=== PATIENT | female | born 1985 | race Two or more races ===

== ENCOUNTER 2019-10-07 11:30 | Observation (INO) | payer OTHER ==
--- OUTSIDE RECORDS SUMMARY | ~2019-10-07 | XMS | Encounter Summary ---
Demographics + + + | Address | [address] | | | [place] [address] | + + + | Home Phone | | + + + | Preferred Language | Unknown | + + + | Marital Status | | + + + | Oriental Orthodox Affiliation | NON | + + + | Race | White | + + + | Ethnic Group | or | + + + Author + + + | Author | [facility] | + + + | Organization | [facility] | + + + | Address | Unknown | + + + | Phone | Unavailable | + + + Support + + + + + | Name | Relationship | Address | Phone | + + + + + | Alexsander Schmidt | ECON | Unknown | | + + + + + | Sinan Winston | ECON | [address] | | | | | [place], [place] | | | | | [address] | | + + + + + | Polly Winston | ECON | [place], | | + + + + + Care Team Providers + +------+ + | Care Wild Oyster Harvester Name | Role | Phone | + +------+ + | Yuli Franklin | PCP | | + +------+ + Reason for Visit + + + | Reason | Comments | + + + | Follow-up visit | | + + + Office Visit - E/M Services (Routine) +--------+--------+ + + + + | Status | Reason | Specialty | Diagnoses / | Referred By | Referred To | | | | | Procedures | Contact | Contact | +--------+--------+ + + + + | Closed | | Cardiology | Diagnoses | No | Johny, | | | | | Sick sinus | Referring | Grayson Myrick MD | | | | | syndrome | Provider Per | [address] | | | | | ([facility]) Total | Patient NO | Ave | | | | | congenital | REFERRING | [place], [place] | | | | | anomalous | PROVIDER PER | [address] | | | | | pulmonary | PT | Phone: | | | | | venous | | [phone] | | | | | connection | | Fax: | | | | | Procedures | | [phone] | | | | | ND EST | | | | | | | PATIENT | | | | | | | LEVEL V | | | +--------+--------+ + + + + Encounter Details +--------+---------+ + + + | Date | Type | Department | Care Team | Description | +--------+---------+ + + + | 01/27/ | Office | Cardiology General | Louisa Reed | Congenital heart | | 2018 | Visit | at [facility] [address] | LEONARD Raphael [address] | disease (Primary Dx) | | | | [facility] | [facility]eban [facility] | | | | | Health and Healing, | [place] [address] | | | | | [address] | [phone] | | | | | [place], [place] | | | | | | [address] | | | | | | [phone] | | | +--------+---------+ + + + Social History + +-------+ +--------+------+ | Tobacco Use | Types | Packs/Day | Years | Date | | | | | Used | | + +-------+ +--------+------+ | Never Smoker | | | | | + +-------+ +--------+------+ + +---+---+---+ | Smokeless Tobacco: | | | | | Never Used | | | | + +---+---+---+ + + +---------+ + | Alcohol Use | Drinks/Week | oz/Week | Comments | + + +---------+ + | Not Asked | | | | + + +---------+ + + + + | Sex Assigned at | Date Recorded | | | | + + + | Not on file | | + + + + + + + | Job Start Date | Occupation | Industry | + + + + | Not on file | Not on file | Not on file | + + + + + + + + | Travel History | Travel Start | Travel End | + + + + + + | No recent travel history available. | + + documented as of this encounter Last Filed Vital Signs + + + + + | Vital Sign | Reading | Time Taken | Comments | + + + + + | Blood Pressure | 113/60 | 01/27/2018 1:15 PM | | | | | PST | | + + + + + | Pulse | 80 | 01/27/2018 1:15 PM | | | | | PST | | + + + + + | Temperature | 36.4 C (97.6 F) | 01/27/2018 1:15 PM | | | | | PST | | + + + + + | Respiratory Rate | - | - | | + + + + + | Oxygen Saturation | 100% | 01/27/2018 1:15 PM | | | | | PST | | + + + + + | Inhaled Oxygen | - | - | | | Concentration | | | | + + + + + | Weight | 77.6 kg (171 lb) | 01/27/2018 1:15 PM | | | | | PST | | + + + + + | Height | - | - | | + + + + + | Body Mass Index | 31.28 | 08/16/2017 2:04 PM | | | | | PDT | | + + + + + documented in this encounter Patient Instructions Patient Instructions Louisa Reed NP - 01/27/2018 1:20 PM PST Thank you for your visit today. We will see you in your first trimester, with our combined Maternal Medicine Clinic. Let us know if you have questions There is no contraindication of the BARBRA bracelet Adult Congenital Heart Disease Clinic MD Halyie Nolen MD Adrienne Kovacs, Psychologist PhD LEONARD Mondragon, [facility]y Overton, RN Important Phone Numbers Adult Congenital Cardiology Office: [phone] (ask for Mavis) Clinic Nurse, Genny Overton: [phone] Clinic [phone] Echo lab [phone] Radiology Scheduling (including MRI, ask essie Zelaya): [phone] Pulmonary function [phone] medical lab scientist [phone] After hours emergency: [phone] Long distance: Financial Assistance: [phone] Website: [email or web address] Satellite Clinics: Karolina Traylor [phone] Gunner [phone] Yearly flu vaccine is the first and most important step in protecting against flu viruses. While there are many different flu viruses, a flu vaccine protects against the viruses that research suggests will be most common. Upcoming Events Help Support the Cyrus Villanueva In recognition of Dr. Cyrus Hobbs's role, over 55 years providing life-long care for anna lee with congenital heart disease at [facility], we, as well as family, friends, colleagues, and p [facility] have contributed to a growing fund to establish and endowed professorship in Cyrus ge, and invite you to join us. You can donate by going to the [facility] [employer] e: [email or web address] [employer] Tour, benefiting the Aiden Villanueva and [facility] . Pleasant walk around the [place], then take one home for mom. July 09 at 11:00am . Contact Paul Crowe ([email or web address]) [facility] Heart Children's Camp October 16-2018 Summer week long camp geared towards children with congenital heart disease ADULT VOLUNTEERS NEEDED for next summer. Come mentor the next generation of ACHD patients. If your interested, please visit website: [email or web address] Email director Thirsting for a Cure 2018, a building dismantler for pulmonary arterial hypertension. Oct 5:30ish to 9:30ish at the [employer]. [facility] Heart and Stroke Walk July 30, 2018 Torres Jacobs [address] [address] We support the Adult Congenital Heart Association and invite you to be a member, to promote patient peer support, education, community events, patient advocacy, and research in congen ital heart disease. Details at [email or web address] Web based, fun interactive learning: [email or web address] documented in this encounter Progress Notes Louias Reed NP - 01/27/2018 1:20 PM PSTFormatting of this note might be differen t from the original. ADULT CONGENITAL HEART CLINIC PROGRESS NOTE Joie Villarreal is a 31 y.o. female here for Follow-up visit PCP: No Pcp Past Medical History: 1. 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 Pacemaker implanted (age 13) 1999 for sick sinus syndrome with AV node dysfunction (Dr Jeremi vasquez) 2.29 November 1998 episodic lightheadedness. Holter monitor demonstrated sinus bradycardia w ith low heart rates in the 30s. Although it was not established that sinus node dysfunction was the cause of her lighthead edness, in view of the significant sinus bradycardia, was decided to perform a pacemaker imp lantation. 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 She and her are desiring a . Has a BARBRA watch which is a biochemistry sensor to track ovulation Exercising Device checks follows by [facility] and is updated SHe lives in [facility]. Accompanied by her mom today. ROS: As above, all other reviewed systems were negative, specifically, no headaches, swall owing problems, cough or hemoptysis, heat or cold intolerance, nausea, vomiting, diarrhea, h ematuria, melena, fever, chills, shakes, rash or bruise, numbness or tingling. FHx: Unchanged from last visit No past encounter found in . SHx: Nonsmoker; Lives in [place]; Works for [employer]. Marri ed. ETOH: glass of wine with dinner 2-3 times per week. Current Outpatient Prescriptions Medication Sig buPROPion XL 150 mg oral tablet extended release 24 hr Take 150 mg by mouth once daily in the morning. cetirizine 10 mg oral tablet Take 10 mg by mouth once daily. levonorgestrel (MIRENA) 20 mcg/24 hour (5 years) intrauterine intrauterine device 1 eac h by intrauterine route once. May be removed and replaced with a new unit at anytime during menstrual cycle; do not leave any one system in place for > 5 years. No current facility-administered medications for this visit. Physical Exam: BP 113/60 | Pulse 80 | Temp (Src) 36.4 C (97.6 F) (Forehead) | Wt 77.6 kg (171 lb) | Sp O2 100% | BMI 31.28 kg/(m^2) GEN: Well appearing JVP: Not elevated. Normal waveform CAROTID: Normal upstroke. CHEST: Normal respiratory effort. Clear to auscultation throughout. HEART: Regular rate and rhythm.+systolic murmur. No diastolic murmur. Second heart dillon nd normal. ABDOM: Soft, non tender, no organomegaly EXTREM: No edema, no clubbing SKIN: Warm and dry NEURO: Awake and oriented DATA: Lab Results Component Value Date RATE 60 07/06/2017 ATRIALRATE 60 07/06/2017 ND 177 07/06/2017 QRS 152 07/06/2017 QT 453 07/06/2017 PAXIS -36 07/06/2017 RAXIS -86 07/06/2017 Echo 01/28/2017 Final Impressions: 1. The left ventricular cavity size is normal. 2. The LV ejection fraction is normal. 3. Right ventricular size, thickness and function are normal. 4. No significant valvular abnormalities seen. 5. There is a posterior common baffle of the pulmonary veins without evidence of baffle obstruction. 6. Compared to the most recent exam dated, 12/25/2014, there are no significant changes. Impression: Joie is a 32 y.o NYHA class I. Repair of TAPV return, SSS with pacemaker. Well compensat ed on exam, no concerns or issues reported. Normal LV function, no residual shunts. She shou ld tolerate well. She understands her risk of congenital heart disease to her off spring is slightly higher than the general public at about 7-10%. A echo is recommende d at 20-24 weeks. She desires to establish with our Combined Cardiac Maternal Medicine Program at [facility] which we plan this visit in her first trimester as well as echo. I reviewed the BARBRA bracelets literature on line, this is simply a monitoring device and no triggers or stimulus to hemodynamics, including her PM. This sensor is no different than any other bioc hemistry bracelets. I also reviewed the literature with LUIS MIGUEL Mccall in EP who also agreed there is no contraindication to patient wearing this bracelet. Recommendations/Plan: Echo at next visit Return for follow-up visit first trimester. We had a discussion about the risks of endocarditis related to oral yaquelin, emphasising the need for routine oral hygiene and indications for antibiotic prophylaxis in patients with re sidual shunts around a patch, prosthetic valves including homografts, cyanosis, or prior hea rt transplant. Regular brushing/flossing and dental visits were emphasized. Based on this our recommendations are that prophylactic antibiotics are not indicated. Medication change? N Referral? (Interventional cardiology/EP/surgical)? Y------> [facility], message to Vickie. Plan to call patient? N Who will call patient and when? documented in th is encounter Plan of Treatment +--------+ + + + + | Date | Type | Specialty | Care Team | Description | +--------+ + + + + | 10/18/ | Appointment | Radiology | | | | 2019 | | | | | +--------+ + + + + | 10/18/ | | | Nellie Munson, | | | 2019 | | | [address] [facility] | | | | | | [address] | | | | | | [place], [place] | | | | | | [address] | | | | | | [phone] | | | | | | | | +--------+ + + + + documented as of this encounter Visit Diagnoses + + | Diagnosis | + + | Congenital heart disease - Primary Unspecified congenital anomaly of heart | + + documented in this encounter"
--- OUTSIDE RECORDS SUMMARY | ~2019-10-07 | XMS | Encounter Summary ---
Demographics + + + | Address | [address] | | | [place] [address] | + + + | Home Phone | | + + + | Preferred Language | Unknown | + + + | Marital Status | | + + + | Sabianist Affiliation | NON | + + + | Race | White | + + + | Ethnic Group | or | + + + Author + + + | Author | [facility] | + + + | Organization | [facility] | + + + | Address | [...] [address] | | | | | [place], [place] | | | | | [address] | | + + + + + | Polly Winston | ECON | [place], | | + + + + + Care Team Providers + +------+ + | Care Demand Inspector Name | Role | Phone | + +------+ + | Gabrielle Mott MD | PCP | | + +------+ + Encounter Details +--------+ + + + + | Date | Type | Department | Care Team | Description | +--------+ + + + + | 12/06/ | Office | [facility] | Note, Outpatient | Progress Note | | 1998 | Visit-Trans | MEDICINE | Clinic | | | | cribed | | | | +--------+ + + + + Social History + +-------+ +--------+------+ | Tobacco Use | Types | Packs/Day | Years | Date | | | | | Used | | + +-------+ +--------+------+ | Never Assessed | | | | | + +-------+ +--------+------+ + + + | Sex Assigned at [...] + + documented as of this encounter Progress Notes Interface, Marketing And Development Coordinator In - 02/05/2006 3:10 AM PSTCLINIC DATE: 12/06/1998 [facility] SUBJECTIVE: Joie is now almost 13 years of age. She is a girl who is postoperative repair of total anomalous pulmonary veins, when she was [age] days of age, in [place]. She had been doing well until a few days ago when she felt lightheaded and was consequently hospitalized with a Holter because of her bradycardia. In retrospect, I note that she had had some episodes of lightheadedness in the past, but at no time had she passed out and this is true at this time. There was no true syncope. The Holter monitoring done when she was in the hospital revealed no symptoms and during that time, she had a heart rate that ranged between low 40s to 94. It was of note that when she has bradycardia, she has episodes of inter beats with ventricular escape and occasional premature atrial contraction noted. When she is at a more rapid rate, she is in a sinus rhythm. OBJECTIVE: Her physical examination today is unchanged, other than her height and weight. She weighs 109 and 3/4rds pounds. She is 61 inches tall. The blood pressure is 102/38, heart rate is 59/min and her arterial saturation by pulse oximeter at room air is 100%. Palpation of the precordium reveals no overactivity nor thrill. Abdominal examination was negative without hepatosplenomegaly, masses or tenderness. She has good pulses in both the upper and lower extremities. No edema is noted and no neck vein distention is noted. Lungs are clear. She continues to have a grade II systolic murmur along the left sternal border. No abnormality of the second heart sound is noted. It splits normally and there is no accentuation of the pulmonary component. I heard no diastolic murmur today and there was no S3 or S4 heard. ASSESSMENT: At this time, I feel that continued observation is appropriate. I did exercise Sarah very briefly, and she got her heart rate up to 100, and it was quite regular at 100. I am sure that if she did more exercise, she could get her heart rate up to a much higher level. Because of this, I feel that there is no reason to limit her activity at this time. Certainly, if there are further episodes of presyncope or if she ever does have true syncope, consideration for pacing should be given more serious thought. However, at this time, I feel that this is not necessary. I will be discussing this with our crop and soil technician to see how they would proceed. However, judging from my discussions with Dr. Mullen in the past, I would anticipate that he would be conservative in this situation. Cyrus Hobbs M.D. Professor, Pediatric Cardiology TRACY/derrell Cc: JEAN MARIE MOTT MD [address] [place] [id number] signed by Interface, Marketing And Development Coordinator In at 02/05/2006 3:10 AM PSTdocumented in this encounter Plan of Treatment +--------+ + + + + | Date | Type | Specialty | Care Team | Description | +--------+ + + + + | 10/18/ | Appointment | Radiology | | | | 2019 | | | | | +--------+ + + + + | 10/18/ | | | Nellie Munson, | | | 2019 | | | [address] [facility] | | | | | | [address] | | | | | | [place], [place] | | | | | | [address] | | | | | | [phone] | | | | | | | | +--------+ + + + + documented as of this encounter Visit Diagnoses Not on filedocumented in this encounter"
--- OUTSIDE RECORDS SUMMARY | ~2019-10-07 | XMS | Encounter Summary ---
Demographics + + + | Address | [address] | | | [place] [address] | + + + | Home Phone | | + + + | Preferred Language | Unknown | + + + | Marital Status | | + + + | Jehovah'S Witness Affiliation | NON | + + + | Race | White | + + + | Ethnic Group | or | + + + Author + + + | Author | [facility] | + + + | Organization | [facility] | + + + | Address | [...] [place], [place] | | | | | [address] | | + + + + + | Polly Winston | ECON | [place], | | + + + + + Care Team Providers + +------+ + | Care Apron Cleaner Name | Role | Phone | + +------+ + | Gabrielle Fernández MD | PCP | | + +------+ + Encounter Details +--------+---------+ + + + | Date | Type | Department | Care Team | Description | +--------+---------+ + + + | 09/25/ | Office | Pediatric | Antonio Hines, | 427.81 SICK SINUS | | 2009 | Visit | Cardiology at | [address] [facility] | SYNDROME (Primary | | | | [place] | [facility] [address] [address] | Dx) | | | | [facility] | [place], [place] | | | | | [address] | [address] | | | | | Emeli | [phone] | | | | | [facility] | | | | | | [address] [facility], | | | | | | [place] [address] | | | | | | [phone] | | | +--------+---------+ + + + [...] documented as of this encounter Progress Notes Antonio Hines MD - 09/25/2009 4:06 PM PDTThis is a Carelink check of the ventricular p acemaker done on 09/22/09 in Joie Villarreal who is a 23 y.o. 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 Device: Medtronic Sensia Implanted: 08/13/08 RULA: no ADVISORY: NO Mode: VVIR Lower Rate: 60 Upper Rate: 170 Battery Voltage: 2.79 volts Cell Impedance: 187 ohms Estimated battery longevity: 7.5 years (range 6-8.5) Patient is not pacer dependent. Telephone monitoring is: on Output (v) Pulse Width (ms) Sensitivity (mv) Right Ventricle 2.5 0.45 2.8 TESTING: Threshold testing was performed. RT VENTRICLE RV threshold volts: 0.875 v RV threshold PW: 0.4 ms RV lead impedance: 680 ohms R Wave Amplitude: unable to check She is paced 82% of the time. Ventricular capture looks good. Programming Changes: None. I am pleased with this check. The next check will be in 3 months. documented in this e ncounter Plan of Treatment +--------+ + + + + | Date | Type | Specialty | Care Team | Description | +--------+ + + + + | 10/18/ | Appointment | Radiology | | | | 2019 | | | | | +--------+ + + + + | 10/18/ | | | Nellie Munson, | | | 2019 | | | [address] [facility] | | | | | | [address] | | | | | | [place], [place] | | | | | | [address] | | | | | | [phone] | | | | | | | | +--------+ + + + + documented as of this encounter Visit Diagnoses + + | Diagnosis | + + | 427.81 SICK SINUS SYNDROME - Primary Sinoatrial node dysfunction | + + documented in this encounter"
--- OUTSIDE RECORDS SUMMARY | ~2019-10-07 | XMS | Encounter Summary ---
Demographics + + + | Address | [address] | | | [place] [address] | + + + | Home Phone | | + + + | Preferred Language | Unknown | + + + | Marital Status | | + + + | Jehovah'S Witness Affiliation | NON | + + + | Race | White | + + + | Ethnic Group | or | + + + Author + + + | Organization | Unknown | + + + | Address | [...] [address] | | | | | [place] | | | | | [address] | | + + + + + | Polly Winston | ECON | ANAYA, | | + + + + + Care Team Providers + +------+ + | Care Medium Cycle Salesperson Name | Role | Phone | + +------+ + | Gabrielle Fernández MD | PCP | | + +------+ + Encounter Details +--------+ + + + + | Date | Type | Department | Care Team | Description | +--------+ + + + + | 10/12/ | Transcribed | | Dictation, Other | Transcribed | | 2000 | | | | | +--------+ + [...] as of this encounter Progress Notes Interface, Social Sciences Department Chair In - 12/11/2005 1:05 AM [facility] [place] [address] [address] or October 12, 2000 Gabrielle Fernández M.D. [address] [facility] [place] [address] RE: JOIE MANCIA MR #: [id number] Dear Dr. Fernández: I saw Joie for followup today. 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 Last year, she was diagnosed with significant sick sinus syndrome and underwent pacemaker placement. Please refer to my letter dated June 03, 1999, and also the most recent check which was September 21, 2000, of her pacemaker. Apart from some occasional joint pains, Joie has no complaints. She also says she occasionally feels pain/itching in her pacemaker area, but this is extremely rare. She is a very active young girl who dances and has been tolerating this well. She has no complaints such as lightheadedness or syncope. All other aspects of the history including review of systems, family history, past history, and social history are all unchanged and similar to that dated June 03, 1999. ALLERGIES: SHE IS ALLERGIC TO CODEINE. CURRENT MEDICATIONS: Desogen once a day. Physical examination shows a well-appearing 14-year-old girl with a weight of 54.4 kg, height 158 cm, blood pressure 120/58, heart rate 64, and saturations 100%. She was comfortable at rest with no evidence of anemia, jaundice, clubbing, cyanosis, or peripheral edema. Peripheral pulses are normally palpable. Abdomen was soft with no hepatosplenomegaly. Pacemaker was felt in the left pectoral region, and the wound is well healed. Chest appeared normal with no deformities, and auscultation revealed normal breath sounds with no crepitations. Cardiovascular, auscultation revealed normal first and second heart sounds and a grade 2 to 3 over 6 ejection systolic murmurs similar to the one heard before. Chest x-ray taken today shows mild cardiomegaly with a lead in the right ventricle which is attached to the left pectoral pacemaker in the infraclavicular region. Pacemaker check today shows a Medtronic [place] pacemaker set at a rate of 60 beats per minute pacing the ventricle. Ventricular sensing threshold was greater than 11.2 and pacing threshold was 0.5V at 1 ms and 0.12 ms at 2V. Underlying rhythm was sinus bradycardia with first-degree heart block at 50 beats per minute. She was 55% paced. Battery voltage was 2.79, cell impedence 110 ohms, and lead impedence was 840 ohms. Estimated time to replacement was 102 months. Since she had a very flat rate cystogram, we felt that increasing her heart rate during exercise would be beneficial to her. Therefore, the pacemaker mode was changed to VVIR which is a rate response mode and the rates were now set at between 60 to 150 beats per minute. No other changes were made, and in particular, no changes were made to the current outputs. Joie seems to be doing very well and so is her pacemaker. She will be seeing Dr. Hobbs in the winter and will come back here for pacemaker followup in 1 year. At that time, I would like to get an echocardiogram and a chest x-ray. I thank you for letting me continue to follow this francisco young lady. If you have any questions, do let me know. Yours sincerely, Antonio Hines M.D. KATYA / ELADIO [id number] / [id number] / [id number] / cc: Cyrus Hobbs M.D. [facility] Department of Pediatric Cardiology [facility] [id number] signed by Interface, Social Sciences Department Chair In at 12/11/2005 1:05 AM PDTInterf eyad, Social Sciences Department Chair In - 12/11/2005 1:05 AM PDT [address] [address] or October 12, 2000 Gabrielle Fernández M.D. [address] [place] [address] RE: JOIE MANCIA MR #: [id number] Dear Dr. Fernández: I saw Joie for followup today. 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 Last year, she was diagnosed with significant sick sinus syndrome and underwent pacemaker placement. Please refer to my letter dated June 03, 1999, and also the most recent check which was September 21, 2000, of her pacemaker. Apart from some occasional joint pains, Joie has no complaints. She also says she occasionally feels pain/itching in her pacemaker area, but this is extremely rare. She is a very active young girl who dances and has been tolerating this well. She has no complaints such as lightheadedness or syncope. All other aspects of the history including review of systems, family history, past history, and social history are all unchanged and similar to that dated June 03, 1999. ALLERGIES: SHE IS ALLERGIC TO CODEINE. CURRENT MEDICATIONS: Desogen once a day. Physical examination shows a well-appearing 14-year-old girl with a weight of 54.4 kg, height 158 cm, blood pressure 120/58, heart rate 64, and saturations 100%. She was comfortable at rest with no evidence of anemia, jaundice, clubbing, cyanosis, or peripheral edema. Peripheral pulses are normally palpable. Abdomen was soft with no hepatosplenomegaly. Pacemaker was felt in the left pectoral region, and the wound is well healed. Chest appeared normal with no deformities, and auscultation revealed normal breath sounds with no crepitations. Cardiovascular, auscultation revealed normal first and second heart sounds and a grade 2 to 3 over 6 ejection systolic murmurs similar to the one heard before. Chest x-ray taken today shows mild cardiomegaly with a lead in the right ventricle which is attached to the left pectoral pacemaker in the infraclavicular region. Pacemaker check today shows a Medtronic [place] pacemaker set at a rate of 60 beats per minute pacing the ventricle. Ventricular sensing threshold was greater than 11.2 and pacing threshold was 0.5V at 1 ms and 0.12 ms at 2V. Underlying rhythm was sinus bradycardia with first-degree heart block at 50 beats per minute. She was 55% paced. Battery voltage was 2.79, cell impedence 110 ohms, and lead impedence was 840 ohms. Estimated time to replacement was 102 months. Since she had a very flat rate cystogram, we felt that increasing her heart rate during exercise would be beneficial to her. Therefore, the pacemaker mode was changed to VVIR which is a rate response mode and the rates were now set at between 60 to 150 beats per minute. No other changes were made, and in particular, no changes were made to the current outputs. Joie seems to be doing very well and so is her pacemaker. She will be seeing Dr. Hobbs in the winter and will come back here for pacemaker followup in 1 year. At that time, I would like to get an echocardiogram and a chest x-ray. I thank you for letting me continue to follow this francisco young lady. If you have any questions, do let me know. Yours sincerely, Antonio Hines M.D. Department of Pediatrics, Division of Cardiology KATYA / ELADIO [id number] / [id number] / [id number] / cc: Cyrus Hobbs M.D. [facility] Department of Pediatric Cardiology [facility] [id number] signed by Cesilia Baltazar In at 12/11/2005 1:05 AM PDTdocume nted in this encounter Plan of Treatment +--------+ + + + + | Date | Type | Specialty | Care Team | Description | +--------+ + + + + | 10/18/ | Appointment | Radiology | | | | 2020 | | | | | +--------+ + + + + | 10/18/ | | | Nellie Munson, | | | 2019 | | | [address] | | | | | | [address] | | | | | | [place], [place] | | | | | | [address] | | | | | | [phone] | | | | | | | | +--------+ + + + + documented as of this encounter Visit Diagnoses Not on filedocumented in this encounter"
--- OUTSIDE RECORDS SUMMARY | ~2019-10-07 | XMS | Encounter Summary ---
Demographics + + + | Address | [address] | | | [place] [address] | + + + | Home Phone | | + + + | Preferred Language | Unknown | + + + | Marital Status | | + + + | Tenriism Affiliation | NON | + + + | Race | White | + + + | Ethnic Group | or | + + + Author + + + | Author | [facility] | + + + | Organization | [facility] | + + + | Address [...] [address] | | | | | [facility] [place] | | | | | [address] | | + + + + + | Polly Winston | ECON | ANAYA, | | + + + + + Care Team Providers + +------+ + | Care Irrigation Service Technician Name | Role | Phone | + +------+ + | No Pcp Per Patient | PCP | Unavailable | + +------+ + Reason for Referral Diagnostic Testing (Routine) +--------+--------+ + + + + | Status | Reason | Specialty | Diagnoses / | Referred By | Referred To | | | | | Procedures | Contact | Contact | +--------+--------+ + + + + | Closed | | Cardiology | Diagnoses | Reed, | Car Echo | | | | | Total | Louisa | [facility] [address] | | | | | congenital | [place], [employer]SEK[employer]PER | [address] | | | | | anomalous | [address] | [facility] pulmonary | Ave | Health and | | | | | venous | [place], [place] | Healing, | | | | | connection | [address] | [address] | | | | | Pacemaker | Phone: | [place], [place] | | | | | Procedures | [phone] | [address] | | | | | TRANSTHORACI | Fax: | Phone: | | | | | C | [phone] | [phone] | | | | | ECHOCARDIOGR | | | | | | | AM, ADULT | | | +--------+--------+ + + + + Encounter Details +--------+ + + + + | Date | Type | Department | Care Team | Description | +--------+ + + + + | 12/20/ | Insurance Examining Clerk | Cardiology [facility] at | Louisa Reed | Total congenital | | 2014 | | [facility] [address] | [place], [employer]AGE [employer]SEK[employer]PER [address] | anomalous pulmonary | | | | [address] [facility] | [address] [place], | venous connection | | | | Health and Healing, | [place] [address] | (Primary Dx); | | | | | [phone] | Medtronic single | | | | Floor [place], [place] | | chamber pacemaker | | | | [address] | | | | | | [phone] | | | +--------+ + + + [...] + + documented as of this encounter Plan of Treatment +--------+ + + + + | Date | Type | Specialty | Care Team | Description | +--------+ + + + + | 10/18/ | Appointment | Radiology | | | | 2020 | | | | | +--------+ + + + + | 10/18/ | | | Nellie Munson, | | | 2020 | | | [address] [facility] | | | | | | [address] | | | | | | [place], [place] | | | | | | [address] | | | | | | [phone] | | | | | | | | +--------+ + + + + documented as of this encounter Procedures + +--------+ + + + | Procedure Name | Priori | Date/Time | Associated Diagnosis | Comments | | | ty | | | | + +--------+ + + + | 12 LEAD ECG | Routin | 12/25/2014 | Total congenital | Results for this | | | e | 2:39 PM | anomalous pulmonary | procedure are in the | | | | PDT | venous connection | results section. | | | | | Medtronic single | | | | | | chamber pacemaker | | + +--------+ + + + | TRANSTHORACIC | Routin | 12/25/2014 | Total congenital | Results for this | | ECHOCARDIOGRAM, | e | 1:06 PM | anomalous pulmonary | procedure are in the | | ADULT | | PDT | venous connection | results section. | | | | | Medtronic single | | | | | | chamber pacemaker | | + +--------+ + + + documented in this encounter Results 12 LEAD ECG (12/25/2014 2:39 PM PDT) + + + + + + | Component | Value | Ref Range | Performed | Pathologist | | | | | At | Signature | + + + + + + | VENTRICULAR | 74 | bpm | [facility] | | | RATE | | | OF | | | | | | CARDIOLOGY | | + + + + + + | ATRIAL RATE | 74 | bpm | [facility] | | | | | | OF | | | | | | CARDIOLOGY | | + + + + + + | P-R | 316 | ms | [facility] | | | INTERVAL | | | OF | | | | | | CARDIOLOGY | | + + + + + + | P AXIS | 0 | deg | [facility] | | | | | | OF | | | | | | CARDIOLOGY | | + + + + + + | QRS | 130 | ms | [facility] | | | DURATION | | | OF | | | | | | CARDIOLOGY | | + + + + + + | QT | 412 | ms | [facility] | | | | | | OF | | | | | | CARDIOLOGY | | + + + + + + | DEISY | 457 | ms | [facility] | | | | | | OF | | | | | | CARDIOLOGY | | + + + + + + | R AXIS | -69 | deg | [facility] | | | | | | OF | | | | | | CARDIOLOGY | | + + + + + + | T AXIS | 133 | deg | [facility] | | | | | | OF | | | | | | CARDIOLOGY | | + + + + + + | ECG | VENTRICULAR-PACED | | [facility] | | | IMPRESSION | RHYTHM- ABNORMAL ECG | | OF | | | | -Electronically signed | | CARDIOLOGY | | | | by: RANJAN RÍOS 12-25-2014 | | | | | | 15:57:46 | | | | + + + + + + + + | Specimen | + + | | + + + + + | Narrative | Performed At | + + + | | | + + + + + + + + | Performing | Address | City/State/Zipcode | Phone Number | | Organization | | | | + + + + + | [facility] | [address] | [place], [place] | | | CARDIOLOGY | [address] | [address] | | + + + + + TRANSTHORACIC ECHOCARDIOGRAM, ADULT (12/25/2014 1:06 PM PDT) + + + + + + | Component | Value | Ref Range | Performed | Pathologist | | | | | At | Signature | + + + + + + | EJECTION | 60 to 65 | | [facility] | | | FRACTION | | | OF | | | | | | CARDIOLOGY | | + + + + + + | LA | 2.9 | | [facility] | | | DIMENSION | | | OF | | | | | | CARDIOLOGY | | + + + + + + | LVIDD | 4.2 | | [facility] | | | | | | OF | | | | | | CARDIOLOGY | | + + + + + + | MV A VMAX | 0.4 | | [facility] | | | | | | OF | | | | | | CARDIOLOGY | | + + + + + + | MV E? | 0.1 | | [facility] | | | | | | OF | | | | | | CARDIOLOGY | | + + + + + + | MV E VMAX | 1.1 | | [facility] | | | | | | OF | | | | | | CARDIOLOGY | | + + + + + + | RVSP | 26 | | [facility] | | | | | | OF | | | | | | CARDIOLOGY | | + + + + + + | RV TAPSE | 1.3 | | [facility] | | | | | | OF | | | | | | CARDIOLOGY | | + + + + + + | RV TDI S? 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
--- OUTSIDE RECORDS SUMMARY | ~2019-10-07 | XMS | Encounter Summary ---
Demographics + + + | Address | [address] | | | [place] [address] | + + + | Home Phone | | + + + | Preferred Language | Unknown | + + + | Marital Status | | + + + | Protestant Affiliation | NON | + + + | Race | White | + + + | Ethnic Group | or | + + + Author + + + | Author | [facility] | + + + | Organization | [facility] | + + + | Address | [...] [place], [place] | | | | | [address] | | + + + + + | Polly Winston | ECON | ANAYA, | | + + + + + Care Team Providers + +------+ + | Care As400 Operator Name | Role | Phone | + +------+ + | Yuli Franklin | PCP | | + +------+ + Encounter Details +--------+ + + + + | Date | Type | Department | Care Team | Description | +--------+ + + + + | 09/08/ | Ancillary | Registration [id number] | Carlos Hinesdri, | | | 2005 | Registratio | [facility] [address] | [address] [facility] | | | | [address] | [address] Mailcode: [id number] | [facility] | | | | | [place], [place] | [place] | | | | | [address] | [address] | | | | | [phone] | [phone] | | | | | | | [...] [address] | | | | | | [place], [place] | | | | | | [address] | | | | | | [phone] | | | | | | | | +--------+ + + + + documented as of this encounter Visit Diagnoses Not on filedocumented in this encounter"
--- OUTSIDE RECORDS SUMMARY | ~2019-10-07 | XMS | Encounter Summary ---
Demographics + + + | Address | [address] | | | [place] [address] | + + + | Home Phone | | + + + | Preferred Language | Unknown | + + + | Marital Status | | + + + | Anabaptism Affiliation | NON | + + + [...] [place], [place] | | | | | [address] | | + + + + + | Polly Winston | ECON | ANAYA, | | + + + + + Care Team Providers + +------+ + | Care Classroom Coordinator Name | Role | Phone | + +------+ + | Yuli Franklin | PCP | | + +------+ + Reason for Referral Diagnostic Testing (Routine) +--------+--------+ + + + + | Status | Reason | Specialty | Diagnoses / | Referred By | Referred To | | | | | Procedures | Contact | Contact | +--------+--------+ + + + + | Closed | | Cardiac | Diagnoses | Henrikson, | Car Cardiac | | | | Catheterizati | Heart block | Bethel Lizarraga, | Twisthand | | | | on | Procedures | MD [address] | [address] | | | | | CONTROL CLERK SUBASSEMBLY | [address] Hernandez | David Lopez | | | | | EP PACEMAKER | Jessica Alfredo | Juni FU | | | | | [place] UPGRADE | [place], [place] | [facility] | | | | | OF | [address] | Floor | | | | | PACEMAKER | Phone: | [place], [place] | | | | | SYSTEM [place] | [phone] | [address] | | | | | INSERT | Fax: | Phone: | | | | | PACING | [phone] | [phone] | | | | | ELECT, AT | | Fax: | | | | | INSERT NEW | | [phone] | | | | | DEVICE | | | +--------+--------+ + + + + Reason for Visit AUTH/CERT +--------+--------+ + + + + | Status | Reason | Specialty | Diagnoses / | Referred By | Referred To | | | | | Procedures | Contact | Contact | +--------+--------+ + + + + | | | | | | | +--------+--------+ + + + + Encounter Details +--------+ + + + + | Date | Type | Department | Care Team | Description | +--------+ + + + + | 07/05/ | Hospital | [address] | Bethel Salvador | | | 2018 - | Encounter | Jean Claude Lizarraga MD [address] | | | | | [address] [place] [address] | [address] | | | 07/06/ | | [place], [place] | [place] | | | 2018 | | [address] | [address] | | | | | [phone] | [phone] | | | | | | | [...] + + + | Blood Pressure | 112/70 | 07/06/2017 7:14 AM | | | | | PDT | | + + + + + | Pulse | 60 | 07/06/2017 7:15 AM | | | | | PDT | | + + + + + | Temperature | 37 C (98.6 F) | 07/06/2017 7:15 AM | | | | | PDT | | + + + + + | Respiratory Rate | 16 | 07/06/2017 7:15 AM | | | | | PDT | | + + + + + | Oxygen Saturation | 100% | 07/06/2017 7:15 AM | | | | | PDT | | + + + + + | Inhaled Oxygen | - | - | | | Concentration | | | | + + + + + | Weight | 73 kg (160 lb 15 oz) | 07/05/2017 1:21 PM | | | | | PDT | | + + + + + | Height | 157.5 cm (5' 2") | 07/05/2017 1:21 PM | | | | | PDT | | + + + + + | Body Mass Index | 29.44 | 07/05/2017 1:21 PM | | | | | PDT | | + + + + + documented in this encounter Discharge Summaries Анна Ahumada PA-C - 07/06/2017 7:28 AM PDT ELECTROPHYSIOLOGY DISCHARGE SUMMARY Hospital Day: 1 Admit Date: 07/05/2017 Discharge Date: 07/06/17 PCP: LUIS MIGUEL Hoff Referring Physician & Institution: No Referring Provider Per Patient Primary/Outpatient Tape Editor: Louisa Reed NP EP Physician: Bethel Salvador MD Inpatient Attending Physician: Bethel Salvador MD Reason For Admission: Upgrade to TAR CHASER-P Hx: Joie Villarreal is a 31 yo F with a past medical history of 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 There have been prior failed attempts at placing an atrial lead presumably due to scarring in the atrium af ter her surgery. She presents for device upgrade to BIV PPM due to her high V pacing burden. Hospital Course: - 07/05/2017 -- Upgrade of single chamber (VVI) PPM to TAR CHASER-P. Of note, after atrial lead was implanted, pt was noted to have intact AV conduction however, would wenckebach at at rate of 90bpm. A His Bundle lead was attempted, however, ultimately unable to be placed. - 07/06/2017 -- Pt seen and examined this morning. She reports feeling well at this time. She does have mild discomfort at the device site which is relieved with oral pain medication. S he otherwise denies chest pain, shortness of breath, palpitations, nausea or lightheaded/diz ziness. She has been ambulating well and is looking forward to going home. Discharge Medications: Medication List START taking these medications HYDROcodone-acetaminophen 5-325 mg Tab Commonly known as: NORCO Take 1-2 tablets by mouth every six hours as needed for severe pain. CONTINUE taking these medications buPROPion XL 150 mg Tb24 Commonly known as: WELLBUTRIN-XL Take 150 mg by mouth once daily in the morning. cetirizine 10 mg Tab Commonly known as: ZYRTEC Take 10 mg by mouth once daily. MIRENA 20 mcg/24 hr (5 years) Iud Generic drug: levonorgestrel 1 each by intrauterine route once. May be removed and replaced with a new unit at anytime d uring menstrual cycle; do not leave any one system in place for > 5 years. Physical Exam: Last Vitals: BP 112/70 | Pulse 60 | Temp 37 C (98.6 F) | RR 16 | Ht 1.575 m (5' 2") | W t 73 kg (160 lb 15 oz) | SpO2 100% | BMI 29.44 kg/(m^2) O2 Delivery Device: None (room air) (07/06/17714) 24 Hour Vital Min/Max: No data recorded. No data recorded. Pulse Av.9 Min: 60 Max: 80 Temp Av.9 C (98.4 F) Min: 36.8 C (98.2 F) Max: 37 C (98.6 F) Resp Av.1 Min: 12 Max: 24 SpO2 Av.1 % Min: 90 % Max: 100 % Intake/Output Summary (Last 24 hours) at 07/06/17727 Last data filed at 07/05/17 1945 Gross per 24 hour Intake 1215 ml Output 0 ml Net 1215 ml Gen'l: Pt A&O, NAD HEENT: Normocephalic, atraumatic, mucosa moist, neck supple without evidence of JVD Chest/Lungs: Lungs: CTAB without wheezes, rhonchi or rales. Left infraclavicular site c/d/i without evidence of hematoma or active oozing. The pressure dressing was removed and a new 4x4 dry dressing was placed. Steri-strips remain intact Cardiac: RRR without murmurs, rubs or gallops. Abdomen: Soft, non-tender with NABS Extremities: No clubbing cyanosis or edema noted. LABS: Complete Blood Count Lab Results Component Value Date WBC See [facility] 08/13/[address] [facility] 08/13/[address] [facility] 08/13/[address] [facility] 08/13/[address] [facility] 08/13/[address] [facility] 08/13/2008 EKG: AV pacing 60bpm TELE: AV pacing 60's - 80's CXR: EXAM: CHEST 2 VIEWS HISTORY: Confirm lead placement COMPARISON: 07/05/17 FINDINGS: Left subclavian 3-lead pacer is intact and has leads terminating in the coronary sinus, rig ht ventricular apex, right atrial appendage. The mediastinum is unremarkable. There is mild bibasilar atelectasis, the lungs are otherwi se clear. There is no pleural effusion or pneumothorax. There is no apparent fracture. IMPRESSION: Left subclavian approach pacer with intact right atrial appendage, right ventricular and co ronary sinus leads. No pneumothorax. Minimal bibasilar atelectasis, otherwise clear lungs. DEVICE INTERROGATION: Device Information: BiV-pacemaker pulse generator: Blender Laborer: StepOne Model number: [id number] Serial number: [id number] Implant date: 07/05/2017 RA lead: Blender Laborer: Medtronic Model number: 5076-45 Serial number: [id number] Implant date: 07/05/2017 RV lead: Blender Laborer: Pacesetter Model number: [id number] Serial number: [id number] Implant date: 08/11/1999 CS lead: Blender Laborer: Medtronic Model number: [id number] Serial number: [id number] Implant date: 07/05/2017 PACEMAKER PROGRAMMING: Ramesh Mode: DDDR Lower Rate: 60 bpm Upper Tracking Rate: 170 bpm Upper Sensor Rate: 170 bpm PAV/SHIKHA: 150/110ms Mode Switch: on Mode Switch Trigger Rate: 200 bpm Mode Switch to DDIR RA Output: 3.5 V @ 0.4 ms RA Sensitivity: 0.3 mV RV Output: 3.0 V @ 0.4 ms RV Sensitivity: 0.9 mV LV Output: 3.5 V @ 0.4 ms EPISODES SINCE IMPLANT: none. PACING PERCENTAGE: AP: 100% BiVP: 100% TODAY'S TESTING RESULTS: Battery status: Battery Voltage/Current:3.16 V RULA: 2.60V. Estimate Longevity: Initializing RA lead: Impede: 380 ohms P. Wave Amplitude: None @ DDD 30bpm Threshold: 0.5 V @ 0.4 ms RV lead: Impede: 513 ohms R. Wave Amplitude: 2.0-6.0 mV Threshold: 1.5 V @ 0.4 ms LV lead: Impede: 1045 ohms Threshold: 2.0 V @ 0.4 ms Patient IS pacer dependent. There is no underlying atrial activity at DDD 30bpm. However, w hen pacing the atrium, there is intact AV conduction Underline rhythm today is no underlying atrial activity at DDD 30bpm. However, when pacing the atrium, there is intact AV conduction Programming Changes: None. Returned to initial pre-interrogation settings after threshold t esting completed. 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 There hav e been prior failed attempts at placing an atrial lead presumably due to scarring in the atr ium after her surgery. She presents for device upgrade to BIV PPM due to her high V pacing b josise. # SSS - S/P single chamber PPM at RULA - S/P Upgrade to Medtronic TAR CHASER-P 07/05/2017 - Of note, after atrial lead was implanted, pt was noted to have intact AV conduction h owever, would wenckebach at at rate of 90bpm. A His Bundle lead was attempted, however, kyle mately unable to be placed. 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 Why: @1:30 For Follow Up, For a device check Contact information [address] [place] [address] LUIS MIGUEL HOFF In 1 week. Specialty: Physician Oil Field Rig Builder Why: For a wound check Contact information [facility] [address] [place] [address] documented in thi s encounter Progress Notes Andrew Quintero MD - 07/05/2017 6:11 PM PDTPRELIMINARY PROCEDURE NOTE Date and Time: 07/05/2017 6 pm Name(s) of Primary Surgeon/Physician and Assistants: Ingrid Salvador Pre-Operative Diagnosis:SSS, High RV pacing burden Post-Operative Diagnosis:Same Name of Procedure Performed:Biventricular pacemaker upgrade Indication for the procedure:As above Findings of the Procedure:successful biventricular upgrade Intra-operative complications:None noted Estimated Blood Loss:10 mL Plan: - portable CXR now - 2 view CXR tomorrow - 2 more doses of Ancef - Interrogate tomorrow Andrew Alcala Mai, MD Electrophysiology Fellow Division of Cardiovascular Medicine [facility] Pager [phone] Анна Ahumada PA-C - 07/05/2017 3:41 PM PDTPacemaker Implant Patient Instructions These instructions are pertinent to pacemaker new implant, pacemaker upgrade or revision wi th new lead(s). Driving: ? No driving for the first 24 hours after your procedure as you may be under the influence of sedative medications. ? You should not drive if you are taking pain medications or sedative medications around th e clock. ? For the first week, you should also avoid driving too much as over aggressive arm motion may cause dislodgement of the newly implanted pacemaker leads. ? You should not drive any time if you feel weak, dizzy, lightheaded, drowsy, or unsteady f rom any causes. ? If you have had syncopal events (fainting or loss of consciousness) before your pacemaker implant, please check with your attendance officer as to whether or not you can drive. You should not drive until you are cleared by your attendance officer. ? If you have driving restrictions from any other medical conditions or reasons, please fol low those restrictions. Wound Care: ? Watch your pacemaker procedure site for signs of infection or bleeding. Report any rednes s, swelling, bleeding, hematoma (bleeding inside the pocket), or drainage from the site. Rep ort any unexplained fever with temperatures over 100.5 degrees in the first two weeks follow ing the procedure. ? The incision will be closed with absorbable stitches under the skin and covered with ster i-strips. Do not pull these steri-strips off. Usually, they will fall off gradually after a few weeks. If they do not, you may remove them after 3 weeks. ? A pressure-dressing (thick layered dressing with all-around tape) will be placed above th e steri-strips over the incision at the end of procedure. This will be removed the next morn ing and replaced with regular gauze by our staff. You may take this dressing off the day aft er you get home. ? No direct water on the incision site for at least 5 days that means no shower, tub ba th, or swimming. You can take a sponge bath but keep the procedure site completely dry. ? Do not immerse the wound in a bath tub, pool or hot tub for one month, to reduce the risk of infection. Follow-ups after the procedure: ? You will need a wound check appointment in about one week and pacemaker check in 4-6 week s following the implant procedure. ? If you prefer to have your primary care doctor check the wound for you, please call his/h er office to make an appointment. If you choose to be followed with us, our office will cont act you to schedule an appointment. ? The pacemaker needs to be checked at a cardiology office or device clinic. If you choose to be followed with us, our office will contact you to schedule an appointment. If you prefe r to be followed locally, please ask your doctor to refer you to a local cardiology/device c linic before discharge. ? After the first pacemaker check appointment, you will need to have your pacemaker checked regularly at the device clinic every 6 months or as directed by the device clinic. ? In some situations, the device company will send you a remote monitor. Please read the in structions regarding how to set this up, and discuss with the device clinic staff at your wo und check appointment or 4-6 week pacemaker check appointment. Arm Activities and Restrictions: ? For the first 6 weeks, restrict the procedure side arm activity to gentle arm motion only as the new pacemaker leads will take about 4-6 weeks to mature at the implant site in your heart. Do not lift anything heavier than 10 pounds, push or pull heavy objects, reach for s omething higher than your shoulder or reach behind your back, and avoid over-aggressive arm motions (i.e. tennis, painting, lawn mowing) with your procedure side arm. ? You may use your non-procedure side arm regularly without restrictions. ? We recommend regular exercise as you are able to, such as walking, or stationary biking. If you do not know how to begin a regular activity program, please ask your doctor for moi dawkins. Arm Sling: ? If you are given an arm sling at the hospital after your procedure, only use it for the f irst couple of days following the procedure for your comfort. ? You should take your arm out every couple of hours and move your hand/elbow to allow good circulation while you are using the arm sling. ? You should not hold your arm still in the sling for a prolonged period of time, as it may cause swelling, soreness, or stiffness in your arm and joints. Diet: ? Your diet should not have to be changed as a result of your pacemaker implant procedure. ? You may be given diet recommendations based on your other health conditions. Electrical interference: Pacemakers are protected from electrical interference from regular house electronic binh paul or appliances. It is safe to use and to be around a microwave oven, computer, TV or oth er regular house electronic devices or appliances. ? You should avoid using any power tools especially with your procedure side hand. If you h ave questions about specific electrical devices or power tools you may be around, please santosh l the company's patient line using the phone # on your card or handbook. ? Your pacemaker function may be affected by strong magnets so you should avoid being aroun d strong magnetic patrick for prolonged periods of time. The pacemaker will return to normal function as soon as you leave the magnetic field. Cell Phone Use: ? It is OK to use a cell phone on the opposite side of your pacemaker (use non-procedure si de hand to hold the cell phone to non-procedure side ear). ? Do not carry a cell phone in the pocket that is over your pacemaker or near your pacemake r. Travel and Shopping: Your device may trigger airport security detection devices. Please carry your pacemaker card with you and show the attendant your card. Ask for a hand search and do not use hand-he ld wand search over the device. It is safe to go through the full body scanner at the [facility], but only after 6 weeks post pacemaker implant as this requires you to put your hands abov e your head Some department stores and grocery stores have anti-theft doors. Please do not lean agai nst these anti-theft doors. Walk through them at a normal pace. Pacemaker Wallet Card: You will be given a handbook in the hospital after the implant procedure, which contains important information about your device and has answers to most common questions. Please re ad it thoroughly and be sure to have your questions answered before leaving the hospital. You will receive a wallet size ID card in the mail from the device company in about 2-3 weeks. Please always carry the card with you when you go to doctor s appointments, the [facility] room, or hospital so other health care providers will know what type of pacemaker you have. You can find the company s patient line phone number in the handbook as well as on you r card. You can contact the company if you have any technical questions regarding your devic e. How to Contact us: Cardiology Division Office [phone] Cardiology Patient Phone Line BELLE Marie Dr[address] Dr., Dr., PA-C Karen Paladino, RN Evenings or weekends: Ask for on-call attendance officer documented in thi s encounter Plan of Treatment +--------+ + + [...] [address] | | | | | | [place], [place] | | | | | | [address] | | | | | | [phone] | | | | | | | | +--------+ + + + + documented as of this encounter Procedures + +--------+ + + + | Procedure Name | Priori | Date/Time | Associated Diagnosis | Comments | | | ty | | | | + +--------+ + + + | 12 LEAD ECG | Routin | 07/06/2017 | | Results for this | | | e | 8:12 AM | | procedure are in the | | | | PDT | | results section. | + +--------+ + + + | X-RAY CHEST 2 VIEW | Routin | 07/06/2017 | | Results for this | | | e | 5:52 AM | | procedure are in the | | | | PDT | | results section. | + +--------+ + + + | PROCEDURE NOTE | Routin | 07/05/2017 | | Results for this | | | e | 6:40 PM | | procedure are in the | | | | PDT | | results section. | + +--------+ + + + | X-RAY PORTABLE CHEST | Routin | 07/05/2017 | | Results for this | | 1 VIEW | e | 6:33 PM | | procedure are in the | | | | PDT | | results section. | + +--------+ + + + | CONTROL CLERK SUBASSEMBLY EP | Routin | 07/05/2017 | Heart block | Results for this | | PACEMAKER | e | 1:55 PM | | procedure are in the | | | | PDT | | results section. | + +--------+ + + + | HCG URINE, POC | Routin | 07/05/2017 | Heart block | Results for this | | | e | 1:53 PM | | procedure are in the | | | | PDT | | results section. | + +--------+ + + + | INTRAPROCEDURE | Routin | 07/05/2017 | | Results for this | | IMAGING | e | 1:08 PM | | procedure are in the | | | | PDT | | results section. | + +--------+ + + + | CARDIOLOGY | | 07/05/2017 | | Results for this | | | | 12:00 AM | | procedure are in the | | | | PDT | | results section. | + +--------+ + + + documented in this encounter Results 12 LEAD ECG (07/06/2017 8:12 AM PDT) + + + + + + | Component | Value | Ref Range | Performed | Pathologist | | | | | At | Signature | + + + + + + | VENTRICULAR | 60 | bpm | [facility] | | | RATE | | | OF | | | | | | CARDIOLOGY | | + + + + + + | ATRIAL RATE | 60 | ms | [facility] | | | | | | OF | | | | | | CARDIOLOGY | | + + + + + + | P-R | 177 | ms | [facility] | | | INTERVAL | | | OF | | | | | | CARDIOLOGY | | + + + + + + | P AXIS | -36 | deg | [facility] | | | | | | OF | | | | | | CARDIOLOGY | | + + + + + + | QRS | 152 | ms | [facility] | | | DURATION | | | OF | | | | | | CARDIOLOGY | | + + + + + + | QT | 453 | ms | [facility] | | | | | | OF | | | | | | CARDIOLOGY | | + + + + + + | QTC-GRABIEL | 453 | ms | [facility] | | | | | | OF | | | | | | CARDIOLOGY | | + + + + + + | R AXIS | -86 | deg | [facility] | | | | | | OF | | | | | | CARDIOLOGY | | + + + + + + | T AXIS | 107 | deg | [facility] | | | | | | OF | | | | | | CARDIOLOGY | | + + + + + + | ECG | Atrial-ventricular | | [facility] | | | IMPRESSION | dual-paced rhythm- | | OF | | | | ABNORMAL ECG - | | CARDIOLOGY | | + + + + + + | ECG | Electronically signed | | [facility] | | | IMPRESSION | by: SHAY VILLANUEVA | | OF | | | | 07-07-2017 20:33:10 | | CARDIOLOGY | | + + [...] | + + + + + | [facility] OF | [address] | [place], [place] | | | CARDIOLOGY | [address] | [address] | | + + + + + X-RAY CHEST 2 VIEW (07/06/2017 5:52 AM PDT) + + | Specimen | + + | | + + + + + | Narrative | Performed At | + + + | EXAM: CHEST 2 VIEWS HISTORY: Confirm lead placement | [facility] | | COMPARISON: 07/05/17 FINDINGS: Left subclavian 3-lead pacer is | RADIOLOGY VOICE | | intact and has leads terminating in the coronary sinus, right | RECOGNITION | | ventricular apex, right atrial appendage. The mediastinum is | | | unremarkable. There is mild bibasilar atelectasis, the lungs are | | | otherwise clear. There is no pleural effusion or pneumothorax. There | | | is no apparent fracture. IMPRESSION: Left subclavian approach | | | pacer with intact right atrial appendage, right ventricular and | | | coronary sinus leads. No pneumothorax. Minimal bibasilar | | | atelectasis, otherwise clear lungs. I have personally reviewed | | | the images and, if necessary, edited the report. I agree with the | | | report as now presented. | | + + + + + | Procedure Note | + + | Service Account, Lorie Res In Interface - 07/06/2017 8:12 AM PDT EXAM: CHEST 2 | | VIEWS HISTORY: Confirm lead placementCOMPARISON: 07/05/17INDINGS: Left subclavian 3-lead | | pacer is intact and has leads terminating in the coronary sinus, right ventricular apex, | | right atrial appendage.The mediastinum is unremarkable. There is mild bibasilar | | atelectasis, the lungs are otherwise clear. There is no pleural effusion or | | pneumothorax. There is no apparent fracture.IMPRESSION:Left subclavian approach pacer | | with intact right atrial appendage, right ventricular and coronary sinus leads. No | | pneumothorax.Minimal bibasilar atelectasis, otherwise clear lungs.I have personally | | reviewed the images and, if necessary, edited the report. I agree with the report as | | now presented. | |The mediastinum is unremarkable. There is mild bibasilar atelectasis, the lungs are otherwi se clear. There is no pleural effusion or pneumothorax. There is no apparent fracture. | | | |IMPRESSION: | | | |Left subclavian approach pacer with intact right atrial appendage, right ventricular and co ronary sinus leads. No pneumothorax. | | | |Minimal bibasilar atelectasis, otherwise clear lungs. | | | | | |I have personally reviewed the images and, if necessary, edited the report. I agree with t he report as now presented. | + + + +---------+ + + | Performing | Address | City/State/Zipcode | Phone Number | | Organization | | | | + +---------+ + + | [facility] | | | | | VOICE RECOGNITION | | | | + +---------+ + + PROCEDURE NOTE (07/05/2017 6:40 PM PDT) + + + | Narrative | Performed At | + + + | Bethel Salvador MD 07/06/2017 8:43 PM PATIENT NAME: | | | Joie Villarreal DATE OF PROCEDURE: 07/05/2017 MRN: | | | [id number] DATE OF : 1985 REFERRING PHYSICIAN: | | | LUIS MIGUEL Hoff PRIMARY CARE PHYSICIAN: LUIS MIGUEL Hoff | | | PROCEDURES PERFORMED: 1. Successful biventricular pacemaker | | | upgrade 2. 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 | | | Her device is approaching RULA, and she would benefit from an | | | upgrade to a BiV PPM for AV and ventricular synchrony PROCEDURE | | | ATTENDING: Bethel Salvador MD FELLOW: Andrew Quintero MD | | | PROCEDURAL DATA: Procedure: Biventricular pacemaker upgrade | | | Implanted generator assembly repairer: Medtronic Implanted leads | | | assembly repairer: Medtronic, Pacesetter Jany-procedure Anticoag: None | | | Presenting rhythm: Sinus rhythm with 1:1 conduction, but | | | Wenckebach at > 80 bpm Existing device under advisory? Not | | | applicable Pacemaker dependent: No Method of sedation: Moderate | | | sedation via anesthesia Response to sedation: Normal Fluoroscopy | | | time (see log): 46-48 minutes MEDICATIONS: See | | | anesthesia log and rags laborer log INTAKE AND OUTPUT: 500/0 mL | | | Fluoroscopy Time: 47.3 minutes Fluoroscopy DAP: 850.0 cGy cm2 | | | PROCEDURE NARRATIVE: Following oral and written informed consent, | | | the patient was brought to the Electrophysiology Laboratory in the | | | postabsorptive, nonsedated state. Cefazolin 2gm IV was administered | | | preoperatively. The patient was prepped and draped in the usual | | | sterile fashion. A finger oximeter and automatic blood pressure cuff | | | were placed for continuous monitoring. Sedation was achieved by the | | | anesthesiology service. Lidocaine 1% was used for local | | | anesthesia. To determine the adequacy of a channel in the | | | subclavian / axillary venous system, a subclavian / axillary | | | venogram was performed using an injection of dilute contrast via the | | | left brachiocephalic vein. This demonstrated a patent left | | | subclavian vein. A 5 cm incision was made medial and | | | perpendicular to the deltopectoral groove. This was dissected down | | | to the prepectoral fascia at the level of the generator using | | | electrocautery. Using the modified Seldinger technique and | | | fluoroscopy, a micropuncture needle was used to cannulate the | | | extrathoracic axillary vein. A guidewire was inserted to the level | | | of the inferior vena cava. In a similar fashion, the vein was | | | cannulated one additional times using the micropuncture needle and a | | | total of two guidewires were positioned in the inferior vena cava. | | | A 7 Fr Safe sheath was inserted over the remaining guidewire | | | and the wire and dilator were removed. An atrial pacing lead was | | | then introduced into the 7-Fr sheath and using a J-tip stylet, its | | | tip was positioned in the right atrial appendage. The lead was | | | actively fixated in this position. Lead testing showed suitable | | | parameters, with no right hemidiaphragmatic stimulation occurring at | | | an output of 10 V. The 7 Fr sheath was pulled out and peeled | | | away. The lead was anchored to the prepectoral fascia using | | | interrupted silk-0 sutures. Because atrial pacing showed 1:1 AV | | | cheli conduction with a narrow QRS up to 80 bpm (above which there | | | is Wenckebach), we decided to attempt His bundle pacing, and only if | | | this is unsuccessful, then we will perform an LV lead placement. | | | A 10 Fr sheath was inserted over the second wire. A deflectable | | | quadripolar catheter was inserted into this 10 Fr sheath and used to | | | map for the His signal and the coronary sinus, then it was removed. | | | A 7.0 Fr C315 His guide catheter was inserted into this 10 Fr | | | sheath. The NavX electroanatomic mapping system was used to edwige | | | the his bundle and the coronary sinus. Using fluoroscopy, a pacing | | | lead was then introduced into the guide catheter and advanced into | | | the RA septum. The pacing lead was used to map for a His potential, | | | but this could not be seen since the His guide catheter kept | | | pointing the lead tip posterior to the His location. We attempted | | | active fixation of the lead into a potential His site, but there was | | | intermittent capture at 10V at 1.0 msec. After multiple | | | unsuccessful attempts, we abandoned His bundle pacing and proceeded | | | with LV lead placement. The His guide catheter and pacing lead were | | | removed. A 6-Fr deflectable EP mapping catheter was inserted into | | | a cut-away, extended-hook coronary sinus sheath and this system was | | | inserted into the 10-Fr sheath. The EP mapping catheter was used | | | to guide the CS sheath into the CS and was then removed. CS | | | venography using a balloon occluder and Visipaque contrast revealed | | | lateral branch. Multiple unsuccessful attempts were made to place a | | | Whisper wire into this lateral branch of the CS even with the use of | | | a inner CS sheath. There was no lateral branch of the AIV. | | | Fortunately, the middle cardiac vein (MCV) has a posterolateral | | | branch; therefore, we placed the guidewire into the MCV, and a | | | quadripolar CS lead was advanced over this guidewire until its tip | | | was in the lateral branch of the MCV. After testing several | | | pacing configurations for left ventricular capture, the LV1-2 | | | bipolar configuration was selected. Using this configuration, pacing | | | threshold was 2.25 V at 0.5 ms and no diaphragmatic stimulation was | | | observed at an output of 10 V. Other lead parameters were within | | | acceptable limits The inner and outer CS sheath were pulled out of | | | the CS and cut away using a slitter while making sure the CS lead | | | remained in the lateral branch. The 10 Fr sheath was pulled out and | | | peeled away. An anchoring sleeve was advanced over the CS lead and | | | positioned just at the level of the prepectoral fascia, and the lead | | | was anchored to the prepectoral fascia using interrupted silk-0 | | | sutures. A subcutaneous pocket was created using blunt | | | dissection, and hemostasis was achieved with electrocautery. The | | | pocket was irrigated with copious amounts of Bacitracin solution. | | | The leads were then connected to the header of a biventricular | | | pacemaker generator and the leads and pulse generator were | | | positioned inside the pocket. An antibiotic pouch was used to cover | | | the generator. After accounting for all sharps and sponges, the | | | incision was closed in three layers, using Vicryl 2-0 for the deep | | | and superficial layers and Vicryl 4-0 for the subcuticular layer. | | | Bacitracin ointment, Steri-Strips, and a dressing were placed over | | | the incision site. The patient tolerated the entire procedure | | | well. REMOVED DEVICE INFORMATION: Single chamber pacemaker pulse | | | generator: Blender Laborer: Medtronic Model number: [id number] | | | Serial number: [id number] Implant date: 08/13/2008 Explant | | | date: 07/05/2017 DEVICE INFORMATION: BiV-pacemaker pulse | | | generator: Blender Laborer: Medtronic Model number: [id number] Serial | | | number: [id number] Implant date: 07/05/2017 RA lead: | | | Blender Laborer: Medtronic Model number: 5076-45 Serial number: | | | [id number] Implant date: 07/05/2017 RV lead: Blender Laborer: | | | Pacesetter Model number: [id number] Serial number: [id number] | | | Implant date: 08/11/1999 CS lead: Blender Laborer: Medtronic | | | Model number: [id number] Serial number: [id number] Implant date: | | | 07/05/2017 MEASURED PARAMETERS: RA lead: P wave: 2 mV | | | Threshold: 1.0 V at 0.4 ms Impedance: 399 ohms RV lead: | | | R wave: 9 mV Threshold: 1.5 V at 0.4 ms Pacing Impedance: | | | 1083 ohms CS lead: Pacing configuration: LV1-LV2 R wave: | | | NA Threshold: 2.25 V at 0.4 ms Impedance: 1083 ohms | | | Bradycardia Parameters: Mode: DDDR Lower rate limit: 60 | | | Upper rate limit: 170 Output (A): 3.5 V at 0.4 ms Sensitivity | | | (A): 0.3 mV Output (RV): 3.5 V at 0.4 ms Sensitivity (RV): | | | 0.9 mV Output (CS): 3.5 V at 0.4ms ESTIMATED BLOOD LOSS: 15 | | | mL COMPLICATIONS: None DISPOSITION: The patient was | | | transferred to the Procedural Care Unit in good condition. | | | IMPRESSION: Successful upgrade to a biventricular implantable | | | pacemaker via a left axillary approach. RECOMMENDATIONS: | | | Portable CXR to evaluate for lead positions. Continue prophylactic | | | IV antibiotics for 24 hours. PA and lateral CXR in AM to confirm lead | | | position. Device interrogation in AM. Outpatient wound check in one | | | week, device check in one month. Andrew Alcala Mai, MD | | | Electrophysiology Fellow Division of Cardiovascular Medicine | | | [facility] Pager [phone] I was present | | | for and personally performed all critical portions of the | | | procedure. Bethel Salvador M.D. Director, | | | Electrophysiology Carpenter Helperother spatial scientist [place] | | | Cardiovascular Widen [facility] | | | [place] [address] | | + + + X-RAY PORTABLE CHEST 1 VIEW (07/05/2017 6:33 PM PDT) + + | Specimen | + + | | + + + + + | Narrative | Performed At | + + + | EXAM: MO CHEST 1 VIEW HISTORY: Pacer placement COMPARISON: | [facility] | | 10/05/06 FINDINGS: The left subclavian pacer has been replaced. | RADIOLOGY VOICE | | The right ventricular lead is unchanged. New leads have been placed, | RECOGNITION | | which terminate overlying the right atrial appendage and coronary | | | sinus on this single view. Mediastinum is unremarkable. There is | | | mild bibasilar atelectasis. There is no definite effusion. There is no | | | pneumothorax. IMPRESSION: Left subclavian approach pacer with | | | leads in expected location. Mild bibasilar atelectasis. No | | | pneumothorax. I have personally reviewed the images and, if | | | necessary, edited the report. I agree with the report as now | | | presented. | | + + + + + | Procedure Note | + + | Service Account, [email or web address] In Interface - 07/06/2017 8:12 AM PDT EXAM: MO CHEST 1 | | VIEW HISTORY: Pacer placementCOMPARISON: 10/05/06FINDINGS: The left subclavian pacer has | | been replaced. The right ventricular lead is unchanged. New leads have been placed, | | which terminate overlying the right atrial appendage and coronary sinus on this single | | view.Mediastinum is unremarkable. There is mild bibasilar atelectasis. There is no | | definite effusion. There is no pneumothorax.IMPRESSION:Left subclavian approach pacer | | with leads in expected location. Mild bibasilar atelectasis. No pneumothorax.I have | | personally reviewed the images and, if necessary, edited the report. I agree with the | | report as now presented. | | | |Mediastinum is unremarkable. There is mild bibasilar atelectasis. There is no definite effu jennifer. There is no pneumothorax. | | | |IMPRESSION: | | | |Left subclavian approach pacer with leads in expected location. | | | |Mild bibasilar atelectasis. No pneumothorax. | | | | | |I have personally reviewed the images and, if necessary, edited the report. I agree with t he report as now presented. | + + + +---------+ + + | Performing | Address | City/State/Zipcode | Phone Number | | Organization | | | | + +---------+ + + | [facility] | | | | | VOICE RECOGNITION | | | | + +---------+ + + CONTROL CLERK SUBASSEMBLY EP PACEMAKER (07/05/2017 1:55 PM PDT) + + | Specimen | + + | | + + + + + | Narrative | Performed At | + + + | Procedure performed in the Cardiac Twisthand. See procedure notes | | | for details. | | + + + HCG URINE, POC (07/05/2017 1:53 PM PDT) + + + + + + | Component | Value | Ref Range | Performed | Pathologist | | | | | At | Signature | + + + + + + | HCG URINE, | Negative | Negative | [facility] - | | | POC | | | [facility] | | | | | | [facility] | | | | | | OF CARE | | | | | | TESTS | | + + + + + + + + | Specimen | + + | Urine - Urine | | (substance) | + + + + + + + | Performing | Address | City/State/Zipcode | Phone Number | | Organization | | | | + + + + + | [facility] | [address] | [place], [place] | | | [facility] | [address] | [address] | | | TESTS | | | | + + + + + INTRAPROCEDURE IMAGING (07/05/2017 1:08 PM PDT) + + | Specimen | + + | | + + + + + | Narrative | Performed At | + + + | See admission or procedure notes for details of any intraprocedure | | | images obtained. | | + + + CARDIOLOGY (07/05/2017 12:00 AM PDT) + + + | Narrative | Performed At | + + + | | | + + + documented in this encounter Visit Diagnoses + + | Diagnosis | + + | Heart block Conduction disorder, unspecified | + + documented in this encounter Administered Medications + +--------+ +------+------+-------+ | Medication Order | MAR | Action | Dose | Rate | Site | | | Action | Date | | | | + +--------+ +------+------+-------+ | bacitracin-NS IRRIGATION | Given | 07/06/19 | | | Chest | | INTRAPROCEDURE PRN, Starting Mon | | 18 5:42 | | | | | 07/05/17 at 1742, Until Wed07/05/17 | | PM PDT | | | | | at 1742 | | | | | | + +--------+ +------+------+-------+ +---+---+ | | | +---+---+ + +---------+ +-----+---+---+ | ceFAZolin IV 2 gram in dextrose | New Bag | 07/07/19 | 2 g | | | | (RTU) 2 g, intravenous, EVERY 8 | | 18 5:25 | | | | | HOURS, 2 doses, First dose on | | AM PDT | | | | | 07/05/17 at 2200, Last dose on | | | | | | | Wed07/06/17 at 0600 | | | | | | + +---------+ +-----+---+---+ +---------+ +-----+---+---+ | New Bag | 07/06/19 | 2 g | | | | | 18 10:04 | | | | | | PM PDT | | | | +---------+ +-----+---+---+ +---+---+ | | | +---+---+ + +-------+ +-------+---+---+ | cetirizine (ZYRTEC) tablet 10 | Given | 07/07/19 | 10 mg | | | | mg 10 mg, oral, DAILY, First | | 18 7:26 | | | | | dose on Wed07/06/17 at 0900, Until | | AM PDT | | | | | Discontinued | | | | | | + +-------+ +-------+---+---+ + +---+ | | | + +---+ | fentaNYL (SUBLIMAZE) injection | | | 50 mcg 50 mcg, intravenous, | | | POSTPROCEDURE PRN, 4 doses, | | | Starting 07/05/17 at 1813, | | | Until Wed07/06/17 at 1435, severe | | | pain while in Phase I Recovery | | + +---+ | | | + +---+ + +-------+ +---------+---+---+ | HYDROcodone-acetaminophen | Given | 07/07/19 | 2 | | | | (NORCO) 5-325 mg tablet 1-2 | | 18 5:25 | tablets | | | | tablet 1-2 tablet, oral, EVERY 4 | | AM PDT | | | | | HOURS NEEDED, Starting Mon | | | | | | | 07/05/17 at 1856, Until Wed07/06/17 | | | | | | | at 1435, pain | | | | | | + +-------+ +---------+---+---+ +-------+ + +---+---+ | Given | 07/06/19 | 2 | | | | | 18 11:35 | tablets | | | | | PM PDT | | | | +-------+ + +---+---+ | Given | 07/06/19 | 1 tablet | | | | | 18 7:41 | | | | | | PM PDT | | | | +-------+ + +---+---+ + +---+ | | | + +---+ | HYDROcodone-acetaminophen | | | (NORCO) 5-325 mg tablet 1 dose, | | | Starting Wed07/05/17 at 1857, | | | Until Wed07/05/17 at 1858 | | + +---+ | | | + +---+ + +-------+ +-------+---+---+ | iohexol (OMNIPAQUE) 350 mg | Given | 07/06/19 | 15 mL | | | | iodine/mL injection | | 18 2:30 | | | | | INTRAPROCEDURE PRN, Starting Mon | | PM PDT | | | | | 07/05/17 at 1430, Until 07/05/17 | | | | | | | at 1430 | | | | | | + +-------+ +-------+---+---+ + +---+ | | | + +---+ | naloxone (NARCAN) injection | | | intravenous, POSTPROCEDURE PRN, | | | Starting 07/05/17 at 1813, | | | Until 07/06/17 at 1435, | | | hypopnea | | + +---+ | | | + +---+ | ondansetron (ZOFRAN) injection | | | 4 mg 4 mg, intravenous, | | | POSTPROCEDURE PRN, 1 dose, | | | Starting 07/05/17 at 1814, | | | Until 07/06/17 at 1435, | | | nausea/vomiting, 1st line | | + +---+ | | | + +---+ | sodium chloride 0.9% IV | | | infusion 10 mL/hr, intravenous, | | | CONTINUOUS, Starting 07/05/17 | | | at 1315, Until Tu07/06/17 at 1435 | | + +---+ | | | + +---+ documented in this encounter
--- OUTSIDE RECORDS SUMMARY | ~2019-10-07 | XMS | Encounter Summary ---
Demographics + + + | Address | [address] | | | [place] [address] | + + + | Home Phone | | + + + | Preferred Language | Unknown | + + + | Marital Status | | + + + | Worship Affiliation | NON | + + + | Race | White | + + + | Ethnic Group | or | + + + Author + + + | Author | [facility] | + + + | Organization | [facility] | + + + | Address [...] [place], [place] | | | | | [address] | | + + + + + | Polly Winston | ECON | [place], | | + + + + + Care Team Providers + +------+ + | Care Snow Remover Name | Role | Phone | + +------+ + | Gabrielle Mott MD | PCP | | + +------+ + Encounter Details +--------+ + + + + | Date | Type | Department | Care Team | Description | +--------+ + + + + | 03/28/ | Office | [facility] | Note, Outpatient | Progress Note | | 2001 | Visit-Trans | MEDICINE | Clinic | [...] as of this encounter Progress Notes Interface, Registered Health Nurse In - 11/12/2005 6:07 AM PDTCLINIC DATE: 03/28/2001 [facility] SUBJECTIVE: Joie is now 15. She is a young girl who is postoperative repair of total anomalous pulmonary venous drainage done at 1-week of age. Subsequently when she was 13, she was diagnosed with sick sinus syndrome and had a pacemaker put in. Since she had her pacemaker, she has had none of the signs of presyncope that previously were noted. However recently, she has had some symptoms when she was doing some of her swim exercises that she relates as a pounding in the back of her head which, when she stops, her exercises go away slowly. She does not relate to any kind of rhythm disturbance. Her heart is not beating either fast or slow. She otherwise has been well and quite active, continuing with her dance, and it is of note that she does not these symptoms when she is dancing rather vigorously. The mother does relate that she has a new bathing cap which fits rather snugly and it has only been since she has been wearing this that she has been having these symptoms. OBJECTIVE: On examination, she is no distress. She is alert and without cyanosis. She weighs 117-1/2 lb; she is 62 inches tall. Blood pressure is 109/65; heart rate is 75 per minute and regular; her arterial saturation is 99% by pulse oximeter at room air. Palpation of the precordium reveals no overactivity nor thrill. Abdomen examination was negative, without hepatosplenomegaly, masses, or tenderness. The lungs are clear to auscultation. Cardiac auscultation reveals a grade 2 systolic murmur in the pulmonic area. No diastolic murmur is heard. Heart sounds are normal; the second heart sound is normally split. IMPRESSION: I believe that the symptom that Joie relates is most probably due to her swim cap and I advised her to try swimming without it or to put it on when she is not swimming to see what happens when she exercises with it on. Certainly if she does not have the headache when she does not have the swim cap on and then has it when she is doing some other activity and not swimming, it would seem that is the cause for her current symptoms. Otherwise, her pacemaker is functioning well. She has it monitored by telephone every other month and will be seeing Dr. Hines again for followup in August. Cyrus Hobbs M.D. Professor, Pediatric Cardiology EMMANUEL/patsy cc: JEAN MARIE MOTT MD [address] [place] [id number] signed by Interface, Registered Health Nurse In at 11/12/2005 6:07 AM PDTdocumented in this encounter Plan of Treatment +--------+ [...] [address] | | | | | | [place], [place] | | | | | | [address] | | | | | | [phone] | | | | | | | | +--------+ + + + + documented as of this encounter Visit Diagnoses Not on filedocumented in this encounter"
--- OUTSIDE RECORDS SUMMARY | ~2019-10-07 | XMS | Encounter Summary ---
Demographics + + + | Address | [address] | | | [place] [address] | + + + | Home Phone | | + + + | Preferred Language | Unknown | + + + | Marital Status | | + + + | Rastafari Affiliation | NON | + + + | Race | White | + + + | Ethnic Group | or | + + + Author + + + | Author | [facility] | + + + | Organization | [facility] | + + + | Address [...] [address], [place] | | | | | [address] | | + + + + + | Polly Winston | ECON | [place], | | + + + + + Care Team Providers + +------+ + | Care Rehab Nurse Name | Role | Phone | + +------+ + | Gabrielle Fernández MD | PCP | | + +------+ + Encounter Details +--------+ + + + + | Date | Type | Department | Care Team | Description | +--------+ + + + + | 07/30/ | Service Center Supervisor | Pediatric | Antonio Hines, | [phone] SICK SINUS | | 2006 | | Cardiology at | MD [address] | SYNDROME; TAPVR | | | | [place] | [address] | (Total Anomalous | | | | [facility] | [facility] [place] | Pulmonary Venous | | | | [address] | [address] | Return) | | | | Emeli | [phone] | | | | | [facility] | | | | | | [address] [facility], | | | | | | [place] [address] | | | | | | [phone] | | | +--------+ + + + [...] [address] | | | | | | [place], [place] | | | | | | [address] | | | | | | [phone] | | | | | | | | +--------+ + + + + documented as of this encounter Procedures + +--------+ + + + | Procedure Name | Priori | Date/Time | Associated Diagnosis | Comments | | | ty | | | | + +--------+ + + + | X-RAY CHEST 1 VIEW | Routin | 10/05/2006 | 427.81 SICK SINUS | Results for this | | | e | 9:58 AM | SYNDROME TAPVR | procedure are in the | | | | PDT | (Total Anomalous | results section. | | | | | Pulmonary Venous | | | | | | Return) | | + +--------+ + + + documented in this encounter Results CHEST 1 VIEW (10/05/2006 9:58 AM PDT) + + + + + + | Component | Value | Ref Range | Performed | Pathologist | | | | | At | Signature | + + + + + + | CHEST, 1 | Radiologist 1: ZEKE, | | | | | VIEW | Gianni PÉREZEXAM:PA | | | | | | chest COMPARISON:09/16/04 | | | | | | FINDINGS:Pacemaker | | | | | | remains in place with | | | | | | single lead projecting | | | | | | inthe right ventricle. | | | | | | Heart size is | | | | | | unchanged. The lungs | | | | | | areclear. Costophrenic | | | | | | angles are sharp. | | | | | | There is no | | | | | | pulmonaryedema.IMPRESSIO | | | | | | N: 1. 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
--- OUTSIDE RECORDS SUMMARY | ~2019-10-07 | XMS | Encounter Summary ---
Demographics + + + | Address | [address] | | | [place] [address] | + + + | Home Phone | | + + + | Preferred Language | Unknown | + + + | Marital Status | | + + + | Mandaeism Affiliation | NON | + + + | Race | White | + + + | Ethnic Group | or | + + + Author + + + | Author | [facility] | + + + | Organization | [facility] | + + + | Address [...] [place], [place] | | | | | [address] | | + + + + + | Polly Winston | ECON | ANAYA, | | + + + + + Care Team Providers + +------+ + | Care Sleep Technologist Name | Role | Phone | + +------+ + | Yuli Franklin | PCP | | + +------+ + Reason for Visit + + + | Reason | Comments | + + + | Device Check | | + + + | Device Check | | + + + Office Visit - E/M Services (Routine) +--------+--------+ + + + + | Status | Reason | Specialty | Diagnoses / | Referred By | Referred To | | | | | Procedures | Contact | Contact | +--------+--------+ + + + + | Closed | | Cardiology | Diagnoses | Brian, | David, | | | | | Sick sinus | MD Valdez | LEONARD aSlvador | | | | | syndrome | [address] | [address] | | | | | Presence of | [address] | [address] | | | | | cardiac | [place], | [place], [place] | | | | | pacemaker | [place] [address] | [address] | | | | | Primary | Phone: | Phone: | | | | | Diagnosis:42 | [phone] | [phone] | | | | | 7.81 | Fax: | Fax: | | | | | 427.81 SICK | [phone] | [phone] | | | | | SINUS | | | | | | | SYNDROME | | | | | | | Other | | | | | | | Diagnoses:74 | | | | | | | 7.41 | | | | | | | Total | | | | | | | 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 | | | | | | | pulmonary | | | | | | | venous | | | | | | | | | | | | | | | | | | | | | connection | | | | | | | | | | | | | | V45.01 | | | | | | | | | | | | | | Medtronic | | | | | | | single | | | | | | | chamber | | | | | | | pacem | | | | | | | Procedures | | | | | | | DC ICD DVC | | | | | | | PRG EVL,1 | | | | | | | SNGL DC ICD | | | | | | | DVC PRGR | | | | | | | EVL,ASSEMBLY LINE UPHOLSTERER | | | +--------+--------+ + + + + Encounter Details +--------+---------+ + + + | Date | Type | Department | Care Team | Description | +--------+---------+ + + + | 06/07/ | Office | Cardiology | Yanet Smith | 427.81 SICK SINUS | | 2018 | Visit | Arrhythmia at [facility] | [address] | SYNDROME (Primary | | | | [address] | Jessica Alfredo [place], | Dx); Sinoatrial node | | | | [facility] | [place] [address] | dysfunction (HCC) | | | | and Healing, | | | | | | Building | | | | | | Floor [place], [place] | | | | | | [address] | | | | | | [phone] | | | +--------+---------+ + + + [...] documented as of this encounter Progress Notes Yanet Smith - 06/07/2017 11:30 AM JIM REMOTE INTERROGATION REPORT Primary Care Provider: LUIS MIGUEL Hoff Machine Ii Coremaker: GARY team Husker Operator: HARI HISTORY: Joie Villarreal is a 31 y.o. female who has a Medtronic single chamber pacemaker implanted for SSS. ADVISORY and WEAPONS ENGINEER RECOMMENDATIONS: No (confirmed 06/07/17) Presenting Rhythm: V pacing, HR: 80s Underlying Rhythm: Not assessed, this is a remote visit Patient is intermittently dependent (per last office check.) Interrogation Details: SEE MEDIA TAB or HYPERLINKS AT BOTTOM OF DEVICE CHECK ENCOUNTER FOR FULL DEVICE INTERROGATION DATA EVENTS: Since device was last cleared on 01/28/17, there has been 1 ventricular high rate e pisode recorded. EGM shows 7-beat run @ ~200 bpm. PACING PERCENTAGES: WATER CONTROL STATION ENGINEER: 93.1% (last EF 67.5% on 01/28/17) Programming Details: VVIR 60 Remote monitoring: ON and transmitting Device Site: Not assessed, this is a remote visit Conclusion: - Normal device function - Battery is nearing RULA with an range of <1 month to 17 months remaining longevity. Estima bindu 7 months remaining (50% probability) - Lead impedance and pacing thresholds obtained via auto testing are stable. - Programming Changes: N/A - 1 ventricular high rate episode recorded. - Follow-up: q1 month remote checks until RULA is met Associated attestation - Garfield Ryder MD - 06/07/2017 5:59 PM PDTCardiac Electrophysio logy I have reviewed the above device interrogation note and agree with the documented findings. High Tar Worker percentage. Recent EF WNL. Device is nearing RULA. Garfield Ryder MD Cardiac Electrophysiology documented in this encounter Plan of Treatment +--------+ [...] Rd | | | | | | [place], [place] | | | | | | [address] | | | | | | [phone] | | | | | | | | +--------+ + + + + documented as of this encounter Procedures + +--------+ + + + | Procedure Name | Priori | Date/Time | Associated Diagnosis | Comments | | | ty | | | | + +--------+ + + + | CARDIAC DEVICE | Routin | 06/07/2017 | 427.81 SICK SINUS | Results for this | | (PACEMAKER/ICD) | e | 12:00 AM | SYNDROME | procedure are in the | | CHECK - REMOTE | | PDT | | results section. | + +--------+ + + + documented in this encounter Results CARDIAC DEVICE (PACEMAKER/ICD) CHECK - REMOTE (06/07/2017 12:00 AM PDT) + + + | Narrative | Performed At | + + + | | | + + + documented in this encounter Visit Diagnoses + + | Diagnosis | + + | 427.81 SICK SINUS SYNDROME - Primary Sinoatrial node dysfunction | + + documented in this encounter"
--- OUTSIDE RECORDS SUMMARY | ~2019-10-07 | XMS | Encounter Summary ---
Demographics + + + | Address | [address] | | | [place] [address] | + + + | Home Phone | | + + + | Preferred Language | Unknown | + + + | Marital Status | | + + + | Yarsani Affiliation | NON | + + + | Race | White | + + + | Ethnic Group | or | + + + Author + + + | Author | [facility] | + + + | Organization | [facility] | + + + | [...] [address], [place] | | | | | [address] | | + + + + + | Polly Winston | ECON | ANAYA, | | + + + + + Care Team Providers + +------+ + | Care Publication Specialist Name | Role | Phone | + +------+ + | Gabrielle Fernández MD | PCP | | + +------+ + Encounter Details +--------+ + + + + | Date | Type | Department | Care Team | Description | +--------+ + + + + | 09/03/ | Procedure - | UNKNOWN DEPARTMENT | Other, Faculty | ECHO (BEN or TTE) | | 2003 | | [address] [facility] | [phone] | | | | Transcribed | [address] | | | | | | [place], [place] | | | | | | [address] | | | +--------+ + + + [...] documented as of this encounter Progress Notes Other, Faculty - 09/04/2003 12:00 AM PDTAssociated Order(s): TRANSTHORACIC ECHOCARDIOGRAM, ADULT [facility] DATE: 09/04/03 [place], [place] MED REC NO: [id number] NAME: JOIE MANCIA ECHOCARDIOGRAPHY REPORT BIRTHDATE: [birth year] INDICATION FOR STUDY: STATUS POST TOTAL ANOMALOUS PULMONARY VENOUS RETURN. UNIT: STUDY NO: TAPE NO. DIG REQUEST BY: CORNELIO CARDONA MD BP: 108/62 TECH: RI HT: 157.50 CM WT: 56.80 M-MODE:MM 2-D MEASUREMENT LVID (D)43.0 (S)31.0 %FS 28 LA 24.0 IVS (D) 7.0 AO 24.0 LVPW (D) 7.0 DOPPLER:M/S PW CW MMHG PW CW MMHG PULMVEINS 1.35 RVIT 0.65 LVIT 1.60 RVOT 0.80 LVOT 1.15 MPA 1.00 ASAO AP 1.45 TR 2.15 ASAO SSN 1.30 DSAO 1.25 COLOR FLOW 2D & DOPPLER INTERPRETATION 1. 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 PULMONARY VENOUS RETURN IS UNOBSTRUCTED. 2. TRACE MITRAL REGURGITATION. 3. 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 ESTIMATED RIGHT VENTRICULAR PRESSURE IS NORMAL. 4. NORMAL LEFT VENTRICULAR SIZE AND SYSTOLIC FUNCTION. 5. PACER WIRE SEEN IN RIGHT ATRIUM AND RIGHT VENTRICLE. DELMIS ADRIAN M.D. FINAL REPORT documented in this encou nter Plan of Treatment +--------+ + + + [...] Rd | | | | | | [place], [place] | | | | | | [address] | | | | | | [phone] | | | | | | | | +--------+ + + + + documented as of this encounter Procedures + +--------+ + + + | Procedure Name | Priori | Date/Time | Associated Diagnosis | Comments | | | ty | | | | + +--------+ + + + | TRANSTHORACIC | | 09/04/2003 | | Results for this | | ECHOCARDIOGRAM, | | 12:00 AM | | procedure are in the | | ADULT | | PDT | | results section. | + +--------+ + + + documented in this encounter Results TRANSTHORACIC ECHOCARDIOGRAM, ADULT (09/04/2003 12:00 AM PDT) + + | Procedure Note | + + | Other, Faculty - 09/04/2003 12:00 AM PDT [facility] DATE: | | 09/04/03 [place], [place] MED REC NO: [id number] NAME: JOIE MANCIA | | ECHOCARDIOGRAPHY REPORT BIRTHDATE: [birth year] INDICATION FOR STUDY: STATUS POST TOTAL | | ANOMALOUS PULMONARY VENOUS RETURN. UNIT: PC STUDY NO: TAPE NO. DIG REQUEST BY: | | CORNELIO CARDONA MD BP: 108/62 TECH: RI HT: 157.50 CM WT: 56.80 | | M-MODE:MM | | 2-D MEASUREMENT | | LVID (D)43.0 | | (S)31.0 %FS 28 LA 24.0 IVS (D) 7.0 AO 24.0 LVPW (D) 7.0 | | DOPPLER:M/S | | PW CW MMHG PW CW MMHG | | PULMVEINS | | 1.35 RVIT 0.65 LVIT 1.60 RVOT 0.80 LVOT 1.15 MPA 1.00 ASAO AP 1.45 TR 2.15 ASAO SSN | | 1.30 DSAO 1.25 | | COLOR FLOW | | 2D & DOPPLER INTERPRETATION | | 1. TOTAL | | ANOMALOUS PULMONARY VENOUS RETURN (? TYPE) STATUS POST REPAIR. PULMONARY VENOUS RETURN | | IS UNOBSTRUCTED. 2. TRACE MITRAL REGURGITATION. 3. PHYSIOLOGIC TRICUSPID REGURGITATION | | AND PULMONARY INSUFFICIENCY. ESTIMATED RIGHT VENTRICULAR PRESSURE IS NORMAL. 4. NORMAL | | LEFT VENTRICULAR SIZE AND SYSTOLIC FUNCTION. 5. PACER WIRE SEEN IN RIGHT ATRIUM AND | | RIGHT VENTRICLE. DELMIS ADRIAN M.D. FINAL | | REPORT | | PULMVEINS 1.35 | | RVIT 0.65 LVIT 1.60 | | RVOT 0.80 | | LVOT 1.15 | | MPA 1.00 ASAO AP 1.45 | | TR 2.15 ASAO SSN 1.30 | | DSAO 1.25 | | | | COLOR FLOW 2D & DOPPLER INTERPRETATION | | | | 1. TOTAL ANOMALOUS PULMONARY VENOUS RETURN (? TYPE) STATUS POST | | REPAIR. PULMONARY VENOUS RETURN IS UNOBSTRUCTED. | | | | 2. TRACE MITRAL REGURGITATION. | | | | 3. PHYSIOLOGIC TRICUSPID REGURGITATION AND PULMONARY | | INSUFFICIENCY. ESTIMATED RIGHT VENTRICULAR PRESSURE IS NORMAL. | | | | 4. NORMAL LEFT VENTRICULAR SIZE AND SYSTOLIC FUNCTION. | | | | 5. PACER WIRE SEEN IN RIGHT ATRIUM AND RIGHT VENTRICLE. | | | | | | | | DELMIS ADRIAN M.D. | | | | FINAL REPORT | | | | | + + documented in this encounter Visit Diagnoses Not on filedocumented in this encounter"
--- OUTSIDE RECORDS SUMMARY | ~2019-10-07 | XMS | Encounter Summary ---
Demographics + + + | Address | [address] | | | [place] [address] | + + + | Home Phone | | + + + | Preferred Language | Unknown | + + + | Marital Status | | + + + | Islam Affiliation | NON | + + + [...] [place], [place] | | | | | [address] | | + + + + + | Polly Winston | ECON | ANAYA, | | + + + + + Care Team Providers + +------+ + | Care Speech Language Pathologist Prn Name | Role | Phone | + +------+ + | No Pcp Per Patient | PCP | Unavailable | + +------+ + Encounter Details +--------+ + + + + | Date | Type | Department | Care Team | Description | +--------+ + + + + | 12/19/ | Baking Assistant | Cardiology [facility] at | Grayson Mcclain S, | 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 | | [facility] [address] | MD [address] | anomalous pulmonary | | | | [facility] | [facility] [place] | venous connection | | | | Health and Healing, | [address] | (Primary Dx); | | | | | [phone] | Medtronic single | | | | Floor [place], [place] | | chamber pacemaker | | | | [address] | | | | | | [phone] | | | +--------+ + + + [...] | | 2020 | | | [address] [facility] | | | | | | [address] | | | | | | [place], [place] | | | | | | [address] | | | | | | [phone] | | | | | | | | +--------+ + + + + documented as of this encounter Procedures + +--------+ + + + | Procedure Name | Priori | Date/Time | Associated Diagnosis | Comments | | | ty | | | | + +--------+ + + + | 12 LEAD ECG | Routin | 12/26/2013 | Total congenital | Results for this | | | e | 9:38 AM | anomalous pulmonary | procedure are in the | | | | PDT | venous connection | results section. | | | | | Medtronic single | | | | | | chamber pacemaker | | + +--------+ + + + documented in this encounter Results 12 LEAD ECG (12/26/2013 9:38 AM PDT) + + + + + + | Component | Value | Ref Range | Performed | Pathologist | | | | | At | Signature | + + + + + + | VENTRICULAR | 67 | bpm | [facility] | | | RATE | | | OF | | | | | | CARDIOLOGY | | + + + + + + | ATRIAL RATE | 0 | bpm | [facility] | | | | | | OF | | | | | | CARDIOLOGY | | + + + + + + | P-R | 140 | ms | [facility] | | | INTERVAL | | | OF | | | | | | CARDIOLOGY | | + + + + + + | P AXIS | 0 | deg | [facility] | | | | | | OF | | | | | | CARDIOLOGY | | + + + + + + | QRS | 132 | ms | [facility] | | | DURATION | | | OF | | | | | | CARDIOLOGY | | + + + + + + | QT | 432 | ms | [facility] | | | | | | OF | | | | | | CARDIOLOGY | | + + + + + + | QTC-BAZETT | 456 | ms | [facility] | | | | | | OF | | | | | | CARDIOLOGY | | + + + + + + | R AXIS | -65 | deg | [facility] | | | | | | OF | | | | | | CARDIOLOGY | | + + + + + + | T AXIS | 116 | deg | [facility] | | | | | | OF | | | | | | CARDIOLOGY | | + + + + + + | ECG | VENTRICULAR-PACED | | [facility] | | | IMPRESSION | RHYTHM- ABNORMAL ECG | | OF | | | | -Electronically signed | | CARDIOLOGY | | | | by: LIBAN MILTON | | | | | | 12-26-2013 18:18:50 | | | | + + + + + + + + | Specimen | + + | | + + + + + | Narrative | Performed At | + + + | | [facility] | | | CARDIOLOGY | + + + + + | Procedure Note | + + | Kalyani Beverly - 12/26/2013 10:24 AM PDT | + + + + + + + | Performing | Address | City/State/Zipcode | Phone Number | | Organization | | | | + + + + + | [facility] | [address] | [place], [place] | | | CARDIOLOGY | [address] | [address] | | + + + + + documented in this encounter Visit Diagnoses + + | Diagnosis | + + | 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
--- OUTSIDE RECORDS SUMMARY | ~2019-10-07 | XMS | Encounter Summary ---
Demographics + + + | Address | [address] | | | [place] [address] | + + + | Home Phone | | + + + | Preferred Language | Unknown | + + + | Marital Status | | + + + | Episcopalian Affiliation | NON | + + + | Race | White | + + + | Ethnic Group | or | + + + Author + + + | Author | [facility] | + + + | Organization | [facility] | + + + | Address [...] [address], [place] | | | | | [address] | | + + + + + | Polly Winston | ECON | ANAYA, | | + + + + + Care Team Providers + +------+ + | Care Clinical Audiologist Name | Role | Phone | + +------+ + | Gabrielle Fernández MD | PCP | | + +------+ + Encounter Details +--------+ + + + + | Date | Type | Department | Care Team | Description | +--------+ + + + + | 09/26/ | Telephone | Pediatric | Carlos Hinesdri, | | | 2009 | | Cardiology at | MD [address] [facility] | | | | | [place] | [facility] | | | | | [facility] | [place], [place] | | | | | [address] | [address] | | | | | [place] | [phone] | | | | | [facility] | | | | | | [address]th [facility], | | | | | | [place] [address] | | | | | | [phone] | | | +--------+ + + + [...] | | 2019 | | | [address] | | | | | | [address] | | | | | | [place], [place] | | | | | | [address] | | | | | | [phone] | | | | | | | | +--------+ + + + + documented as of this encounter Visit Diagnoses Not on filedocumented in this encounter"
--- OUTSIDE RECORDS SUMMARY | ~2019-10-07 | XMS | Encounter Summary ---
Demographics + + + | Address | [address] | | | [place] [address] | + + + | Home Phone | | + + + | Preferred Language | Unknown | + + + | Marital Status | | + + + | Catholic Affiliation | NON | + + + | Race | White | + + + | Ethnic Group | or | + + + Author + + + | Author | [facility] | + + + | Organization | [facility] | + + + | Address | [...] [address], [place] | | | | | [address] | | + + + + + | Polly Winston | ECON | ANAYA, | | + + + + + Care Team Providers + +------+ + | Care Sweater Operator Name | Role | Phone | + +------+ + | Yuli Franklin | PCP | | + +------+ + Reason for Visit + + + | Reason | Comments | + + + | Patient referral | [facility] | + + + Encounter Details +--------+ + + + + | Date | Type | Department | Care Team | Description | +--------+ + + + + | 01/27/ | Telephone | [facility] Nellie Munson, | Patient referral | | 2018 | | Health [address] | [address] | (Maternal cardiac | | | | [address] | [facility] | [facility]) | | | | [place], 7th floor | [place], [place] | | | | | [place], [place] | [address] | | | | | [address] | [phone] | | | | | [phone] | | | +--------+ + + + [...] [address] | | | | | | [place] | | | | | | [address] | | | | | | [phone] | | | | | | | | +--------+ + + + + documented as of this encounter Visit Diagnoses Not on filedocumented in this encounter"
--- OUTSIDE RECORDS SUMMARY | ~2019-10-07 | XMS | Encounter Summary ---
Demographics + + + | Address | [address] | | | [place] [address] | + + + | Home Phone | | + + + | Preferred Language | Unknown | + + + | Marital Status | | + + + | Mandaeism Affiliation | NON | + + + | Race | White | + + + | Ethnic Group | or | + + + Author + + + | Author | [facility] | + + + | Organization | [facility] | + + + | [...] [place], [place] | | | | | [address] | | + + + + + | Polly Winston | ECON | ANAYA, | | + + + + + Care Team Providers + +------+ + | Care Veterinary Practitioner Name | Role | Phone | + +------+ + | Gabrielle Fernández MD | PCP | | + +------+ + Encounter Details +--------+ + + + + | Date | Type | Department | Care Team | Description | +--------+ + + + + | 02/11/ | Telephone | Pediatric | Carlos Hinesdri, | | | 2008 | | Cardiology at | MD [address] [facility] | | | | | [place] | [facility] | | | | | [facility] | [place], [place] | | | | | [address] | [address] | | | | | [place] | [phone] | | | | | [facility] | | | | | | [address]th [facility], | | | | | | [place] [address] | | | | | | [phone] | | | +--------+ + + + [...] [address] | | | | | | [place], [place] | | | | | | [address] | | | | | | [phone] | | | | | | | | +--------+ + + + + documented as of this encounter Visit Diagnoses Not on filedocumented in this encounter"
--- OUTSIDE RECORDS SUMMARY | ~2019-10-07 | XMS | Encounter Summary ---
Demographics + + + | Address | [address] | | | [place] [address] | + + + | Home Phone | | + + + | Preferred Language | Unknown | + + + | Marital Status | | + + + | Synagogue Affiliation | NON | + + + | Race | White | + + + | Ethnic Group | or | + + + Author + + + | Author | [facility] | + + + | Organization | [facility] | + + + | Address [...] [place], [place] | | | | | [address] | | + + + + + | Polly Winston | ECON | ANAYA, | | + + + + + Care Team Providers + +------+ + | Care Clinical Trial Head Name | Role | Phone | + +------+ + | Yuli Franklin | PCP | | + +------+ + Encounter Details +--------+ + + + + | Date | Type | Department | Care Team | Description | +--------+ + + + + | 05/24/ | MyChart | Cardiology | | Device Check | | 2020 | Encounter | Arrhythmia at [facility] | | | | | | [address] | | | | | | [facility] | | | | | | and Healing, | | | | | | Building | | | | | | Floor [place], [place] | | | | | | [address] | | | | | | [phone] | | | +--------+ + + + [...] | + + +---------+ + | Not Currently | | | | + + +---------+ + + + + + | Alcohol Habits | Answer | Date Recorded | + + + + | How often do you have a drink containing | 2-3 times a week | 04/21/2019 | | alcohol? | | | + + + + | How many drinks containing alcohol do you | Not asked | | | have on a typical day when you are | | | | drinking? | | | + + + + | How often do you have six or more drinks on | Not asked | | | one occasion? | | | + + + + + + + + | Education | Answer | Date Recorded | + + + + | What is the highest level of school you | Bachelor's degree (e.g., | 04/21/2019 | | have completed or the highest degree you | BA, AB, BS) | | | have received? | | | + + + + + + + | Sex Assigned [...] [address] | | | | | | [place], [place] | | | | | | [address] | | | | | | [phone] | | | | | | | | +--------+ + + + + documented as of this encounter Visit Diagnoses Not on filedocumented in this encounter"
--- OUTSIDE RECORDS SUMMARY | ~2019-10-07 | XMS | Encounter Summary ---
Demographics + + + | Address | [address] | | | [place] [address] | + + + | Home Phone | | + + + | Preferred Language | Unknown | + + + | Marital Status | | + + + | Protestant Affiliation | NON | + + + | Race | White | + + + | Ethnic Group | or | + + + Author + + + | Author | [facility] | + + + | Organization | [facility] | + + + [...] [address], [place] | | | | | [address] | | + + + + + | Polly Winston | ECON | ANAYA, | | + + + + + Care Team Providers + +------+ + | Care Sap Technical Developer Name | Role | Phone | + +------+ + | Yuli Franklin | PCP | | + +------+ + Reason for Visit Consultation (Routine) + +--------+ + + + + | Status | Reason | Specialty | Diagnoses / | Referred By | Referred To | | | | | Procedures | Contact | Contact | + +--------+ + + + + | Authorized | | | Diagnoses | Reed, | 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, CONVEYOR BELT REPAIRER | [address] | | | | | anomalous | [address] | [place] | | | | | pulmonary | [address] | [address], [address] | | | | | venous | [place], [place] | floor | | | | | connection | [address] | [place], [place] | | | | | Procedures | Phone: | [phone] | | | | | CONSULT TO | [phone] | Phone: | | | | | PERINATOLOGY | Fax: | [phone] | | | | | GA NEW | [phone] | Fax: | | | | | PATIENT | | [phone] | | | | | LEVEL V GA | | | | | | | EST PATIENT | | | | | | | LEVEL V | | | + +--------+ + + + + Encounter Details +--------+ + + + + | Date | Type | Department | Care Team | Description | +--------+ + + + + | 09/20/ | | [facility] | Nellie Munson, | | | 2019 | | [facility] [address] | MD [address] [facility] | | | | | [address] | [facility] | | | | | [place], [facility] floor | [place], [place] | | | | | [place], [place] | [address] | | | | | [address] | [phone] | | | | | [phone] | | | +--------+ + + + [...] recent travel history available. | + + + + + + | COVID-19 Exposure | Response | Date Recorded | + + + + | In the last month, have you been in contact | No / Unsure | 09/21/2019 12:46 PM | | with someone who was confirmed or | | PDT | | suspected to have Coronavirus / COVID-19? | | | + + + + documented as of this encounter Last Filed Vital Signs + + + + + | Vital Sign | Reading | Time Taken | Comments | + + + + + | Blood Pressure | 123/66 | 09/21/2019 2:30 PM | | | | | PDT | | + + + + + | Pulse | 84 | 09/21/2019 2:30 PM | | | | | PDT | | + + + + + | Temperature | - | - | | + + + + + | Respiratory Rate | - | - | | + + + + + | Oxygen Saturation | 99% | 09/21/2019 2:30 PM | | | | | PDT | | + + + + + | Inhaled Oxygen | - | - | | | Concentration | | | | + + + + + | Weight | 76.1 kg (167 lb 12.8 | 09/21/2019 2:30 PM | | | | oz) | PDT | | + + + + + | Height | 157.5 cm (5' 2.01") | 09/21/2019 2:30 PM | | | | | PDT | | + + + + + | Body Mass Index | 30.68 | 09/21/2019 2:30 PM | | | | | PDT | | + + + + + documented in this encounter Patient Instructions Patient Instructions Nellie Munson MD - 09/21/2019 2:00 PM Wendy Salter It was nice to see you today! Here is today's ultrasound report with regards to the placenta vs vasa previa question: 2. Posterior placenta with placenta previa; the edge of the placenta reaches the internal os. Using color Doppler ultrasound, a vessel was observed close to the internal os, with arterial pulsation being confirmed, finding that corresponds to vasa previa. The pulsations in the vessel observed were not at the closest point to the cervix from were a vessel is observed. The distance from the internal os to where pulsations were observed is 3.4 cm. 3. Growth is appropriate, consistent with 26 3/7 weeks gestation. I'm giving you the [facility] Patient Handout about vasa previa. I hope you will find it helpful. I recommend repeat ultrasound and visit at [facility] in 4 weeks. If we are still concerned about a possible vasa previa, we'll make more definitive plan about delivery ( section) a nd its timing (34-37 wks) and admission prior to delivery. We also talked about giving you steroids (betamethasone) to optimize your baby's outcomes i f we are planning your delivery prior to 37 wks. Please call us if you have any questions or if you decide you would like to be seen sooner than 4 weeks or decide you would like to be admitted to [facility] before your next visit.Electron ically signed by Nellie Munson MD at 09/21/2019 3:14 PM PDT documented in this encounter Progress Notes Nellie Munson MD - 09/21/2019 2:00 PM PDTFormatting of this note might be different fr om the original. MATERNAL CARDIAC PROGRAM - [facility] VISIT DATE: 09/21/2019 REFERRING PROVIDER: Brynn Reed NP PCP: LUIS MIGUEL Hoff PRIMARY OB PROVIDER: SHIRA Cantu, DO in [place]/[facility] MANAGEMENT SME: [facility] Planned location of delivery: [facility]. She lives in [place]. ID/CC: Joie Villarreal is a 33 y.o. G1 at 26w3d (MARINA of 12/25/19 by LMP consistent with sandra ier ultrasounds) who presents for visit for her complicated by TAPVR s/p correction with sick sinus syndrome and pacemaker in place and placenta previa with potentia l for development of vasa previa. She had an ultrasound prior to her visit: placenta previa with vessel close to the in ternal os. She is seeing Cards next. She is here today with her partner. CARDIAC HISTORY: 1. 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 Details unknown. Surgery was done in [place]. 2. Sick sinus syndrome, AV node dysfunction - EP: Pacemaker paced in 1999 (age 13). She had a syncopal event during class. - EP: Biventricular pacemaker upgrade. Unsuccessful placement of His bundle pacemaker (07/18 18, Madeleine). Device is Medtronic. Patient is intermittently pacemaker dependent. Last PPM check 06/07/2009: Normal device function. 6.5 years until RULA. Interval History Joie has been doing well overall. We have been doing shared care with Dr. Canut in [place] with whom she's getting great care. She reports doing her GDM screening recently and she does not have GDM. The potential for development of vasa previa has been stressful. She feels good mvts every day, with some days more active than others. No contractions, cramping or pain. No vaginal bleeding. No LOF. No urinary Sx. No preeclampsia Sx other than sinus headache which she attributes to her allergies as it is harvesting season currently. She usually takes Zyrtec for her allergies, but has been holdi ng off so far this year due to her . From cardiac perspective: She is seeing Cardiology next. She reports chest pain last night which she thinks was due to anxiety about today's ultraso und. It lasted less than 10 secs and came back once. She does not think it was GERD. She juan l discuss w Cards. Otherwise no dyspnea, palpitations or dizziness. She has a lot of questions about today's ultrasound and the plan going forward, including r elocation, inpatient management and timing of delivery. Also mentions that she has a LEEP in the past in case this would influence the plan. No other questions or concerns. MEDICATIONS: Current Outpatient Medications on File Prior to Visit Medication Sig Dispense Refill BABY ASPIRIN ORAL Take by mouth. vit 91/iron/folic/dha ( + DHA ORAL) Take by mouth. No current facility-administered medications on file prior to visit. ALLERGIES: Allergies Allergen Reactions Ciprofloxacin Hives Codeine Becomes Angry and Rude Venom-Honey Bee Edema PHYSICAL EXAM: Vitals: BP 123/66 | Pulse 84 | Ht 1.575 m (5' 2.01") | Wt 76.1 kg (167 lb 12.8 oz) | Sp O2 99% | BMI 30.68 kg/m | BSA 1.82 m Gen: comfortable Psych: alert and oriented x 3; mood/affect appear appropriate Neuro: grossly normal Ext: no edema OB IMAGING: Ultrasound today September 21, 2019 (finalized after visit) Impression: 33 year old at 26 3/7 weeks gestation with a history of ultrasound showing placenta previa and vasa previa who presents for growth and placental evaluation. Ms Post is seen in the Maternal Cardiac Program in [facility] due to TAPVR s/p correction with sick sinus syndrome and pacemaker in place. 1. Single living intrauterine in cephalic presentation. 2. Posterior placenta with placenta previa; the edge of the placenta reaches the internal o s. Using color Doppler ultrasound, a vessel was observed close to the internal os, with sena rial pulsation being confirmed, finding that corresponds to vasa previa. The pulsations in the vessel observed were not at the closest point to the cervix from were a vessel is observ ed. The distance from the internal os to where pulsations were observed is 3.4 cm. 3. Growth is appropriate, consistent with 26 3/7 weeks gestation. 4. Normal anatomic survey with no abnormalities identified. Ultrasound 08/21/19: Posterior placenta previa: there is also a small area of placenta seen anterior to the cerv ix, which may be contiguous with the posterior placenta, or may be a succenturiate lobe. Th ere is a vessel with arterial flow seen traversing from the posterior to the anterior portion of the placenta, across the internal os of the cervix. The distance from the os in the transverse dimension appears to be 1.8cm. Findings are consistent with a placenta previ a and vasa previa. Average biometry = 22 5/7 wks FAS WNL completed AF volume normal echo August 21, 2019: 1. Normal cardiac anatomy. 2. Normal right ventricular size and qualitatively normal systolic function. 3. Normal left ventricular size and qualitatively normal LV systolic function. Ultrasound 06/12/19 CRL = 6.5 cm = 12w6d, NT 1.7 mm CARDIAC STUDIES: Echo on 06/12/19 1. The left ventricular size is normal. 2. The LV function is normal. 3. Right ventricular size, thickness and function are normal. 4. Normal atrial size. 5. Pulmonary venous redirection baffle (image [id number]) without suggestion of obstruction. 6. Compared to the most recent exam dated 01/28/2017, there are no significant changes. Device Check 06/08/19 Medtronic [id number] Leads: LV Medtronic [id number] Attain Performa S Serial [id number], implant date 07/05/17; RA Medtr onic 5076 CapSureFix Novus Serial [id number], implant date 07/05/17 Remaining battery 6yr, 6mo -normal device function -lead impedances, RA sensing, and pacing thresholds are stable per auto testing. LV thresho ld 1.375V @ 1.0ms per AutoCap. Low sensed R waves today at 1.8mV, she has been noted to have intermittent complete heart block on previous device checks. -Programming changes: n/a - consider reprogrammed LV output with +1V safety margin at next office visit; also decreasing A sensitivity - <0.1% AT/AF burden recorded. No ventricular arrhythmias. -Follow-up: 6 month in-office device check. Last note from Cardiology (Dr. Paez) on June 22, 2019 reviewed: Current History: Last seen by Brynn Reed NP in 12/2017. She was doing well at that time. She is 13 weeks now. She has mild nausea but otherwise feels pretty well. Prior to , she worked out about 5 days a week for at least 30 minutes on many week s. She didn't have MCCANN, chest pain. No syncope. No palpitations or edema. She is still exerc ising while and hasn't noticed any cardiac symptoms except a sensation that her hea rt rate increases more rapidly when she exerts herself. No resting palpitations. She is going to start taking baby aspirin at Dr. Garcia' recommendation. Impression: 33 year old female with a history of total anomalous pulmonary venous return st atus post repair, and a pacemaker placement at age 13 for sick sinus syndrome. She had max l cardiac function without evidence of baffle obstruction (although note that visualization is limited on echo, and she has not had cross-sectional imaging). Her functional status is g ood and her pacemaker is also functioning well. I don't have any concerns about her current cardiac status. We discussed the physiology of and how it relates to her repaired CHD as well as her pacemaker. I think her risk of cardiac events in is mildly increased compared to the general population, mainly related to an increased risk of atrial arrhythmia. Her ris k of heart failure is low, and would mainly be related to occult baffle obstruction (relativ trinity unlikely in her case, I think). We reviewed the symptoms to watch out for. I encouraged her to continue to participate in light or moderate exercise as tolerated. I don't think she needs a follow-up echo in unless she has symptoms. She will con tinue her pacemaker follow-up through our EP clinic. Recommendations/Plan: 1. Further cardiac testing required: No 2. Planned location of delivery: [facility] 3. Delivery plan: No cardiac restrictions on mode of delivery. 4. Telemetry monitoring is required during labor and for 24 hours thereafter 5. IV filter is not required. 6. Next cardiac follow-up is between 32-36 weeks. OK to do VV. Review of records under Media labs results extracted from OB Flowsheet: HIV neg; GC/CT/trich neg/neg/neg; O Rh p ositive; Ab screen neg; Rub Immune; TP screening neg; HbSAg neg; Hb/Ht/plats 12.7/36.4/225 o n May 14 Urine cult contam on May 08 US done in [place] showed placenta previa. ASSESSMENT AND PLAN: 33 y.o. G1 at 26w3d Maternal CHD: TAPVR s/p correction with sick sinus syndrome and pacemaker in place Placenta previa with vasa previa Routine care labs reviewed previously and WNL. Will need T&S at [facility]. GC/CT neg/neg. GDM screen ing done in [place] and reportedly normal. Urine cult contam Pap 10/2018 wnl Aneuploidy screening: s/p Genetics; cfDNA low risk Carrier screening: s/p Genetics and declined FAS WNL completed today Immunizations: flu vaccine when available; TDap in third-trimester Previously oriented to [facility] practice, specifically to Maternal Cardiac Program Contraception to discuss later Maternal CHD: TAPVR s/p correction with sick sinus syndrome and pacemaker in place NYHA class 1 mWHO 2 See counseling done at New OB visit. Main maternal risks are arrhythmias (atrial) and heart failure (low risk overall) and main risk is CHD. echo WNL 08/20 Today: doing well without concerning Sx. She will discuss her chest pain with Cards, but I agree with her that if does not sound concerning. Plan: - [facility] and [facility] in the [facility] Cardiac Program, with Cardiology guiding cardiac imaging/testin-36 wks, can be VV - shared care with Dr. Cantu in [place] - device check for Medtronic biventricular pacemaker due in November 2019 - ultrasounds for growth assessment: currently getting frequent ultrasounds due to pl acenta previa/vasa previa - testing at 32 weeks (can rediscuss if placenta previa/vasa previa resolves) - OB Anesthesia consult in third trimester: can be chart review or virtual - telemetry intrapartum and 24 hours - multidisciplinary delivery planning Placenta previa with vasa previa Counseling done on August 20: Joie had a recent ultrasound in [place] where placenta previa was seen. She understand s the risks of placenta previa and recommended management. The finding of possible vasa previa was new finding on today's ultrasound and we spent most of her visit discussing it and its implications. I reviewed the ultrasound images with Dr. Weems and we reviewed them with a third colleague as well. Currently, there is a thin lay er of placenta between the vessel and the internal os, so while it's not technically a vasa previa, she is at risk of developing a vasa previa if the placental layer completely t hins out. We reviewed what vasa previa is. Approximately 03/2499 deliveries are complicated by vasa pr evia. I reviewed that the main risk associated with vasa previa is rapid exsanguinatio n if that vessel is torn, which usually leads to / or severe disability. "Tearing" of the vasa previa usually happens in the context of labor or during SROM. Recomme nded management of persistent vasa previa includes delivery by section, ideally paresh or to the onset of labor and we usually schedule these at 34-37 weeks to avoid labor. Since we cannot predict with accuracy the onset of labor, admission to the antepartum service is o ffered for closer proximity to the OR, with the goal/hope to reduce the time before delivery should Joie suddenly develop vaginal bleeding from the vasa previa. However since exsanguination can occur rapidly, even inpatient management cannot guarantee intact survival in the event of bleeding from the vasa previa. Admission is possible and offered as early a s viability (23 wks) after periviability counseling which includes NICU consultation. Fish r, women who opt for inpatient management are usually admitted between 28-32 weeks. Inpatien t management is not without risks which includes infection (especially during COVID), VTE an d effects on mental health. Since vasa previa is rare, we have limited data on which to base management recommendations when it comes to inpatient versus outpatient management and thus this aspect of management is individualized using a shared-decision making model after coun seling. Importantly the prognosis for vasa previa diagnosed antenatally is excellent with survival > 95%. I answered Joie and her partner's questions. Joie does not think she wants very early admission. I recommended a repeat ultrasound to reassess the placenta and vessel in ~ 4-5 weeks. She is well aware that if she develops any vaginal bleeding, she should go to the nearest h ospital. We discussed avoidance of intercourse, but otherwise I think it is reasonable for h er to continue exercising with moderation as long as she does not develop significant contra ctions when exercising. Ultrasound today shows persistence of placenta previa and vasa previa. She hasn't had any b leeding or contractions. TVUS cervical length measures 3.2 cm today. Discussion: delivery is scheduled around 37 wks for placenta previa without bleeding episodes and earlier with bleeding episodes, usually between 34-37 wks with exact timing depending on several factors including number, severity and timing of bleeding episodes. C/S for vasa pr evia is scheduled between 34-37 wks. In terms of the management of vasa previa, especially inpatient management, I reviewed the counseling above. Given that she has been completely asymptomatic from both a bleeding and c ontractions perspective and that there is still a "cushion" of placenta between the vasa pre via and the cervix which should bleed before the vasa previa would rupture, I think it is re asonable to stay in [place] for now and reassess the plan with her next ultrasound. She is well aware of bleeding precautions. They had questions about inpatient management with regards to COVID - whether she would nee d to be tested, and whether her partner could be present in the hospital - which I answered according to our current policies, understanding that these may change. We discussed relocation to [place] (they have friends/family) at 30-[address] Cantu, which I think is reasonable. I also briefly reviewed outcomes at 34-37 weeks, specifically NICU admission (almo st universal at 34 wks as this GA is a criteria for NICU admission and lower as GA increases ), respiratory issues, feeding/ difficulties and delays and hospital stay exten ding beyond maternal discharge. When delivery is scheduled , we recommend s teroids and coordinate in the week prior scheduled delivery. I'm not concerned about her prior LEEP, especially since her TVUS cervical length is 3.2 cm today. I gave them the [facility] Patient Handout on vasa previa. Plan: repeat ultrasound with M follow-up in 4 wks. Joie will call with any questions. Preeclampsia precs reviewed Reassurance provided that she can take [facility] General questions answered and anticipatory guidance provided Follow-up Next visit(s): continue care with Dr. Cantu in [place]; follow-up at [facility] in 4 wks Next ultrasound: 4 wks for follow-up placental location, vasa previa and growth testin weeks for mat CHD + placenta/vasa previa Next Cardiology visit: 11/09/19 Next visit: ultrasound; review Cards note; cardiac Sx?; contraception; continue management discussion if persistent vasa previa; TDap if she needs it Future Appointments Provider Department Dept Phone Center 10/19/2019 2:30 PM RAD OP [id number] [phone] RADIOLOGY 10/19/2019 3:30 PM Nellie Munson [facility] [phone] CE 11/09/2019 10:00 AM Marlen Rousseau Cardiology in [facility] at [facility] [phone] Cardiology Orders Placed This Encounter TYPE AND SCREEN UA 4 DIP, POC I am Denise Lott functioning as a scribe for Nellie Munson MD I have reviewed, verified and edited the above scribed note of my visit with Joie Roxana a s recorded by Denise Lott. The majority of time for this visit, greater than 50%, was spent in counseling regarding ma ternal cardiac disease, placenta previa and vasa previa complicating . The total ph ysician time I spent in face to face discussion with Joie Villarreal was 33 minutes. Nellie Lang MD, [facility] [place] Department of Obstetrics and Gynecology Division of Maternal Medicine [facility] Center[facility]ronically signed by Nellie Munson MD at 0 10:15 PM PDTdocumented in this encounter Plan of Treatment +--------+ + + + + | Date | Type | Specialty | Care Team | Description | +--------+ + + + + | 10/18/ | Appointment | Radiology | | | | 2019 | | | | | +--------+ + + + + | 10/18/ | | | Nellie Munson, | | 2019 | | | [address] [facility] | | | | | | [facility] | | | | | | [place], [place] | | | | | | [address] | | | | | | [phone] | | | | | | | | +--------+ + + + + + +------+--------+ + + | Name | Type | Priori | Associated Diagnoses | Order Schedule | | | | ty | | | + +------+--------+ + + | TYPE AND | Lab | Routin | Heart disease in | Expected: 09/21/2019 | | SCREEN | | e | mother affecting | (Approximate), | | | | | in third | Expires: 10/20/2020 | | | | | trimester | | + +------+--------+ + + documented as of this encounter Procedures + +--------+ + + + | Procedure Name | Priori | Date/Time | Associated Diagnosis | Comments | | | ty | | | | + +--------+ + + + | UA DIPSTICK 4 DIP | Routin | 09/21/2019 | Total congenital | Results for this | | (AUTOMATED), POC | e | 2:27 PM | anomalous pulmonary | procedure are in the | | | | PDT | venous connection | results section. | + +--------+ + + + documented in this encounter Results UA 4 DIP, POC (09/21/2019 2:27 PM PDT) + + + + + + | Component | Value | Ref Range | Performed | Pathologist | | | | | At | Signature | + + + + + + | LEUKOCYTES | Negative | Negative | [facility] - | | | (UA DIP), | | | [facility] | | | POC | | | [facility] | | | | | | OF CARE | | | | | | TESTS | | + + + + + + | NITRITES | Negative | Negative | [facility] - | | | (UA DIP), | | | [facility] | | | POC | | | [facility] | | | | | | OF CARE | | | | | | TESTS | | + + + + + + | PROTEIN (UA | Negative | Neg - Trace | [facility] - | | | DIP), POC | | mg/dL | [facility] | | | | | | [facility] | | | | | | OF CARE | | | | | | TESTS | | + + + + + + | GLUCOSE (UA | Negative | Negative - | [facility] - | | | DIP), POC | | Trace mg/dL | [facility] | | | | | | [facility] | | | | | | OF CARE | | | | | | TESTS | | + + + + + + | APPEARANCE | Clear | | [facility] - | | | (UA DIP), | | | [facility] | | | POC | | | [facility] | | | | | | OF CARE | | | | | | TESTS | | + + + + + + | COLOR (UA | Yellow | | [facility] - | | | DIP), POC | | | [facility] | | | | | | [facility]UD[facility] [...] + + + + + | [facility] | [address] | [place], [place] | | | [facility] | [address] | [address] | | | TESTS | | | | + + + + + documented in this encounter Visit Diagnoses + + | Diagnosis | + + | Heart disease in mother affecting in third trimester - Primary | + + | Cardiac disease in in first trimester | + + | Total congenital anomalous pulmonary venous connection | + + | Heart disease in mother affecting in second trimester | + + | Placenta previa without hemorrhage, antepartum | + + | Vasa previa, single or unspecified fetus | + + documented in this encounter
--- OUTSIDE RECORDS SUMMARY | ~2019-10-07 | XMS | Encounter Summary ---
Demographics + + + | Address | [address] | | | [place] [address] | + + + | Home Phone | | + + + | Preferred Language | Unknown | + + + | Marital Status | | + + + | Mormon Affiliation | NON | + + + [...] [place], [place] | | | | | [address] | | + + + + + | Polly Winston | ECON | [place], | | + + + + + Care Team Providers + +------+ + | Care Tail Ripper Name | Role | Phone | + +------+ + | No Pcp Per Patient | PCP | Unavailable | + +------+ + Encounter Details +--------+ + + + + | Date | Type | Department | Care Team | Description | +--------+ + + + + | 05/09/ | Abstract | Cardiology | Madeleine Hernandez NP | | | 2016 | | Arrhythmia at [facility] | [address] | | | | | [address] | [place], [place] | | | | | [facility] | [address] | | | | | and [place], | [phone] | | | | | [facility] | | | | | | Floor [facility] [place] | | | | | | [address] | | | | | | [phone] | | | +--------+ + + + [...] | | 2020 | | | [address] [facility] | | | | | | [address] | | | | | | [place], [place] | | | | | | [address] | | | | | | [phone] | | | | | | | | +--------+ + + + + documented as of this encounter Visit Diagnoses Not on filedocumented in this encounter"
--- OUTSIDE RECORDS SUMMARY | ~2019-10-07 | XMS | Encounter Summary ---
Demographics + + + | Address | [address] | | | [place] [address] | + + + | Home Phone | | + + + | Preferred Language | Unknown | + + + | Marital Status | | + + + | Restoration Affiliation | NON | + + + | Race | White | + + + | Ethnic Group | or | + + + Author + + + | Author | [facility] | + + + | Organization | [facility] | + + + | [...] [place], [place] | | | | | [address] | | + + + + + | Polly Winston | ECON | [place], | | + + + + + Care Team Providers + +------+ + | Care Pharmaceutical Sales Name | Role | Phone | + +------+ + | Gabrielle Fernández MD | PCP | | + +------+ + Encounter Details +--------+ + + + + | Date | Type | Department | Care Team | Description | +--------+ + + + + | 03/29/ | Telephone | Pediatric | Carlos Hinesdri, | | | 2008 | | Cardiology at | MD [address] [facility] | | | | | Emeli | [facility] | | | | | [facility] | [place], [place] | | | | | [address] | [address] | | | | | Emeli | [phone] | | | | | [facility] | | | | | | [address] [facility], | | | | | | [place] [address] | | | | | | [phone] | | | +--------+ + + + [...] [address] | | | | | | [place], [place] | | | | | | [address] | | | | | | [phone] | | | | | | | | +--------+ + + + + documented as of this encounter Visit Diagnoses Not on filedocumented in this encounter"
--- OUTSIDE RECORDS SUMMARY | ~2019-10-07 | XMS | Encounter Summary ---
Demographics + + + | Address | [address] | | | [place] [address] | + + + | Home Phone | | + + + | Preferred Language | Unknown | + + + | Marital Status | | + + + | Sabianism Affiliation | NON | + + + | Race | White | + + + | Ethnic Group | or | + + + Author + + + | Author | [facility] | + + + | Organization | [facility] | + + + | Address [...] [address], [place] | | | | | [address] | | + + + + + | Polly Winston | ECON | [place], | | + + + + + Care Team Providers + +------+ + | Care Tin Pot Operator Name | Role | Phone | + +------+ + | Gabrielle Mott MD | PCP | | + +------+ + Encounter Details +--------+ + + + + | Date | Type | Department | Care Team | Description | +--------+ + + + + | 03/26/ | Office | [facility] | Note, Outpatient | Progress Note | | 2000 | Visit-Trans | MEDICINE | Clinic | [...] as of this encounter Progress Notes Interface, Cardiology Tech In - 01/01/2006 5:17 AM PSTCLINIC DATE: 03/26/2000 [facility] SUBJECTIVE: Joie is 14. She is postoperative total anomalous pulmonary venous drainage, repaired at 1-week. This past year, she has been diagnosed with sick sinus syndrome and in August had a permanent pacemaker put in place, set at a baseline rate of 60 per minute to avoid any symptoms or syncope when she had episodes of transient sinus arrest. Currently, she is quite active, dances quite a bit in various dance groups, and tolerates this well. She has not had symptoms of lightheadedness as she had in the past since the pacemaker has been put in place. OBJECTIVE: On examination, she is alert and in no distress. She weighs 117-1/4 lb; she is 61-3/4 inches tall. Blood pressure is 123/64; heart rate is 64 per minute with occasional premature beats. She has an oxygen saturation of 100% by pulse oximeter at room air. Her cardiac examination is normal. She has a quiet precordium. Abdominal examination is negative, without hepatosplenomegaly, masses, or tenderness. She has good pulses. No edema is noted. No neck vein distention. She continues to have a systolic murmur of grade 2 intensity along the left sternal border into the pulmonic area. The heart sounds are otherwise normal. IMPRESSION: Joie is doing very well. She has had a good response to the use of her pacemaker. We will plan to see her here in [place] in one year, and she will be seen by Dr. Hines next summer. Cyrus Hobbs M.D. Professor, Pediatric Cardiology EMMANUEL/patsy cc: JEAN MARIE MOTT MD [address] [place] [id number] signed by Interface, Cardiology Tech In at 01/01/2006 5:17 AM PSTdocumented in this encounter Plan of [...] Rd | | | | | | [place] | | | | | | [address] | | | | | | [phone] | | | | | | | | +--------+ + + + + documented as of this encounter Visit Diagnoses Not on filedocumented in this encounter"
--- OUTSIDE RECORDS SUMMARY | ~2019-10-07 | XMS | Encounter Summary ---
Demographics + + + | Address | [address] | | | [place] [address] | + + + | Home Phone | | + + + | Preferred Language | Unknown | + + + | Marital Status | | + + + | Pentecostal Affiliation | NON | + + + | Race | White | + + + | Ethnic Group | or | + + + Author + + + | Author | [facility] | + + + | Organization | [facility] | + + + | [...] [place], [place] | | | | | [address] | | + + + + + | Polly Winston | ECON | [place], | | + + + + + Care Team Providers + +------+ + | Care Teacher Industrial Arts Name | Role | Phone | + +------+ + PCP | Unavailable | + +------+ + Encounter Details +--------+ + + + + | Date | Type | Department | Care Team | Description | +--------+ + + + + | 09/12/ | Results | Pediatric | Antonio Hines, | | | 2002 | Only | Cardiology at | MD [address] [facility] | | | | | [place] | [facility] | | | | | [facility] | [place], [place] | | | | | [address] | [address] | | | | | Emeli | [phone] | | | | | [facility] | | | | | | 7th Floor [place], | | | | | | [place] [address] | | | | | | [phone] | | | +--------+ + + + [...] Rd | | | | | | [place], [place] | | | | | | [address] | | | | | | [phone] | | | | | | | | +--------+ + + + + documented as of this encounter Procedures + +--------+ + + + | Procedure Name | Priori | Date/Time | Associated Diagnosis | Comments | | | ty | | | | + +--------+ + + + | X-RAY CHEST 1 VIEW | Routin | 09/12/2002 | | Results for this | | | e | 10:00 AM | | procedure are in the | | | | PDT | | results section. | + +--------+ + + + documented in this encounter Results CHEST 1 VIEW (09/12/2002 10:00 AM PDT) + + + + + + | Component | Value | Ref Range | Performed | Pathologist | | | | | At | Signature | + + + + + + | CHEST, 1 | Radiologist 1: IM, | | | | | VIEW | MADELINE HEWITT CHEST | | | | | | RADIOGRAPH: 09/12/2002 | | | | | | Dictated 09/12/2002 | | | | | | COMPARISON: | | | | | | 10/12/2000. 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 | | | | | | Pacemaker. FINDINGS: | | | | | | The pacemaker is | | | | | | unchanged with lead | | | | | | projecting over theright | | | | | | ventricle and pulse | | | | | | generator projecting | | | | | | over the left | | | | | | chest.Heart size is | | | | | | normal. The pulmonary | | | | | | perfusion pattern is | | | | | | normal.The lungs are | | | | | | clear. No pleural | | | | | | effusions or | | | | | | pneumothoraces are seen. | | | | | | IMPRESSION: No acute | | | | | | abnormality. Pacemaker | | | | | | unchanged. END OF | | | | | | IMPRESSION: | | | | + + + + + + + + | Specimen | + + | | + + + +---------+ + + | Performing | Address | City/State/Zipcode | Phone Number | | Organization | | | | + +---------+ + + | [facility] DEPARTMENT OF | | | | | RADIOLOGY | | | | + +---------+ + + documented in this encounter Visit Diagnoses Not on filedocumented in this encounter"
--- OUTSIDE RECORDS SUMMARY | ~2019-10-07 | XMS | Encounter Summary ---
Demographics + + + | Address | [address] | | | [place] [address] | + + + | Home Phone | | + + + | Preferred Language | Unknown | + + + | Marital Status | | + + + | Congregation Affiliation | NON | + + + | Race | White | + + + | Ethnic Group | or | + + + Author + + + | Author | [facility] | + + + | Organization | [facility] | + + + | [...] [place], [place] | | | | | [address] | | + + + + + | Polly Winston | ECON | [place], | | + + + + + Care Team Providers + +------+ + | Care Commercial Loan Underwriter Name | Role | Phone | + +------+ + | Gabrielle Fernández MD | PCP | | + +------+ + Encounter Details +--------+ + + + + | Date | Type | Department | Care Team | Description | +--------+ + + + + | 09/06/ | Procedure - | UNKNOWN DEPARTMENT | Other, Faculty | ECHO (BEN or TTE) | | 2001 | | [address] [facility] | [phone] | | | | Transcribed | [address] | | | | | | [place], [place] | | | | | | [address] | | | +--------+ + + + [...] this encounter Progress Notes Other, Faculty - 09/06/2001 12:00 AM PDTAssociated Order(s): TRANSTHORACIC ECHOCARDIOGRAM, ADULT [facility] DATE: 09/06/01 [place], [place] MED REC NO: [id number] NAME: JOIE MANCIA ECHOCARDIOGRAPHY REPORT BIRTHDATE: [birth year] INDICATION FOR STUDY: ASSESS 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 UNIT: STUDY NO: TAPE NO. [id number] REQUEST BY: ANG WOLFE AND KAYLA CARDONA MD BP: 114/67 FRAME NO. 18:00-30:34 TECH: CM HT: 157.50 CM WT: 55.50 M-MODE:MM 2-D MEASUREMENT LVID (D)40.5 (S)24.0 %FS 41 LA 25.5 IVS (D) 7.0 (S)10.0 AO 22.5 LVPW (D) 7.5 (S)14.0 DOPPLER:M/S PW CW MMHG PW CW MMHG PULM VEIN 1.05 RVIT 0.60 LVIT 1.30 1.60 RVOT 0.75 LVOT 1.20 MPA 1.00 ASAO AP 1.30 TR 2.10 ASAO SSN 1.50 DSAO 1.25 COLOR FLOW 2D & DOPPLER INTERPRETATION 1. POST OPERATIVE TOTAL ANOMALOUS PULMONARY VENOUS RETURN, NO PULMONARY VENOUS OBSTRUCTION. 2. MILD TRICUSPID REGURGITATION, ESTIMATED RIGHT VENTRICULAR PRESSURE NORMAL. 3. TRACE MITRAL REGURGITATION. 4. NORMAL LEFT VENTRICULAR SIZE AND FUNCTION. 5. PACER WIRE ACROSS TRICUSPID VALVE INTO RIGHT VENTRICLE. BALA CLAY M.D. MB documented in this encou nter Plan of Treatment +--------+ + + + + | Date | Type | Specialty | Care Team | Description | +--------+ + + + + | 10/18/ | Appointment | Radiology | | | | 2020 | | | | | +--------+ + + + + | 10/18/ | | | Nelile Munson, | | | 2019 | | | [address] | | | | | | [address] | | | | | | [place], [place] | | | | | | [address] | | | | | | [phone] | | | | | | | | +--------+ + + + + documented as of this encounter Procedures + +--------+ + + + | Procedure Name | Priori | Date/Time | Associated Diagnosis | Comments | | | ty | | | | + +--------+ + + + | TRANSTHORACIC | | 09/06/2001 | | Results for this | | ECHOCARDIOGRAM, | | 12:00 AM | | procedure are in the | | ADULT | | PDT | | results section. | + +--------+ + + + documented in this encounter Results TRANSTHORACIC ECHOCARDIOGRAM, ADULT (09/06/2001 12:00 AM PDT) + + | Procedure Note | + + | Other, Faculty - 09/06/2001 12:00 AM PDT [facility] DATE: | | 09/06/01 [place], [place] MED REC NO: [id number] NAME: JOIE MANCIA | | ECHOCARDIOGRAPHY REPORT BIRTHDATE: [birth year] INDICATION FOR STUDY: ASSESS REPAIR OF | | TOTAL ANOMALOUS PULMONARY VENOUS CONNECTION AND PACEMAKER. UNIT: STUDY NO: [id number] | | TAPE [place]. [id number] REQUEST BY: ANG WOLFE AND KAYLA CARDONA MD BP: 114/67 | | FRAME NO. 18:00-30:34 TECH: CM HT: 157.50 CM WT: 55.50 | | M-MODE:MM | | 2-D MEASUREMENT | | LVID (D)40.5 | | (S)24.0 %FS 41 LA 25.5 IVS (D) 7.0 (S)10.0 AO 22.5 LVPW (D) 7.5 (S)14.0 | | DOPPLER:M/S | | PW CW MMHG PW CW MMHG | | PULM VEIN | | 1.05 RVIT 0.60 LVIT 1.30 1.60 RVOT 0.75 LVOT 1.20 MPA 1.00 ASAO AP 1.30 TR 2.10 | | ASAO SSN 1.50 DSAO 1.25 | | COLOR FLOW | | 2D & DOPPLER INTERPRETATION | | 1. POST | | OPERATIVE TOTAL ANOMALOUS PULMONARY VENOUS RETURN, NO PULMONARY VENOUS OBSTRUCTION. 2. | | MILD TRICUSPID REGURGITATION, ESTIMATED RIGHT VENTRICULAR PRESSURE NORMAL. 3. TRACE | | MITRAL REGURGITATION. 4. NORMAL LEFT VENTRICULAR SIZE AND FUNCTION. 5. PACER WIRE | | ACROSS TRICUSPID VALVE INTO RIGHT VENTRICLE. Leticia CLAY M.D. | | MB | | DOPPLER:M/S PW CW MMHG PW CW MMHG | | | | PULM VEIN 1.05 | | RVIT 0.60 LVIT 1.30 1.60 | | RVOT 0.75 | | LVOT 1.20 | | MPA 1.00 ASAO AP 1.30 | | TR 2.10 ASAO SSN 1.50 | | DSAO 1.25 | | | | COLOR FLOW 2D & DOPPLER INTERPRETATION | | | | 1. POST OPERATIVE TOTAL ANOMALOUS PULMONARY VENOUS RETURN, NO | | PULMONARY VENOUS OBSTRUCTION. | | | | 2. MILD TRICUSPID REGURGITATION, ESTIMATED RIGHT VENTRICULAR | | PRESSURE NORMAL. | | | | 3. TRACE MITRAL REGURGITATION. | | | | 4. NORMAL LEFT VENTRICULAR SIZE AND FUNCTION. | | | | 5. PACER WIRE ACROSS TRICUSPID VALVE INTO RIGHT VENTRICLE. | | | | | | | | | | | | BALA CLAY M.D. | | MB | | | | | + + documented in this encounter Visit Diagnoses Not on filedocumented in this encounter"
--- OUTSIDE RECORDS SUMMARY | ~2019-10-07 | XMS | Encounter Summary ---
Demographics + + + | Address | [address] | | | [place] [address] | + + + | Home Phone | | + + + | Preferred Language | Unknown | + + + | Marital Status | | + + + | Congregational Affiliation | NON | + + + | Race | White | + + + | Ethnic Group | or | + + + Author + + + | Author | [facility] | + + + | Organization | [facility] | + + + | Address [...] [place], [place] | | | | | [address] | | + + + + + | Polly Winston | ECON | [place], | | + + + + + Care Team Providers + +------+ + | Care Flexo Operator Name | Role | Phone | + +------+ + PCP | Unavailable | + +------+ + Encounter Details +--------+ + + + + | Date | Type | Department | Care Team | Description | +--------+ + + + + | 08/11/ | Results | Pediatric | Antonio Hines, | | | 1999 | Only | Cardiology at | MD [address] [facility] | | | | | Emeli | [facility] | | | | | [facility] | [place], [place] | | | | | [address] | [address] | | | | | Emeli | [phone] | | | | | [place] | | | | | | 7th Floor [place], | | | | | | [place] [address] | | | | | | [phone] | | | +--------+ + + + [...] [address] | | | | | | [place], [place] | | | | | | [address] | | | | | | [phone] | | | | | | | | +--------+ + + + + documented as of this encounter Procedures + +--------+ + + + | Procedure Name | Priori | Date/Time | Associated Diagnosis | Comments | | | ty | | | | + +--------+ + + + | X-RAY CHEST 1 VIEW | Routin | 08/18/1999 | | Results for this | | | e | 12:42 PM | | procedure are in the | | | | PDT | | results section. | + +--------+ + + + | X-RAY CHEST 2 VIEW | Priori | 08/12/1999 | | Results for this | | | ty | 8:57 AM | | procedure are in the | | | | PDT | | results section. | + +--------+ + + + | BLOOD BANK PRODUCT | Routin | 08/11/1999 | | Results for this | | | e | 11:07 AM | | procedure are in the | | | | PDT | | results section. | + +--------+ + + + | TYPE AND SCREEN | Routin | 08/11/1999 | | Results for this | | | e | 11:07 AM | | procedure are in the | | | | PDT | | results section. | + +--------+ + + + documented in this encounter Results CHEST 1 VIEW (08/18/1999 12:42 PM PDT) + + + + + + | Component | Value | Ref Range | Performed | Pathologist | | | | | At | Signature | + + + + + + | CHEST, 1 | Radiologist 1: ZEKE, | | | | | VIEW | Gianni PÉREZ-Radiologist | | | | | | 2: HOLLY PHOENIX, | | | | | | MRyanCHEST RADIOGRAPH | | | | | | SINGLE VIEW: 08/18/99 | | | | | | Dictated: 08/18/99 | | | | | | COMPARISON: Comparison | | | | | | is made with prior study | | | | | | of chest | | | | | | [id number]. | | | | | | FINDINGS: The lungs are | | | | | | clear. The | | | | | | cardio-mediastinal | | | | | | silhouette,pulmonary | | | | | | vasculature, jack, and | | | | | | pleura are normal. The | | | | | | dual leadpacemaker has | | | | | | been replaced with a | | | | | | single lead pacemaker | | | | | | with tipsuperimposed | | | | | | over the right | | | | | | ventricle. IMPRESSION: | | | | | | 1. Clear lungs. 2. | | | | | | Placement of a single | | | | | | lead pacemaker with tip | | | | | | superimposed overthe | | | | | | right ventricle. END | | | | | | OF IMPRESSION: | | | | + + + + + + + + | Specimen | + + | | + + + +---------+ + + | Performing | Address | City/State/Zipcode | Phone Number | | Organization | | | | + +---------+ + + | [place] [facility] OF | | | | | RADIOLOGY | | | | + +---------+ + + CHEST 2 VIEW (08/12/1999 8:57 AM PDT) + + + + + + | Component | Value | Ref Range | Performed | Pathologist | | | | | At | Signature | + + + + + + | CHEST, 2 | Radiologist 1: ONUR, | | | | | VIEWS [place] | HILDA FARAH M.D.TWO | | | | | STEREO | VIEWS OF THE CHEST: | | | | | | 08/12/1999 Dictated | | | | | | 08/12/1999 COMPARISON: | | | | | | No films are available | | | | | | for comparison. | | | | | | FINDINGS: A dual-lead | | | | | | pacer is in place | | | | | | entering via the | | | | | | leftsubclavian vein with | | | | | | two leads; one appears | | | | | | to terminate in the | | | | | | rightatrium, and the | | | | | | second is in the right | | | | | | ventricle. The heart | | | | | | appearsgrossly normal in | | | | | | size and configuration. | | | | | | There is no | | | | | | obviouspulmonary | | | | | | vascular congestion. | | | | | | The visualized osseous | | | | | | structures areintact. | | | | | | There is no pneumothorax | | | | | | evident. IMPRESSION: 1. | | | | | | Dual-lead pacer in | | | | | | place entering via the | | | | | | left subclavian vein. 2. | | | | | | Normal cardiac | | | | | | silhouette and pulmonary | | | | | | vasculature. END OF | | | | | | IMPRESSION: | | | | + + + + + + + + | Specimen | + + | | + + + +---------+ + + | Performing | Address | City/State/Zipcode | Phone Number | | Organization | | | | + +---------+ + + | [facility] DEPARTMENT OF | | | | | RADIOLOGY | | | | + +---------+ + + TYPE AND SCREEN (08/11/1999 11:07 AM PDT) + +-------+ + + + | Component | Value | Ref Range | Performed | Pathologist | | | | | At | Signature | + +-------+ + + + | ABO GROUP | O | | [facility] | | | | | | DEPARTMENT | | | | | | OF | | | | | | PATHOLOGY | | + +-------+ + + + | RH TYPE | POS | | [facility] | | | | | | DEPARTMENT | | | | | | OF | | | | | | PATHOLOGY | | + +-------+ + + + | ANTIBODY | NEG | | [facility] | | | SCREEN | | | DEPARTMENT | | | | | | OF | | | | | | PATHOLOGY | | + +-------+ + + + + + | Specimen | + + | | + + + + + | Narrative | Performed At | + + + | SPEC. OUTDATES 08/15/99 0700 | [facility] | | | DEPARTMENT OF | | | PATHOLOGY | + + + + + + + + | Performing | Address | City/State/Zipcode | Phone Number | | Organization | | | | + + + + + | [facility] DEPARTMENT OF | [facility] | [place] [address] | | | PATHOLOGY | [address] | | | + + + + + | [facility] DEPARTMENT OF | [address] | [place] [address] | | | PATHOLOGY | [address] | | | + + + + + BLOOD BANK PRODUCT (08/11/1999 11:07 AM PDT) + + + + + + | Component | Value | Ref Range | Performed | Pathologist | | | | | At | Signature | + + + + + + | PRODUCT | PACKED CELLS | | [facility] | | | DESCRIPTION | | | DEPARTMENT | | | | | | OF | | | | | | PATHOLOGY | | + + + + + + | PRODUCT | [id number] | | [facility] | | | UNIT # | | | DEPARTMENT | | | | | | OF | | | | | | PATHOLOGY | | + + + + + + | UNIT ABO | O | | [facility] | | | | | | DEPARTMENT | | | | | | OF | | | | | | PATHOLOGY | | + + + + + + | UNIT RH | POS | | [facility] | | | | | | DEPARTMENT | | | | | | OF | | | | | | PATHOLOGY | | + + + + + + | STATUS OF | Available for Issue | | [facility] | | | UNIT | | | DEPARTMENT | | | | | | OF | | | | | | PATHOLOGY | | + + + + + + + + | Specimen | + + | | + + + + + + + | Performing | Address | City/State/Zipcode | Phone Number | | Organization | | | | + + + + + | [facility] DEPARTMENT OF | [address] [facility] | [place] [address] | | | PATHOLOGY | [address] | | | + + + + + | [facility] | [address] [facility] | [place] [address] | | | PATHOLOGY | [address] | | | + + + + + documented in this encounter Visit Diagnoses Not on filedocumented in this encounter"
--- OUTSIDE RECORDS SUMMARY | ~2019-10-07 | XMS | Encounter Summary ---
Demographics + + + | Address | [address] | | | [place] [address] | + + + | Home Phone | | + + + | Preferred Language | Unknown | + + + | Marital Status | | + + + | Restorationist Affiliation | NON | + + + | Race | White | + + + | Ethnic Group | or | + + + Author + + + | Author | [facility] | + + + | Organization | [facility] | + + + | Address [...] [address], [place] | | | | | [address] | | + + + + + | Polly Winston | ECON | [place], | | + + + + + Care Team Providers + +------+ + | Care Room Service Waiter Name | Role | Phone | + +------+ + PCP | Unavailable | + +------+ + Encounter Details +--------+ + + + + | Date | Type | Department | Care Team | Description | +--------+ + + + + | 03/31/ | MyChart | Cardiology | Mellissa Zhou, | RE: Flu Shot | | 2013 | Encounter | Arrhythmia at [facility] | DIRECTOR OF RETAIL MARKETING | | | | | [address] | | | | | | [facility] | | | | | | and Healing, | | | | | | Building | | | | | | [place], [place] | | | | | | [address] | | | | | | [phone] | | | +--------+ + + + [...] [address] | | | | | | [place], [place] | | | | | | [address] | | | | | | [phone] | | | | | | | | +--------+ + + + + documented as of this encounter Visit Diagnoses Not on filedocumented in this encounter"
--- OUTSIDE RECORDS SUMMARY | ~2019-10-07 | XMS | Encounter Summary ---
Demographics + + + | Address | [address] | | | [place] [address] | + + + | Home Phone | | + + + | Preferred Language | Unknown | + + + | Marital Status | | + + + | Roman Catholic Affiliation | NON | + + [...] [address] | | | | | [facility] [place] | | | | | [address] | | + + + + + | Polly Winston | ECON | ANAYA, | | + + + + + Care Team Providers + +------+ + | Care Train Driver Name | Role | Phone | + [...] | | | Total | Louisa | [address] | | | | | congenital | Ijeoma, NUTRITIONAL YEAST SUPERVISOR | [address] | | | | | anomalous | [address] | Shay Hernandez | | | | | pulmonary | Ave | [place] | | | | | venous | [place], [place] | Building, 2nd | | | | | connection | [address] | floor | | | | | Procedures | Phone: | [place], [place] | | | | | TRANSTHORACI | [phone] | [address] | | | | | C | Fax: | Phone: | | | | | ECHOCARDIOGR | [phone] | [phone] | | | | | AM, ADULT | | | +--------+--------+ + + + + Encounter Details +--------+ + + + + | Date | Type | Department | Care Team | Description | +--------+ + + + + | 06/19/ | Pen Maker | Cardiology | Louisa Reed | 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 | | Arrhythmia at [facility] | Ijeoma, NUTRITIONAL YEAST SUPERVISOR [address] | anomalous pulmonary | | | | [address] | [address] [facility], | venous connection | | | | [facility] | [place] [address] | (Primary Dx) | | | | and Healing, | [phone] | | | | | Building [facility] | | | | | | Floor [place], [place] | | | | | | [address] | | | | | | [phone] | | | +--------+ + + + [...] | | 2020 | | | [address] [facility] | | | | | | [address] | | | | | | [place], [place] | | | | | | [address] | | | | | | [phone] | | | | | | | | +--------+ + + + + documented as of this encounter Procedures + +--------+ + + + | Procedure Name | Priori | Date/Time | Associated Diagnosis | Comments | | | ty | | | | + +--------+ + + + | TRANSTHORACIC | Routin | 12/26/2013 | Total congenital | Results for this | | ECHOCARDIOGRAM, | e | 12:00 AM | anomalous pulmonary | procedure are in the | | ADULT | | PDT | venous connection | results section. 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
--- OUTSIDE RECORDS SUMMARY | ~2019-10-07 | XMS | Encounter Summary ---
Demographics + + + | Address | [address] | | | [place] [address] | + + + | Home Phone | | + + + | Preferred Language | Unknown | + + + | Marital Status | | + + + | Protestant Affiliation | NON | + + + | Race | White | + + + | Ethnic Group | or | + + + Author + + + | Author | [facility] | + + + | Organization | [facility] | + + + | Address [...] [place], [place] | | | | | [address] | | + + + + + | Polly Winston | ECON | ANAYA, | | + + + + + Care Team Providers + +------+ + | Care Ice Cream Freezer Assistant Name | Role | Phone | + +------+ + | Yuli Franklin | PCP | | + +------+ + Encounter Details +--------+ + + + + | Date | Type | Department | Care Team | Description | +--------+ + + + + | 01/27/ | Scientific Informatics Analyst | Cardiology General | Louisa Reed | Total congenital | | 2017 | | at [facility] [address] | Ijeoma EARLY BREASTFEEDING CARE SPECIALIST [address] | anomalous pulmonary | | | | [address] [place] for | [address] [place], | venous connection | | | | Health and Healing, | [place] [address] | (Primary Dx); 427.81 | | | | [facility] | [phone] | SICK SINUS | | | | Floor [facility] [place] | | SYNDROME; Medtronic | | | | [address] | | single chamber | | | | [phone] | | pacemaker | +--------+ + + + + Social [...] Rd | | | | | | [place], [place] | | | | | | [address] | | | | | | [phone] | | | | | | | | +--------+ + + + + documented as of this encounter Procedures + +--------+ + + + | Procedure Name | Priori | Date/Time | Associated Diagnosis | Comments | | | ty | | | | + +--------+ + + + | 12 LEAD ECG | Routin | 01/28/2017 | Total congenital | Results for this | | | e | 2:00 PM | anomalous pulmonary | procedure are in the | | | | PST | venous connection | results section. | | | | | 427.81 SICK SINUS | | | | | | SYNDROME Medtronic | | | | | | single chamber | | | | | | pacemaker | | + +--------+ + + + documented in this encounter Results 12 LEAD ECG (01/28/2017 2:00 PM PST) + + + + + + | Component | Value | Ref Range | Performed | Pathologist | | | | | At | Signature | + + + + + + | VENTRICULAR | 63 | bpm | [facility] | | | RATE | | | OF | | | | | | CARDIOLOGY | | + + + + + + | ATRIAL RATE | 0 | ms | [facility] | | | | | | OF | | | | | | CARDIOLOGY | | + + + + + + | P-R | 90 | ms | [facility] | | | INTERVAL | | | OF | | | | | | CARDIOLOGY | | + + + + + + | P AXIS | 0 | deg | [facility] | | | | | | OF | | | | | | CARDIOLOGY | | + + + + + + | QRS | 143 | ms | [facility] | | | DURATION | | | OF | | | | | | CARDIOLOGY | | + + + + + + | QT | 464 | ms | [facility] | | | | | | OF | | | | | | CARDIOLOGY | | + + + + + + | QTC-GRABIEL | 476 | ms | [facility] | | | | | | OF | | | | | | CARDIOLOGY | | + + + + + + | R AXIS | -78 | deg | [facility] | | | | | | OF | | | | | | CARDIOLOGY | | + + + + + + | T AXIS | 120 | deg | [facility] | | | | | | OF | | | | | | CARDIOLOGY | | + + + + + + | ECG | Ventricular-paced | | [facility] | | | IMPRESSION | rhythm- ABNORMAL ECG - | | OF | | | | | | CARDIOLOGY | | + + + + + + | ECG | Electronically signed | | [facility] | | | IMPRESSION | by: FRANCIA WASHBURN | | OF | | | | 01-28-2017 14:50:56 | | CARDIOLOGY | | + + [...] DEPT OF | [address] | [place], [place] | | | CARDIOLOGY | [address] | [address] | | + + + + + documented in this encounter Visit Diagnoses + + | Diagnosis | + + | 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
--- OUTSIDE RECORDS SUMMARY | ~2019-10-07 | XMS | Encounter Summary ---
Demographics + + + | Address | [address] | | | [place] [address] | + + + | Home Phone | | + + + | Preferred Language | Unknown | + + + | Marital Status | | + + + | Hoahaoism Affiliation | NON | + + + | Race | White | + + + | Ethnic Group | or | + + + Author + + + | Author | [facility] | + + + | Organization | [facility] | + + + | Address | [...] [address] | | | | | [place] | | | | | [address] | | + + + + + | Polly Winston | NATHALY | ANAYA, | | + + + + + Care Team Providers + +------+ + | Care Shorer Name | Role | Phone | + +------+ + | Yuli Franklin | PCP | | + +------+ + Encounter Details +--------+ + + + + | Date | Type | Department | Care Team | Description | +--------+ + + + + | 07/15/ | MyChart | [facility] | Mellissa Zhou, | RE: Medical release | | 2018 | Encounter | Medical Clinic | LICENSING MANAGER | | | | | Cardiology [address] | | | | | | [address] | | | | | | [place], [place] | | | | | | [address] | | | | | | [phone] | | | +--------+ + + + [...] Rd | | | | | | [place], [place] | | | | | | [address] | | | | | | [phone] | | | | | | | | +--------+ + + + + documented as of this encounter Visit Diagnoses Not on filedocumented in this encounter"
--- OUTSIDE RECORDS SUMMARY | ~2019-10-07 | XMS | Encounter Summary ---
Demographics + + + | Address | [address] | | | [place] [address] | + + + | Home Phone [...] [place] | | | | | [address] | | + + + + + | Polly Winston | ECON | ANAYA, | | + + + + + Care Team Providers + +------+ + | Care Dough Maker Name | Role | Phone | + +------+ + | Gabrielle Fernández MD | PCP | | + +------+ + Encounter Details +--------+ + + + + | Date | Type | Department | Care Team | Description | +--------+ + + + + | 09/06/ | Transcribed | | Dictation, Other | Transcribed | | 2001 | | | | | +--------+ + [...] as of this encounter Progress Notes Interface, Chef Kitchen Manager In - 10/23/2005 1:07 AM [facility] [place] [address] [address] or September 06, 2001 Gabrielle Fernández M.D. [address] [facility]. [address] [place] [address] RE: JOIE MANCIA MR #: [id number] Dear Dr. Fernández: I saw Joie for review. 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 At the age 13, she was diagnosed with sick sinus syndrome and had a ventricular pacemaker put in. She has been doing well since her last visit with me which was approximately 1 year ago. She reports no problems and is quite physically active. However, she is sleeping more than normal, but she is very much more active particularly with swim factors. She also says that she gets short of breath after about 50 meters of swimming. Please refer to my letter dated October 12, 2000, for other aspects of the history, such as, past, family, and social history which are all unchanged. Review of systems is otherwise negative. SHE IS ALLERGIC TO CODEINE. Current medications are none. On physical exam, Joie is now 55.2 kg in weight, and 158 cm in height. Her blood pressure is 118/62, heart rate 70, and saturation is 100%. She is comfortable at rest with no signs of anemia, jaundice, clubbing, cyanosis, or peripheral edema. Her midline sternal scar and left infraclavicular scar are once again noted. Peripheral pulses including femoral pulses are well felt. Abdomen is soft. No hepatosplenomegaly. Chest is clear to auscultation. Cardiac examination reveals a soft systolic murmur best heard in the pulmonic area. Central nervous system is grossly normal with normal gait, normal speech, and normal facial movements. X-ray taken today shows a cardiothoracic ratio of 45%, and the lead is seen in the right ventricle. Echocardiogram shows normal pulmonary venous return with no obstruction and mild tricuspid regurgitation indicating a normal right ventricular pressure. There is a trace of mitral regurgitation with normal left ventricular size and function at a shortening fraction of 41%. Pacemaker checked today shows that her pacemaker is working well with rates between 60 to 150 beats per minute. The thresholds were perhaps slightly changed from previous, and therefore, we increased the ventricular lead output to 2.5 volts and decreased the pulse up to 0.3 ms. She is 91% ventricular based. Because of the tiredness with peak exercise out of 50 meters of swimming, I had increased the upper rate limits to 170 beats per minute. If she does not like this change, I have suggested that she could have it changed back to the previous. I have suggested that Joie come back in 1 year's time and get a repeat chest x-ray and see me. I do not think she needs to be seen in this winter as well as and we can plan and coordinate her visit here with myself and Dr. Hobbs. If there are any other questions or concerns, please do let me know. Thank you. Sincerely, Antonio Hines M.D. Department of Pediatrics, [facility] SB / ELADIO [id number] / [id number] / [id number] / cc: Cyrus Hobbs M.D. [facility] Cardiologist 1 :07 AM PDTdocumented in this encounter Plan of [...] | | 2019 | | | [address] [facility] | | | | | | [address] | | | | | | [facility] [place] | | | | | | [address] | | | | | | [phone] | | | | | | | | +--------+ + + + + documented as of this encounter Visit Diagnoses Not on filedocumented in this encounter"
--- OUTSIDE RECORDS SUMMARY | ~2019-10-07 | XMS | Encounter Summary ---
Demographics + + + | Address | [address] | | | [place] [address] | + + + | Home Phone | | + + + | Preferred Language | Unknown | + + + | Marital Status | | + + + | Sikh Affiliation | NON | + + + | Race | White | + + + | Ethnic Group | or | + + + Author + + + | Author | [facility] | + + + | Organization | [facility] | + + + | Address | [...] [place], [place] | | | | | [address] | | + + + + + | Polly Winston | ECON | ANAYA, | | + + + + + Care Team Providers + +------+ + | Care Emr Trainer Name | Role | Phone | + [...] | Heart block | Bethel Lizarraga, | Recreational Assistant | | | | on | Procedures | MD [address] | [address] | | | | | NEWSPAPER CLIPPER | [address] | [address] | | | | | EP PACEMAKER | Jessica Alfredo | Juni FU | | | | | MT UPGRADE | [place], [place] | [facility] | | | | | [place] | [address] | Floor | | | | | PACEMAKER | Phone: | [place], [place] | | | | | SYSTEM MT | [phone] | [address] | | | | | INSERT | Fax: | Phone: | | | | | PACING | [phone] | [phone] | | | | | ELECT, AT | | Fax: | | | | | INSERT NEW | | [phone] | | | | | DEVICE | | | +--------+--------+ + + + + Reason for Visit + + + | Reason | Comments | + + + | Follow-up encounter | | + + + Encounter Details +--------+ + + + + | Date | Type | Department | Care Team | Description | +--------+ + + + + | 06/08/ | Telephone | Cardiology | Bethel Salvador | Follow-up encounter | | 2018 | | Arrhythmia at [facility] | MD [place] [address] | | | | | [address] | [facility] | | | | | [facility] | [place], [place] | | | | | and [facility], | [address] | | | | | [place] [address] [facility] | [phone] | | | | | [place], [place] | | | | | | [address] | | | | | | [phone] | | | +--------+ + + + [...] | | 2019 | | | [address] [facility] | | | | | | [facility] | | | | | | [place], [place] | | | | | | [address] | | | | | | [phone] | | | | | | | | +--------+ + + + + documented as of this encounter Results NEWSPAPER CLIPPER EP PACEMAKER (07/05/2017 1:55 PM PDT) + + | Specimen | + + | | + + + + + | Narrative | Performed At | + + + | Procedure performed in the Cardiac Recreational Assistant. See procedure notes | | | for details. | | + + + documented in this encounter Visit Diagnoses + + | Diagnosis | + + | Heart block - Primary Conduction disorder, unspecified | + + documented in this encounter"
--- OUTSIDE RECORDS SUMMARY | ~2019-10-07 | XMS | Encounter Summary ---
Demographics + + + | Address | [address] | | | [place] [address] | + + + | Home Phone | | + + + | Preferred Language | Unknown | + + + | Marital Status | | + + + | Faith Affiliation | NON | + + + [...] [place], [place] | | | | | [address] | | + + + + + | Polly Winston | ECON | ANAYA, | | + + + + + Care Team Providers + +------+ + | Care Folder Machine Operator Name | Role | Phone | + +------+ + | Gabrielle Fernández MD | PCP | | + +------+ + Encounter Details +--------+---------+ + + + | Date | Type | Department | Care Team | Description | +--------+---------+ + + + | 08/13/ | Office | Pediatric | Antonio Hines, | 427.81 SICK SINUS | | 2010 | Visit | Cardiology at | MD [address] [facility] | SYNDROME; Total | | | | [place] | [facility] | congenital anomalous | | | | [facility] | [place], [place] | pulmonary venous | | | | [address] | [address] | connection | | | | Em[place] | [phone] | | | | | [facility] | | | | | | [address] [facility], | | | | | | [place] [address] | | | | | | [phone] | | | +--------+---------+ + + + [...] + + documented as of this encounter Patient Instructions Patient Instructions Antonio Hines MD - 08/13/2010 6:03 PM PDTPacemaker Carelink check looks good. Please repeat in 3 months. Antonio Hines MD Director, Pediatric Electrophysiology Professor of Pediatrics [phone] documented in this encounter Progress Notes Antonio Hines MD - 08/13/2010 6:01 PM PDTThis is a Carelink check of the ventricular p acemaker done on 08/05/10 on Joie Villarreal who is a 24 y.o. young lady with sick sinus syndro me s/p total anomalous pulmonary venous return. Device: Medtronic Sensia Implanted: 08/13/08 RULA: no ADVISORY: NO Mode: VVIR Lower Rate: 60 Upper Rate: 170 Battery Voltage: 2.79 volts Cell Impedance: 262 ohms Estimated battery longevity: 8.5 years (range 7-9.5) Patient is not pacer dependent. Telephone monitoring is: on Output (v) Pulse Width (ms) Sensitivity (mv) Right Ventricle 2.5 0.45 2.8 TESTING: Threshold testing was performed. RT VENTRICLE RV threshold volts: 0.875 v RV threshold PW: 0.4 ms RV lead impedance: 644 ohms R Wave Amplitude: unable to check She is paced 84% of the time. Ventricular capture looks good. I am pleased with this check. The next check will be in 3 months. documented in this encounter Plan of Treatment [...] [address] | | | | | | [place], [place] | | | | | | [address] | | | | | | [phone] | | | | | | | | +--------+ + + + + documented as of this encounter Visit Diagnoses + + | Diagnosis | + + | 427.81 SICK SINUS SYNDROME Sinoatrial node dysfunction | + + | Total congenital anomalous pulmonary venous connection | + + documented in this encounter"
--- OUTSIDE RECORDS SUMMARY | ~2019-10-07 | XMS | Encounter Summary ---
Demographics + + + | Address | [address] | | | [place] [address] | + + + | Home Phone | | + + + | Preferred Language | Unknown | + + + | Marital Status | | + + + | Alevism Affiliation | NON | + + + [...] [place] | | | | | [address] | | + + + + + | Polly Winston | ECON | ANAYA, | | + + + + + Care Team Providers + +------+ + | Care Instructional Consultant Name | Role | Phone | + +------+ + | Yuli Franklin | PCP | | + +------+ + Encounter Details +--------+--------+ + + + | Date | Type | Department | Care Team | Description | +--------+--------+ + + + | 08/20/ | Travel | | | | | 2020 | | | | | +--------+--------+ + + + Social History + +-------+ [...] in contact | No / Unsure | 08/21/2019 12:45 PM | | with someone who was [...] | | 2019 | | | [address] [facility] | | | | | | [address] | | | | | | [place], [place] | | | | | | [address] | | | | | | [phone] | | | | | | | | +--------+ + + + + documented as of this encounter Visit Diagnoses Not on filedocumented in this encounter"
--- OUTSIDE RECORDS SUMMARY | ~2019-10-07 | XMS | Encounter Summary ---
Demographics + + + | Address | [address] | | | [place] [address] | + + + | Home Phone | | + + + | Preferred Language | Unknown | + + + | Marital Status | | + + + | Jewish Affiliation | NON | + + + [...] [place], [place] | | | | | [address] | | + + + + + | Polly Winston | ECON | ANAYA, | | + + + + + Care Team Providers + +------+ + | Care Labeling Strategist Name | Role | Phone | + +------+ + | Yuli Franklin | PCP | | + +------+ + Encounter Details +--------+ + + + + | Date | Type | Department | Care Team | Description | +--------+ + + + + | 10/19/ | MyChart | Cardiology General | | Referral for | | 2017 | Encounter | at [facility] [address] | | Cardiology | | | | e [place] for | | | | | | Health and Healing, | | | | | | [facility] | | | | | | Floor [place], [place] | | | | | | [address] | | | | | | [phone] | | | +--------+ + + + [...] Rd | | | | | | [place], [place] | | | | | | [address] | | | | | | [phone] | | | | | | | | +--------+ + + + + documented as of this encounter Visit Diagnoses Not on filedocumented in this encounter"
--- OUTSIDE RECORDS SUMMARY | ~2019-10-07 | XMS | Encounter Summary ---
Demographics + + + | Address | [address] | | | [place] [address] | + + + | Home Phone | | + + + | Preferred Language | Unknown | + + + | Marital Status | | + + + | Jain Affiliation | NON | + + + | Race | White | + + + | Ethnic Group | or | + + + Author + + + | Author | [facility] | + + + | Organization | [facility] | + + + | Address [...] [place], [place] | | | | | [address] | | + + + + + | Polly Winston | ECON | ANAYA, | | + + + + + Care Team Providers + +------+ + | Care Health Club Manager Name | Role | Phone | + +------+ + | Gabrielle Fernández MD | PCP | | + +------+ + Encounter Details +--------+ + + + + | Date | Type | Department | Care Team | Description | +--------+ + + + + | 09/30/ | Telephone | Pediatric | Antonio Hines, | | | 2011 | | Cardiology at | MD [address] [facility] | | | | | [place] | [facility] | | | | | [facility] | [place], [place] | | | | | [address] | [address] | | | | | [place] | [phone] | | | | | [facility] | | | | | | [address] [facility], | | | | | | [place] [address] | | | | | | [phone] | | | +--------+ + + + + Social History + +-------+ +--------+------+ | Tobacco Use | Types | Packs/Day | Years | Date | | | | | Used | | + +-------+ +--------+------+ | Never Smoker | | | | | + +-------+ +--------+------+ + + +---------+ + | Alcohol Use [...] Rd | | | | | | [place], [place] | | | | | | [address] | | | | | | [phone] | | | | | | | | +--------+ + + + + documented as of this encounter Visit Diagnoses Not on filedocumented in this encounter"
--- OUTSIDE RECORDS SUMMARY | ~2019-10-07 | XMS | Encounter Summary ---
Demographics + + + | Address | [address] | | | [place] [address] | + + + | Home Phone | | + + + | Preferred Language | Unknown | + + + | Marital Status | | + + + | Buddhism Affiliation | NON | + + + | Race | White | + + + | Ethnic Group | or | + + + Author + + + | Author | [facility] | + + + | Organization | [facility] | + + + | Address | [...] [place], [place] | | | | | [address] | | + + + + + | Polly Winston | ECON | ANAYA, | | + + + + + Care Team Providers + +------+ + | Care Electrician Supervisor Substation Name | Role | Phone | + [...] Sick sinus | MD Valdez | LEONARD Salvador | | | | | syndrome | [address] | [address] | | | | | Presence of | [address] | Ave | | | | | cardiac | [place], | [place], [place] | | | | | pacemaker | [place] [id number] | [address] | | | | | Primary | Phone: | Phone: | | | | | Diagnosis:42 | [phone] | [phone] | | | | | 7.81 | Fax: | Fax: | | | | | 427.81 SICK | [phone] | [phone] | | | | | SINUS | [...] | | | | | | | [place] ICD DVC | | | | | | | PRG EVL,1 | | | | | | | SNGL [place] ICD | | | | | | | DVC PRGR | | | | | | | EVL,HAZARDOUS 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 My interpretation is that the device is working well and the patient will continue regular foll ow up in device clinic. Bethel Salvador M.D. Director, Electrophysiology Engraver Apprentice Decorativebakery chef [facility] Cardiovascular [facility] [place] [phone] Mellissa Lanza NP - 04/08/2017 11:10 AM PSTREMOTE DEVICE INTERROGATION REPORT Primary Care Provider: LUIS MIGUEL Hoff Elastic Yarn Twister Helper: GARY team Chief Security Officer: none INDICATION Joie Villarreal is a 31 y.o. female who has a medtronic single chamber pacemaker implanted f or SSS Presenting Rhythm V pacing Underlying Rhythm Unable to assess today due to remote visit Patient is intermittently pacer dependent in past--unable to assess today due to remote vis it. Advisory: NO Interrogation Details: SEE MEDIA TAB or HYPERLINKS AT BOTTOM OF DEVICE CHECK ENCOUNTER FOR FULL DEVICE INTERROGATION DATA EVENTS: 1 HVR evetns Rate 213 bpm on 03/13/2017 PACING PERCENTAGE: VS: 7.5% CANVAS GOODS MAKER: 92.5% Heart Rate Histogram - heart rate range 60-80, with blunted range Programming Changes: None today as remote visit Programming Details: none Pacemaker Site: Not assessed today as remote visit Conclusion: - Device function normal. - Battery status good, estimated longevity 9 months - Lead impedance, sensing, and pacing thresholds are normal/stable. - 1 VHR arrhythmia noted by pacemaker data. - No programming changes indicated -Summary- routine remote visit. Will send letter to patient. Follow up - Remote until battery reaches RULA Remote monitoring is: on and transmitting documented in this encounter Plan of Treatment [...] [address] | | | | | | [place], [place] | | | | | | [address] | | | | | | [phone] | | | | | | | | +--------+ + + + + documented as of this encounter Procedures + +--------+ + + + | Procedure Name | Priori | Date/Time | Associated Diagnosis | Comments | | | ty | | | | + +--------+ + + + | CARDIAC DEVICE | Routin | 04/08/2017 | 427.81 SICK SINUS | Results for this | | (PACEMAKER/ICD) | e | 12:00 AM | SYNDROME | procedure are in the | | CHECK - REMOTE | | PST | | results section. | + +--------+ + + + documented in this encounter Results CARDIAC DEVICE (PACEMAKER/ICD) CHECK - REMOTE (04/08/2017 12:00 AM PST) + + + | Narrative | Performed At | + + + | | | + + + documented in this encounter Visit Diagnoses + + | Diagnosis | + + | 427.81 SICK SINUS SYNDROME - Primary Sinoatrial node dysfunction | + + | Medtronic single chamber pacemaker Cardiac pacemaker in situ | + + documented in this encounter"
--- OUTSIDE RECORDS SUMMARY | ~2019-10-07 | XMS | Encounter Summary ---
Demographics + + + | Address | [address] | | | [place] [address] | + + + | Home Phone | | + + + | Preferred Language | Unknown | + + + | Marital Status | | + + + | Faith Affiliation | NON | + + + | Race | White | + + + | Ethnic Group | or | + + + Author + + + | Author | [facility] | + + + | Organization | [facility] | + + + | [...] [place], [place] | | | | | [address] | | + + + + + | Polly Winston | ECON | ANAYA, | | + + + + + Care Team Providers + +------+ + | Care Transportation Equipment Painter Name | Role | Phone | + +------+ + | Gabrielle Fernández MD | PCP | | + +------+ + Encounter Details +--------+ + + + + | Date | Type | Department | Care Team | Description | +--------+ + + + + | 03/13/ | Office | Pediatric | Antonio Hines, | Progress Note | | 2008 | Visit-Trans | Cardiology at | [address] [facility] | | | | kerrie | Emeli | [facility] | | | | | [facility] | [place], [place] | | | | | [address] | [address] | | | | | [place] | [phone] | | | | | [facility] | | | | | | [address] [place] [address], | | | | | | [place] [address] | | | | | | [phone] | | | +--------+ + + + [...] encounter Progress Notes Antonio Hines MD - 03/16/2008 1:09 PM PST [id number] [place] [id number] Clinic Date: 03/13/2008 Clinic: [facility] Pediatric Cardiology Clinic History: Joie comes for a routine followup check for her pacemaker because she is nearing end of battery life. I saw her last on 09/20/07. Please refer to that note. She continues to do well with no problems. Her past, family, and social history are unchanged, and review of systems is otherwise negative. Allergies: SHE IS ALLERGIC TO CODEINE. Medications: She is on control pills. Physical Examination: Her current weight is 59.8 kg, height 159.5 cm, blood pressure 121/71, heart rate 74, and saturations 99%. She was not examined further at this visit. Pacemaker check shows that her pacemaker battery voltage is now 2.71 with battery impedance of 2907 ohms. Remaining longevity is 12 months with a range of 1 to 20 months. Lead impedance in the ventricle is 738 ohms. She is 91% paced. Her R-wave amplitude is between 2.8 and 4 mV, and the pacing threshold is 1 V at 1 msec which is unchanged. Because of her school schedule, Joie would like to have her pacemaker change done during the summer if that is at all possible. We will continue to do monthly phone checks by telephone, and if there is an elective replacement indicated that comes up, we may have to change it sooner, and she is aware of that. Otherwise, her school will let out on August 12, 2008, and we are planning a pacemaker change procedure on August 13, 2008, for her. Further report will follow that procedure. It was a pleasure to see Joie and her mom today. Antonio Hines M.D. Director, Pediatric Electrophysiology [employer] Vice President of Pediatrics Division of Pediatric Card SB / HS [id number] / [id number] / [id number] / cc: Gabrielle Fernández M.D. [facility] [place] [address] [place] [address] documented in this encounter Plan of Treatment [...] | | 2019 | | | [address] [facility] | | | | | | [address] | | | | | | [place], [place] | | | | | | [address] | | | | | | [phone] | | | | | | | | +--------+ + + + + documented as of this encounter Visit Diagnoses Not on filedocumented in this encounter"
--- OUTSIDE RECORDS SUMMARY | ~2019-10-07 | XMS | Encounter Summary ---
Demographics + + + | Address | [address] | | | [place] [address] | + + + | Home Phone | | + + + | Preferred Language | Unknown | + + + | Marital Status | | + + + | Cheondoism Affiliation | NON | + + + [...] [place], [place] | | | | | [address] | | + + + + + | Polly Winston | ECON | ANAYA, | | + + + + + Care Team Providers + +------+ + | Care Gasoline Tester Name | Role | Phone | + +------+ + | Yuli Franklin | PCP | | + +------+ + Reason for Visit AUTH/CERT +--------+--------+ + [...] + + + + | 07/05/ | Anesthesia | Cardiac Coremaking Machine Operator | Isabella Novak | | | 2018 | Event | at [facility] [address] | | | | | [address] | [address] | | | | | [facility], | [place], [place] | | | | | Floor [facility] [place] | [address] | | | | | [address] | [phone] | | | | | [phone] | | | | | | | [place] CRNA | | | | | | [address] | | | | | | [place], | | | | | | [place] [address] | | | | | | [phone] | | | | | | | | +--------+ + + + + Anesthesia Record + + + + + | Procedure Name | Responsible | Anesthesia Start | Anesthesia Stop Time | | | Anesthesiologist | Time | | + + + + + | AIR CONDITIONING ENGINEER EP | Isabella Novak, | 07/05/17 1411 | 07/05/17 1813 | | PACEMAKER | MD | | | + + + + + +----+---+ + + | Da | T | Event | Comment | | te | i | | | | | m | | | | | e | | | +----+---+ + + | 05 | 1 | Eq Check | Anesthesia machine checked Equipment verified | | /0 | 3 | | | | 7/ | 4 | | | | 20 | 1 | | | | 18 | | | | +----+---+ + + | | 1 | Pt. Check | Prior to anesthesia start, pt. Identified, examined, chart | | | 4 | | reviewed, PARQ held, anesthetic plan made or approved by | | | 0 | | attending anesthesiologist. NPO status confirmed as appropriate | | | 1 | | for procedure Preoperative evaluation: unchanged | +----+---+ + + | | 1 | An Start | | | | 4 | | | | | 1 | | | | | 1 | | | +----+---+ + + | | 1 | O2 by FM | | | | 4 | | | | | 1 | | | | | 9 | | | +----+---+ + + | | 1 | Vitals | Monitors applied Vital signs checked Patient ready for anesthesia | | | 4 | Checked | | | | 2 | | | | | 1 | | | +----+---+ + + | | 1 | Ready | | | | 4 | | | | | 2 | | | | | 3 | | | +----+---+ + + | | 1 | Abx | | | | 4 | Administere | | | | 5 | d | | | | 0 | | | +----+---+ + + | | 1 | Timeout | | | | 4 | | | | | 5 | | | | | 2 | | | +----+---+ + + | | 1 | Local | | | | 4 | Anesthetic | | | | 5 | by Surgeon | | | | 3 | | | +----+---+ + + | | 1 | Incision | | | | 4 | | | | | 5 | | | | | 5 | | | +----+---+ + + | | 1 | Intraop and | Identification: Patient/Procedure Type of Anesthetic Past | | | 6 | Med | History: PMH Relevant Meds/Labs/Echo/Imaging Allergies | | | 4 | Handoff | Intraoperative Course: Airway Lines/Drains/Monitors I/O | | | 2 | | Significant Events Current Phase/Duration of Procedure Meds: | | | | | Infusions, Antibiotics/Redosing, Paralytics, Analgesic Plan, | | | | | Glycemic Control Plan: Tasks to complete/Post-op Orders Emergence | | | | | Plan/Dispo Postoperative Concerns Surgeons Informed of Handoff | +----+---+ + + | | 1 | Medication | Alfentanil 250mcg | | | 6 | Handoff | | | | 4 | | | | | 2 | | | +----+---+ + + | | 1 | Surgery end | | | | 8 | | | | | 0 | | | | | 1 | | | +----+---+ + + | | 1 | an stop | | | | 8 | data | | | | 0 | | | | | 3 | | | +----+---+ + + | | 1 | PACU Rpt | | | | 8 | Given | | | | 1 | | | | | 3 | | | +----+---+ + + | | 1 | Anesthesia | | | | 8 | End | | | | 1 | | | | | 3 | | | +----+---+ + + +------+ | Meds | +------+ + + + | Name | Total | + + + | midazolam | 2 mg | + + + | alfentanil | 1,000 mcg | + + + | propofol | 60 mg | + + + | propofol INF | 1,751,635 mcg | + + + | ceFAZolin | 2,000 mg | + + + | NS | 450 mL | + + + + + | Name | + + | O2 Flow Rate (Total Liters) | + + + + | No blood administrations on file. | + + +--------+ + + + | Type | Details | Placement | Removal | +--------+ + + + | Incisi | 07/05/17; 1455; BELLO JAIME; Juni; | 07/05/17 1455 by | | | on | Upper, Anterior; chest | Malik De La Cruz RN | | +--------+ + + + | Periph | 07/05/17; 1338; Left; Forearm; 20 | 07/05/17 1338 by | 07/06/17 0821 by | | eral | g; None; No; Positive; 07/06/17; | Dixon Dunn RN | Dieter Fang RN | | IV | 0821 | | | +--------+ + + + documented in this encounter Social History + +-------+ +--------+------+ | Tobacco [...] [address] | | | | | | [place], [place] | | | | | | [address] | | | | | | [phone] | | | | | | | | +--------+ + + + + documented as of this encounter Visit Diagnoses Not on filedocumented in this encounter Administered Medications + +--------+ +---------+------+------+ | Medication Order | MAR | Action | Dose | Rate | Site | | | Action | Date | | | | + +--------+ +---------+------+------+ | alfentanil (ALFENTA) injection | Given | 07/06/19 | 250 mcg | | | | INTRAPROCEDURE PRN, Starting Wed | | 18 5:37 | | | | | 07/05/17 at 1503, Until Wed07/05/17 | | PM PDT | | | | | at 1803 | | | | | | + +--------+ +---------+------+------+ +-------+ +---------+---+---+ | Given | 07/06/19 | 125 mcg | | | | | 18 4:11 | | | | | | PM PDT | | | | +-------+ +---------+---+---+ | Given | 07/06/19 | 125 mcg | | | | | 18 3:58 | | | | | | PM PDT | | | | +-------+ +---------+---+---+ +---+---+ | | | +---+---+ + +-------+ + +---+---+ | ceFAZolin (ANCEF) injection | Given | 07/06/19 | 2,000 mg | | | | INTRAPROCEDURE PRN, Starting Wed | | 18 2:50 | | | | | 07/05/17 at 1450, Until Wed07/05/17 | | PM PDT | | | | | at 1803 | | | | | | + +-------+ + +---+---+ +---+---+ | | | +---+---+ + +-------+ +------+---+---+ | midazolam (VERSED) injection | Given | 07/06/19 | 1 mg | | | | INTRAPROCEDURE PRN, Starting Wed | | 18 2:33 | | | | | 07/05/17 at 1421, Until Wed07/05/17 | | PM PDT | | | | | at 1803 | | | | | | + +-------+ +------+---+---+ +-------+ +------+---+---+ | Given | 07/06/19 | 1 mg | | | | | 18 2:21 | | | | | | PM PDT | | | | +-------+ +------+---+---+ +---+---+ | | | +---+---+ + + + + +-------+---+ | propofol (DIPRIVAN) injection | Rate/Dos | 07/06/19 | 100 | 43.8 | | | INTRAPROCEDURE CONTINUOUS PRN, | e Change | 18 5:45 | mcg/kg/m | mL/hr | | | Starting Wed07/05/17 at 1430, | | PM PDT | in | | | | Until Wed07/05/17 at 1803 | | | | | | + + + + +-------+---+ + + + +--------+---+ | Rate/Dose Change | 07/06/19 | 115 | 50.37 | | | | 18 3:01 | mcg/kg/m | mL/hr | | | | PM PDT | in | | | + + + +--------+---+ | Rate/Dose Change | 07/06/19 | 100 | 43.8 | | | | 18 2:48 | mcg/kg/m | mL/hr | | | | PM PDT | in | | | + + + +--------+---+ +---+---+ | | | +---+---+ + +-------+ +-------+---+---+ | propofol INTRAPROCEDURE PRN, | Given | 07/06/19 | 30 mg | | | | Starting Wed07/05/17 at 1439, | | 18 2:51 | | | | | Until Wed07/05/17 at 1803 | | PM PDT | | | | + +-------+ +-------+---+---+ +-------+ +-------+---+---+ | Given | 07/06/19 | 30 mg | | | | | 18 2:39 | | | | | | PM PDT | | | | +-------+ +-------+---+---+ +---+---+ | | | +---+---+ + + + +---+---+---+ | sodium chloride 0.9% IV | given by | 07/06/19 | | | | | infusion INTRAPROCEDURE | | 18 5:40 | | | | | CONTINUOUS PRN, Starting Mon | anesthes | PM PDT | | | | | 07/05/17 at 1423, Until 07/05/17 | iology | | | | | | at 1803 | | | | | | + + + +---+---+---+ + + +---+---+---+ | given by anesthesiology | 07/06/19 | | | | | | 18 3:37 | | | | | | PM PDT | | | | + + +---+---+---+ | New Bag | 07/06/19 | | | | | | 18 2:23 | | | | | | PM PDT | | | | + + +---+---+---+ +---+---+ | | | +---+---+ documented in this encounter"
--- OUTSIDE RECORDS SUMMARY | ~2019-10-07 | XMS | Encounter Summary ---
Demographics + + + | Address | [address] | | | [place] [address] | + + + | Home Phone | | + + + | Preferred Language | Unknown | + + + | Marital Status | | + + + | Denominational Affiliation | NON | + + + | Race | White | + + + | Ethnic Group | or | + + + Author + + + | Author | [facility] | + + + | Organization | [facility] | + + + | [...] [address], [place] | | | | | [address] | | + + + + + | Polly Winston | ECON | ANAYA, | | + + + + + Care Team Providers + +------+ + | Care Denial Resolution Specialist Name | Role | Phone | + +------+ + | Yuli Franklin | PCP | | + +------+ + Encounter Details +--------+ + + + + | Date | Type | Department | Care Team | Description | +--------+ + + + + | 06/07/ | MyChart | Cardiology [facility] at | Haylie Paez, | remote pacer check | | 2020 | Encounter | [facility] [address] | MD [address] | | | | | [facility] for | [place], [place] | | | | | [facility] and [facility], | [address] | | | | | | [phone] | | | | | Floor [place], [place] | | | | | | [address] | | | | | | [phone] | | | +--------+ + + + [...] in contact | No / Unsure | 06/12/2019 9:58 AM | | with someone who was confirmed [...] [place] | | | | | | [address] | | | | | | [phone] | | | | | | | | +--------+ + + + + documented as of this encounter Visit Diagnoses Not on filedocumented in this encounter"
--- OUTSIDE RECORDS SUMMARY | ~2019-10-07 | XMS | Encounter Summary ---
Demographics + + + | Address | [address] | | | [place] [address] | + + + | Home Phone [...] [place], [place] | | | | | [address] | | + + + + + | Polly Winston | ECON | ANAYA, | | + + + + + Care Team Providers + +------+ + | Care Cath Lab Tech Name | Role | Phone | + +------+ + | Gabrielle Fernández MD | PCP | | + +------+ + Encounter Details +--------+ + + + + | Date | Type | Department | Care Team | Description | +--------+ + + + + | 09/08/ | Office | [facility] | Note, Peds Cardio | Progress Note | | 2006 | Visit-Trans | CARDIOLOGY | Clinic | | | | cribed [...] as of this encounter Progress Notes Interface, Proposal Development Manager In - 09/16/2005 2:02 AM [facility] [id number] [place] [id number] Clinic Date: 09/08/2005 Pediatric Cardiology Clinic Site: [facility] History: Joie is here for an annual followup check for her total anomalous pulmonary venous return and pacemaker for sick sinus syndrome implanted in 1999. 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 She has moved out of her grandparents' house and is now living with a friend. She is now 19 years old. She reports no problems and has no complaints. She continues to remain to be ALLERGIC TO CODEINE, WHICH MAKES HER ANGRY AND RUDE. Otherwise, review of systems is negative. Medications: None. Physical Examination: Vital Signs: Joie weighs 54.7 kg, height is 159 cm, respiratory rate 28, blood pressure 131/68, heart rate 73, and saturations 99%. She was comfortable at rest with no signs of anemia, jaundice, clubbing, cyanosis, or peripheral edema. Peripheral pulses are normally palpable including good pedal pulses. Abdomen: Soft with no hepatosplenomegaly, and she has a midline sternal scar and a pacemaker scar in the left upper pectoral region. Cardiac: Cardiac auscultation reveals normal heart sounds with no murmurs or clicks. Chest: Clear to auscultation. Central Nervous System: Grossly normal with normal gait, normal speech, and normal facial movements. Skin: Normal with no rashes. Echocardiogram performed today shows mild tricuspid regurgitation with normal estimated right ventricular pressure and normal left ventricular systolic function. No problems were noted at this echocardiogram. Pacemaker check shows that her pacemaker is doing well in the ventricular rate response mode. Her battery voltage was 2.76 and the battery impedance was 1158 ohms. The lead impedence was 815 ohms. She is 94% paced. Her rates are between 60 and 170 beats per minute. Her threshold was unchanged being 1 volt at 1 msec and 0.12 msec at 2.5 V. She has an underlying rhythm with a rate of around 40 beats per minute and measured R-wave amplitude was greater than 11.2 mV. No changes were made to the pacemaker settings. Average estimated longevity is 35 months. Assessment and Plan: Joie is doing well and I am pleased with her echo findings and her pacemaker findings. I would like to see her back in 1 year's time with a repeat pacemaker check. Antonio Hines M.D. Director, Pediatric Electrophysiology [employer] Supervisor of Pediatrics Division of Pediatric Cardiology [facility] SB / HS [id number] / [id number] / [id number] / [id number] cc: Gabrielle Fernández M.D. [address] [place] [address] Electronically signed by Antonio Hines 09-15-2005 11:35:46 AM documented i n this encounter Plan of Treatment +--------+ + + + + | Date | Type | Specialty | Care Team | Description | +--------+ + + + + | 10/18/ | Appointment | Radiology | | | | 2019 | | | | | +--------+ + + + + | 10/18/ | | | Nellie Munson, | | | 2019 | | | [address] [facility] | | | | | | [address] | | | | | | [place], [place] | | | | | | [address] | | | | | | [phone] | | | | | | | | +--------+ + + + + documented as of this encounter Visit Diagnoses Not on filedocumented in this encounter"
--- OUTSIDE RECORDS SUMMARY | ~2019-10-07 | XMS | Encounter Summary ---
Demographics + + + | Address | [address] | | | [place] [address] | + + + | Home Phone | | + + + | Preferred Language | Unknown | + + + | Marital Status | | + + + | Zoroastrian Affiliation | NON | + + + [...] [place] | | | | | [address] | | + + + + + | Polly Winston | ECON | ANAYA, | | + + + + + Care Team Providers + +------+ + | Care Boom Man Name | Role | Phone | + +------+ + | Yuli Franklin | PCP | | + +------+ + Encounter Details +--------+--------+ + + + | Date | Type | Department | Care Team | Description | +--------+--------+ + + + | 10/ | Travel | | | | | [...] month, have you been in contact | Unable to assess | 06/09/2019 11:44 AM | | with someone who was [...] | | 2019 | | | [address] [facility] | | | | | | [address] | | | | | | [place], [place] | | | | | | [address] | | | | | | [phone] | | | | | | | | +--------+ + + + + documented as of this encounter Visit Diagnoses Not on filedocumented in this encounter"
--- OUTSIDE RECORDS SUMMARY | ~2019-10-07 | XMS | Encounter Summary ---
Demographics + + + | Address | [address] | | | [place] [address] | + + + | Home Phone | | + + + | Preferred Language | Unknown | + + + | Marital Status | | + + + | Religion Affiliation | NON | + + + [...] + + + + + | Sinan Arvizu | ECON | [address] | | | | | [place] | | | | | [address] | | + + + + + | Polly Arvizu | ECON | ANAYA, | | + + + + + Care Team Providers + +------+ + | Care Forensic Pathologist Name | Role | Phone | + +------+ + | Gabrielle Fernández MD | PCP | | + +------+ + Encounter Details +--------+ + + + + | Date | Type | Department | Care Team | Description | +--------+ + + + + | 06/02/ | Transcribed | | Dictation, Other | [...] as of this encounter Progress Notes Interface, Metal Burrer In - 01/20/2006 3:[address] [address] or June 03, 1999 Gabrielle Fernández M.D. [address] [place] [address], [address] [place] [address] RE:JOIE MANCIA MR#:[id number] Fernández: Thank you for asking me to provide a cardiology pacemaker/arrhythmia consultation on this 13-year-old girl who has been having some dizziness and documented sinus bradycardia by Holter monitor. As you know, my colleague, Dr. Hobbs, has been involved in the care of this little girl. 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 She had done very well and first noticed a problem in November 1998 when she had an episode of lightheadedness requiring hospitalization, at which time significant bradycardia was noted. She has never passed out, and has no other complaints such as chest pain or palpitations. A Holter monitor done in hospital at that time showed that her heart rate ranged from the low 40s to 90s. Dr. Hobbs then saw her in the clinic on December 06, 1998, and wanted to keep her under close followup. She has since had one further episode of lightheadedness, which occurred about five weeks ago in late April when she was getting her hair cut in the standing posture. The feeling resolved when she put her head between her knees. I believe she then saw you, and was advised to increase the fluid intake. Her first episode in November, I believe, occurred while she was sitting in computer class in school. She is a very active girl from a physical point of view and does dancing. She also takes PE in school and runs in track and plays games. She comes today for this visit accompanied by her mother and grandmother, Mrs. Arvizu, who happens to be her legal guardian. Review of systems is otherwise negative. In the past, she has been well, other than her initial cardiac surgery. She also had chicken pox at the age of 6. Family History: There is no family history of fainting or heart defects, although a paternal great aunt is thought to have had a heart defect at . 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 Her current medications are Desogen q.d. Physical examination today shows a well-appearing young lady whose weight is 51.3 kg and height 156.25 cm. Blood pressure is 100/64, heart rate 57, saturation is 98%. She did not have any signs of anemia, jaundice, clubbing, cyanosis or peripheral edema. Her chest was clear, and abdomen was soft with no hepatomegaly or splenomegaly. Her peripheral pulses were all normal in the upper and lower extremities. Chest was clear to auscultation. Cardiovascular examination shows a midline sternotomy scar and no heaves or thrills. There is a soft ejection systolic murmur in the left upper sternal border and no diastolic murmurs. Recent Holter monitoring done toward the end of April shows a slow heart rate of 31 beats per minute during sleep with the longest R-R interval of close to 3 seconds. Mean heart rate was 49 beats per minutes. I had a discussion with the family and with the little girl, which lasted approximately one hour. We went over the fact that although she does have bradycardia on her Holter monitors, this may be unrelated to her symptomatology, which more fits that of vasovagal syncope. Nevertheless, because of the significant bradycardia, there is heightened concern about her and I think it is not inappropriate to consider pacing. We went over the pros and cons of pacing, and I explained the logistics, success rates, and potential complications from a pacemaker implantation procedure. We also showed the girl and her family a model of a pacemaker and freddy her some pictures to help her better understand the procedure and its' manager intermediate aspects. After due consideration, the family wishes to go forward with pacemaker implantation this summer so that it does not affect the patient's dancing schedule or her school routine. I think this is very reasonable and we will be making arrangements for the pacemaker implantation. Provisionally, we are looking at the second week of July, just after school finishes for the summer. We will be in touch with the results of that admission. If you have any other questions or comments, please do let me know. I thank you for the opportunity to take care of this nice little girl and her family. Yours Sincerely, Antonio Hines M.D. / [id number] / [id number] / [id number] / [id number] cc: Cyrus Hobbs M.D. AND MRS ARVIZU [address] [facility] [place] [id number] signed by Interface, Metal Burrer In at 01/20/2006 3:10 AM PSTdocumented in this encounter Plan [...] [address] | | | | | | [place] | | | | | | [address] | | | | | | [phone] | | | | | | | | +--------+ + + + + documented as of this encounter Visit Diagnoses Not on filedocumented in this encounter"
--- OUTSIDE RECORDS SUMMARY | ~2019-10-07 | XMS | Encounter Summary ---
Demographics + + + | Address | [address] | | | [place] [address] | + + + | Home Phone | | + + + | Preferred Language | Unknown | + + + | Marital Status | | + + + | Anabaptist Affiliation | NON | + + + [...] [place], [place] | | | | | [address] | | + + + + + | Polly Winston | ECON | ANAYA, | | + + + + + Care Team Providers + +------+ + | Care Planning Director Name | Role | Phone | + +------+ + | Gabrielle Fernández MD | PCP | | + +------+ + Encounter Details +--------+ + + + + | Date | Type | Department | Care Team | Description | +--------+ + + + + | 01/29/ | Telephone | Pediatric | Carlos Hinesdri, | | | 2008 | | Cardiology at | MD [address] [facility] | | | | | [place] | [facility] | | | | | [facility] | [place], [place] | | | | | [address] | [address] | | | | | [place] | [phone] | | | | | [facility] | | | | | | [address] [facility], | | | | | | [place] [address] | | | | | | [phone] | | | +--------+ + + + [...] Rd | | | | | | [place], [place] | | | | | | [address] | | | | | | [phone] | | | | | | | | +--------+ + + + + documented as of this encounter Visit Diagnoses Not on filedocumented in this encounter"
--- OUTSIDE RECORDS SUMMARY | ~2019-10-07 | XMS | Encounter Summary ---
Demographics + + + | Address | [address] | | | [place] [address] | + + + | Home Phone | | + + + | Preferred Language | Unknown | + + + | Marital Status | | + + + | Caodaism Affiliation | NON | + + + | Race | White | + + + | Ethnic Group | or | + + + Author + + + | Author | [facility] | + + + | Organization | [facility] | + + + | [...] [place], [place] | | | | | [address] | | + + + + + | Polly Winston | ECON | ANAYA, | | + + + + + Care Team Providers + +------+ + | Care Heavy Equipment Operator/Paver Name | Role | Phone | + +------+ + | Gabrielle Fernández MD | PCP | | + +------+ + Encounter Details +--------+---------+ + + + | Date | Type | Department | Care Team | Description | +--------+---------+ + + + | 11/21/ | Office | Pediatric | Antonio Hines, | 427.81 SICK SINUS | | 2008 | Visit | Cardiology at | [address] [facility] | SYNDROME (Primary | | | | [place] | [facility] [address] | Dx) | | | | [facility] | [place], [place] | | | | | [address] | [address] | | | | | [place] | [phone] | | | | | [facility] | | | | | | [address] [facility], | | | | | | [place] [address] | | | | | | [phone] | | | +--------+---------+ + + + [...] encounter Progress Notes Antonio Hines MD - 11/21/2008 11:27 AM PDTThis is a Carelink check of the ventricular p acemaker in Joie Villarreal who is a 22 y.o. young lady with sick sinus syndrome s/p total an omalous pulmonary venous return. Device: Medtronic Sensia Implanted: 08/13/08 RULA: no ADVISORY: NO Mode: VVIR Lower Rate: 60 Upper Rate: 170 Battery Voltage: 2.75 Cell Impedance: 1675 Estimated battery longevity: 8.5 years (range 7-9.5) Patient is not pacer dependent. Telephone monitoring is: on Output (v) Pulse Width (ms) Sensitivity (mv) Right Ventricle 2.5 0.45 2.8 TESTING: Threshold testing was performed. RT VENTRICLE RV threshold volts: 0.875 v RV threshold PW: 0.4 ms RV lead impedance: 665 ohms R Wave Amplitude: 5-11.2 mv She is paced 79% of the time. Programming Changes: None. I am pleased with this check. The next check will be in 3 months. Ventricular capture looks good. documented in this encounter Plan of Treatment [...] [address] | | | | | | [place], [place] | | | | | | [address] | | | | | | [phone] | | | | | | | | +--------+ + + + + + + +--------+ + + | Name | Type | Priori | Associated Diagnoses | Order Schedule | | | | ty | | | + + +--------+ + + | ME ANALYZE PACER SYS | Procedures | Routin | 427.81 SICK SINUS | Ordered: 11/21/2008 | | SN[facility] | | e | SYNDROME | | + + +--------+ + + documented as of this encounter Visit Diagnoses + + | Diagnosis | + + | 427.81 SICK SINUS SYNDROME - Primary Sinoatrial node dysfunction | + + documented in this encounter"
--- OUTSIDE RECORDS SUMMARY | ~2019-10-07 | XMS | Encounter Summary ---
Demographics + + + | Address | [address] | | | [place] [address] | + + + | Home Phone | | + + + | Preferred Language | Unknown | + + + | Marital Status | | + + + | Sabianist Affiliation | NON | + + + | Race | White | + + + | Ethnic Group | or | + + + Author + + + | Author | [facility] | + + + | Organization | [facility] | + + + | Address | [...] [place], [place] | | | | | [address] | | + + + + + | Polly Winston | ECON | YANN, | | + + + + + Care Team Providers + +------+ + | Care Professor Of Apologetics Name | Role | Phone | + +------+ + | Gabrielle Fernández MD | PCP | | + +------+ + Encounter Details +--------+ + + + + | Date | Type | Department | Care Team | Description | +--------+ + + + + | 09/21/ | Office | [facility] | Note, Outpatient | Progress Note | | 1999 | Visit-Trans | MEDICINE | Clinic | [...] as of this encounter Progress Notes Interface, Construction Crew Member In - 01/14/2006 1:11 AM PSTCLINIC DATE: 09/22/1999 HISTORY: Joie is a 13-year-old girl who had pacemaker procedure in early July 1999. She is status post total anomalous pulmonary venous return repair at the age of 1 week and presented with sick sinus syndrome. She was last seen here for checkup on August 18, 1999. She has done well since then. She returns today for a pacemaker checkup. She reports no interim problems. PHYSICAL EXAMINATION: GENERAL: A well-appearing girl. VITAL SIGNS: Weight 52.8 kg, height 156 cm, blood pressure 110/58, and heart rate 60 beats per minute. SKIN: The wound appears well healed. There are 2 small areas of protruding absorbable sutures which are snipped today. Pacemaker check performed today shows a ventricular pacemaker working at 60 beats per minute. Ventricular sensing threshold was greater than 11.2 mV. Ventricular pacing threshold today was 0.5 V at 1 ms and 3.5 V at 0.03 ms. Underlying rhythm was sinus bradycardia with junctional escape rhythm. She was 50% ventricular paced. Based on the strength-duration curve, the ventricular output was decreased to 2 V at 0.4 ms. Based on this, the estimated battery longevity is approximately 104 months. This little girl is doing great and so is the pacemaker. I would like to recheck her pacemaker in one year's time. In the meantime, she has transtelephonic checkups already scheduled. Antonio Hines M.D. Department of Pediatrics Division of Cardiology SB / HS [id number] / [id number] / [id number] / [id number] cc: Tori Hays M.D. [address] [place] [address] Cyrus Hobbs M.D. Pediatric Cardiology [id number] signed by Interface, Construction Crew Member In at 01/14/2006 1:11 AM SAMMIdomaddie mcarthur in this encounter Plan of Treatment +--------+ [...] Rd | | | | | | [place] | | | | | | [address] | | | | | | [phone] | | | | | | | | +--------+ + + + + documented as of this encounter Visit Diagnoses Not on filedocumented in this encounter"
--- OUTSIDE RECORDS SUMMARY | ~2019-10-07 | XMS | Encounter Summary ---
Demographics + + + | Address | [address] | | | [place] [address] | + + + | Home Phone [...] + + | Author | [facility] | + + + | Organization | [facility] | + + + | Address | Unknown | + + + | Phone | Unavailable | + + + Support + + + + + | Name | Relationship | Address | Phone | + + + + + | Alexsander Schmidt | ECON | Unknown | | + + + + + | iSnan Winston | ECON | [address] | | | | | [place], [place] | | | | | [address] | | + + + + + | Polly Winston | ECON | [place], | | + + + + + Care Team Providers + +------+ + | Care Sewage Plant Attendant Name | Role | Phone | + +------+ + | Gabrielle Fernández MD | PCP | | + +------+ + Encounter Details +--------+---------+ + + + | Date | Type | Department | Care Team | Description | +--------+---------+ + + + | 03/27/ | Office | Pediatric | Antonio Hines, | 427.81 SICK SINUS | | 2011 | Visit | Cardiology at | [address] [facility] | SYNDROME (Primary | | | | [place] | [facility] [address] | Dx) | | | | [facility] | [place], [place] | | | | | [address] | [address] | | | | | [place] | [phone] | | | | | [facility] | | | | | | [address] [facility], | | | | | | [place] [address] | | | | | | [phone] | | | +--------+---------+ + + + [...] Instructions Patient Instructions Antonio Hines MD - 03/27/2011 12:51 PM PSTPacemaker Carelink check looks good. Please repeat in 3 months. Antonio Hines MD Director, Pediatric Electrophysiology Professor of Pediatrics [phone] documented in this encounter Progress Notes Antonio Hines MD - 03/27/2011 12:49 PM PSTFormatting of this note might be different fr om the original. This is a Carelink check of the ventricular pacemaker done on 02/19/11 on [facility] wh o is a 25 y.o. young lady with sick sinus syndrome s/p total anomalous pulmonary venous retu rn. Device: Medtronic Sensia Implanted: 08/13/08 RULA: no ADVISORY: NO Mode: VVIR Lower Rate: 60 Upper Rate: 170 Battery Voltage: 2.79 volts Cell Impedance: 361 ohms Estimated battery longevity: 8.0 years (range 6.57-9.0) Patient is not pacer dependent. Telephone monitoring is: on Output (v) Pulse Width (ms) Sensitivity (mv) Right Ventricle 2.5 0.45 2.8 TESTING: Threshold testing was performed. RT VENTRICLE RV threshold volts:1 v RV threshold PW: 0.4 ms RV lead impedance: 684 ohms R Wave Amplitude: unable to check She is paced 86% of the time. Ventricular capture looks good. I am pleased with this check. The next check will be in 3 months. Antonio Hines MD Director, Pediatric Electrophysiology Professor of Pediatrics [phone] documented in this e ncounter Plan of [...] | 2019 | | | [address] | | | | | | [address] | | | | | | [place], [place] | | | | | | [address] | | | | | | [phone] | | | | | | | | +--------+ + + + + documented as of this encounter Visit Diagnoses + + | Diagnosis | + + | 427.81 SICK SINUS SYNDROME - Primary Sinoatrial node dysfunction | + + documented in this encounter"
--- OUTSIDE RECORDS SUMMARY | ~2019-10-07 | XMS | Encounter Summary ---
Demographics + + + | Address | [address] | | | [place] [address] | + + + | Home Phone | | + + + | Preferred Language | Unknown | + + + | Marital Status | | + + + | Sabianism Affiliation | NON | + + + | Race | White | + + + | Ethnic Group | or | + + + Author + + + | Author | [facility] | + + + | Organization | [facility] | + + + | [...] [place], [place] | | | | | [address] | | + + + + + | Polly Winston | ECON | ANAYA, | | + + + + + Care Team Providers + +------+ + | Care Financial Secretary Name | Role | Phone | + +------+ + | Yuli Franklin | PCP | | + +------+ + Reason for Visit + + + | Reason | Comments | + + + | New Patient Visit | | + + + Encounter Details +--------+---------+ + + + | Date | Type | Department | Care Team | Description | +--------+---------+ + + + | 09/20/ | Office | Cardiology in | Haylie Paez, | Total congenital | | 2020 | Visit | [facility] | [address] | anomalous pulmonary | | | | [facility] [address] | [place], [place] | venous connection | | | | [facility] [address] | [address] | (Primary Dx); | | | | Pavilion, 7th floor | [phone] | Cardiac disease in | | | | [place], [place] | | , second | | | | [address] | | trimester | | | | [phone] | | | +--------+---------+ + + + [...] | Blood Pressure | 123/66 | 09/21/2019 3:05 PM | | | | | PDT | | + + + + + | Pulse | 84 | 09/21/2019 3:05 PM | | | | | PDT | | + + + + + | Temperature | - | - | | + + + + + | Respiratory Rate | - | - | | + + + + + | Oxygen Saturation | 99% | 09/21/2019 3:05 PM | | | | | PDT | | + + + + + | Inhaled Oxygen | - | - | | | Concentration | | | | + + + + + | Weight | 76.1 kg (167 lb 12.8 | 09/21/2019 3:05 PM | | | | oz) | PDT | | + + + + + | Height | - | - | | + + + + + | Body Mass Index | 30.68 | 09/21/2019 2:30 PM | | | | | PDT | | + + + + + documented in this encounter Progress Notes Shaan Young MD - 09/21/2019 2:30 PM PDT MATERNAL CARDIAC PROGRAM PROGRESS NOTE Joie Schmidt is a 33 y.o. female here for follow up. 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 Past Medical History: 1. 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 Details unknown. Surgery was done in [place]. 2. Sick sinus syndrome, AV node dysfunction - EP: Pacemaker paced in 1999 (age 13). She had a syncopal event during class. - EP: Biventricular pacemaker upgrade. Unsuccessful placement of His bundle pacemaker (07/18 17, Madeleine). Device is Medtronic. Patient is intermittently pacemaker dependent. Last PPM check 06/07/2009: Normal device function. 6.5 years until RULA. Current History: Patient presents today for follow-up with her . She was most recently noted to have placenta previa/vasa previa. She presents today to follow-up with her RIDING COACH provider, and hence decided to follow-up with us as well and cardiology. She reports that she is generally doing well. Reports that last night, she had several epi sodes of sudden onset chest pain. Sharp in quality, located in the substernal region, lasti ng approximately 5 seconds. Self resolves. Had several more episodes within the 15 minutes timeframe. Also had another episode this morning. Thinks she might have had similar sympt oms several months ago. Symptoms not related to eating, exertion, breathing deeply, or body movement. She is otherwise generally healthy, used to do Sushma prior to . Denies any shortness of breath, orthopnea, PND, palpitations, or lower extremity edema. Renetta dawkins had a recent echo done in May 2019 that demonstrated normal LV and RV systolic function, normal biatrial size, with visualization of pulmonary venous baffle without evidence of obs truction. ROS: As above, all other reviewed systems were negative, specifically, no headaches, swall owing problems, cough or hemoptysis, heat or cold intolerance, nausea, vomiting, diarrhea, h ematuria, melena, fever, chills, shakes, rash or bruise, numbness or tingling. Family history: Her great grandfather had a heart condition of unknown type. 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 She meets with clients through a glass cu rrently; social distancing in the office with coworkers. Non-smoker. She lives with her husb and. Allergies Allergen Reactions Ciprofloxacin Hives Codeine Becomes Angry and Rude Venom-Honey Bee Edema Current Outpatient Medications Medication Sig BABY ASPIRIN ORAL Take by mouth. vit 91/iron/folic/dha ( + DHA ORAL) Take by mouth. No current facility-administered medications for this visit. Physical Exam: Last Vitals: BP 123/66 (BP Location: Left upper arm, Patient Position: Sitting) | Pulse 84 | Wt 76.1 kg (167 lb 12.8 oz) | SpO2 99% | BMI 30.68 kg/m | BSA 1.82 m General: well appearing, pleasant, no signs of acute distress HEENT: EOMI, anicteric sclera CV: RRR, no murmurs, rubs, gallops, JVP normal LUNG: CTAB, no crackles, rales, rhonchi ABD: soft, non tender Extremities: warm, no edema DATA: EKG, 06/2017: A-V pacing. Lab Results Component Value Date RATE 60 07/06/2017 ATRIALRATE 60 07/06/2017 OK 177 07/06/2017 QRS 152 07/06/2017 QT 453 07/06/2017 PAXIS -36 07/06/2017 RAXIS -86 07/06/2017 TAXIS 107 07/06/2017 I personally reviewed the following echocardiogram dated 05/2019: 1. The left ventricular size is normal. 2. The LV function is normal. 3. Right ventricular size, thickness and function are normal. 4. Normal atrial size. 5. Pulmonary venous redirection baffle (image [id number]) without suggestion of obstruction. 6. Compared to the most recent exam dated 01/28/2017, there are no significant changes. Impression: 33 year old female with a history of total anomalous pulmonary venous return st atus post repair, and a pacemaker placement at age 13 for sick sinus syndrome. Review of ec hocardiogram from May 2019 demonstrated normal cardiac function without evidence of baffle obstruction. Clinically, she appears well. We do not have any cardiac concerns at this mo ment in time. We discussed the physiology of and how [...] baffle obstruction (relativ trinity unlikely in her case). We reviewed the symptoms to watch out for. I encouraged her to co ntinue to participate in light or moderate exercise as tolerated. Recommendations/Plan: 1. Further cardiac testing required: No 2. Planned location of delivery: [facility] 3. Delivery plan: No cardiac restrictions on mode of delivery. 4. Telemetry monitoring is required during labor and for 24 hours thereafter 5. IV filter is not required. 6. Next cardiac follow-up is between 32-36 weeks. OK to do VV. Patient seen and discussed with Dr. Paez who agrees with the plans as noted above. Shaan Young MD Cardiology Fellow Associated attestation - Haylie Paez MD - 09/25/2019 1:20 PM PDTAttending Note I have seen and examined Ms. Schmidt and discussed the patient's management with the fellow. I reviewed the fellow s note above and agree with the documented findings and plan of care . 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
--- OUTSIDE RECORDS SUMMARY | ~2019-10-07 | XMS | Encounter Summary ---
Demographics + + + | Address | [address] | | | [place] [address] | + + + | Home Phone | | + + + | Preferred Language | Unknown | + + + | Marital Status | | + + + | Restorationism Affiliation | NON | + + + [...] [place], [place] | | | | | [address] | | + + + + + | Polly Winston | ECON | ANAYA, | | + + + + + Care Team Providers + +------+ + | Care At Risk Specialist Name | Role | Phone | + +------+ + | Gabrielle Fernández MD | PCP | | + +------+ + Reason for Visit +--------+ + | Reason | Comments | +--------+ + | Other | | +--------+ + Encounter Details +--------+ + + + + | Date | Type | Department | Care Team | Description | +--------+ + + + + | 11/27/ | Telephone | Pediatric | Antonio Hines, | Other | | 2007 | | Cardiology at | [address] | | | | | [place] | [facility] | | | | | [facility] | [place], [place] | | | | | [address] | [address] | | | | | Em[place] | [phone] | | | | | [facility] | | | | | | [address] [place] [address], | | | | | | [place] [address] | | | | | | [phone] | | | +--------+ + + + [...] | | 2019 | | | [address] | | | | | | [address] | | | | | | [place], [place] | | | | | | [address] | | | | | | [phone] | | | | | | | | +--------+ + + + + documented as of this encounter Visit Diagnoses Not on filedocumented in this encounter"
--- OUTSIDE RECORDS SUMMARY | ~2019-10-07 | XMS | Encounter Summary ---
Demographics + + + | Address | [address] | | | [place] [address] | + + + | Home Phone | | + + + | Preferred Language | Unknown | + + + | Marital Status | | + + + | Hoahaoism Affiliation | NON | + + + | Race | White | + + + | Ethnic Group | or | + + + Author + + + | Author | [facility] | + + + | Organization | [facility] | + + + | Address [...] [place], [place] | | | | | [address] | | + + + + + | Polly Winston | ECON | ANAYA, | | + + + + + Care Team Providers + +------+ + | Care General Counselor Name | Role | Phone | + +------+ + | No Pcp Per Patient | PCP | Unavailable | + +------+ + Reason for Visit + + + | Reason | Comments | + + + | Device Check | remote monitoring | + + + | Transfer of Care | | + + + Encounter Details +--------+ + + + + | Date | Type | Department | Care Team | Description | +--------+ + + + + | 04/29/ | Telephone | Cardiology | Madeleine Hernandez, LOENARD | Device Check (remote | | 2016 | | Arrhythmia at [facility] | [address] | monitoring); | | | | [address] | [place], [place] | Transfer of Care | | | | [facility] | [address] | | | | | and Healing, | [phone] | | | | | [place] [address] [facility] | | | | | | Floor [place], [place] | | | | | | [address] | | | | | | [phone] | | | +--------+ + + + [...] [place] | | | | | | [address] | | | | | | [phone] | | | | | | | | +--------+ + + + + documented as of this encounter Visit Diagnoses Not on filedocumented in this encounter"
--- OUTSIDE RECORDS SUMMARY | ~2019-10-07 | XMS | Encounter Summary ---
Demographics + + + | Address | [address] | | | [place] [address] | + + + | Home Phone | | + + + | Preferred Language | Unknown | + + + | Marital Status | | + + + | Taoism Affiliation | NON | + + + [...] [place], [place] | | | | | [address] | | + + + + + | Polly Winston | ECON | ANAYA, | | + + + + + Care Team Providers + +------+ + | Care Document Management Specialist Name | Role | Phone | + +------+ + PCP | Unavailable | + +------+ + Encounter Details +--------+ + + + + | Date | Type | Department | Care Team | Description | +--------+ + + + + | 07/28/ | Results | Em[place] | Antonio Hines, | | | 2005 | Only | Cardiology [place] | [address] [facility] | | | | | [facility] [address] | [facility] | | | | | ([facility] | [place], [place] | | | | | [place] | [address] | | | | | [address] | [phone] | | | | | [phone] | | | +--------+ + + + [...] [address] | | | | | | [place], [place] | | | | | | [address] | | | | | | [phone] | | | | | | | | +--------+ + + + + + +------+--------+ + + | Name | Type | Priori | Associated Diagnoses | Date/Time | | | | ty | | | + +------+--------+ + + | TTE (TRANSTHORACIC | ECG | Routin | | 07/28/2005 10:13 AM | | ECHO)-PEDS | | e | | PDT | + +------+--------+ + + documented as of this encounter Visit Diagnoses Not on filedocumented in this encounter"
--- OUTSIDE RECORDS SUMMARY | ~2019-10-07 | XMS | Encounter Summary ---
Demographics + + + | Address | [address] | | | [place] [address] | + + + | Home Phone | | + + + | Preferred Language | Unknown | + + + | Marital Status | | + + + | Hoahaoism Affiliation | NON | + + + | Race | White | + + + | Ethnic Group | or | + + + Author + + + | Author | [facility] | + + + | Organization | [facility] | + + + | [...] [place], [place] | | | | | [address] | | + + + + + | Polly Winston | ECON | ANAYA, | | + + + + + Care Team Providers + +------+ + | Care Per Diem Interpreter Name | Role | Phone | + +------+ + | No Pcp Per Patient | PCP | Unavailable | + +------+ + Reason for Visit + + + | Reason | Comments | + + + | Device Check | | + + + Encounter Details +--------+ + + + + | Date | Type | Department | Care Team | Description | +--------+ + + + + | 05/08/ | Telephone | Cardiology | Madeleine Hernandez NP | Device Check | | 2015 | | Arrhythmia at [facility] | [address] | | | | | [address] | [place], [place] | | | | | [facility] | [address] | | | | | and [facility], | [phone] | | | | | [place] [address] [facility] | | | | | | Floor [place], [place] | | | | | | [address] | | | | | | [phone] | | | +--------+ + + + [...] [address] | | | | | | [place] | | | | | | [address] | | | | | | [phone] | | | | | | | | +--------+ + + + + documented as of this encounter Visit Diagnoses Not on filedocumented in this encounter"
--- OUTSIDE RECORDS SUMMARY | ~2019-10-07 | XMS | Encounter Summary ---
Demographics + + + | Address | [address] | | | [place] [address] | + + + | Home Phone | | + + + | Preferred Language | Unknown | + + + | Marital Status | | + + + | Jew Affiliation | NON | + + + | Race | White | + + + | Ethnic Group | or | + + + Author + + + | Author | [facility] | + + + | Organization | [facility] | + + + | [...] [place], [place] | | | | | [address] | | + + + + + | Polly Winston | ECON | ANAYA, | | + + + + + Care Team Providers + +------+ + | Care Certified Procedural Coder Name | Role | Phone | + [...] + + + | Closed | | | | | [address] | | | | | | | [facility] | | | | | | | [address] | | | | | | | [place] | | | | | | | [id number] | | | | | | | [facility] | | | | | | | [place], | | | | | | | [place] [address] | | | | | | | Phone: | | | | | | | [phone] | | | | | | | Fax: | | | | | | | [phone] | +--------+--------+ + + + + Encounter Details +--------+ + + + + | Date | Type | Department | Care Team | Description | +--------+ + + + + | 08/13/ | Hospital | [facility] [address] | Kayla Hines, | | | 2008 | Encounter | [address] | [address] | | | | | [address] [facility] | [address] | | | | | [place], [place] | [place], [place] | | | | | [address] | [address] | | | | | [phone] | [phone] | | | | | | | [...] + + + | Blood Pressure | 119/44 | 08/13/2008 8:00 PM | | | | | PDT | | + + + + + | Pulse | 62 | 08/13/2008 8:00 PM | | | | | PDT | | + + + + + | Temperature | 36.2 C (97.2 F) | 08/13/2008 2:25 PM | | | | | PDT | | + + + + + | Respiratory Rate | 18 | 08/13/2008 8:00 PM | | | | | PDT | | + + + + + | Oxygen Saturation | 99% | 08/13/2008 8:00 PM | | | | | PDT | | + + + + + | Inhaled Oxygen | - | - | | | Concentration | | | | + + + + + | Weight | 61.2 kg (135 lb) | 08/13/2008 11:16 AM | | | | | PDT | | + + + + + | Height | 157.5 cm (5' 2") | 08/13/2008 11:16 AM | | | | | PDT | | + + + + + | Body Mass Index | 24.69 | 08/13/2008 11:16 AM | | | | | PDT | | + + + + + documented in this encounter Discharge Instructions Instructions Kitty Heredia - 08/13/2008Patient given written and verbal discharge instruct ions. Questions answered and understanding verbalized. Patient will be driven home by mother . documented in this encounter Progress Notes Kayla Hines MD - 08/13/2008 2:30 PM PDTThis young lady underwent pacemaker pulse gen erator change today (08/13/08). The procedure was done under sedation and local anesthesia. T he pre-existing pacemaker lead was checked and found to be working well. A new pulse generat or (Medtronic Sensia) was attached to the lead and placed back in the pocket in the left pre -pectoral region. The procedure was well tolerated. She will be observed for 8 hours and receive some more an tibiotics prior to discharge. If all goes well, she will be discharged from hospital later today. I am extremely pleased with the success of this procedure. Trans-telephonic monitoring has been set up and she will see me for follow up in the fall at the [facility]. Kayla Hines MD Director, Pediatric Electrophysiology [employer] Crew Member of Pediatrics [phone] documented in this e ncounter Plan of [...] Rd | | | | | | [place], [place] | | | | | | [address] | | | | | | [phone] | | | | | | | | +--------+ + + + + documented as of this encounter Procedures + +--------+ + + + | Procedure Name | Priori | Date/Time | Associated Diagnosis | Comments | | | ty | | | | + +--------+ + + + | PACEMAKER PLACEMENT | Routin | 04/05/2015 | | Results for this | | | e | 1:01 PM | | procedure are in the | | | | PST | | results section. | + +--------+ + + + | CBC ONLY | Routin | 08/13/2008 | | Results for this | | | e | 10:01 PM | | procedure are in the | | | | PDT | | results section. | + +--------+ + + + | CARDIOLOGY | | 08/13/2008 | | Results for this | | | | 8:42 PM | | procedure are in the | | | | PDT | | results section. | + +--------+ + + + | SURGERY / PROCEDURE | Routin | 08/13/2008 | | Results for this | | PREP | e | 4:40 PM | | procedure are in the | | | | PDT | | results section. | + +--------+ + + + | HCG URINE, POC | Routin | 08/13/2008 | | Results for this | | RESULT | e | 11:16 AM | | procedure are in the | | | | PDT | | results section. | + +--------+ + + + | CBC ONLY | Routin | 08/13/2008 | | Results for this | | | e | 11:07 AM | | procedure are in the | | | | PDT | | results section. | + +--------+ + + + documented in this encounter Results PACEMAKER PLACEMENT (04/05/2015 1:01 PM PST)CBC ONLY (08/13/2008 10:01 PM PDT) + + + + + + | Component | Value | Ref Range | Performed | Pathologist | | | | | At | Signature | + + + + + + | WHITE CELL | See cmnt | 4.4 - 11.0 K/cu | [facility] | | | COUNT | | mm | DEPARTMENT | | | | | | OF | | | | | | PATHOLOGY | | + + + + + + | RED CELL | See cmnt | 4.00 - 5.20 | [facility] | | | COUNT | | M/cu mm | DEPARTMENT | | | | | | OF | | | | | | PATHOLOGY | | + + + + + + | HEMOGLOBIN | See cmnt | 12.0 - 16.0 | [facility] | | | | | g/dL | DEPARTMENT | | | | | | OF | | | | | | PATHOLOGY | | + + + + + + | HEMATOCRIT | See cmnt | 36.0 - 46.0 % | [facility] | | | | | | DEPARTMENT | | | | | | OF | | | | | | PATHOLOGY | | + + + + + + | MCV | See cmnt | 80.0 - 96.0 fL | [facility] | | | | | | DEPARTMENT | | | | | | OF | | | | | | PATHOLOGY | | + + + + + + | MCHC | See cmnt | 33.4 - 35.5 | [facility] | | | | | g/dL | DEPARTMENT | | | | | | OF | | | | | | PATHOLOGY | | + + + + + + | RDW | See cmnt | 11.5 - 15.0 % | [facility] | | | | | | DEPARTMENT | | | | | | OF | | | | | | PATHOLOGY | | + + + + + + | PLATELET | See cmnt | 150 - 400 K/cu | [facility] | | | COUNT | | mm | DEPARTMENT | | | | | | OF | | | | | | PATHOLOGY | | + + + + + + + + | Specimen | + + | Blood - Blood | + + + + + | Narrative | Performed At | + + + | Patient discharged. | [facility] | | | DEPARTMENT OF | | | PATHOLOGY | + + + + + + + + | Performing | Address | City/State/Zipcode | Phone Number | | Organization | | | | + + + + + | [facility] DEPARTMENT | [address] | [place] [address] | | | PATHOLOGY | [address] | | | + + + + + | [facility] OF | [address] | [place] [address] | | | PATHOLOGY | [address] | | | + + + + + CARDIOLOGY (08/13/2008 8:42 PM PDT) + + + | Narrative | Performed At | + + + | | | + + + + + | Procedure Note | + + | Kalyani Beverly - 08/13/2008 8:42 PM PDT | | | + + SURGERY / PROCEDURE PREP (08/13/2008 4:40 PM PDT) + + + | Narrative | Performed At | + + + | KAYLA HINES MD 08/13/2008 4:40:24 PM Pre-procedure | | | Diagnoses 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 Sick sinus syndrome Procedures 1. HX PACEMAKER PLACEMENT | | | ([id number]) PROCEDURE(S) PERFORMED: Implantation of | | | single-chamber permanent pacemaker generator (thread clipper | | | Medtronic). REFERRING PROVIDER: Dr Gabrielle Fernández. PRIMARY PROVIDER: | | | Dr Gabrielle Fernández. INDICATIONS: Joie hendricks is a 22 yr old young | | | lady male referred for single-chamber pacemaker placement due to | | | battery depletion of her earlier pacemaker. RESIDENTIAL TECH: | | | Kayla Hines FLUOROSCOPY TIME: 0.2 min min. FLUOROSCOPY DAP: | | | 12.7 cGycm2. MEDICATIONS: Midazolam 10 mg Pentobarbital 100 mg | | | Fentanyl 125 mg PROCEDURE NARRATIVE: Following oral and written | | | informed consent, the patient was brought to the Electrophysiology | | | Laboratory in the post-absorptive, non-sedated state. Pre-procedure | | | antibiotics, Ancef 1 gram IV, were administered. The patient was | | | prepped and draped in the usual sterile fashion. Sedation and local | | | anesthesia (lidocaine 1%) were used. A finger oximeter and automatic | | | blood pressure cuff were placed for continuous monitoring of | | | hemodynamics. The old scar at the left infraclavicular region was | | | incised. This was dissected down to the prepectoral fascia using | | | electrocautery and blunt dissection. The old pocket was opened and | | | pacemaker exteriorized. Lead testing showed suitable characteristics. | | | The lead was then attached to the new single-chamber pulse generator | | | and the set screws tightened. The pocket was irrigated with | | | copious amounts of bacitracin antibiotic solution. The pulse | | | generator and leads were then positioned within the pocket. The | | | incision was closed with two layers of 2-0 Vicryl and a single layer | | | of 4-0 Vicryl. Bacitracin antibiotic ointment, Steri-Strips, and a | | | pressure dressing were applied over the incision. The patient | | | tolerated the procedure well. DEVICE INFORMATION: Pulse | | | generator: Mfg: inthinc Model number: [id number] Serial number: | | | [id number] Right Ventricular lead: Mfg: Medtronic Model number: | | | 1488 TC Serial number: [id number] MEASURED PARAMETERS: P/R wave: 4.6 | | | mV. Threshold: 0.6 V at 0.5 msec. Impedance 574 ohms. | | | PROGRAMMED PARAMETERS: Mode: VVIR Rate: 60-170 bpm. Output: 2 V | | | at 0.4 msec. Sensitivity: 2.0 mV DISPOSITION: The patient was | | | transferred to [address] [place] [address] in good condition. COMPLICATIONS: None. | | | IMPRESSION: Successful replacement of a permanent single-chamber | | | ventricular pacemaker. Pursuant to Federal Medicare requirements, I | | | certify that I, Kayla Hines, was present for the entire procedure | | | and generated this report. Kayla Hines MD Director, | | | Pediatric Electrophysiology [employer] Crew Member of Pediatrics | | | [phone] | | + + + + + | Procedure Note | + + | Kayla Hines MD - 08/13/2008 3:25 PM PDT Formatting of this note might be | | different from the original.Pre-procedure Diagnoses 1. S/P Repair of total anomalous | | pulmonary venous drainage 2. Sick sinus syndrome Procedures 1. HX PACEMAKER PLACEMENT | | ([id number]) PROCEDURE(S) PERFORMED: Implantation of single-chamber permanent | | pacemaker generator (thread clipper Medtronic). REFERRING PROVIDER: Dr Gabrielle Fernández. | | PRIMARY PROVIDER: Dr Gabrielle Fernández. INDICATIONS: Joie hendricks is a 22 yr old young lady | | male referred for single-chamber pacemaker placement due to battery depletion of her | | earlier pacemaker. RESIDENTIAL TECH: Kayla Hines FLUOROSCOPY TIME: 0.2 min min. | | FLUOROSCOPY DAP: 12.7 cGycm2. MEDICATIONS: Midazolam 10 mgPentobarbital 100 mgFentanyl | | 125 mgPROCEDURE NARRATIVE: Following oral and written informed consent, the patient was | | brought to the Electrophysiology Laboratory in the post-absorptive, non-sedated state. | | Pre-procedure antibiotics, Ancef 1 gram IV, were administered. The patient was prepped | | and draped in the usual sterile fashion. Sedation and local anesthesia (lidocaine 1%) | | were used. A finger oximeter and automatic blood pressure cuff were placed for | | continuous monitoring of hemodynamics. The old scar at the left infraclavicular region | | was incised. This was dissected down to the prepectoral fascia using electrocautery and | | blunt dissection. The old pocket was opened and pacemaker exteriorized. Lead testing | | showed suitable characteristics. The lead was then attached to the new single-chamber | | pulse generator and the set screws tightened. The pocket was irrigated with copious | | amounts of bacitracin antibiotic solution. The pulse generator and leads were then | | positioned within the pocket. The incision was closed with two layers of 2-0 Vicryl and | | a single layer of 4-0 Vicryl. Bacitracin antibiotic ointment, Steri-Strips, and a | | pressure dressing were applied over the incision. The patient tolerated the procedure | | well. DEVICE INFORMATION: Pulse generator: Mfg: Medtronic Model number: [id number] Serial | | number: [id number] Right Ventricular lead: Mfg: Medtronic Model number: 1488 TC Serial | | number: [id number] PARAMETERS: P/R wave: 4.6 mV. Threshold: 0.6 V at 0.5 msec. | | Impedance 574 ohms. PROGRAMMED PARAMETERS: Mode: VVIR Rate: 60-170 bpm. Output: 2 V at | | 0.4 msec. Sensitivity: 2.0 mV DISPOSITION: The patient was transferred to [facility] in | | good condition. COMPLICATIONS: None. IMPRESSION: Successful replacement of a permanent | | single-chamber ventricular pacemaker.Pursuant to Federal Medicare requirements, I | | certify that I, Kayla Hines, was present for the entire procedure and generated this | | report. Kayla Hines MDDirector, Pediatric Electrophysiology Airport Operations Crew Member of | | [phone] | |Serial number: [id number] | |Right Ventricular lead: | |Mfg: Medtronic | |Model number: 1488 TC | |Serial number: [id number] | |MEASURED PARAMETERS: | |P/R wave: 4.6 mV. | |Threshold: 0.6 V at 0.5 msec. | |Impedance 574 ohms. | |PROGRAMMED PARAMETERS: | |Mode: VVIR | |Rate: 60-170 bpm. | |Output: 2 V at 0.4 msec. | |Sensitivity: 2.0 mV | |DISPOSITION: The patient was transferred to [facility]U in good condition. | |COMPLICATIONS: None. | |IMPRESSION: | |Successful replacement of a permanent single-chamber ventricular pacemaker. | |Pursuant to Federal Medicare requirements, I certify that I, Kayla Hines, was present f or the entire procedure and generated this report. | | | | | |Kayla Hines MD | |Director, Pediatric Electrophysiology | |[employer] Operations Crew Member of Pediatrics | |[phone] | | | | | | | + + HCG URINE, POC RESULT (08/13/2008 11:16 AM PDT) + +-------+ + + + | Component | Value | Ref Range | Performed | Pathologist | | | | | At | Signature | + +-------+ + + + | HCG URINE, | neg | | | | | POC | | | | | + +-------+ + + + CBC ONLY (08/13/2008 11:07 AM PDT) + + + + + + | Component | Value | Ref Range | Performed | Pathologist | | | | | At | Signature | + + + + + + | WHITE CELL | 11.4 (H) | 4.4 - 11.0 K/cu | [facility] | | | COUNT | | mm | DEPARTMENT | | | | | | OF | | | | | | PATHOLOGY | | + + + + + + | RED CELL | 4.25 | 4.00 - 5.20 | [facility] | | | COUNT | | M/cu mm | DEPARTMENT | | | | | | OF | | | | | | PATHOLOGY | | + + + + + + | HEMOGLOBIN | 12.7 | 12.0 - 16.0 | [facility] | | | | | g/dL | DEPARTMENT | | | | | | OF | | | | | | PATHOLOGY | | + + + + + + | HEMATOCRIT | 36.4 | 36.0 - 46.0 % | [facility] | | | | | | DEPARTMENT | | | | | | OF | | | | | | PATHOLOGY | | + + + + + + | MCV | 85.5 | 80.0 - 96.0 fL | [facility] | | | | | | DEPARTMENT | | | | | | OF | | | | | | PATHOLOGY | | + + + + + + | MCHC | 35.0 | 33.4 - 35.5 | [facility] | | | | | g/dL | DEPARTMENT | | | | | | OF | | | | | | PATHOLOGY | | + + + + + + | RDW | 13.2 | 11.5 - 15.0 % | [facility] | | | | | | DEPARTMENT | | | | | | OF | | | | | | PATHOLOGY | | + + + + + + | PLATELET | 290 | 150 - 400 K/cu | [facility] | | | COUNT | | mm | DEPARTMENT | | | | | | OF | | | | | | PATHOLOGY | | + + + + + + + + | Specimen | + + | Blood - Blood | + + + + + + + | Performing | Address | City/State/Zipcode | Phone Number | | Organization | | | | + + + + + | [facility] DEPARTMENT OF | [address] | [place] [address] | | | PATHOLOGY | [address] | | | + + + + + | [facility] DEPARTMENT OF | [address] | [place] [address] | | | PATHOLOGY | [address] | | | + + + + + documented in this encounter Visit Diagnoses Not on filedocumented in this encounter Administered Medications + +--------+ +------+------+------+ | Medication Order | MAR | Action | Dose | Rate | Site | | | Action | Date | | | | + +--------+ +------+------+------+ | ceFAZolin (aka ANCEF) injection | Given | 08/14/19 | 1 g | | | | 1 g 1 g, intravenous, ONCE, 1 | | 09 8:00 | | | | | dose, 08/13/08 at 2030 | | PM PDT | | | | + +--------+ +------+------+------+ +---+---+ | | | +---+---+ + +-------+ +-----+---+---+ | ceFAZolin (aka ANCEF) injection | Given | 08/14/19 | 1 g | | | | 1 dose, Starting Wed08/13/08 at | | 09 12:26 | | | | | 1047, Until Wed08/13/08 at 1226 | | PM PDT | | | | + +-------+ +-----+---+---+ +---+---+ | | | +---+---+ + +---------+ +---+-------+---+ | NaCl 0.9 % IV intravenous, | New Bag | 08/14/19 | | 100 | | | CONTINUOUS, Starting Wed08/13/08 | | 09 3:00 | | mL/hr | | | at 1445, Until Wed08/13/08 at | | PM PDT | | | | | 1944 | | | | | | + +---------+ +---+-------+---+ +---+---+ | | | +---+---+ documented in this encounter
--- OUTSIDE RECORDS SUMMARY | ~2019-10-07 | XMS | Encounter Summary ---
Demographics + + + | Address | [address] | | | [place] [address] | + + + | Home Phone | | + + + | Preferred Language | Unknown | + + + | Marital Status | | + + + | Yarsanism Affiliation | NON | + + + | Race | White | + + + | Ethnic Group | or | + + + Author + + + | Author | [facility] | + + + | Organization | [facility] | + + + | [...] [place], [place] | | | | | [address] | | + + + + + | Polly Winston | ECON | ANAYA, | | + + + + + Care Team Providers + +------+ + | Care Casing Runner Name | Role | Phone | + +------+ + | Gabrielle Fernández MD | PCP | | + +------+ + Encounter Details +--------+---------+ + + + | Date | Type | Department | Care Team | Description | +--------+---------+ + + + | 11/02/ | Office | Pediatric | Antonio Hines, | 427.81 SICK SINUS | | 2011 | Visit | Cardiology at | [address] [facility] | SYNDROME (Primary | | | | [place] | [address] | Dx) | | | | [facility] | [place], [place] | | | | | [address] | [address] | | | | | Emeli | [phone] | | | | | [facility] | | | | | | [address] [facility], | | | | | | [place] [address] | | | | | | [phone] | | | +--------+---------+ + + + [...] Instructions Patient Instructions Antonio Hines MD - 11/03/2011 3:09 PM PDTPacemaker Carelink check looks good. Please repeat in 3 months. Antonio Hines MD Director, Pediatric Electrophysiology Professor of Pediatrics [phone] documented in this encounter Progress Notes Antonio Hines MD - 11/03/2011 3:08 PM PDTThis is a Carelink check of the ventricular p acemaker done on 10/26/11 on Joie Villarreal who is a 25 y.o. 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 Device: Medtronic Sensia Implanted: 08/13/08 RULA: no ADVISORY: NO Mode: VVIR Lower Rate: 60 Upper Rate: 170 Battery Voltage: 2.78 volts Cell Impedance: 486 ohms Estimated battery longevity: 7.0 years (range 5.5-8.0) Patient is not pacer dependent. Telephone monitoring is: on Output (v) Pulse Width (ms) Sensitivity (mv) Right Ventricle 2.5 0.45 2.8 TESTING: Threshold testing was performed. RT VENTRICLE RV threshold volts:1.25 v RV threshold PW: 0.4 ms RV lead impedance: 682 ohms R Wave Amplitude: unable to check She is paced 86% of the time. Ventricular capture looks good. I am pleased with this check. The next check will be in 3 months. Antonio Hines MD Director, Pediatric Electrophysiology Professor of Pediatrics [phone] documented in this e ncounter Plan of [...] [place] | | | | | | [address] | | | | | | [phone] | | | | | | | | +--------+ + + + + documented as of this encounter Visit Diagnoses + + | Diagnosis | + + | 427.81 SICK SINUS SYNDROME - Primary Sinoatrial node dysfunction | + + documented in this encounter"
--- OUTSIDE RECORDS SUMMARY | ~2019-10-07 | XMS | Encounter Summary ---
Demographics + + + | Address | [address] | | | [place] [address] | + + + | Home Phone | | + + + | Preferred Language | Unknown | + + + | Marital Status | | + + + | Mormon Affiliation | NON | + + + | Race | White | + + + | Ethnic Group | or | + + + Author + + + | Author | [facility] | + + + | Organization | [facility] | + + + | Address [...] [address], [place] | | | | | [address] | | + + + + + | Polly Winston | ECON | ANAYA, | | + + + + + Care Team Providers + +------+ + | Care Accounting Manager Controller Name | Role | Phone | + +------+ + | Yuli Franklin | PCP | | + +------+ + Reason for Visit + + + | Reason | Comments | + + + | US - Ultrasound | Requesting Anatomy US Order for 08/20 appt. | + + + Encounter Details +--------+ + + + + | Date | Type | Department | Care Team | Description | +--------+ + + + + | 08/16/ | Telephone | Center | Nellie Munson, | US - Ultrasound | | 2020 | | at [facility] [address] | MD [address] | (Requesting Anatomy | | | | [address] | [address] | US Order for 08/20 | | | | Physician's | [place], [place] | appt.) | | | | [place], [address] Floor | [address] | | | | | [facility] [place] | [phone] | | | | | [address] | | | | | | [phone] | | | +--------+ + + + [...] | | 2019 | | | [address] [facility] | | | | | | [facility] | | | | | | [place], [place] | | | | | | [address] | | | | | | [phone] | | | | | | | | +--------+ + + + + documented as of this encounter Results US PREG UTERUS DETAIL (08/21/2019 3:54 PM PDT) + + | Specimen | + + | | + + + + + | Narrative | Performed At | + + + | [facility] | [facility] | | OBSTETRICAL ULTRASOUND REPORT | RADIOLOGY OB US | | | | | Pat. Name: RAMOS SCHMIDT Study | | | Date: 08/21/2019 2:47pm Pat. No: [id number] | | | Referring MD: KINDRA COHEN F LMP: | | | 03/20/2019 Timber Selector: ANGEL SOLITARIO, | | | BS, RDMS GA by LMP: 22w0d , | | | Age: 10 1985, 33 GA by Last:22w0d | | | Pregnancies: 1, Para 0000 GA by US: 22w5d | | | GA Selected: 22w0d (From [address] St) | | | Hist/Ind: Anatomy detail, evaluate complete previa and vasa | | | previa, Maternal congenital cardiac anomaly | | | CPT4: 95500,29238 | | | MARINA: | | | 12/25/2019 | | | | | | MEASUREMENTS & AGE | | | GROWTH EVALUATION Measurement GA Range Source % | | | 22w0d Ratios ----- ------- | | | BPD 5.4 cm 22w4d | | | (87g1d-81u9p) Hadlock BPD 65% FL/BPD 0.77 HC 20.2 cm 22w2d | | | (47d0z-02u7d) Hadlock HC 59% FL/AC 0.23 (0.20 - 0.24) AC | | | 18.6 cm 23w3d (16i0r-06n2y) Hadlock AC 80% HC/AC 1.08 | | | (1.04 - 1.23) FL 4.2 cm 23w4d (46m5k-12a5f) Hadlock FL 91% | | | CI 0.75 (0.70 - 0.86) HL 4.0 cm 24w2d (81e7r-43n1w) Zari | | | HL 88% Cere 2.3 cm Hill | | | Cere GA for sonogram 22w5d (62b1c-64f7c) Weight | | | Estimate: based on (BPD,HC,AC,FL) Hadlock Weight: 586 | | | gm (500-671gm) Hadlock | | | : 1lbs, 4oz | | | Normal: 480 gm (320-920gm) Rebeca | | | Wt% 60% | | | for 22w0d Heart Rate: 142 bpm | | | | | | EVAL, PLACENTA Presentation: Cephalic Umbilical | | | Cord: 3 Vessels Placenta: Posterior Previa: Complete previa Cord | | | Insert: Mid insertion Heart Rate: 142 bpm Amniotic Fluid | | | Volume: Subjectively normal | | | Anatomy!Normal!Abnormal!Suboptimal!Prev. Seen!Comments | | | | | | Cranium ! x ! ! ! | | | ! CSP ! x ! ! | | | ! ! Falx Cerebri ! x ! ! | | | ! ! Cerebral Vent! x ! ! | | | ! ! Choroid Plexu! x ! ! | | | ! ! Cerebellum ! x ! ! | | | ! ! Cisterna Magn! x ! ! | | | ! ! Nuchal Fold ! x ! ! | | | ! ! Neck ! x ! ! | | | ! ! Nose/Lips ! x ! ! | | | ! ! Face/Profile ! x ! ! | | | ! ! Nasal Bone ! x ! ! | | | ! ! Palate/Mandib! x ! ! | | | ! ! Orbits ! x ! ! | | | ! ! Chest/Lungs/R! x ! ! | | | ! ! Cardiac [place]/! x ! ! | | | ! ! Four Chamber ! x ! ! | | | ! ! LVOT ! x ! | | | ! ! ! RVOT ! x ! | | | ! ! ! 3 Vessel View! x ! | | | ! ! ! 3V Trachael V! x ! | | | ! ! ! IVC/SVC ! x ! | | | ! ! ! Aortic Arch ! x ! | | | ! ! ! Ductal Arch ! x | | | ! ! ! ! Diaphragm ! | | | x ! ! ! ! Stomach ! | | | x ! ! ! ! Situs | | | ! x ! ! ! ! Gallbladder | | | ! x ! ! ! ! | | | Liver/Spleen ! x ! ! ! ! | | | Bowel ! x ! ! ! | | | ! 3VC ! x ! ! ! | | | ! Abdominal Wal! x ! ! ! | | | ! Kidneys ! x ! ! ! | | | ! Bladder ! x ! ! ! | | | ! Cervical Spin! x ! ! ! | | | ! Thoracic Spin! x ! ! ! | | | ! Lumbar Spine ! x ! ! ! | | | ! Sacral Spine ! x ! ! ! | | | ! Right Humerus! x ! ! ! | | | ! Right Radius/! x ! ! ! | | | ! Right Hand ! x ! ! ! | | | ! Left Humerus ! x ! ! ! | | | ! Left Radius/U! x ! ! ! | | | ! Left Hand ! x ! ! | | | ! ! Right Femur ! x ! ! | | | ! ! Right Tibia/F! x ! ! | | | ! ! Right Foot ! x ! ! | | | ! ! Left Femur ! x ! ! | | | ! ! Left Tibia/Fi! x ! ! | | | ! ! Left Foot ! x ! ! | | | ! ! Skin ! x ! ! | | | ! ! Sex (F) ! x ! ! | | | ! ! | | | | | | CLINICAL SUMMARY Type of Gestation: Talavera Uterus and | | | adnexae: No abnormalities seen. There is heart motion and | | | gross movement. Ultrasound cannot detect all / | | | abnormalities. Transvaginal approach is used for better visualization | | | due to complete previa and possible vasa previa and limitation of | | | the transabdominal imaging, endovaginal US was utilized to evaluate | | | the . The cervical length measures 4.0cm. Impression: 33 | | | year old at 22 0/7 weeks gestation with a history of outside | | | ultrasound showing placenta previa and vasa previa who presents for | | | anatomy screening and placental evaluation. 1. Single living | | | intrauterine in cephalic presentation. 2. Posterior | | | placenta with placenta previa noted. There is also a small area of | | | placenta seen anterior to the cervix, which may be contiguous with | | | the posterior placenta, or may be a succenturiate lobe. There is a | | | vessel with arterial flow seen traversing from the posterior | | | to the anterior portion of the placenta, across the internal os of | | | the cervix. The distance from the os in the transverse dimension | | | appears to be 1.8cm. Findings are consistent with a placenta | | | previa and vasa previa. 3. Growth is appropriate, consistent with 22 | | | 0/7 weeks gestation. 4. Normal anatomic survey with no | | | abnormalities identified. Recommendations: 1. After this US the | | | patient was seen in the clinic by Dr. Munson. Follow up as | | | clinically indicated given maternal CHD and vasa previa. Thank | | | you very much for allowing us to help care for your patient. If you | | | have any questions, please feel free to call our 24 hour phone | | | consult number at any time and ask for the perinatologist business system consultant. | | | [phone] or [phone] ASHLEE HOOVER MD | | | <Electronic Signature> 08/21/2019 04:07pm | | | I have personally reviewed the images and, if necessary, edited | | | the report. I agree with the report as now presented. | | + + + + + | Procedure Note | + + | Service Account, Radiant Res In Interface - 08/21/2019 4:10 PM PDT | | [facility] OBSTETRICAL ULTRASOUND | | | | REPORT Pa | | t. Name: RAMOS SCHMIDT Study Date: 08/21/2019 2:47pmPat. No: | | [id number] Referring MD: KINDRA COHEN, AGATHA: 03/20/2019 | | Timber Selector: ANGEL SOLITARIO, JEY, RDMSGA by LMP: 22w0d | | , Age: 10 1985, 33GA by Last:22w0d | | Pregnancies: 1, Para 0000GA by US: 22w5d GA Selected: | | 22w0d (From )Hist/Ind: Anatomy detail, evaluate complete previa and vasa | | previa, Maternal congenital cardiac anomaly | | CPT4: 43294,[id number] MARINA: | | 12/25/2019 | | --MEASUREMENTS & AGE GROWTH EVALUATIONMeasurement GA | | Range Source % 22w0d Ratios ----- ------- | | BPD 5.4 cm 22w4d (19i0e-00b0y) Hadlock BPD 65% FL/BPD | | 0.77HC 20.2 cm 22w2d (46a7c-78t0y) Hadlock HC 59% FL/AC 0.23 (0.20 - 0.24)AC | | 18.6 cm 23w3d (98m2u-39l8p) Hadlock AC 80% HC/AC 1.08 (1.04 - 1.23)FL 4.2 cm | | 23w4d (90r8c-51n5z) Hadlock FL 91% CI 0.75 (0.70 - 0.86)HL 4.0 cm 24w2d | | (80n0d-96p8m) Zari HL 88%Cere 2.3 cm Hill Cere GA for | | sonogram 22w5d (91d2e-54d9y) Weight Estimate:based on (BPD,HC,AC,FL) Hadlock | | Weight: 586 gm (500-671gm) Hadlock | | : 1lbs, 4oz Normal: 480 gm (320-920gm) Rebeca | | Wt% 60% for 16w3fSvvgm Heart Rate: 142 | | bpm | | EVAL, PLACENTAPresentation: CephalicUmbilical Cord: 3 VesselsPlacenta: PosteriorPrevia: | | Complete previaCord Insert: Mid insertionFetal Heart Rate: 142 bpmAmniotic Fluid | | Volume: Subjectively normalFetal Anatomy!Normal!Abnormal!Suboptimal!Prev. | | Seen!Comments | | -----Cranium ! x ! ! ! !CSP ! x ! ! | | ! !Falx Cerebri ! x ! ! ! !Cerebral Vent! | | x ! ! ! !Choroid Plexu! x ! ! ! | | !Cerebellum ! x ! ! ! !Cisterna Magn! x ! ! | | ! !Nuchal Fold ! x ! ! ! !Neck ! x | | ! ! ! !Nose/Lips ! x ! ! ! | | !Face/Profile ! x ! ! ! !Nasal Bone ! x ! ! | | ! !Palate/Mandib! x ! ! ! !Orbits ! x | | ! ! ! !Chest/Lungs/R! x ! ! ! | | !Cardiac [place]/! x ! ! ! !Four Chamber ! x ! ! | | ! !LVOT ! x ! ! ! !RVOT ! x | | ! ! ! !3 Vessel View! x ! ! ! !3V | | Trachael V! x ! ! ! !IVC/SVC ! x ! ! | | ! !Aortic Arch ! x ! ! ! !Ductal Arch ! x ! | | ! ! !Diaphragm ! x ! ! ! !Stomach | | ! x ! ! ! !Situs ! x ! ! ! | | !Gallbladder ! x ! ! ! !Liver/Spleen ! x ! | | ! ! !Bowel ! x ! ! ! !3VC | | ! x ! ! ! !Abdominal Wal! x ! ! ! | | !Kidneys ! x ! ! ! !Bladder ! x ! ! | | ! !Cervical Spin! x ! ! ! !Thoracic Spin! | | x ! ! ! !Lumbar Spine ! x ! ! ! | | !Sacral Spine ! x ! ! ! !Right Humerus! x ! ! | | ! !Right Radius/! x ! ! ! !Right Hand ! x | | ! ! ! !Left Humerus ! x ! ! ! | | !Left Radius/U! x ! ! ! !Left Hand ! x ! ! | | ! !Right Femur ! x ! ! ! !Right Tibia/F! x | | ! ! ! !Right Foot ! x ! ! ! | | !Left Femur ! x ! ! ! !Left Tibia/Fi! x ! ! | | ! !Left Foot ! x ! ! ! !Skin ! x | | ! ! ! !Sex (F) ! x ! ! ! | | ! CLINICA | | L SUMMARYType of Gestation: SingletonUterus and adnexae: No abnormalities seen.There is | | heart motion and gross movement.Ultrasound cannot detect all / | | abnormalities.Transvaginal approach is used for better visualization due to complete | | previa and possible vasa previa and limitation of the transabdominal imaging, | | endovaginal US was utilized to evaluate the . The cervical length measures | | 4.0cm.Impression: 33 year old at 22 0/7 weeks gestation with a history of outside | | ultrasound showing placenta previa and vasa previa who presents for anatomy screening | | and placental evaluation. 1. Single living intrauterine in cephalic | | presentation.2. Posterior placenta with placenta previa noted. There is also a small | | area of placenta seen anterior to the cervix, which may be contiguous with the posterior | | placenta, or may be a succenturiate lobe. There is a vessel with arterial flow | | seen traversing from the posterior to the anterior portion of the placenta, across the | | internal os of the cervix. The distance from the os in the transverse dimension appears | | to be 1.8cm. Findings are consistent with a placenta previa and vasa previa.3. Growth | | is appropriate, consistent with 22 0/7 weeks gestation.4. Normal anatomic survey | | with no abnormalities identified.Recommendations:1. After this US the patient was seen | | in the clinic by Dr. Munson. Follow up as clinically indicated given maternal | | CHD and vasa previa. Thank you very much for allowing us to help care for your patient. | | If you have any questions, please feel free to call our 24 hour phone consult number at | | any time and ask for the perinatologist business system consultant. [phone] or [phone], | | ASHLEE JAIME <Electronic Signature> 08/21/2019 04:07pmI have | | personally reviewed the images and, if necessary, edited the report. I agree with the | | report as now presented. | |Right Tibia/F! x ! ! ! ! | |Right Foot ! x ! ! ! ! | |Left Femur ! x ! ! ! ! | |Left Tibia/Fi! x ! ! ! ! | |Left Foot ! x ! ! ! ! | |Skin ! x ! ! ! ! | |Sex (F) ! x ! ! ! ! | | | |CLINICAL SUMMARY | |Type of Gestation: Talavera | |Uterus and adnexae: No abnormalities seen. | |There is heart motion and gross movement. | |Ultrasound cannot detect all / abnormalities. | |Transvaginal approach is used for better visualization due to complete previa | |and possible vasa previa and limitation of the transabdominal imaging, | |endovaginal US was utilized to evaluate the . | |The cervical length measures 4.0cm. | |Impression: 33 year old at 22 0/7 weeks gestation with a history of | |outside ultrasound showing placenta previa and vasa previa who presents for | |anatomy screening and placental evaluation. | |1. Single living intrauterine in cephalic presentation. | |2. Posterior placenta with placenta previa noted. There is also a small area | |of placenta seen anterior to the cervix, which may be contiguous with the | |posterior placenta, or may be a succenturiate lobe. There is a vessel | |with arterial flow seen traversing from the posterior to the anterior portion of | |the placenta, across the internal os of the cervix. The distance from the os in | |the transverse dimension appears to be 1.8cm. Findings are consistent with a | |placenta previa and vasa previa. | |3. Growth is appropriate, consistent with 22 0/7 weeks gestation. | |4. Normal anatomic survey with no abnormalities identified. | |Recommendations: | |1. After this US the patient was seen in the clinic by Dr. Munson. | |Follow up as clinically indicated given maternal CHD and vasa previa. | | | |Thank you very much for allowing us to help care for your patient. If you have | |any questions, please feel free to call our 24 hour phone consult number at any | |time and ask for the perinatologist business system consultant. [phone] or [phone] | |ASHLEE HOOVER MD | | | |<Electronic Signature> 08/21/2019 04:07pm | | | | | |I have personally reviewed the images and, if necessary, edited the report. I agree with t he report as now presented. 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
--- OUTSIDE RECORDS SUMMARY | ~2019-10-07 | XMS | Encounter Summary ---
Demographics + + + | Address | [address] | | | [place] [address] | + + + | Home Phone | | + + + | Preferred Language | Unknown | + + + | Marital Status | | + + + | Samaritan Affiliation | NON | + + + | Race | White | + + + | Ethnic Group | or | + + + Author + + + | Author | [facility] | + + + | Organization | [facility] | + + + | [...] [place], [place] | | | | | [address] | | + + + + + | Polly Winston | ECON | ANAYA, | | + + + + + Care Team Providers + +------+ + | Care Sewer Maintenance Supervisor Name | Role | Phone | + +------+ + | Yuli Franklin | PCP | | + +------+ + Reason for Visit + + + | Reason | Comments | + + + | Follow-up visit | | + + + Office Visit - E/M Services (Routine) + +--------+ + + + + | Status | Reason | Specialty | Diagnoses / | Referred By | Referred To | | | | | Procedures | Contact | Contact | + +--------+ + + + + | Pending | | Cardiology | Diagnoses | No | Jeannine, | | Review | | | Sick sinus | Referring | Haylie Petty MD | | | | | syndrome | Provider Per | [address] | | | | | ([facility]) Total | Patient NO | Ave | | | | | congenital | REFERRING | [place], [place] | | | | | anomalous | PROVIDER PER | [address] | | | | | pulmonary | PT | Phone: | | | | | venous | | [phone] | | | | | connection | | Fax: | | | | | Procedures | | [phone] | | | | | ND EST | | | | | | | PATIENT | | | | | | | LEVEL V | | | + +--------+ + + + + Encounter Details +--------+ + + + + | Date | Type | Department | Care Team | Description | +--------+ + + + + | 06/21/ | Video/TeleH | Cardiology in | Haylie Paez, | Follow-up visit | | 2020 | [facility] | [facility] | MD Silvia Breen | | | | ulpaige | [facility] [address] | [place], [place] | | | | | [facility] [address] | [address] | | | | | [place], [address] [place] [address] | [phone] | | | | | [place], [place] | | | | | | [address] | | | | | | [phone] | | | +--------+ + + + [...] + documented as of this encounter Progress Haylie Read MD - 06/22/2019 10:00 AM PDTFormatting of this note might be different fro m the original. The visit took place via Telemedicine. Patient location is the home. Patient was located in the state of [place] at the time of the visit. Telepresenter (relative and/or dependency director) was not used during the visit. MATERNAL CARDIAC PROGRAM INITIAL CARDIOLOGY VISIT Joie Schmidt is a 33 y.o. female here for an initial visit. 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 Past Medical History: 1. 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 Details unknown. Surgery was done in [place]. 2. Sick sinus syndrome, AV node dysfunction - EP: Pacemaker paced in 1999 (age 13). She had a syncopal event during class. - EP: Biventricular pacemaker upgrade. Unsuccessful placement of His bundle pacemaker (07/18 17, Madeleine). Device is Medtronic. Patient is intermittently pacemaker dependent. Last PPM check 06/07/2009: Normal device function. 6.5 years until RULA. Current History: Last seen by Brynn Reed [...] taking baby aspirin at Dr. Garcia' recommendation. ROS: As above, all other reviewed systems were negative, specifically, no headaches, swall owing problems, cough or hemoptysis, heat or cold intolerance, nausea, vomiting, diarrhea, h ematuria, melena, fever, chills, shakes, rash or bruise, numbness or tingling. Family history: Her great grandfather had a heart condition of unknown type. 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 She meets with clients through a basno cu rrently; social distancing in the office with coworkers. Non-smoker. She lives with her husb and. Allergies Allergen Reactions Ciprofloxacin Hives Codeine Becomes Angry and Rude Venom-Honey Bee Edema Current Outpatient Medications Medication Sig vit 91/iron/folic/dha ( + DHA ORAL) Take by mouth. No current facility-administered medications for this visit. Physical Exam: Deferred- VV VS in OB clinic 06/11: Vitals: BP 114/58 | Pulse 78 | Ht 1.575 m (5' 2") | Wt 70.4 kg (15 5 lb 3.3 oz) | SpO2 100% | BMI 28.39 kg/m | BSA 1.75 m DATA: EKG, 06/2017: A-V pacing. Lab Results [...] her pacemaker follow-up through our EP clinic. Thank you for referring this francisco patient to our group. Please do not hesitate to call wi th any questions. Recommendations/Plan: 1. Further cardiac testing required: No 2. Planned location of delivery: [facility] 3. Delivery plan: No cardiac restrictions on mode of delivery. 4. Telemetry monitoring is required during labor and for 24 hours thereafter 5. IV filter is not required. 6. Next cardiac follow-up is between 32-36 weeks. OK to do VV. Haylie Paez MD Ash Kier Boiler, [facility] Adult Congenital Heart Disease Program documented in this en counter Plan of Treatment +--------+ + + + + | Date | Type | Specialty | Care Team | Description | +--------+ + + + + | 10/18/ | Appointment | Radiology | | | | 2019 | | | | | +--------+ + + + + | 10/18/ | | | Nellie Munson, | | | 2019 | | | [address] [facility] | | | | | | [facility] | | | | | | [place], [place] | | | | | | [address] | | | | | | [phone] | | | | | | | | +--------+ + + + + documented as of this encounter Visit Diagnoses + + | Diagnosis | + + | 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
--- OUTSIDE RECORDS SUMMARY | ~2019-10-07 | XMS | Encounter Summary ---
Demographics + + + | Address | [address] | | | [place] [address] | + + + | Home Phone | | + + + | Preferred Language | Unknown | + + + | Marital Status | | + + + | Mandaen Affiliation | NON | + + + [...] [place], [place] | | | | | [address] | | + + + + + | Polly Winston | ECON | ANAYA, | | + + + + + Care Team Providers + +------+ + | Care High Heel Builder Name | Role | Phone | + [...] + + + | Authorized | | Cardiology | Diagnoses | Brian, | Luis, | | | | | Sick sinus | MD Valdez | [address] | | | | | syndrome | [address] | [facility] | | | | | Presence of | St | [address] | | | | | cardiac | [place], | [address] [place], | | | | | pacemaker | [place] [id number] | [place] | | | | | Procedures | Phone: | [phone] | | | | | [place] ICD DVC | [phone] | | | | | | PRG EVL,1 | Fax: | | | | | | SNGL [place] ICD | [phone] | | | | | | DVC PRGR | | | | | | | EVL,INSPECTOR GLASS OR MIRROR | | | + +--------+ + + + + Encounter Details +--------+---------+ + + + | Date | Type | Department | Care Team | Description | +--------+---------+ + + + | 06/07/ | Office | Cardiology | JeffMellissa, | 427.81 SICK SINUS | | 2020 | Visit | Arrhythmia at [facility] | RN [address] | SYNDROME | | | | [address] | [address] | | | | | [facility] | [place], [place] | | | | | and [place], | [address] | | | | | [facility] | | | | | | Floor [place], [place] | | | | | | [address] | | | | | | [phone] | | | +--------+---------+ + + + [...] documented as of this encounter Progress Notes Mellissa Aguilar RN - 06/08/2019 12:15 PM SHAJIKER REMOTE INTERROGATION REPORT Primary Care Provider: LUIS MIGUEL Hoff Multimedia Production Assistant: GARY team Solar Installation Crew Supervisor: Bethel Salvador MD EP HISTORY: Joie Villarreal is a 33 y.o. 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 5/17/18 - Single-chamber pacemaker upgrade to biventricular pacemaker, unsuccessful placeme nt of His bundle pacemaker ADVISORY and FLOOR INSTALLER RECOMMENDATIONS: No (confirmed 06/07/17) Presenting Rhythm: A paced, Bi-V paced (with ventricular oversensing on the atrial channel) HR: 60s Underlying Rhythm: Not assessed, this is a remote visit Pacemaker dependency not assessed. Interrogation Details: SEE MEDIA TAB or HYPERLINKS AT BOTTOM OF DEVICE CHECK ENCOUNTER FOR FULL DEVICE INTERROGATION DATA EVENTS: Since device was last checked (remote) on 12/26/18: AT/AF: <0.1% cumulative AT/AF burden. no ventricular arrhythmias recorded. Occasional V sensing episodes noted 49 seconds/day occasional PVC's and some AP-VS PACING PERCENTAGES: AP: 97.9% Total PROOF TECHNICIAN HELPER: 98.6% Programming Details: DDDR (BiV) 60/170, AdaptivCRT sensing is ON Remote monitoring: ON and transmitting Device Site: Not assessed, remote visit Conclusion: - Normal device function - Battery with an estimated 6.5 years remaining until RULA. - Lead impedances, RA sensing, and pacing thresholds are stable per auto testing. LV thresh old 1.375V @ 1.0ms per AutoCap. Low sensed R waves today at 1.8mV, she has been noted to hav e intermittent complete heart block on previous device checks. - Programming Changes: N/A - Consider reprogrammed LV output with +1V safety margin at next office visit; also decreasing A sensitivity - <0.1% AT/AF burden recorded. No ventricular arrhythmias. - will send pt a [employer] message with above findings. Per chart review- pt is currently pr egnant. - Follow-up: 6 month in-office device check, or as requested Associated attestation - Ovidio Barbosa MD - 06/12/2019 2:57 PM PDTI reviewed the interr ogation and programming data and I agree with the RN's documentation. PLC ENGINEER pacemaker with sma ll R waves since last interrogation (currently 1.8 mV, sensitivity set to 0.9mV) as well as crosstalk on atrial channel. Continue standard follow-up with in-office evaluation of auto-t hreshold testing and reprogramming of A sensitivity or PVAB whenever safe from COVID risk pe rspective Ovidio Barbosa MD Cardiac Electrophysiology [facility] [place] [facility] documented in this encounter Plan of Treatment [...] | | 2019 | | | [address] [facility] | | | | | | [address] | | | | | | [place], [place] | | | | | | [address] | | | | | | [phone] | | | | | | | | +--------+ + + + + documented as of this encounter Procedures + +--------+ + + + | Procedure Name | Priori | Date/Time | Associated Diagnosis | Comments | | | ty | | | | + +--------+ + + + | CARDIAC DEVICE | Routin | 06/08/2019 | 427.81 SICK SINUS | Results for this | | (PACEMAKER/ICD) | e | 12:00 AM | SYNDROME | procedure are in the | | CHECK - REMOTE | | PDT | | results section. | + +--------+ + + + documented in this encounter Results CARDIAC DEVICE (PACEMAKER/ICD) CHECK - REMOTE (06/08/2019 12:00 AM PDT) + + + | Narrative | Performed At | + + + | | | + + + documented in this encounter Visit Diagnoses + + | Diagnosis | + + | 427.81 SICK SINUS SYNDROME Sinoatrial node dysfunction | + + documented in this encounter"
--- OUTSIDE RECORDS SUMMARY | ~2019-10-07 | XMS | Encounter Summary ---
Demographics + + + | Address | [address] | | | [place] [address] | + + + | Home Phone [...] [place], [place] | | | | | [address] | | + + + + + | Polly Winston | ECON | ANAYA, | | + + + + + Care Team Providers + +------+ + | Care Fitting Room Operator Name | Role | Phone | [...] | +--------+ + + + + | 01/30/ | Telephone | Cardiology | Madeleine Hernandez NP | Device Check | | 2013 | | Arrhythmia at [facility] | [address] | | | | | [address] | [place], [place] | | | | | [facility] | [address] | | | | | and [facility], | [phone] | | | | | [place] [address] [facility] | | | | | | Floor [place], [place] | | | | | | [address] | | | | | | [phone] | | | +--------+ + + + [...] Rd | | | | | | [place] | | | | | | [address] | | | | | | [phone] | | | | | | | | +--------+ + + + + documented as of this encounter Visit Diagnoses Not on filedocumented in this encounter"
--- OUTSIDE RECORDS SUMMARY | ~2019-10-07 | XMS | Encounter Summary ---
Demographics + + + | Address | [address] | | | [place] [address] | + + + | Home Phone | | + + + | Preferred Language | Unknown | + + + | Marital Status | | + + + | Sikh Affiliation | NON | + + + | Race | White | + + + | Ethnic Group | or | + + + Author + + + | Author | [facility] | + + + | Organization | [facility] | + + + | Address | [...] [place], [place] | | | | | [address] | | + + + + + | Polly Winston | ECON | ANAYA, | | + + + + + Care Team Providers + +------+ + | Care Technical Lead Name | Role | Phone | + +------+ + | Gabrielle Fernández MD | PCP | | + +------+ + Reason for Visit + + + | Reason | Comments | + + + | Follow-up visit | | + + + Encounter Details +--------+---------+ + + + | Date | Type | Department | Care Team | Description | +--------+---------+ + + + | 01/25/ | Office | Pediatric | Antonio Hines, | 427.81 SICK SINUS | | 2011 | Visit | Cardiology at | [address] [facility] | SYNDROME (Primary | | | | [place] | [facility] | Dx) | | | | [facility] | [place], [place] | | | | | [address] | [address] | | | | | Emeli | [phone] | | | | | [facility] | | | | | | [address] [place] [address] | | | | | | [place] [address] | | | | | | [phone] | | | +--------+---------+ + + + [...] + + + | Blood Pressure | 114/60 | 01/26/2012 10:29 AM | | | | | PST | | + + + + + | Pulse | 71 | 01/26/2012 10:29 AM | | | | | PST | | + + + + + | Temperature | - | - | | + + + + + | Respiratory Rate | - | - | | + + + + + | Oxygen Saturation | 100% | 01/26/2012 10:29 AM | | | | | PST | | + + + + + | Inhaled Oxygen | - | - | | | Concentration | | | | + + + + + | Weight | 67.9 kg (149 lb 11.1 | 01/26/2012 10:29 AM | | | | oz) | PST | | + + + + + | Height | 157.8 cm (5' 2.13") | 01/26/2012 10:29 AM | | | | | PST | | + + + + + | Body Mass Index | 27.27 | 01/26/2012 10:29 AM | | | | | PST | | + + + + + documented in this encounter Patient Instructions Patient Instructions Antonio Hines MD - 01/26/2012 10:32 AM PSTYour pacemaker check tod ay is fine and you have ~ 6.5 years of battery life left on your pacemaker. Echo shows great repair of your heart and your heart function is normal. We would like you to transfer your care to Mellissa Velasquez NP. Her # is [phone] or [phone]. She will be following your Carelink every 3 months and you need to come see her in ~ one ye ar's time. Antonio Hines MD Director, Pediatric Electrophysiology Professor of Pediatrics [phone] documented in this encounter Progress Notes Antonio Hines MD - 01/26/2012 10:12 AM PSTHistory: Joie comes for a routine followup check for her pacemaker. I performed a pacemaker pulse generator change on her on 08/13/08 and she has had regular Ca relink remote checks with the most recent one on 11/03/11. I last saw her on 11/25/10. Please refer to that note. She continues to do well with no problems, except occasional dizziness. Her past, family, and social history are unchanged, and review of systems is otherwise negative. 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 Allergies: SHE IS ALLERGIC TO CODEINE. Physical Examination: BP 114/60 | Pulse 71 | Ht 1.578 m (5' 2.13") | Wt 67.9 kg (149 lb 11.1 oz) | SpO2 100% | BM I 27.27 kg/(m^2) Joie looks well and comfortable with no evidence of anemia, jaundice, clubbing, cyanosis or peripheral edema. HEENT was normal. Her pulses were normal with good femoral pulses and no brachio-femoral delay. Abdomen was soft with no hepato-spleno megaly. Chest was clear to auscultation. Cardiac exam reveals a normal apical impulse and on auscultation the heart dillon nds are normal with a soft ejection murmur in the pulmonary area. Central nervous system was grossly normal with normal gait, speech and facial movements. Affect was normal and pleasan t. Extremities were warm and well perfused. Skin was normal with no rash. Pacemaker scar in left upper pectoral area and midline sternal scar noted. Both look fine. Echocardiogram shows: Good result, mild low velocity tricuspid regurgitation, lead seen in RV, normal LV function . Pacemaker check shows: Device: Medtronic Sensia Implanted: 08/13/08 RULA: no ADVISORY: NO Mode: VVIR Lower Rate: 60 Upper Rate: 170 Battery Voltage: 2.78 volts Cell Impedance: 563 ohms Estimated battery longevity: 6.5 years (range 5.5-8) Patient is not pacer dependent. Telephone monitoring is: on Output (v) Pulse Width (ms) Sensitivity (mv) Right Ventricle 2 volts 0.4 ms 2mV TESTING: Threshold testing was performed. RT VENTRICLE RV threshold volts: 1.25 v RV threshold PW: 0.4 ms RV lead impedance: 672 ohms R Wave Amplitude: 2-2.8 mV She is paced 86% of the time. Ventricular capture looks good. Programming Changes: Output increased from 2.25V to 2.5V. Impression: doing well. I am pleased with this check. Hemodynamically great results. Needs to transfer to adult cardiology (Mellissa Zhou HEALTH SERVICES INFORMATION SPECIALIST). I gave her Mellissa's numbers and a sked her to call Mellissa to set up follow up. She needs 3 monthly Carelink checks (which will also be transferred) and annual live checks . It was a pleasure to see Joie today. Antonio Hines MD Director, Pediatric Electrophysiology Professor of Pediatrics [phone] documented in this e ncounter Plan of [...] | | 2019 | | | [address] [facility] | | | | | | [address] | | | | | | [place], [place] | | | | | | [address] | | | | | | [phone] | | | | | | | | +--------+ + + + + documented as of this encounter Visit Diagnoses + + | Diagnosis | + + | 427.81 SICK SINUS SYNDROME - Primary Sinoatrial node dysfunction | + + documented in this encounter
--- OUTSIDE RECORDS SUMMARY | ~2019-10-07 | XMS | Encounter Summary ---
Demographics + + + | Address | [address] | | | [place] [address] | + + + | Home Phone | | + + + | Preferred Language | Unknown | + + + | Marital Status | | + + + | Nondenominational Affiliation | NON | + + + [...] [place], [place] | | | | | [address] | | + + + + + | Polly Winston | ECON | ANAYA, | | + + + + + Care Team Providers + +------+ + | Care Heating And Cooling Systems Engineer Name | Role | Phone | + +------+ + | Yuli Franklin | PCP | | + +------+ + Encounter Details +--------+ + + + + | Date | Type | Department | Care Team | Description | +--------+ + + + + | 06/11/ | [facility]illary [facility] [place], | | | 2020 | Orders | Health [address] | Abi Marquis MD,PhD | | | | | [address] | [address] | | | | | [place], 7th floor | [facility], | | | | | [place], [place] | [place] [address] | | | | | [address] | [phone] | | | | | [phone] | | | +--------+ + + + [...] | | 2019 | | | [address] [facility] | | | | | | [address] | | | | | | [place], [place] | | | | | | [address] | | | | | | [phone] | | | | | | | | +--------+ + + + + documented as of this encounter Results US UTERUS W/1ST TRIMESTER NUCHAL TRANSLUCENCY (06/12/2019 2:46 PM PDT) + + | Specimen | + + | | + + + + + | Narrative | Performed At | + + + | [facility] | [facility] | | OBSTETRICAL ULTRASOUND REPORT | RADIOLOGY OB US | | | | | Pat. Name: RAMOS SCHMIDT Pat. No: [id number] Study Date: | | | 06/12/2019 2:22pm , Age: 10 1985, 33 Pregnancies: | | | 1, Para 0000 LMP: 03/20/2019 GA by LMP: | | | 12w0d GA by US: 12w6d GA Selected: 12w0d (LMP) MARINA: | | | 12/25/2019 Referring MD: ABI COHEN F | | | Web Services Architect: JOSH GODINEZ, RDMS CPT4: | | | [id number] Hist/Ind: Nuchal Translucency | | | | | | MEASUREMENTS & AGE GROWTH EVALUATION | | | Measurement GA Range Srce %for GA Ratios | | | ----- ---- ------- CRL 6.5 | | | cm 12w6d ([id number]) Hadl CRL 88% GA for sonogram 12w6d | | | ([id number]) based on (CRL) Avg Markers | | | for Chromosomal Abnormality: NT 1.7 mm Heart Rate: 149 bpm | | | | | | | | | EVAL, PLACENTA Location: Intrauterine | | | Gestational Sac: Normal Embryo: Talavera Placenta: Posterior | | | Heart Rate: 149 bpm Amniotic Fluid Volume: Subjectively Normal | | | | | | | | | MATERNAL ANATOMY | | | | | | Ovaries LxHxW (cm) Right 3.5 x 1.6 x 2.7 Vol: 8.3cc Left 3.0 x | | | 1.7 x 2.2 Vol: 5.6cc | | | | | | Anatomy!Normal!Abnormal!Suboptimal!Prev. Seen!Comments | | | | | | Choroid Plexu! x ! ! ! ! | | | Nasal Bone 1s! x ! ! ! ! | | | Nuchal Transl! x ! ! ! ! | | | Abdominal Wal! x ! ! ! ! | | | Heart ! ! ! x ! | | | ! Stomach 1st ! ! ! x ! | | | ! Bladder 1st ! ! ! x ! | | | ! Upper Extremi! x ! ! ! | | | ! Lower Extremi! x ! ! ! | | | ! | | | | | | CLINICAL SUMMARY Uterus and adnexae: There is a corpus luteum | | | within the left ovary. Gestational sac shape/amniotic fluid volume | | | are normal. Ultrasound cannot detect all / | | | abnormalities. Impression: 33 y.o. at 12 0/7 weeks gestation | | | presenting for aneuploidy screening and dating. 1. Single living | | | intrauterine with a CRL of 6.5 cm consistent with 12 0/7 | | | weeks gestation. 2. Normal ductus venosus Doppler. 3. The nuchal | | | translucency measures 1.7 mm which is within normal limits for this | | | gestational age. 4. nasal bone is present. Recommendations: | | | 1. The findings of today's US were reviewed with the patient. | | | Following the study, she was sent to the lab to complete the first | | | portion of her sequential screen. 2. The second portion of the | | | sequential screen should be drawn at approximately 16 weeks | | | gestation. 3. anatomic survey at 20 weeks gestation is | | | recommended. Thank you very much for allowing us to help care for | | | your patient. If you have any questions, please feel free to call | | | our 24 hour phone consult number at any time and ask for the | | | perinatologist supervisor sample preparation. [phone] or [phone] WENDI FRANZ | | | <Electronic Signature> 06/12/2019 04:04pm | | | I have personally reviewed the images and, if necessary, edited the | | | report. I agree with the report as now presented. | | + + + + + | Procedure Note | + + | Service Account, Radiant Res In Interface - 06/12/2019 4:03 PM PDT | | [facility] OBSTETRICAL ULTRASOUND | | REPORT Pat. Name: | | POST, ROSANNAPat. No: [id number] Date: 06/12/2019 2:22pmDOB, Age: | | 1985, 33Pregnancies: 1, Para 0000LMP: 03/20/2019 GA by LMP: | | 39j6lIH by US: [id number] Selected: 12w0d (LMP)MARINA: 12/25/2019Referring MD: | | ABI COHEN, FSonographer: JOSH GODINEZ BS, RDMSCPT4: | | [id number]/Ind: Nuchal | | Translucency MEASUR | | EMENTS & AGE GROWTH EVALUATIONMeasurement GA Range | | Srce %for GA Ratios ----- ---- ------- | | CRL 6.5 cm 12w6d ([id number]) Hadl CRL 88%GA for sonogram | | 12w6d ([id number])based on (CRL) Avg Markers for Chromosomal | | Abnormality:NT 1.7 mmFetal Heart Rate: 149 | | bpm | | EVAL, PLACENTAPregnancy Location: IntrauterineGestational Sac: Normal Embryo: | | SingletonPlacenta: PosteriorFetal Heart Rate: 149 bpmAmniotic Fluid Volume: Subjectively | | Normal MATERNAL | | ANATOMY Ovaries | | LxHxW (cm)Right 3.5 x 1.6 x 2.7 Vol: 8.3cc Left 3.0 x 1.7 x 2.2 Vol: 5.6cc | | | | Anatomy!Normal!Abnormal!Suboptimal!Prev. | | Seen!Comments Choro | | id Plexu! x ! ! ! !Nasal Bone 1s! x ! ! ! | | !Nuchal Transl! x ! ! ! !Abdominal Wal! x ! | | ! ! !Heart ! ! ! x ! !Stomach | | 1st ! ! ! x ! !Bladder 1st ! ! ! x ! | | !Upper Extremi! x ! ! ! !Lower Extremi! x ! | | ! ! | | ! CLINICAL | | SUMMARYUterus and adnexae: There is a corpus luteum within the left ovary. Gestational | | sac shape/amniotic fluid volume are normal.Ultrasound cannot detect all / | | abnormalities.Impression: 33 y.o. at 12 0/7 weeks gestation presenting for | | aneuploidy screening and dating.1. Single living intrauterine with a CRL of | | 6.5 cm consistent with 12 0/7 weeks gestation.2. Normal ductus venosus Doppler.3. The | | nuchal translucency measures 1.7 mm which is within normal limits for this gestational | | age.4. nasal bone is present.Recommendations:1. The findings of today's US were | | reviewed with the patient. Following the study, she was sent to the lab to complete the | | first portion of her sequential screen.2. The second portion of the sequential screen | | should be drawn at approximately 16 weeks gestation. 3. anatomic survey at 20 | | weeks gestation is recommended.Thank you very much for allowing us to help care for your | | patient. If you have any questions, please feel free to call our 24 hour phone consult | | number at any time and ask for the perinatologist supervisor sample preparation. [phone] or | | [phone], JAMIE, MD <Electronic Signature> 06/12/2019 04:04pmI have | | personally reviewed the images and, if necessary, edited the report. I agree with the | | report as now presented. | |Nuchal Transl! x ! ! ! ! | |Abdominal Wal! x ! ! ! ! | |Heart ! ! ! x ! ! | |Stomach 1st ! ! ! x ! ! | |Bladder 1st ! ! ! x ! ! | |Upper Extremi! x ! ! ! ! | |Lower Extremi! x ! ! ! ! | | | |CLINICAL SUMMARY | |Uterus and adnexae: There is a corpus luteum within the left | |ovary. | |Gestational sac shape/amniotic fluid volume are normal. | |Ultrasound cannot detect all / abnormalities. | |Impression: 33 y.o. at 12 0/7 weeks gestation presenting | |for aneuploidy screening and dating. | |1. Single living intrauterine with a CRL of 6.5 cm | |consistent with 12 0/7 weeks gestation. | |2. Normal ductus venosus Doppler. | |3. The nuchal translucency measures 1.7 mm which is within normal | |limits for this gestational age. | |4. nasal bone is present. | |Recommendations: | |1. The findings of today's US were reviewed with the patient. | |Following the study, she was sent to the lab to complete the first | |portion of her sequential screen. | |2. The second portion of the sequential screen should be drawn at | |approximately 16 weeks gestation. | |3. anatomic survey at 20 weeks gestation is recommended. | |Thank you very much for allowing us to help care for your patient. | |If you have any questions, please feel free to call our 24 hour | |phone consult number at any time and ask for the perinatologist on | |call. [phone] or [phone] | |WENDI FRANZ MD | | | |<Electronic Signature> 06/12/2019 04:04pm | | | | | |I have [...] anomaly affecting in first trimester, antepartum | + + | Total congenital anomalous pulmonary venous connection | + + documented in this encounter"
--- OUTSIDE RECORDS SUMMARY | ~2019-10-07 | XMS | Encounter Summary ---
Demographics + + + | Address | [address] | | | [place] [address] | + + + | Home Phone | | + + + | Preferred Language | Unknown | + + + | Marital Status | | + + + | Adventist Affiliation | NON | + + + [...] [place], [place] | | | | | [address] | | + + + + + | Polly Winston | ECON | ANAYA, | | + + + + + Care Team Providers + +------+ + | Care Rug Weaver Name | Role | Phone | + +------+ + | No Pcp Per Patient | PCP | Unavailable | + +------+ + Reason for Visit + + + | Reason | Comments | + + + | Chest pain | | + + + Encounter Details +--------+ + + + + | Date | Type | Department | Care Team | Description | +--------+ + + + + | 05/01/ | MyChart | Cardiology [facility] at | Louisa Reed | RE: Chest Pains | | 2016 | Encounter | [facility] [address] | LEONARD Raphael [address] | | | | | [facility] for | [address] [place], | | | | | [facility], | [place] [address] | | | | | | [phone] | | | | | [place], [place] | | | | | | [address] | | | | | | [phone] | | | +--------+ + + + [...] | | 2020 | | | [address] | | | | | | [address] | | | | | | [place] | | | | | | [address] | | | | | | [phone] | | | | | | | | +--------+ + + + + documented as of this encounter Visit Diagnoses Not on filedocumented in this encounter"
--- OUTSIDE RECORDS SUMMARY | ~2019-10-07 | XMS | Encounter Summary ---
Demographics + + + | Address | [address] | | | [place] [address] | + + + | Home Phone | | + + + | Preferred Language | Unknown | + + + | Marital Status | | + + + | Spiritism Affiliation | NON | + + + [...] [place], [place] | | | | | [address] | | + + + + + | Polly Winston | ECON | ANAYA, | | + + + + + Care Team Providers + +------+ + | Care Receiving Checker Name | Role | Phone | + +------+ + | Yuli Franklin | PCP | | + +------+ + Reason for Visit + + + | Reason | Comments | + + + | Device Check | Remote Carelink transmission | + + + Encounter Details +--------+ + + + + | Date | Type | Department | Care Team | Description | +--------+ + + + + | 12/26/ | Clinical | Cardiology | Yanet Smith | Device Check (Remote | | 2019 | Support | Arrhythmia at [facility] | [address] | Carelink | | | Staff | [address] | Jessica [facility], | transmission) | | | | [facility] | [place] [address] | | | | | and Healing, | | | | | | [place] [address], [facility] hospital | | | | | | [place], [place] | | | | | | [address] | | | | | | [phone] | | | +--------+ + + + [...] documented as of this encounter Progress Notes Luis Josephsuzanmariza - 12/26/2018 9:30 AM [employer] REMOTE INTERROGATION REPORT Primary Care Provider: LUIS MGIUEL Hoff Commercial Instructor Supervisor: GARY team Supervisor Hanging And Trimming: Bethel Salvador MD EP HISTORY: Joie Villarreal is a 32 y.o. 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 07/15/17 - Single-chamber pacemaker upgrade to biventricular pacemaker, unsuccessful placeme nt of His bundle pacemaker ADVISORY and SAFETY DEPOSIT CLERK RECOMMENDATIONS: No (confirmed 06/07/17) Presenting Rhythm: A paced, Bi-V paced (with ventricular oversensing on the atrial channel) HR: 60s Underlying Rhythm: Not assessed, this is a remote visit Pacemaker dependency not assessed. Interrogation Details: SEE MEDIA TAB or HYPERLINKS AT BOTTOM OF DEVICE CHECK ENCOUNTER FOR FULL DEVICE INTERROGATION DATA EVENTS: Since device was last cleared on 09/23/18, there was a <0.1% cumulative AT/AF burden . There were no ventricular arrhythmias recorded. V sensing episode noted, EGM shows tachyca rdia with 1:1 A:V conduction, rates up to 150 bpm. PACING PERCENTAGES: AP: 98.2% Total BEAUTY SALES CONSULTANT: 98.3% Bi-BEAUTY SALES CONSULTANT: 100% Programming Details: DDDR (BiV) 60/170, AdaptivCRT sensing is ON Remote monitoring: ON and transmitting Device Site: Not assessed, remote visit Conclusion: - Normal device function - Battery with an estimated 7.4 years remaining until RULA. - Lead impedances, RA sensing, and pacing thresholds are stable per auto testing. LV thresh old 1.75V @ 1.0ms per AutoCap. Low sensed R waves today at 2.5mV, she has been noted to have intermittent complete heart block on previous device checks. - Programming Changes: N/A - Consider reprogrammed LV output with +1V safety margin at next office visit - <0.1% AT/AF burden recorded. No ventricular arrhythmias. - Follow-up: 6 month in-office device check Associated attestation - Garfield Ryder MD - 12/27/2018 12:26 PM PDTCardiac Electrophysio logy I have reviewed the above device interrogation note and agree with the documented findings. Rare ventricular sensing episodes. EGM from one episode provided, demonstrating a 1:1 AV re lationship. Time in AT/AF since last device interrogation: 6 seconds (no EGMs provided). Garfield Ryder MD Cardiac Electrophysiology documented in [...] Rd | | | | | | [place], [place] | | | | | | [address] | | | | | | [phone] | | | | | | | | +--------+ + + + + documented as of this encounter Procedures + +--------+ + + + | Procedure Name | Priori | Date/Time | Associated Diagnosis | Comments | | | ty | | | | + +--------+ + + + | CARDIAC DEVICE | Routin | 12/26/2018 | 427.81 SICK SINUS | Results for this | | (PACEMAKER/ICD) | e | 12:00 AM | SYNDROME | procedure are in the | | CHECK - REMOTE | | PDT | | results section. | + +--------+ + + + documented in this encounter Results CARDIAC DEVICE (PACEMAKER/ICD) CHECK - REMOTE (12/26/2018 12:00 AM PDT) + + + | Narrative | Performed At | + + + | | | + + + documented in this encounter Visit Diagnoses + + | Diagnosis | + + | 427.81 SICK SINUS SYNDROME - Primary Sinoatrial node dysfunction | + + documented in this encounter"
--- OUTSIDE RECORDS SUMMARY | ~2019-10-07 | XMS | Encounter Summary ---
Demographics + + + | Address | [address] | | | [place] [address] | + + + | Home Phone | | + + + | Preferred Language | Unknown | + + + | Marital Status | | + + + | Mormonism Affiliation | NON | + + + [...] [place], [place] | | | | | [address] | | + + + + + | Polly Winston | ECON | ANAYA, | | + + + + + Care Team Providers + +------+ + | Care Candy Depositing Machine Operator Name | Role | Phone | + +------+ + | Yuli Franklin | PCP | | + +------+ + Encounter Details +--------+ + + + + | Date | Type | Department | Care Team | Description | +--------+ + + + + | 08/20/ | Hospital | Center | Nellie Munson, | | | 2020 | Encounter | at [facility] [address] | MD [address] | | | | | [address] | [address] | | | | | Physician's | [place], [place] | | | | | Pavilion, 4th Floor | [address] | | | | | [facility] [place] | [phone] | | | | | [address] | | | | | | [phone] | | | +--------+ + + + [...] + + documented as of this encounter Medications at Time of Discharge + + + +---------+--------+ + | Medication | Sig | Dispensed | Refills | Start | End Date | | | | | | Date | | + + + +---------+--------+ + | BABY ASPIRIN ORAL | Take by mouth. | | 0 | | | + + + +---------+--------+ + | vit | Take by mouth. | | 0 | | | | 91/iron/folic/dha | | | | | | | ( + DHA | | | | | | | ORAL) | | | | | | + + + +---------+--------+ + documented as of this encounter Plan [...] Rd | | | | | | [place], [place] | | | | | | [address] | | | | | | [phone] | | | | | | | | +--------+ + + + + documented as of this encounter Procedures + +--------+ + + + | Procedure Name | Priori | Date/Time | Associated Diagnosis | Comments | | | ty | | | | + +--------+ + + + | US UTERUS | Routin | 08/21/2019 | Maternal | Results for this | | TRANSVAGINAL REAL | e | 3:54 PM | congenital cardiac | procedure are in the | | TME | | PDT | anomaly affecting | results section. | | | | | in first | | | | | | trimester, | | | | | | antepartum | | + +--------+ + + + | US PREG UTERUS | Routin | 08/21/2019 | Maternal | Results for this | | DETAIL | e | 3:54 PM | congenital cardiac | procedure are in the | | | | PDT | anomaly affecting | results section. | | | | | in first | | | | | | trimester, | | | | | | antepartum | | + +--------+ + + + documented in this encounter Results US UTERUS TRANSVAGINAL REAL TME (08/21/2019 3:54 PM PDT) + + | Specimen | + + | | + + + + + | Narrative | Performed At | + + + | [facility] | [facility] | | OBSTETRICAL ULTRASOUND REPORT | RADIOLOGY OB US | | | | | Pat. Name: RAMOS SCHMIDT Study | | | Date: 08/21/2019 2:47pm Pat. No: [id number] | | | Referring MD: KINDRA COHEN F LMP: | | | 03/20/2019 Manager Front: ANGEL SOLITARIO, | | | MAYDA KHANNA GA by LMP: 22w0d , | | | Age: 10 1985, 33 GA by Last:22w0d | | | Pregnancies: 1, Para 0000 GA by US: 22w5d | | | GA Selected: 22w0d (From [address]) | | | Hist/Ind: Anatomy detail, evaluate complete previa and vasa | | | previa, Maternal congenital cardiac anomaly | | | CPT4: 15692,91408 | | | MARINA: | | | 12/25/2019 | | | | | | MEASUREMENTS & AGE | | | GROWTH EVALUATION Measurement GA Range Source % | | | 22w0d Ratios ----- ------- | | | BPD 5.4 cm 22w4d | | | (86q5u-35k1f) Hadlock BPD 65% FL/BPD 0.77 HC 20.2 cm 22w2d | | | (07w1r-62z3k) [place]lock HC 59% FL/AC 0.23 (0.20 - 0.24) AC | | | 18.6 cm 23w3d (87v2y-68z2v) Hadlock AC 80% HC/AC 1.08 | | | (1.04 - 1.23) FL 4.2 cm 23w4d (70t1k-91j4c) Hadlock FL 91% | | | CI 0.75 (0.70 - 0.86) HL 4.0 cm 24w2d (75i5f-86a1h) Zari | | | HL 88% Cere 2.3 cm Hill | | | Cere GA for sonogram 22w5d (95d7m-74e2r) Weight | | | Estimate: based on [...] ! | | | ! ! Cardiac [place]/! x ! ! | | | ! [...] any time and ask for the perinatologist sfdc solution architect. | | | [phone] or [phone] ASHLEE HOOVER MD | | | <Electronic Signature> 08/21/2019 04:07pm | | | I have personally reviewed the images and, if necessary, edited | | | the report. I agree with the report as now presented. | | + + + + + | Procedure Note | + + | Service Teofilo, Radiant Res In Interface - 08/21/2019 4:10 PM PDT | | [facility] OBSTETRICAL ULTRASOUND | | | | REPORT Pa | | t. Name: RAMOS SCHMIDT Study Date: 08/21/2019 2:47pmPat. No: | | [id number] Referring MD: KINDRA COHEN, WIMP: 03/20/2019 | | Manager Front: ANGEL SOLITARIO BS, RDMSGA by LMP: 22w0d | | , Age: 10 1985, 33GA by Last:22w0d | | Pregnancies: 1, Para 0000GA by US: 22w5d GA Selected: | | 22w0d (From [address])Hist/Ind: Anatomy detail, evaluate complete previa and vasa | | previa, Maternal congenital cardiac anomaly | | CPT4: 28039,97822 MARINA: | | 12/25/2019 | | --MEASUREMENTS & AGE GROWTH EVALUATIONMeasurement GA | | Range Source % 22w0d Ratios ----- ------- | | BPD 5.4 cm 22w4d (27r5h-01q2o) [place]lock BPD 65% FL/BPD | | 0.77HC 20.2 cm 22w2d (33w8o-68b0z) [place] HC 59% FL/AC 0.23 (0.20 - 0.24)AC | | 18.6 cm 23w3d (98i4i-96x0t) [place] AC 80% HC/AC 1.08 (1.04 - 1.23)FL 4.2 cm | | 23w4d (17a2b-44d1f) Hadlock FL 91% CI 0.75 (0.70 - 0.86)HL 4.0 cm 24w2d | | (01i4q-54k6a) Zari HL 88%Cere 2.3 cm Hill Cere [place] for | | sonogram 22w5d (06x2v-00u0m) Weight Estimate:based on (BPD,HC,AC,FL) Hadlock | | Weight: 586 gm (500-671gm) Hadlock | | : 1lbs, 4oz Normal: 480 gm (320-920gm) Rebeca | | Wt% 60% for 59f8pUdwpv Heart Rate: 142 | | bpm | [...] x ! ! ! | | !Cardiac [place]/! x ! ! ! !Four Chamber ! [...] | | in the clinic by Dr. Munsno. Follow up as clinically indicated given maternal | | CHD and vasa previa. Thank you very much for allowing us to help care for your patient. | | If you have any questions, please feel free to call our 24 hour phone consult number at | | any time and ask for the perinatologist sfdc solution architect. [phone] or [phone], | | ASHLEE JAIME <Electronic Signature> 08/21/2019 [...] | |time and ask for the perinatologist sfdc solution architect. [phone] or [phone] | |ASHLEE HOOVER MD | | | |<Electronic Signature> 08/21/2019 04:07pm | | | | | |I have personally reviewed the images and, if necessary, edited the report. I agree with t he report as now presented. | + + + +---------+ + + | Performing | Address | City/State/[facility] | Phone Number | | Organization | | | | + +---------+ + + | [facility] RADIOLOGY OB | | | | | US | | | | + +---------+ + + US PREG UTERUS DETAIL (08/21/2019 3:54 PM PDT) + + | Specimen | + + | | + + + + + | Narrative | Performed At | + + + | [facility] | [facility] | | OBSTETRICAL ULTRASOUND REPORT | RADIOLOGY OB US | | | | | Pat. Name: RAMOS SCHMIDT Study | | | Date: 08/21/2019 2:47pm Pat. No: [id number] | | | Referring MD: KINDRA COHEN F LMP: | | | 03/20/2019 Manager Front: ANGEL SOLITARIO, | | | MAYDA KHANNA GA by LMP: 22w0d , | | | Age: 10 1985, 33 GA by Last:22w0d | | | Pregnancies: 1, Para 0000 GA by US: 22w5d | | | GA Selected: 22w0d (From [address]) | | | Hist/Ind: Anatomy detail, evaluate complete previa and vasa | | | previa, Maternal congenital cardiac anomaly | | | CPT4: 23808,25951 | | | MARINA: | | | 12/25/2019 | | | | | | MEASUREMENTS & AGE | | | GROWTH EVALUATION Measurement GA Range Source % | | | 22w0d Ratios ----- ------- | | | BPD 5.4 cm 22w4d | | | (71d3c-58j9v) [place] BPD 65% FL/BPD 0.77 HC 20.2 cm 22w2d | | | (76h3y-77t8w) [place] HC 59% FL/AC 0.23 (0.20 - 0.24) AC | | | 18.6 cm 23w3d (74w3v-59i6t) [place] AC 80% HC/AC 1.08 | | | (1.04 - 1.23) FL 4.2 cm 23w4d (96o9a-64b9u) [place]lock FL 91% | | | CI 0.75 (0.70 - 0.86) HL 4.0 cm 24w2d (92h2u-13o6c) Zari | | | HL 88% Cere 2.3 cm Hill | | | Cere [place] for sonogram 22w5d (78n9g-41t6m) Weight | | | Estimate: based on [...] ! | | | ! ! Cardiac [place]/! x ! ! | | | ! [...] any time and ask for the perinatologist sfdc solution architect. | | | [phone] or [phone] ASHLEE HOOVER MD | | | <Electronic Signature> 08/21/2019 04:07pm | | | I have personally reviewed the images and, if necessary, edited | | | the report. I agree with the report as now presented. | | + + + + + | Procedure Note | + + | Service Teofilo, Radiant Res In Interface - 08/21/2019 4:10 PM PDT | | [facility] OBSTETRICAL ULTRASOUND | | | | REPORT Pa | | t. Name: RAMOS SCHMIDT Study Date: 08/21/2019 2:47pmPat. No: | | [id number] Referring MD: KINDRA COHEN, FLMP: 03/20/2019 | | Manager Front: ANGEL SOLITARIO, JEY, RDMSGA by LMP: 22w0d | | , Age: 10 1985, 33GA by Last:22w0d | | Pregnancies: 1, Para 0000GA by US: 22w5d GA Selected: | | 22w0d (From )Hist/Ind: Anatomy detail, evaluate complete previa and vasa | | previa, Maternal congenital cardiac anomaly | | CPT4: 24269,24230 MARINA: | | 12/25/2019 | | --MEASUREMENTS & AGE GROWTH EVALUATIONMeasurement GA | | Range Source % 22w0d Ratios ----- ------- | | BPD 5.4 cm 22w4d (66b3x-66i4v) [place] BPD 65% FL/BPD | | 0.77HC 20.2 cm 22w2d (46i4c-33e1d) [place] HC 59% FL/AC 0.23 (0.20 - 0.24)AC | | 18.6 cm 23w3d (88j2t-14h2w) [place] AC 80% HC/AC 1.08 (1.04 - 1.23)FL 4.2 cm | | 23w4d (58f6e-36q6j) [place] FL 91% CI 0.75 (0.70 - 0.86)HL 4.0 cm 24w2d | | (37a1p-81y0g) Zari HL 88%Cere 2.3 cm Hill Cere [place] for | | sonogram 22w5d (97k5g-05c2r) Weight Estimate:based on (BPD,HC,AC,FL) Hadlock | | Weight: 586 gm (500-671gm) Hadlock | | : 1lbs, 4oz Normal: 480 gm (320-920gm) Rebeca | | Wt% 60% for 64h1mGclup Heart Rate: 142 | | bpm | [...] x ! ! ! | | !Cardiac [place]/! x ! ! ! !Four Chamber ! [...] any time and ask for the perinatologist sfdc solution architect. [phone] or [phone], | | ASHLEE JAIME <Electronic Signature> 08/21/2019 [...] | |time and ask for the perinatologist sfdc solution architect. [phone] or [phone] | |ASHLEE HOOVER MD | | | [...] in first trimester, antepartum | + + documented in this encounter"
--- OUTSIDE RECORDS SUMMARY | ~2019-10-07 | XMS | Encounter Summary ---
Demographics + + + | Address | [address] | | | [place] [address] | + + + | Home Phone [...] [place], [place] | | | | | [address] | | + + + + + | Polly Winston | ECON | ANAYA, | | + + + + + Care Team Providers + +------+ + | Care Baker Doughnut Name | Role | Phone | + +------+ + | No Pcp Per Patient | PCP | Unavailable | + +------+ + Encounter Details +--------+ + + + + | Date | Type | Department | Care Team | Description | +--------+ + + + + | // | Telephone | Cardiology | Madeleine Hernandez NP | | | 2016 | | Arrhythmia at [facility] | [address] | | | | | [address] | [place], [place] | | | | | [facility] | [address] | | | | | and [place], | [phone] | | | | | [facility] | | | | | | Floor [facility] [place] | | | | | | [address] | | | | | | [phone] | | | +--------+ + + + [...] | | 2020 | | | [address] [facility] | | | | | | [address] | | | | | | [place], [place] | | | | | | [address] | | | | | | [phone] | | | | | | | | +--------+ + + + + documented as of this encounter Visit Diagnoses Not on filedocumented in this encounter"
--- OUTSIDE RECORDS SUMMARY | ~2019-10-07 | XMS | Encounter Summary ---
Demographics + + + | Address | [address] | | | [place] [address] | + + + | Home Phone [...] [place], [place] | | | | | [address] | | + + + + + | Polly Winston | ECON | ANAYA, | | + + + + + Care Team Providers + +------+ + | Care Sternman Name | Role | Phone | + +------+ + | Yuli Franklin | PCP | | + +------+ + Encounter Details +--------+ + + + + | Date | Type | Department | Care Team | Description | +--------+ + + + + | 08/10/ | MyChart | Center | Mellissa Harrison, | RE: Ultrasound | | 2020 | Encounter | at [facility] [address] | MD [address] | results 08/07/19 | | | | [address] | [facility] | | | | | Physician's | [place], [place] | | | | | [place], 4th floor | [address] | | | | | [place], [place] | [phone] | | | | | [address] | | | | | | [phone] | | | +--------+ + + + [...] Rd | | | | | | [place], [place] | | | | | | [address] | | | | | | [phone] | | | | | | | | +--------+ + + + + documented as of this encounter Visit Diagnoses Not on filedocumented in this encounter"
--- OUTSIDE RECORDS SUMMARY | ~2019-10-07 | XMS | Encounter Summary ---
Demographics + + + | Address | [address] | | | [place] [address] | + + + | Home Phone | | + + + | Preferred Language | Unknown | + + + | Marital Status | | + + + | Denominational Affiliation | NON | + + + | Race | White | + + + | Ethnic Group | or | + + + Author + + + | Author | [facility] | + + + | Organization | [facility] | + + + | [...] [address] | | | | | [facility] [place] | | | | | [address] | | + + + + + | Polly Winston | ECON | ANAYA, | | + + + + + Care Team Providers + +------+ + | Care Primer Inspector Name | Role | Phone | + +------+ + | No Pcp Per Patient | PCP | Unavailable | + +------+ + Reason for Visit Diagnostic Testing (Routine) +--------+--------+ + + + [...] | | | | congenital | Ijeoma, DESIGN CELL ENGINEER | [address] | | | | | anomalous | [address] | Center for | | | | | pulmonary | Ave | Health and | | | | | venous | [place], [place] | Healing, | | | | | connection | [address] | [address] | | | | | Pacemaker | Phone: | [place], [place] | | | | | Procedures | [phone] | [address] | | | | | TRANSTHORACI | Fax: | Phone: | | | | | C | [phone] | [phone] | | | | | ECHOCARDIOGR | | | | | | | AM, ADULT | | | +--------+--------+ + + + + Encounter Details +--------+ + + + + | Date | Type | Department | Care Team | Description | +--------+ + + + + | 12/25/ | Hospital | Cardiac | | | | 2014 | Encounter | Non-Invasive Testing | | | | | | at [facility] [address] | | | | | | [facility] | | | | | | Health and Healing, | | | | | | [address] | | | | | | [place], [place] | | | | | | [address] | | | | | | [phone] | | | +--------+ + + + [...] documented as of this encounter Progress Notes Jitendra Hernandez - 12/25/2014 1:56 PM PDTTransthoracic echocardiogram completed. Final repor t to follow. 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
--- OUTSIDE RECORDS SUMMARY | ~2019-10-07 | XMS | Encounter Summary ---
Demographics + + + | Address | [address] | | | [place] [address] | + + + | Home Phone | | + + + | Preferred Language | Unknown | + + + | Marital Status | | + + + | Baptism Affiliation | NON | + + + | Race | White | + + + | Ethnic Group | or | + + + Author + + + | Author | [facility] | + + + | Organization | [facility] | + + + | Address [...] [place], [place] | | | | | [address] | | + + + + + | Polly Winston | ECON | ANAYA, | | + + + + + Care Team Providers + +------+ + | Care Hair Dresser Name | Role | Phone | + +------+ + | Gabrielle Fernández MD | PCP | | + +------+ + Encounter Details +--------+ + + + + | Date | Type | Department | Care Team | Description | +--------+ + + + + | 08/14/ | Telephone | Pediatric | Carlos Hinesdri, | | | 2010 | | Cardiology at | MD [address] [facility] | | | | | Emeli | [facility] | | | | | [facility] | [place], [place] | | | | | [address] | [address] | | | | | Emeli | [phone] | | | | | [facility] | | | | | | [address] [facility], | | | | | | [place] [address] | | | | | | [phone] | | | +--------+ + + + [...] Rd | | | | | | [place], [place] | | | | | | [address] | | | | | | [phone] | | | | | | | | +--------+ + + + + documented as of this encounter Visit Diagnoses Not on filedocumented in this encounter"
--- OUTSIDE RECORDS SUMMARY | ~2019-10-07 | XMS | Encounter Summary ---
Demographics + + + | Address | [address] | | | [place] [address] | + + + | Home Phone | | + + + | Preferred Language | Unknown | + + + | Marital Status | | + + + | Roman Catholic Affiliation | NON | + + + | Race | White | + + + | Ethnic Group | or | + + + Author + + + | Author | [facility] | + + + | Organization | [facility] | + + + | Address [...] [place], [place] | | | | | [address] | | + + + + + | Polly Winstno | ECON | ANAYA, | | + + + + + Care Team Providers + +------+ + | Care Packing And Final Assembly Supervisor Name | Role | Phone | [...] Description | +--------+---------+ + + + | 05/01/ | Office | Cardiology | Rachelle Tiera | 427.81 SICK SINUS | | 2015 | Visit | Arrhythmia at [facility] | NORI Lizarraga [address] | SYNDROME (Primary | | | | [address] | [facility] [address] | Dx); Medtronic | | | | [facility] | [place], [place] | single chamber | | | | and Healing, | [address] | pacemaker; Total | | | | [place] | | congenital anomalous | | | | Floor [place], [place] | | pulmonary venous | | | | [address] | | connection; | | | | [phone] | | Sinoatrial node | | | | | | dysfunction (HCC) | +--------+---------+ + + + Social History [...] documented as of this encounter Progress Notes Madeleine Hernandez NP - 05/03/2015 7:52 AM PST I reviewed the remote documentatiobn and agree with the progress notes. Madeleine Hernandez NP CARDIOLOGY ARRHYTHMIA AT [facility] [address] Mailcode: [address] [address] PROGRESS NOTE: Tiera Rivera RN - 05/02/2015 8:08 AM PSTREMOTE VISIT NOTES: Last pacemaker check was 12/25/14. Battery longevity is ok - 9 - 35 months remainin g. Threshold and lead impedance appear stable. No VHR episodes. Will plan on next device check in the office on 01/01/16 to coordinate with annual [facility] appointment, unless otherwise requested. Letter mailed to pt. 16 8:17 AM PSTdocumented in this encounter Plan of [...] | | 2019 | | | [address] [facility] | | | | | | [address] | | | | | | [place], [place] | | | | | | [address] | | | | | | [phone] | | | | | | | | +--------+ + + + + documented as of this encounter Visit Diagnoses + + | Diagnosis | + + | 427.81 SICK SINUS SYNDROME - Primary Sinoatrial node dysfunction | + + | Medtronic single chamber pacemaker Cardiac pacemaker in situ | + + | Total congenital anomalous pulmonary venous connection | + + documented in this encounter"
--- OUTSIDE RECORDS SUMMARY | ~2019-10-07 | XMS | Encounter Summary ---
Demographics + + + | Address | [address] | | | [place] [address] | + + + | Home Phone | | + + + | Preferred Language | Unknown | + + + | Marital Status | | + + + | Scientology Affiliation | NON | + + + [...] [place], [place] | | | | | [address] | | + + + + + | Polly Winston | ECON | ANAYA, | | + + + + + Care Team Providers + +------+ + | Care Associate Account Executive Name | Role | Phone | + [...] + + + + | 12/06/ | Telephone | Pediatric | Antonio Hines, | Other | | 2009 | | Cardiology at | [address] [facility] | | | | | Emeli | [facility] | | | | | [facility] | [place], [place] | | | | | [address] | [address] | | | | | Emeli | [phone] | | | | | [facility] | | | | | | [address] [place] [address], | | | | | | [place] [address] | | | | | | [phone] | | | +--------+ + + + [...] | | 2019 | | | [address] [facility] | | | | | | [address] | | | | | | [place], [place] | | | | | | [address] | | | | | | [phone] | | | | | | | | +--------+ + + + + documented as of this encounter Visit Diagnoses Not on filedocumented in this encounter"
--- OUTSIDE RECORDS SUMMARY | ~2019-10-07 | XMS | Encounter Summary ---
Demographics + + + | Address | [address] | | | [place] [address] | + + + | Home Phone [...] + + | Author | [facility] | + + + | Organization | [facility] | + + + | [...] [address] | | | | | [facility] [place] | | | | | [address] | | + + + + + | Polly Winston | ECON | ANAYA, | | + + + + + Care Team Providers + +------+ + | Care Batch Still Operator Name | Role | Phone | + +------+ + | Rao Theodore MD | PCP | | + +------+ [...] Car Echo | | | | | Status post | Louisa | [facility] [address] | | | | | TAPVC | Ijeoma, MEDICAL ORDERLY | [address] | | | | | repair | [address] | Shay Hernandez | | | | | Procedures | Ave | Crews | | | | | TRANSTHORACI | [place], [place] | [facility] | | | | | C | [address] | floor | | | | | ECHOCARDIOGR | Phone: | [place], [place] | | | | | AM, ADULT | [phone] | [address] | | | | | | Fax: | Phone: | | | | | | [phone] | [phone] | +--------+--------+ + + + + Encounter Details +--------+ + + + + | Date | Type | Department | Care Team | Description | +--------+ + + + + | 12/22/ | Hospital | Cardiac | | | | 2013 | Encounter | Non-Invasive Testing | | | | | | at [facility] [address] | | | | | | [facility] for | | | | | | Health and Healing, | | | | | | Building [address] | | | | | | [place], [place] | | | | | | [address] | | | | | | [phone] | | | +--------+ + + + [...] documented as of this encounter Progress Notes Andres Torres - 12/22/2012 2:53 PM PDTTransthoracic echocardiogram completed. Final re port to follow. documented in this encou nter Plan of [...] | | | | | | [place], [place] | | | | | | [address] | | | | | | [phone] | | | | | | | | +--------+ + + + + documented as of this encounter Procedures + +--------+ + + + | Procedure Name | Priori | Date/Time | Associated Diagnosis | Comments | | | ty | | | | + +--------+ + + + | OUTSIDE CARDIOLOGY | | 12/22/2012 | | Results for this | | | | 12:00 AM | | procedure are in the | | | | PDT | | results section. | + +--------+ + + + | OUTSIDE CARDIOLOGY | | 12/22/2012 | | Results for this | | | | 12:00 AM | | procedure are in the | | | | PDT | | results section. | + +--------+ + + + documented in this encounter Results OUTSIDE CARDIOLOGY (12/22/2012 12:00 AM PDT) + + + | Narrative | Performed At | + + + | | | | | | + + + + + | Procedure Note | + + | Other, Faculty - 10/25/2013 2:44 PM PDT | + + OUTSIDE CARDIOLOGY (12/22/2012 12:00 AM PDT) + + + | Narrative | Performed At | + + + | | | | | | + + + + + | Procedure Note | + + | Kalyani Beverly - 06/16/2013 10:44 AM PDT | + + documented in this encounter Visit Diagnoses + + | Diagnosis | + + | Status post TAPVC repair - Primary Other postprocedural status | + + documented in this encounter"
--- OUTSIDE RECORDS SUMMARY | ~2019-10-07 | XMS | Encounter Summary ---
Demographics + + + | Address | [address] | | | [place] [address] | + + + | Home Phone | | + + + | Preferred Language | Unknown | + + + | Marital Status | | + + + | Amish Affiliation | NON | + + + | Race | White | + + + | Ethnic Group | or | + + + Author + + + | Author | [facility] | + + + | Organization | [facility] | + + + | Address [...] [place], [place] | | | | | [address] | | + + + + + | Polly Winston | ECON | ANAYA, | | + + + + + Care Team Providers + +------+ + | Care Student Worker Name | Role | Phone | + +------+ + | Yuli Franklin | PCP | | + +------+ + Encounter Details +--------+ + + + + | Date | Type | Department | Care Team | Description | +--------+ + + + + | 07/06/ | Pharmacy | [facility] | | | | 2018 | Visit | [facility] | | | | | | [address] | | | | | | Mailcode: Elverta | | | | | | [facility] and | | | | | | Healing, [facility] [address] | | | | | | [place], [place] | | | | | | [address] | | | | | | [phone] | | | +--------+ + + + [...] Rd | | | | | | [place], [place] | | | | | | [address] | | | | | | [phone] | | | | | | | | +--------+ + + + + documented as of this encounter Visit Diagnoses Not on filedocumented in this encounter"
--- OUTSIDE RECORDS SUMMARY | ~2019-10-07 | XMS | Encounter Summary ---
Demographics + + + | Address | [address] | | | [place] [address] | + + + | Home Phone | | + + + | Preferred Language | Unknown | + + + | Marital Status | | + + + | Samaritan Affiliation | NON | + + + | Race | White | + + + | Ethnic Group | or | + + + Author + + + | Author | [facility] | + + + | Organization | [facility] | + + + | Address [...] [place], [place] | | | | | [address] | | + + + + + | Polly Winston | ECON | ANAYA, | | + + + + + Care Team Providers + +------+ + | Care Ink Technician Name | Role | Phone | + +------+ + | Yuli Franklin | PCP | | + +------+ + Encounter Details +--------+ + + + + | Date | Type | Department | Care Team | Description | +--------+ + + + + | 08/20/ | Ancillary | Center | Nellie Munson, | | | 2020 | Orders | at [facility] [address] | MD [address] | | | | | [address] | [address] | | | | | Physician's | [place], [place] | | | | | Pavilion, 4th Floor | [address] | | | | | [facility] [place] | [phone] | | | | | [address] | | | | | | [phone] | | | +--------+ + + + [...] | | 2019 | | | [address] [facility] | | | | | | [address] | | | | | | [place], [place] | | | | | | [address] | | | | | | [phone] | | | | | | | | +--------+ + + + + documented as of this encounter Results US UTERUS TRANSVAGINAL REAL TME (08/21/2019 3:54 PM PDT) + + | Specimen | + + | | + + + + + | Narrative | Performed At | + + + | [facility] | [facility] | | OBSTETRICAL ULTRASOUND REPORT | RADIOLOGY OB US | | | | | Pat. Name: RAMOS SCHMIDT Study | | | Date: 08/21/2019 2:47pm Pat. No: [id number] | | | Referring MD: KINDRA COHEN F LMP: | | | 03/20/2019 Nanny Caregiver: ANGEL SOLITARIO, | | | BS, RDMS [...] congenital cardiac anomaly | | | CPT4: 13183,97564 | | | MARINA: | | | 12/25/2019 | | | | | | MEASUREMENTS & AGE | | | GROWTH EVALUATION Measurement GA Range Source % | | | 22w0d Ratios ----- ------- | | | BPD 5.4 cm 22w4d | | | (63b1n-62v1e) Hadlock BPD 65% FL/BPD 0.77 HC 20.2 cm 22w2d | | | (86f6k-66u7s) [place] HC 59% FL/AC 0.23 (0.20 - 0.24) AC | | | 18.6 cm 23w3d (69b8t-01y0w) [place] AC 80% HC/AC 1.08 | | | (1.04 - 1.23) FL 4.2 cm 23w4d (27o2a-16r3d) Hadlock FL 91% | | | CI 0.75 (0.70 - 0.86) HL 4.0 cm 24w2d (16a4l-49i4f) Zari | | | HL 88% Cere 2.3 cm Hill | | | Cere GA for sonogram 22w5d (75k3k-40p4e) Weight | | | Estimate: based on [...] ! | | | ! ! Cardiac [place]/! x ! ! | | | ! [...] | | CLINICAL SUMMARY Type of Gestation: Atlavera Uterus and | | | adnexae: No [...] any time and ask for the perinatologist health professional. | | | [phone] or [phone] ASHLEE HOOVER MD | | | <Electronic Signature> 08/21/2019 04:07pm | | | I have personally reviewed the images and, if necessary, edited | | | the report. I agree with the report as now presented. | | + + + + + | Procedure Note | + + | Service Account, Lorie Res In Interface - 08/21/2019 4:10 PM PDT | | [facility] OBSTETRICAL ULTRASOUND | | | | REPORT Pa | | t. Name: RAMOS SCHMIDT Study Date: 08/21/2019 2:47pmPat. No: | | [id number] Referring MD: KINDRA COHEN, AGATHA: 03/20/2019 | | Nanny Caregiver: ANGEL SOLITARIO, JEY, RDMSGA by LMP: 22w0d | | , Age: 10 1985, 33GA by Last:22w0d | | Pregnancies: 1, Para 0000GA by US: 22w5d GA Selected: | | 22w0d (From )Hist/Ind: Anatomy detail, evaluate complete previa and vasa | | previa, Maternal congenital cardiac anomaly | | CPT4: 70553,07489 MARINA: | | 12/25/2019 | | --MEASUREMENTS & AGE GROWTH EVALUATIONMeasurement GA | | Range Source % 22w0d Ratios ----- ------- | | BPD 5.4 cm 22w4d (06w9l-29l2l) [place] BPD 65% FL/BPD | | 0.77HC 20.2 cm 22w2d (07v3u-07z8s) [place] HC 59% FL/AC 0.23 (0.20 - 0.24)AC | | 18.6 cm 23w3d (71b6y-74q6r) [place] AC 80% HC/AC 1.08 (1.04 - 1.23)FL 4.2 cm | | 23w4d (82y2k-72h3l) [place] FL 91% CI 0.75 (0.70 - 0.86)HL 4.0 cm 24w2d | | (40p0z-89i6d) Zari HL 88%Cere 2.3 cm Hill Cere GA for | | sonogram 22w5d (97u9s-11p8w) Weight Estimate:based on (BPD,HC,AC,FL) Hadlock | | Weight: 586 gm (500-671gm) Hadlock | | : 1lbs, 4oz Normal: 480 gm (320-920gm) Rebeca | | Wt% 60% for 49n2vVlwzw Heart Rate: 142 | | bpm | [...] x ! ! ! | | !Cardiac [place]/! x ! ! ! !Four Chamber ! [...] any time and ask for the perinatologist health professional. [phone] or [phone], | | ASHLEE JAIME <Electronic Signature> 08/21/2019 [...] | |time and ask for the perinatologist health professional. [phone] or [phone] | |ASHLEE HOOVER MD | | | |<Electronic Signature> 08/21/2019 04:07pm | | | | | |I have personally reviewed the images and, if necessary, edited the report. I agree with t he report as now presented. | + + + +---------+ + + | Performing | Address | City[facility] | Phone Number | | Organization | [...]
--- OUTSIDE RECORDS SUMMARY | ~2019-10-07 | XMS | Encounter Summary ---
Demographics + + + | Address | [address] | | | [place] [address] | + + + | Home Phone | | + + + | Preferred Language | Unknown | + + + | Marital Status | | + + + | Confucianist Affiliation | NON | + + + [...] [place], [place] | | | | | [address] | | + + + + + | Polly Winsotn | ECON | ANAYA, | | + + + + + Care Team Providers + +------+ + | Care Fiber Designer Name | Role | Phone | + +------+ + | Yuli Franklin | PCP | | + +------+ + Reason for Visit + + + | Reason | Comments | + + + | Lab findings, | cfDNA screning | | teaching, guidance, | | | and counseling | | + + + Encounter Details +--------+ + + + + | Date | Type | Department | Care Team | Description | +--------+ + + + + | 06/18/ | Telephone | Center | Karen aFrrell MS | Lab findings, | | 2020 | | at [facility] [address] | [address] | teaching, guidance, | | | | [address] | [address] | and counseling | | | | Physician's | [place], [place] | (cfDNA chela) | | | | Pavilion, 4th floor | [address] | | | | | [place], [place] | [phone] | | | | | [address] | | | | | | [phone] | | | +--------+ + + + [...] | | 2019 | | | [address] [facility] | | | | | | [address] | | | | | | [place], [place] | | | | | | [address] | | | | | | [phone] | | | | | | | | +--------+ + + + + documented as of this encounter Visit Diagnoses Not on filedocumented in this encounter"
--- OUTSIDE RECORDS SUMMARY | ~2019-10-07 | XMS | Encounter Summary ---
Demographics + + + | Address | [address] | | | [place] [address] | + + + | Home Phone | | + + + | Preferred Language | Unknown | + + + | Marital Status | | + + + | Church Affiliation | NON | + + + | Race | White | + + + | Ethnic Group | or | + + + Author + + + | Author | [facility] | + + + | Organization | [facility] | + + + | [...] [place], [place] | | | | | [address] | | + + + + + | Polly Winston | ECON | ANAYA, | | + + + + + Care Team Providers + +------+ + | Care Impregnator And Drier Name | Role | Phone | + +------+ + | Yuil Franklin | PCP | | + +------+ + Reason for Referral Consultation (Routine) + +--------+ + + + [...] | | | | congenital | Ijeoma, SEWING SUPERVISOR | [address] | | | | | anomalous | [address] | [place] | | | | | pulmonary | Ave | [place], [address]th | | | | | venous | [place], [place] | floor | | | | | connection | [address] | [place], [place] | | | | | Procedures | Phone: | [address] | | | | | CONSULT TO | [phone] | Phone: | | | | | PERINATOLOGY | Fax: | [phone] | | | | | [place] NEW | [phone] | Fax: | | | | | PATIENT | | [phone] | | | | | LEVEL V [place] | | | | | | | EST PATIENT | | | | | | | LEVEL V | | | + +--------+ + + + + Reason for Visit + + + | Reason | Comments | + + + | care | TAVPC, pacemaker | + + + Encounter Details +--------+ + + + + | Date | Type | Department | Care Team | Description | +--------+ + + + + | 04/18/ | MyChart | Cardiology General | Louisa Reed | RE: Upcoming | | 2020 | Encounter | at [facility] [address] | LEONARD Raphael [address] | Appointment | | | | [facility] for | [facility] | | | | | Health and Healing, | [place] [address] | | | | | [address] | [phone] | | | | | [place], [place] | | | | | | [address] | | | | | | [phone] | | | +--------+ + + + [...] + + + + | 08/20/ | Appointment | Radiology | | | | 2019 | | | | | +--------+ + + + + | 10/18/ | | | Nellie Munson, | | | 2019 | | | [address] | | | | | | [address] | | | | | | [place], [place] | | | | | | [address] | | | | | | [phone] | | | | | | | | +--------+ + + + + documented as of this encounter Visit Diagnoses + + | Diagnosis | + + | 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
--- OUTSIDE RECORDS SUMMARY | ~2019-10-07 | XMS | Encounter Summary ---
Demographics + + + | Address | [address] | | | [place] [address] | + + + | Home Phone | | + + + | Preferred Language | Unknown | + + + | Marital Status | | + + + | Hindu Affiliation | NON | + + + | Race | White | + + + | Ethnic Group | or | + + + Author + + + | Author | [facility] | + + + | Organization | [facility] | + + + | Address [...] [place], [place] | | | | | [address] | | + + + + + | Polly Winston | ECON | ANAYA, | | + + + + + Care Team Providers + +------+ + | Care Gas Operations Analyst Name | Role | Phone | + +------+ + | Gabrielle Fernández MD | PCP | | + +------+ + Encounter Details +--------+ + + + + | Date | Type | Department | Care Team | Description | +--------+ + + + + | 09/02/ | Telephone | Pediatric | Carlos Hinesdri, | | | 2010 | | Cardiology at | MD [address] [facility] | | | | | Emeli | [facility] | | | | | [facility] | [place], [place] | | | | | [address] | [address] | | | | | Emeli | [phone] | | | | | [facility] | | | | | | 7th [facility], | | | | | | [place] [address] | | | | | | [phone] | | | +--------+ + + + [...] [place] | | | | | | [address] | | | | | | [phone] | | | | | | | | +--------+ + + + + documented as of this encounter Visit Diagnoses Not on filedocumented in this encounter"
--- OUTSIDE RECORDS SUMMARY | ~2019-10-07 | XMS | Encounter Summary ---
Demographics + + + | Address | [address] | | | [place] [address] | + + + | Home Phone [...] [address] | | | | | [facility] [place] | | | | | [address] | | + + + + + | Polly Winston | ECON | ANAYA, | | + + + + + Care Team Providers + +------+ + | Care Pull Worker Name | Role | Phone | [...] Closed | | Cardiology | Diagnoses | Babij, | Abelardo, | | | | | Primary | MD Valdez | Mellissa Romero NP | | | | | Diagnosis:42 | [address] | [address] | | | | | [address] | [address] | | | | | [address]ICK | [place], | [place], [place] | | | | | SINUS | [place] [address] | [address] | | | | | SYNDROME | Phone: | | | | | | Other | [phone] | | | | | | Diagnoses:74 | Fax: | | | | | | 7.41 | [phone] | | | | | | Total [...] | | | | | | | AR ICD DVC | | | | | | | PRG EVL,1 | | | | | | | SNGL AR ICD | | | | | | | DVC PRGR | | | | | | | EVL,CUT OFF [place] | | | +--------+--------+ + + + + Encounter Details +--------+---------+ + + + | Date | Type | Department | Care Team | Description | +--------+---------+ + + + | 06/16/ | Office | Cardiology | Mellissa Zhou, | 427.81 SICK SINUS | | 2013 | Visit | Arrhythmia at [facility] | ENDOSCOPY SUPPORT SPECIALIST | SYNDROME (Primary | | | | [address] | | Dx); Medtronic | | | | [place] for [facility] | | single chamber | | | | and Healing, | | pacemaker | | | | [facility] | | | | | | Floor [place], [place] | | | | | | [address] | | | | | | [phone] | | | +--------+---------+ + + + [...] as of this encounter Progress Notes Mellissa Zhou Np - 06/16/2013 8:37 AM PDT REMOTE VISIT Current Outpatient Prescriptions Medication Sig levonorgestrel (MIRENA) 20 mcg/24 hour (5 years) intrauterine intrauterine device 1 eac h by intrauterine route once. May be removed and replaced with a new unit at anytime during menstrual cycle; do not leave any one system in place for > 5 years. PROAIR HFA 90 mcg/actuation inhalation HFA aerosol inhaler 1-2 puffs every six hours as needed. No current facility-administered medications for this visit. NOTES: Battery longevity is good. Lead characteristics appear stable. 2 VHR episodes as a keven - durations of 2 and 4 seconds each. Called Joie - she is feeling well. No associated symptoms with VHR episodes. She is wo rking on weight loss - doing a gluten-free/vegan friendly/clean eating detox for 28 days. S he does cardio 3 days a week and has no symptoms with exertion. Will plan on next pacemaker check in clinic in November 2013 when she returns to see [facility] clinic. documented in this encounter Plan of Treatment [...] | | 2019 | | | [address] [facility] | | | | | | [address] | | | | | | [place], [place] | | | | | | [address] | | | | | | [phone] | | | | | | | | +--------+ + + + + documented as of this encounter Visit Diagnoses + + | Diagnosis | + + | 427.81 SICK SINUS SYNDROME - Primary Sinoatrial node dysfunction | + + | Medtronic single chamber pacemaker Cardiac pacemaker in situ | + + documented in this encounter"
--- OUTSIDE RECORDS SUMMARY | ~2019-10-07 | XMS | Encounter Summary ---
Demographics + + + | Address | [address] | | | [place] [address] | + + + | Home Phone | | + + + | Preferred Language | Unknown | + + + | Marital Status | | + + + | Yazidism Affiliation | NON | + + + | Race | White | + + + | Ethnic Group | or | + + + Author + + + | Author | [facility] | + + + | Organization | [facility] | + + + | [...] [place], [place] | | | | | [address] | | + + + + + | Polly Winston | ECON | ANAYA, | | + + + + + Care Team Providers + +------+ + | Care Quilting Machine Operator Name | Role | Phone | + +------+ + | Gabrielle Fernández MD | PCP | | + +------+ + Encounter Details +--------+ + + + + | Date | Type | Department | Care Team | Description | +--------+ + + + + | 03/13/ | Office | Emeli | Antonio Hines, | CLINIC NOTES SCANNED | | 2008 | Visit-ECX | Cardiology Gunner | [address] [facility] | | | | | [facility] [address] | [address] | | | | | ([place]) CDR | [place], [place] | | | | | [place] | [address] | | | | | [address] | [phone] | | | | | [phone] | | | +--------+ + + + [...] + + + | Blood Pressure | 121/71 | 03/13/2008 3:27 PM | | | | | PST | | + + + + + | Pulse | 74 | 03/13/2008 3:27 PM | | | | | PST | | + + + + + | Temperature | - | - | | + + + + + | Respiratory Rate | 12 | 03/13/2008 3:27 PM | | | | | PST | | + + + + + | Oxygen Saturation | 99% | 03/13/2008 3:27 PM | | | | | PST | | + + + + + | Inhaled Oxygen | - | - | | | Concentration | | | | + + + + + | Weight | 59.8 kg (131 lb 13.4 | 03/13/2008 3:27 PM | | | | oz) | PST | | + + + + + | Height | 159.5 cm (5' 2.8") | 03/13/2008 3:27 PM | | | | | PST | | + + + + + | Body Mass Index | 23.51 | 03/13/2008 3:27 PM | | | | | PST | | + + + + + documented in this encounter Plan of Treatment [...] | | 2019 | | | [address] [facility] | | | | | | [address] | | | | | | [place], [place] | | | | | | [address] | | | | | | [phone] | | | | | | | | +--------+ + + + + documented as of this encounter Visit Diagnoses Not on filedocumented in this encounter
--- OUTSIDE RECORDS SUMMARY | ~2019-10-07 | XMS | Encounter Summary ---
Demographics + + + | Address | [address] | | | [place] [address] | + + + | Home Phone | | + + + | Preferred Language | Unknown | + + + | Marital Status | | + + + | Evangelical Affiliation | NON | + + + [...] [place], [place] | | | | | [address] | | + + + + + | Polly Winston | ECON | ANAYA, | | + + + + + Care Team Providers + +------+ + | Care Drink Mixer Name | Role | Phone | + +------+ + | Yuli Franklin | PCP | | + +------+ + Encounter Details +--------+ + + + + | Date | Type | Department | Care Team | Description | +--------+ + + + + | 09/20/ | Ancillary | Center | Nellie Munson, | | | 2020 | Orders | at [facility] [address] | MD [address] | | | | | [address] | David Lopez | | | | | Physician's | [place], [place] | | | | | Pavilion, 4th floor | [address] | | | | | [facility] [place] | [phone] | | | | | [address] | | | | | | [phone] | | | +--------+ + + + [...] | | 2019 | | | [address] [facility] | | | | | | David Lopez | | | | | | [place], [place] | | | | | | [address] | | | | | | [phone] | | | | | | | | +--------+ + + + + documented as of this encounter Results US UTERUS TRANSVAGINAL REAL TME (09/21/2019 1:53 PM PDT) + + | Specimen | + + | | + + + + + | Narrative | Performed At | + + + | [facility] | [facility] | | OBSTETRICAL ULTRASOUND REPORT | RADIOLOGY OB US | | | | | Pat. Name: RAMOS SCHMIDT Study | | | Date: 09/21/2019 12:58pm Pat. No: [id number] | | | Referring MD: KINDRA COHEN F LMP: | | | 03/20/2019 Pershing [employer] Crewmember: ОЛЬГА MARADIAGA, | | | RDMS GA by LMP: 26w3d , Age: | | | 1985, 33 GA by Last:26w3d | | | Pregnancies: 1, Para 0000 GA by US: 27w6d | | | GA Selected: 26w3d (LMP) Hist/Ind: | | | Growth Follow up previa | | | CPT4: 34960,[id number] | | | MARINA: | | | 12/25/2019 | | | | | | MEASUREMENTS & AGE | | | GROWTH EVALUATION Measurement GA Range Source % | | | 26w3d Ratios ----- ------- | | | BPD 7.0 cm 28w1d | | | (62j0w-73p0k) Hadlock BPD 85% FL/BPD 0.75 (0.71 - 0.87) HC | | | 25.7 cm 27w6d (39x7y-63d1u) Hadlock HC 82% FL/AC 0.21 | | | (0.20 - 0.24) AC 25.2 cm 29w2d (08s1q-93x6s) Hadlock AC >95 | | | HC/AC 1.02 (1.00 - 1.19) FL 5.2 cm 27w6d (57i6c-89h3w) Hadlock | | | FL 81% CI 0.77 (0.70 - 0.86) GA for sonogram 27w6d | | | (23y0u-64v5g) Weight Estimate: based on (BPD,HC,AC,FL) | | | Hadlock Weight: 1258 gm (1074-1442gm) Hadlock | | | : 2lbs, | | | 12oz | | | Normal: 912 gm (606-1380gm) Rebeca | | | Wt% 80% for 26w3d Cervix: | | | Length: 3.6 cm Heart Rate: 155 bpm | | | | | | EVAL, PLACENTA Presentation: Cephalic Placenta: | | | Posterior Previa: Complete previa Heart Rate: 155 bpm | | | Amniotic Fluid Volume: Normal | | | Anatomy!Normal!Abnormal!Suboptimal!Prev. Seen!Comments | | | | | | Cranium ! x ! ! ! | | | x ! CSP ! x ! ! | | | ! x ! Falx Cerebri ! x ! ! | | | ! x ! Cerebral Vent! x ! ! | | | ! x ! Choroid Plexu! ! ! | | | ! x ! Cerebellum ! ! ! | | | ! x ! Cisterna Magn! ! ! | | | ! x ! Nuchal Fold ! ! ! | | | ! x ! Neck ! ! ! | | | ! x ! Nose/Lips ! ! ! | | | ! x ! Face/Profile ! ! ! | | | ! x ! Nasal Bone ! ! ! | | | ! x ! Palate/Mandib! ! ! | | | ! x ! Orbits ! ! ! | | | ! x ! Chest/Lungs/R! ! ! | | | ! x ! Cardiac [place]/! ! ! | | | ! x ! Four Chamber ! x ! ! | | | ! x ! LVOT ! ! | | | ! ! x ! RVOT ! ! | | | ! ! x ! 3 Vessel View! x ! | | | ! ! x ! 3V Trachael V! ! | | | ! ! x ! IVC/SVC ! ! | | | ! ! x ! Aortic Arch ! ! | | | ! ! x ! Ductal Arch ! ! | | | ! ! x ! Diaphragm ! | | | ! ! ! x ! Stomach ! | | | x ! ! ! x ! Situs ! | | | ! ! ! x ! Gallbladder ! | | | ! ! ! x ! Liver/Spleen ! | | | ! ! ! x ! Bowel | | | ! ! ! ! x ! 3VC | | | ! ! ! ! x ! | | | Abdominal Wal! ! ! ! x ! | | | Kidneys ! x ! ! ! x ! | | | Bladder ! x ! ! ! x | | | ! Cervical Spin! ! ! ! x | | | ! Thoracic Spin! ! ! ! x | | | ! Lumbar Spine ! ! ! ! x | | | ! Sacral Spine ! ! ! ! x | | | ! Right Humerus! ! ! ! x | | | ! Right Radius/! ! ! ! x | | | ! Right Hand ! ! ! ! x | | | ! Left Humerus ! ! ! ! x | | | ! Left Radius/U! ! ! ! x | | | ! Left Hand ! ! ! ! x | | | ! Right Femur ! ! ! ! x | | | ! Right Tibia/F! ! ! ! x | | | ! Right Foot ! ! ! ! | | | x ! Left Femur ! ! ! ! | | | x ! Left Tibia/Fi! ! ! ! | | | x ! Left Foot ! ! ! ! | | | x ! Skin ! ! ! ! | | | x ! Sex (F) ! ! ! | | | ! x ! | | | | | | CLINICAL SUMMARY Type of Gestation: Talavera Uterus and | | | adnexae: No abnormalities seen. There is heart motion and | | | gross movement. Ultrasound cannot detect all / | | | abnormalities. Transvaginal approach is used for better visualization | | | due to low lying placenta and limitation of the transabdominal | | | imaging, endovaginal US was utilized to evaluate the . The | | | cervical length measures 3.2cm. Impression: 33 year old at 26 | | | 3/7 weeks gestation with a history of ultrasound showing placenta | | | previa and vasa previa who presents for growth and placental | | | evaluation. Ms Post is seen in the Maternal Cardiac Program in [facility] | | | due to TAPVR s/p correction with sick sinus syndrome and pacemaker | | | in place. 1. Single living intrauterine in cephalic | | | presentation. 2. Posterior placenta with placenta previa; the edge of | | | the placenta reaches the internal os. Using color Doppler | | | ultrasound, a vessel was observed close to the internal os, with | | | arterial pulsation being confirmed, finding that corresponds to vasa | | | previa. The pulsations in the vessel observed were not at the | | | closest point to the cervix from were a vessel is observed. The | | | distance from the internal os to where pulsations were observed is | | | 3.4 cm. 3. Growth is appropriate, consistent with 26 3/7 weeks | | | gestation. 4. Normal anatomic survey with no abnormalities | | | identified. Recommendations: Ms Schmidt has an appointment to follow | | | today in the Maternal Cardiac program where a plan of care will be | | | continued. 1. Follow-up ultrasound as clinically indicated. Thank | | | you very much for allowing us to help care for your patient. If you | | | have any questions, please feel free to call our 24 hour phone | | | consult number at any time and ask for the perinatologist electrician telephone. | | | [phone] or [phone] VICKY LAM MD | | | <Electronic Signature> 09/21/2019 02:53pm Revised I have | | | personally reviewed the images and, if necessary, edited the report. | | | I agree with the report as now presented. | | + + + + + | Procedure Note | + + | Service Account, Radiant Res In Interface - 09/21/2019 3:01 PM PDT | | [facility] OBSTETRICAL ULTRASOUND | | | | REPORT Pa | | t. Name: RAMOS SCHMIDT Study Date: 09/21/2019 12:58pmPat. No: | | [id number] Referring MD: KINDRA COHEN, AGATHA: 03/20/2019 | | [employer] Crewmember: ОЛЬГА MARADIAGA RDMSGA by LMP: 26w3d | | , Age: 10 1985, 33GA by Last:26w3d Pregnancies: | | 1, Para 0000GA by US: 27w6d GA Selected: 26w3d | | (LMP)Hist/Ind: Growth Follow up previa | | CPT4: [id number] MARINA: | | 12/25/2019 | | --MEASUREMENTS & AGE GROWTH EVALUATIONMeasurement GA | | Range Source % 26w3d Ratios ----- ------- | | BPD 7.0 cm 28w1d (08c7f-31t0u) Hadlock BPD 85% FL/BPD | | 0.75 (0.71 - 0.87)HC 25.7 cm 27w6d (38c5s-01k1i) Hadlock HC 82% FL/AC 0.21 (0.20 | | - 0.24)AC 25.2 cm 29w2d (24c5x-27c9i) Hadlock AC >95 HC/AC 1.02 (1.00 - 1.19)FL | | 5.2 cm 27w6d (67j7y-20u6a) Hadlock FL 81% CI 0.77 (0.70 - 0.86)GA for sonogram | | 27w6d (34x0a-20u3i) Weight Estimate:based on (BPD,HC,AC,FL) Hadlock | | Weight: 1258 gm (1074-1442gm) Hadlock : | | 2lbs, 12oz Normal: 912 gm (606-1380gm) Rebeca | | Wt% 80% for 40f3qZtbipt: Length: 3.6 cmFetal | | Heart Rate: 155 | | bpm | | EVAL, PLACENTAPresentation: CephalicPlacenta: PosteriorPrevia: Complete previaFetal | | Heart Rate: 155 bpmAmniotic Fluid Volume: NormalFetal | | Anatomy!Normal!Abnormal!Suboptimal!Prev. | | Seen!Comments | | -----Cranium ! x ! ! ! x !CSP ! x ! ! | | ! x !Falx Cerebri ! x ! ! ! x !Cerebral Vent! | | x ! ! ! x !Choroid Plexu! ! ! ! x | | !Cerebellum ! ! ! ! x !Cisterna Magn! ! ! | | ! x !Nuchal Fold ! ! ! ! x !Neck ! | | ! ! ! x !Nose/Lips ! ! ! ! x | | !Face/Profile ! ! ! ! x !Nasal Bone ! ! ! | | ! x !Palate/Mandib! ! ! ! x !Orbits ! | | ! ! ! x !Chest/Lungs/R! ! ! ! x | | !Cardiac [place]/! ! ! ! x !Four Chamber ! x ! ! | | ! x !LVOT ! ! ! ! x !RVOT ! | | ! ! ! x !3 Vessel View! x ! ! ! x !3V | | Trachael V! ! ! ! x !IVC/SVC ! ! ! | | ! x !Aortic Arch ! ! ! ! x !Ductal Arch ! ! | | ! ! x !Diaphragm ! ! ! ! x !Stomach | | ! x ! ! ! x !Situs ! ! ! ! | | x !Gallbladder ! ! ! ! x !Liver/Spleen ! ! | | ! ! x !Bowel ! ! ! ! x !3VC | | ! ! ! ! x !Abdominal Wal! ! ! ! x | | !Kidneys ! x ! ! ! x !Bladder ! x ! ! | | ! x !Cervical Spin! ! ! ! x !Thoracic Spin! | | ! ! ! x !Lumbar Spine ! ! ! ! x | | !Sacral Spine ! ! ! ! x !Right Humerus! ! ! | | ! x !Right Radius/! ! ! ! x !Right Hand ! | | ! ! ! x !Left Humerus ! ! ! ! x | | !Left Radius/U! ! ! ! x !Left Hand ! ! ! | | ! x !Right Femur ! ! ! ! x !Right Tibia/F! | | ! ! ! x !Right Foot ! ! ! ! x | | !Left Femur ! ! ! ! x !Left Tibia/Fi! ! ! | | ! x !Left Foot ! ! ! ! x !Skin ! | | ! ! ! x !Sex (F) ! ! ! ! x | | ! CLINICA | | L SUMMARYType of Gestation: SingletonUterus and adnexae: No abnormalities seen.There is | | heart motion and gross movement.Ultrasound cannot detect all / | | abnormalities.Transvaginal approach is used for better visualization due to low lying | | placenta and limitation of the transabdominal imaging, endovaginal US was utilized to | | evaluate the . The cervical length measures 3.2cm.Impression: 33 year old | | at 26 3/7 weeks gestation with a history of ultrasound showing placenta previa and vasa | | previa who presents for growth and placental evaluation. Ms Schmidt is seen in the Maternal | | Cardiac Program in [facility] due to TAPVR s/p correction with sick sinus syndrome and | | pacemaker in place. 1. Single living intrauterine in cephalic presentation.2. | | Posterior placenta with placenta previa; the edge of the placenta reaches the internal | | os.Using color Doppler ultrasound, a vessel was observed close to the internal os, with | | arterial pulsation being confirmed, finding that corresponds to vasa previa. The | | pulsations in the vessel observed were not at the closest point to the cervix from were | | a vessel is observed. The distance from the internal os to where pulsations were | | observed is 3.4 cm. 3. Growth is appropriate, consistent with 26 3/7 weeks gestation.4. | | Normal anatomic survey with no abnormalities identified.Recommendations: Ms Schmidt | | has an appointment to follow today in the Maternal Cardiac program where a plan of care | | will be continued.1. Follow-up ultrasound as clinically indicated. Thank you very much | | for allowing us to help care for your patient. If you have any questions, please feel | | free to call our 24 hour phone consult number at any time and ask for the perinatologist | | electrician telephone. [phone] or [phone], JORGE, MD <Electronic | | Signature> 09/21/2019 02:53pmRevisedI have personally reviewed the images and, if | | necessary, edited the report. I agree with the report as now presented. | |Right Tibia/F! ! ! ! x ! | |Right Foot ! ! ! ! x ! | |Left Femur ! ! ! ! x ! | |Left Tibia/Fi! ! ! ! x ! | |Left Foot ! ! ! ! x ! | |Skin ! ! ! ! x ! | |Sex (F) ! ! ! ! x ! | | | |CLINICAL SUMMARY | |Type of Gestation: Talavera | |Uterus and adnexae: No abnormalities seen. | |There is heart motion and gross movement. | |Ultrasound cannot detect all / abnormalities. | |Transvaginal approach is used for better visualization due to low lying | |placenta and limitation of the transabdominal imaging, endovaginal US was | |utilized to evaluate the . The cervical length measures 3.2cm. | |Impression: 33 year old at 26 3/7 weeks gestation with a history of | |ultrasound showing placenta previa and vasa previa who presents for | |growth and placental evaluation. Ms Post is seen in the Maternal Cardiac | |Program in [facility] due to TAPVR s/p correction with sick sinus syndrome and | |pacemaker in place. | |1. Single living intrauterine in cephalic presentation. | |2. Posterior placenta with placenta previa; the edge of the placenta reaches | |the internal os. | |Using color Doppler ultrasound, a vessel was observed close to the internal | |os, with arterial pulsation being confirmed, finding that corresponds to vasa | |previa. The pulsations in the vessel observed were not at the closest point to | |the cervix from were a vessel is observed. The distance from the internal os to | |where pulsations were observed is 3.4 cm. | |3. Growth is appropriate, consistent with 26 3/7 weeks gestation. | |4. Normal anatomic survey with no abnormalities identified. | |Recommendations: Ms Schmidt has an appointment to follow today in the Maternal | |Cardiac program where a plan of care will be continued. | |1. Follow-up ultrasound as clinically indicated. | | | |Thank you very much for allowing us to help care for your patient. If you have | |any questions, please feel free to call our 24 hour phone consult number at any | |time and ask for the perinatologist electrician telephone. [phone] or [phone] | |VICKY LAM MD | | | |<Electronic Signature> 09/21/2019 02:53pm | |Revised | | | | | |I have personally reviewed the images and, if necessary, edited the report. I agree with t he report as now presented. 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
--- OUTSIDE RECORDS SUMMARY | ~2019-10-07 | XMS | Encounter Summary ---
Demographics + + + | Address | [address] | | | [place] [address] | + + + | Home Phone | | + + + | Preferred Language | Unknown | + + + | Marital Status | | + + + | Orthodoxy Affiliation | NON | + + + | Race | White | + + + | Ethnic Group | or | + + + Author + + + | Author | [facility] | + + + | Organization | [facility] | + + + | [...] [place] | | | | | [address] | | + + + + + | Polly Winston | NATHALY | ANAYA, | | + + + + + Care Team Providers + +------+ + | Care Group Marketing Vp Name | Role | Phone | + +------+ + | Yuli Franklin | PCP | | + +------+ + Reason for Visit + + + | Reason | Comments | + + + | Care Questions | device check details and questions about possible surgery | + + + Encounter Details +--------+ + + + + | Date | Type | Department | Care Team | Description | +--------+ + + + + | 04/09/ | MyChart | [facility] | Mellissa Zhou, | RE: Recent remote | | 2018 | Encounter | Medical Clinic | HEAD GRINDER | check & schedule | | | | Cardiology [address] | | surgery | | | | [address] | | | | | | [place] | | | | | | [address] | | | | | | [phone] | | | +--------+ + + + [...] [address] | | | | | | [place] | | | | | | [address] | | | | | | [phone] | | | | | | | | +--------+ + + + + documented as of this encounter Visit Diagnoses Not on filedocumented in this encounter"
--- OUTSIDE RECORDS SUMMARY | ~2019-10-07 | XMS | Encounter Summary ---
Demographics + + + | Address | [address] | | | [place] [address] | + + + | Home Phone | | + + + | Preferred Language | Unknown | + + + | Marital Status | | + + + | Muslim Affiliation | NON | + + + | Race | White | + + + | Ethnic Group | or | + + + Author + + + | Author | [facility] | + + + | Organization | [facility] | + + + | Address [...] [address] | | | | | [place], [place] | | | | | [address] | | + + + + + | Polly Winston | ECON | ANAYA, | | + + + + + Care Team Providers + +------+ + | Care Lotus Notes Administrator Name | Role | Phone | + +------+ + | Gabrielle Fernández MD | PCP | | + +------+ + Encounter Details +--------+ + + + + | Date | Type | Department | Care Team | Description | +--------+ + + + + | 02/16/ | Telephone | Pediatric | Carlos Hinesdri, | | | 2010 | | Cardiology at | MD [address] [facility] | | | | | [place] | [facility] | | | | | [facility] | [place], [place] | | | | | [address] | [address] | | | | | [place] | [phone] | | | | | [facility] | | | | | | [address] [facility], | | | | | | [place] [address] | | | | | | [phone] | | | +--------+ + + + [...] [address] | | | | | | [place], [place] | | | | | | [address] | | | | | | [phone] | | | | | | | | +--------+ + + + + documented as of this encounter Visit Diagnoses Not on filedocumented in this encounter"
--- OUTSIDE RECORDS SUMMARY | ~2019-10-07 | XMS | Encounter Summary ---
Demographics + + + | Address | [address] | | | [place] [address] | + + + | Home Phone [...] [place], [place] | | | | | [address] | | + + + + + | Polly Winston | ECON | ANAYA, | | + + + + + Care Team Providers + +------+ + | Care Microbiology Laboratory Manager Name | Role | Phone | + +------+ + | Yuli Franklin | PCP | | + +------+ + Encounter Details +--------+ + + + + | Date | Type | Department | Care Team | Description | +--------+ + + + + | 09/06/ | MyChart | [facility] | Nellie Munson, | RE: Record results | | 2020 | Encounter | Health [address] | MD [address] | from 08/20 | | | | [address] | [facility] | | | | | [place], [facility] floor | [place], [place] | | | | | [place], [place] | [address] | | | | | [address] | [phone] | | | | | [phone] | | | +--------+ + + + [...] [place] | | | | | | [address] | | | | | | [phone] | | | | | | | | +--------+ + + + + documented as of this encounter Visit Diagnoses Not on filedocumented in this encounter"
--- OUTSIDE RECORDS SUMMARY | ~2019-10-07 | XMS | Encounter Summary ---
Demographics + + + | Address | [address] | | | [place] [address] | + + + | Home Phone | | + + + | Preferred Language | Unknown | + + + | Marital Status | | + + + | Druze Affiliation | NON | + + + | Race | White | + + + | Ethnic Group | or | + + + Author + + + | Author | [facility] | + + + | Organization | [facility] | + + + | Address | Unknown | + + + | Phone | Unavailable | + + + Support + + + + + | Name | Relationship | Address | Phone | + + + + + | Alexsander Shcmidt | ECON | Unknown | | + + + + + | Sinan Winston | ECON | [address] | | | | | [place], [place] | | | | | [address] | | + + + + + | Polly Winston | ECON | [place], | | + + + + + Care Team Providers + +------+ + | Care Building Construction Professor Name | Role | Phone | + +------+ + | Gabrielle Fernández MD | PCP | | + +------+ + Encounter Details +--------+ + + + + | Date | Type | Department | Care Team | Description | +--------+ + + + + | 11/03/ | Telephone | Pediatric | Antonio Hines, | | | 2011 | | Cardiology at | MD [address] [facility] | | | | | [place] | [facility] | | | | | [facility] | [place], [place] | | | | | [address] | [address] | | | | | [place] | [phone] | | | | | [facility] | | | | | | [address]th [facility], | | | | | | [place] [address] | | | | | | [phone] | | | +--------+ + + + [...] [address] | | | | | | [place], [place] | | | | | | [address] | | | | | | [phone] | | | | | | | | +--------+ + + + + documented as of this encounter Visit Diagnoses Not on filedocumented in this encounter"
--- OUTSIDE RECORDS SUMMARY | ~2019-10-07 | XMS | Encounter Summary ---
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 | [place], [place] | [address] | | | | | connection | [address] | 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 | Phone: | [place], [place] | | | | | node | [phone] | [address] | | | | | dysfunction | Fax: | Phone: | | | | | (HCC) | [phone] | [phone] | | | | | Procedures | | Fax: | | | | | TRANSTHORACI | | [phone] | | | | | C | | | | | | | ECHOCARDIOGR | | | | | | | AM, PEDS | | | +--------+--------+ + + + + Encounter Details +--------+ + + + + | Date | Type | Department | Care Team | Description | +--------+ + + + + | 01/25/ | Hospital | Pediatric Echo Lab | | | | 2011 | Encounter | at [place] | | | | | | [facility] | | | | | | [address] [facility] | | | | | | [place] | | | | | | [facility] | | | | | | [address]th [facility], | | | | | | [place] [address] | | | | | | [phone] | | | +--------+ + + + [...] [address] | | | | | | [place], [place] | | | | | | [address] | | | | | | [phone] | | | | | | | | +--------+ + + + + documented as of this encounter Procedures + +--------+ + + + | Procedure Name | Priori | Date/Time | Associated Diagnosis | Comments | | | ty | | | | + +--------+ + + + | TRANSTHORACIC | Routin | 01/26/2012 | 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 | | | | | 427.81 SICK SINUS | | | | | | SYNDROME | | + +--------+ + + + documented in this encounter Results TRANSTHORACIC ECHOCARDIOGRAM, PEDS (01/26/2012 12:00 AM PST) + + + | Narrative | Performed At | + + + | | | | | | + + + + + | Procedure Note | + + | Kalyani Beverly - 01/26/2012 10:55 AM PST | + + documented in this encounter Visit Diagnoses Not on filedocumented in this encounter"
--- OUTSIDE RECORDS SUMMARY | ~2019-10-07 | XMS | Encounter Summary ---
Demographics + + + | Address | [address] | | | [place] [address] | + + + | Home Phone | | + + + | Preferred Language | Unknown | + + + | Marital Status | | + + + | Christianity Affiliation | NON | + + + | Race | White | + + + | Ethnic Group | or | + + + Author + + + | Author | [facility] | + + + | Organization | [facility] | + + + | Address [...] [place], [place] | | | | | [address] | | + + + + + | Polly Winston | ECON | ANAYA, | | + + + + + Care Team Providers + +------+ + | Care Aircraft Cylinder Mechanic Name | Role | Phone | + +------+ + | Gabrielle Fernández MD | PCP | | + +------+ + Encounter Details +--------+---------+ + + + | Date | Type | Department | Care Team | Description | +--------+---------+ + + + | 02/08/ | Office | Pediatric | Antonio Hines, | 427.81 SICK SINUS | | 2008 | Visit | Cardiology at | [address] | SYNDROME (Primary | | | | [facility] | [address] | Dx) | | | | [facility] | [place], [place] | | | | | [address] | [address] | | | | | [place] | [phone] | | | | | [facility] | | | | | | [address] [facility], | | | | | | [place] [address] | | | | | | [phone] | | | +--------+---------+ + + + [...] encounter Progress Notes Antonio Hines MD - 02/08/2009 4:40 PM PSTThis is a Carelink check of the ventricular p acemaker done on 02/06/09 in Joie Villarreal who is a 22 y.o. 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 Device: Medtronic Sensia Implanted: 08/13/08 RULA: no ADVISORY: NO Mode: VVIR Lower Rate: 60 Upper Rate: 170 Battery Voltage: 2.79 volts Cell Impedance: 114 ohms Estimated battery longevity: 8.5 years (range 7-9.5) Patient is not pacer dependent. Telephone monitoring is: on Output (v) Pulse Width (ms) Sensitivity (mv) Right Ventricle 2.5 0.45 2.8 TESTING: Threshold testing was performed. RT VENTRICLE RV threshold volts: 0.875 v RV threshold PW: 0.4 ms RV lead impedance: 695 ohms R Wave Amplitude: unable to check She is paced 80% of the time. Ventricular capture looks good. [...] | | 2019 | | | [address] [facility] | | | | | | [address] | | | | | | [place], [place] | | | | | | [address] | | | | | | [phone] | | | | | | | | +--------+ + + + + + + +--------+ + + | Name | Type | Priori | Associated Diagnoses | Order Schedule | | | | ty | | | + + +--------+ + + | [place] ANALYZE PACER | Procedures | Routin | 427.81 SICK SINUS | Ordered: 02/08/2009 | | JORDON GRIMES | | e | SYNDROME | | + + +--------+ + + documented as of this encounter Visit Diagnoses + + | Diagnosis | + + | 427.81 SICK SINUS SYNDROME - Primary Sinoatrial node dysfunction | + + documented in this encounter"
--- OUTSIDE RECORDS SUMMARY | ~2019-10-07 | XMS | Encounter Summary ---
Demographics + + + | Address | [address] | | | [place] [address] | + + + | Home Phone [...] [place], [place] | | | | | [address] | | + + + + + | Polly Winston | ECON | ANAYA, | | + + + + + Care Team Providers + +------+ + | Care Biofuels Operations Manager Name | Role | Phone | [...] Closed | | Pediatric | Diagnoses | Christy, | Ped Echo | | | | Cardiology | Maternal | Mellissa Worley MD | Lab [facility] [address] | | | | | congenital | [address] | [facility] [address] | | | | | cardiac | David | [place] | | | | | anomaly | [address] | Children's | | | | | affecting | [place], [place] | [address] | | | | | in | [address] | Floor | | | | | first | Phone: | [place], [place] | | | | | trimester, | [phone] | [address] | | | | | antepartum | Fax: | Phone: | | | | | Procedures | [phone] | [phone] | | | | | | | Fax: | | | | | ECHOCARDIOGR | | [phone] | | | | | AM, PEDS | | | +--------+--------+ + + + + Encounter Details +--------+ + + + + | Date | Type | Department | Care Team | Description | +--------+ + + + + | 08/20/ | Hospital | Pediatric Echo Lab | | | | 2019 | Encounter | at [place] | | | | | | [facility] | | | | | | [address] [facility] | | | | | | [place] | | | | | | [facility] | | | | | | 8th Floor [place], | | | | | | [place] [address] | | | | | | [phone] | | | +--------+ + + + [...] Rd | | | | | | [place], [place] | | | | | | [address] | | | | | | [phone] | | | | | | | | +--------+ + + + + documented as of this encounter Procedures + +--------+ + + + | Procedure Name | Priori | Date/Time | Associated Diagnosis | Comments | | | ty | | | | + +--------+ + + + | | Routin | 08/21/2019 | Maternal | Results for this | | ECHOCARDIOGRAM, PEDS | e | 1:06 PM | congenital cardiac | procedure are in the | | | | PDT | anomaly affecting | results section. | | | | | in first | | | | | | trimester, | | | | | | antepartum | | + +--------+ + + + documented in this encounter Results ECHOCARDIOGRAM, PEDS (08/21/2019 1:06 PM PDT) + +-------+ + + + | Component | Value | Ref Range | Performed | Pathologist | | | | | At | Signature | + +-------+ + + + | AOV VMAX | 0.6 | | [facility] | | | (AORTIC | | | OF | | | VALVE) | | | CARDIOLOGY | | + +-------+ + + + | MV A VMAX | 0.4 | | [facility] | | | | | | OF | | | | | | CARDIOLOGY | | + +-------+ + + + | MV E VMAX | 0.2 | | [facility] | | | | | | OF | | | | | | CARDIOLOGY | | + +-------+ + + + + + | Specimen | + + | | + + + +---- + | Narrative | Per formed At | + +---- + | | [facility] DEPT OF | | Echocardiography Laboratory [address] | [facility] | | [place] [address] ; | | | ECV 2602 Echocardiogram and Consultation Report | | | NAME: RAMOS SCHMIDT Study Date: 08/21/2019 1:06:28 PMPatient ID#: | | | [id number] Order #: [id number] ACC #: [id number] : 1985 Ht: | | | Age: 33 years Wt:Gender: F BSA: | | | BMI Requesting Physician: MELLISSA Martínez for | | | test: , maternal congenital cardiovascular | | | disorders-648.53Study Details: This is an initial | | | study. I have spent 25 minutes with | | | this patient, over 50% of which was spent in | | | counseling and coordination of care, exclusive of | | | generating the report. Summary: 1. Normal | | | cardiac anatomy. 2. Normal right ventricular size and qualitatively | | | normal systolic function. 3. Normal left ventricular size and | | | qualitatively normal LV systolic function. Patient Background:The | | | patient is 1, Para 0. The mother has a history of total | | | anomalous pulmonary venous return s/p repair as a . Also with | | | sick sinus syndrome s/p pacemaker. Has had a total of 3 pacemakers. No | | | other family history of congenital heart disease or rhythm problems | | | of the heart/pacemakers. No history of early NC or sudden . The | | | patient lives with her spouse and she denies alcohol, smoking, and | | | drug use. Information:The patient's assigned MARINA is | | | 12/25/2019. The assigned gestational age is 22w0d. This is a huffman | | | .Recommendations: All findings discussed with Ms Roxana. | | | Normal cardiac anatomy with qualitatively normal biventricular | | | systolic function. No further cardiac imaging indicated. Cardiac | | | Acuity Delivery Score: 0 - No echocardiogram or cardiac evaluation | | | unless clinically indicated. Position: The position of this | | | fetus during the study is cephalic. Heart Rhythm: The heart | | | rhythm during this exam demonstrates AV association. Heart Rate: | | | 137 bpm Segmental Anatomy, Cardiac Position and Situs:The heart | | | circumference to thoracic circumference is normal at 50.10 %. The | | | heart position is within the left hemithorax (levocardia). The cardiac | | | apex is leftward. The position of the stomach is on the left. The | | | position of the liver is on the right. AV concordance and VA | | | concordance.Systemic Veins:A superior vena cava is right-sided and | | | drains normally to the right atrium. The inferior vena cava is | | | right-sided and inserts into the right atrium normally.Pulmonary | | | Veins:At least one pulmonary vein on each side drains to the left | | | atrium.Atria: Normal patent foramen ovale with right to left | | | shunt. The right atrium is normal in size. The left atrium is normal | | | in size.Tricuspid Valve:The tricuspid valve appears normal. There is | | | no tricuspid valve regurgitation.Right Ventricle:There is normal right | | | ventricular size and qualitatively normal systolic function.Mitral | | | Valve:The mitral valve appears normal. There is no mitral valve | | | regurgitation.Left Ventricle: Normal left ventricular size and | | | qualitatively normal LV systolic function.Pulmonary Valve:The | | | pulmonary valve appears normal. There is no pulmonary valve | | | regurgitation.Pulmonary Arteries: The branch pulmonary arteries appear | | | normal.Aortic Valve:The aortic valve is normal. There is no aortic | | | valve regurgitation.Aorta:The ascending aorta, transverse arch and | | | descending aorta appear unobstructed. There is a left aortic arch with | | | normal branching.Ductus Arteriosus:Normal patent ductus | | | arteriosus with right to left shunt.Pericardium:There is no | | | pericardial effusion.Pulsatility:There is normal Doppler flow profile | | | in the middle cerebral artery. There is normal Doppler flow profile in | | | the umbilical artery. There is normal Doppler flow profile in the | | | aortic isthmus. There is normal Doppler flow profile in the ductus | | | arteriosus. There is normal Doppler flow profile in the ductus | | | venosus. Normal Doppler flow profile in the umbilical vein.Other:There | | | is no hydrops. BiometryBiparietal Diameter: 5.4 cm | | | [id number] Length: 4.3 cm [id number] | | | Circumference: 15.0 cm [id number] Ratio: 50.1 % | | | Pulsatility Max velocity Min. velocity IndexMiddle | | | Cerebral Artery 20.90 cm/s 1.83 cm/s 2.14Umbilical Artery | | | 28.50 cm/s 6.20 cm/s 1.39Ductus Venosus | | | 65.30 cm/s 23.30 cm/s .97Aortic Isthmus | | | 99.00 cm/sDuctus Arteriosus 105.00 cm/s 5.79 cm/s | | | Anatomic Measurement Value Z scoreAoV Annulus s, PLAX | | | 0.40 cmPV Amber diam, s 0.36 cmPA/Ao annulus ratio | | | 0.89 Gestational Age from BPD 0.50 LV | | | Diastolic Function:E/A (mitral inflow): 1.76 RV Diastolic | | | Function:E/A (tricuspid inflow): 0.91 Tricuspid Valve DopplerPeak E: | | | 0.41 m/sPeak A: 0.45 | | | m/s Mitral Valve DopplerPeak E: 0.20 m/sPeak A: | | | 0.35 m/s Aortic Valve DopplerPeak velocity: | | | 0.57 m/sPeak gradient 1.31 mmHg Cake Icer: Marga Husain | | | CLINTSonographer: Ivone Dick RDCS Electronically signed by | | | [id number] Danielito Jessanna marie Blount 08/21/2019 at 2:48:19 PM | | | Echocardiography Laboratory [address] | | | [place] [address] ; | | | Echocardiogram and Consultation Report MELLISSA Worley | | | CHRISTY AYON, Ms. RAMOS SCHMIDT underwent a | | | cardiac consultation. The patient is 1, Para 0. The | | | mother has a history of total anomalous pulmonary venous return s/p | | | repair as a . Also with sick sinus syndrome s/p pacemaker. Has | | | had a total of 3 pacemakers. No other family history of congenital | | | heart disease or rhythm problems of the heart/pacemakers. No history | | | of early NC or sudden . She takes Baby Asprin. The patient lives | | | with her spouse and she denies alcohol, smoking, and drug use. I have | | | spent 25 minutes with this patient, over 50% of which was spent in | | | counseling and coordination of care, exclusive of generating the | | | report. I discussed the exam limitations with RAMOS SCHMIDT. As you | | | know, the limitations of echocardiography are due to heart | | | size and normal cardiopulmonary physiology. Limitations of | | | echocardiography include inability to exclude small | | | interventricular septal defects, small interatrial septal defects, | | | abnormalities of the semilunar (aortic/pulmonary) valves and or the | | | atrioventricular (mitral/tricuspid) valves, and some minor | | | abnormalities of systemic or pulmonary venous return. | | | echocardiograms also cannot predict physiologic changes after | | | that are not seen in life, such as persistent patency of cardiac | | | structures normally open during life (ductus arteriosus and | | | foramen ovale), as well as narrowing of the aorta and/or branch | | | pulmonary arteries associated with spontaneous closure of the ductus | | | arteriosus after . If a genetic syndrome is diagnosed, a | | | echocardiogram may be indicated. If a cardiac lesion is | | | diagnosed, there may be an associated genetic abnormality. All | | | findings discussed with Ms Schmidt. Normal cardiac anatomy with | | | qualitatively normal biventricular systolic function. No further | | | cardiac imaging indicated. Best Regards, [id number] Danielito Buitrago | | | MD Final | | | | | |Anatomic Measurement Value Z score | | |AoV Annulus s, PLAX 0.40 cm | | |PV Amber diam, s 0.36 cm | | |PA/Ao annulus ratio 0.89 | | | | | |Gestational Age from BPD 0.50 | | | | | | | | |LV Diastolic Function: | | |E/A (mitral inflow): 1.76 | | | | | |RV Diastolic Function: | | |E/A (tricuspid inflow): 0.91 | | | | | |Tricuspid Valve Doppler | | |Peak E: 0.41 m/s | | |Peak A: 0.45 m/s | | | | | |Mitral Valve Doppler | | |Peak E: 0.20 m/s | | |Peak A: 0.35 m/s | | | | | |Aortic Valve Doppler | | |Peak velocity: 0.57 m/s | | |Peak gradient 1.31 mmHg | | | | | | | | |Cake Icer: Marga Husain RDCS | | |Cake Icer: Ivone Dick RDCS | | | | | | | | |Electronically signed by [id number] Danielito Buitrago MD | | |on 08/21/2019 at 2:48:19 PM | | | | | | | | | | | | Echocardiography Laboratory | | | [address] | | | [place] [address] | | | ; | | | Echocardiogram and Consultation Report | | | | | | | | |MELLISSA AYON | | | | | | | | |Emely AYON, | | | | | |Ms. RAMOS SCHMIDT underwent a cardiac consultation. The patient is 1, | | |Para 0. The mother has a history of total anomalous pulmonary venous return s/p | | |repair as a . Also with sick sinus syndrome s/p pacemaker. Has had a total of | | |3 pacemakers. No other family history of congenital heart disease or rhythm problems | | |of the heart/pacemakers. No history of early NC or sudden . She takes Baby | | |Asprin. | | | | | |The patient lives with her spouse and she denies alcohol, smoking, and drug use. | | | | | |I have spent 25 minutes with this patient, over 50% of which was spent in counseling | | |and coordination of care, exclusive of generating the report. | | | | | |I discussed the exam limitations with RAMOS SCHMIDT. As you know, the limitations of | | | echocardiography are due to heart size and normal cardiopulmonary | | |physiology. Limitations of echocardiography include inability to exclude small | | |interventricular septal defects, small interatrial septal defects, abnormalities of | | |the semilunar (aortic/pulmonary) valves and or the atrioventricular | | |(mitral/tricuspid) valves, and some minor abnormalities of systemic or pulmonary | | |venous return. echocardiograms also cannot predict physiologic changes after | | | that are not seen in life, such as persistent patency of cardiac | | |structures normally open during life (ductus arteriosus and foramen ovale), as | | |well as narrowing of the aorta and/or branch pulmonary arteries associated with | | |spontaneous closure of the ductus arteriosus after . If a genetic syndrome is | | |diagnosed, a echocardiogram may be indicated. If a cardiac lesion is | | |diagnosed, there may be an associated genetic abnormality. | | | | | |All findings discussed with Ms Schmidt. Normal cardiac anatomy with qualitatively | | |normal biventricular systolic function. No further cardiac imaging indicated. | | | | | |Best Regards, | | | | | |[id number] Danielito Buitrago MD | | | | | | | | | | | | Final | | + +---- + + + | Procedure Note | + + | Interface, Cardiology Results - 08/21/2019 2:48 PM PDT Echocardiography Laboratory | | [address] | | [place] [address] | | ; | | ECV 0861 | | | | Echocardiogram and Consultation Report | | | | | | NAME: RAMOS SCHMIDT Study Date: 08/21/2019 1:06:28 PM | | Order #: [id number] ACC #: [id number] | | | | : 1985 Ht: | | Age: 33 years Wt: | | Gender: F BSA: | | BMI | | | | Requesting Physician: MELLISSA AYON | | Reason for test: , maternal congenital cardiovascular disorders-648.53 | | Study Details: This is an initial study. I have spent 25 minutes | | with this patient, over 50% of which was spent in | | counseling and coordination of care, exclusive of | | generating the report. | | | | | | Summary: | | 1. Normal cardiac anatomy. | | 2. Normal right ventricular size and qualitatively normal systolic function. | | 3. Normal left ventricular size and qualitatively normal LV systolic function. | | | | Patient Background: | | The patient is 1, Para 0. The mother has a history of total anomalous | | pulmonary venous return s/p repair as a . Also with sick sinus syndrome s/p | | pacemaker. Has had a total of 3 pacemakers. No other family history of congenital | | heart disease or rhythm problems of the heart/pacemakers. No history of early NC or | | sudden . The patient lives with her spouse and she denies alcohol, smoking, and | | drug use. | | Information: | | The patient's assigned MARINA is 12/25/2019. The assigned gestational age is 22w0d. This | | is a huffman . | | Recommendations: | | | | All findings discussed with Ms Schmidt. Normal cardiac anatomy with qualitatively | | normal biventricular systolic function. No further cardiac imaging indicated. | | | | Cardiac Acuity Delivery Score: 0 - No echocardiogram or cardiac evaluation unless | | clinically indicated. | | | | | | Position: The position of this fetus during the study is cephalic. | | Heart Rhythm: The heart rhythm during this exam demonstrates AV | | association. | | Heart Rate: 137 bpm | | | | Segmental Anatomy, Cardiac Position and Situs: | | The heart circumference to thoracic circumference is normal at 50.10 %. The heart | | position is within the left hemithorax (levocardia). The cardiac apex is leftward. | | The position of the stomach is on the left. The position of the liver is on the | | right. AV concordance and VA concordance. | | Systemic Veins: | | A superior vena cava is right-sided and drains normally to the right atrium. The | | inferior vena cava is right-sided and inserts into the right atrium normally. | | Pulmonary Veins: | | At least one pulmonary vein on each side drains to the left atrium. | | Atria: | | | | Normal patent foramen ovale with right to left shunt. The right atrium is | | normal in size. The left atrium is normal in size. | | Tricuspid Valve: | | The tricuspid valve appears normal. There is no tricuspid valve regurgitation. | | Right Ventricle: | | There is normal right ventricular size and qualitatively normal systolic function. | | Mitral Valve: | | The mitral valve appears normal. There is no mitral valve regurgitation. | | Left Ventricle: | | | | Normal left ventricular size and qualitatively normal LV systolic function. | | Pulmonary Valve: | | The pulmonary valve appears normal. There is no pulmonary valve regurgitation. | | Pulmonary Arteries: | | | | The branch pulmonary arteries appear normal. | | Aortic Valve: | | The aortic valve is normal. There is no aortic valve regurgitation. | | Aorta: | | The ascending aorta, transverse arch and descending aorta appear unobstructed. There | | is a left aortic arch with normal branching. | | Ductus Arteriosus: | | Normal patent ductus arteriosus with right to left shunt. | | Pericardium: | | There is no pericardial effusion. | | Pulsatility: | | There is normal Doppler flow profile in the middle cerebral artery. There is normal | | Doppler flow profile in the umbilical artery. There is normal Doppler flow profile in | | the aortic isthmus. There is normal Doppler flow profile in the ductus arteriosus. | | There is normal Doppler flow profile in the ductus venosus. Normal Doppler flow | | profile in the umbilical vein. | | Other: | | There is no hydrops. | | | | Biometry | | Biparietal Diameter: 5.4 cm 22w3d | | Femur Length: 4.3 cm 24w1d | | Thoracic Circumference: 15.0 cm 22w3d | | Cardiothoracic Ratio: 50.1 % | | | | | | | | Pulsatility Max velocity Min. velocity Index | | Middle Cerebral Artery 20.90 cm/s 1.83 cm/s 2.14 | | Umbilical Artery 28.50 cm/s 6.20 cm/s 1.39 | | Ductus Venosus 65.30 cm/s 23.30 cm/s .97 | | Aortic Isthmus 99.00 cm/s | | Ductus Arteriosus 105.00 cm/s 5.79 cm/s | | | | Anatomic Measurement Value Z score | | AoV Annulus s, PLAX 0.40 cm | | PV Amber diam, s 0.36 cm | | PA/Ao annulus ratio 0.89 | | | | Gestational Age from BPD 0.50 | | | | | | LV Diastolic Function: | | E/A (mitral inflow): 1.76 | | | | RV Diastolic Function: | | E/A (tricuspid inflow): 0.91 | | | | Tricuspid Valve Doppler | | Peak E: 0.41 m/s | | Peak A: 0.45 m/s | | | | Mitral Valve Doppler | | Peak E: 0.20 m/s | | Peak A: 0.35 m/s | | | | Aortic Valve Doppler | | Peak velocity: 0.57 m/s | | Peak gradient 1.31 mmHg | | | | | | Cake Icer: Marga Husain RDLOUISE | | Cake Icer: Ivone Dick RDCS | | | | | | | | | | | | | | Echocardiography Laboratory | | [address] | | [place] [address] | | ; | | Echocardiogram and Consultation Report | | | | | | MELLISSA AYON | | | | | | Greetings MELLISSA AYON, | | | | Ms. RAMOS SCHMIDT underwent a cardiac consultation. The patient is 1, | | Para 0. The mother has a history of total anomalous pulmonary venous return s/p | | repair as a . Also with sick sinus syndrome s/p pacemaker. Has had a total of | | 3 pacemakers. No other family history of congenital heart disease or rhythm problems | | of the heart/pacemakers. No history of early NC or sudden . She takes Baby | | Asprin. | | | | The patient lives with her spouse and she denies alcohol, smoking, and drug use. | | | | I have spent 25 minutes with this patient, over 50% of which was spent in counseling | | and coordination of care, exclusive of generating the report. | | | | I discussed the exam limitations with RAMOS SCHMIDT. As you know, the limitations of | | echocardiography are due to heart size and normal cardiopulmonary | | physiology. Limitations of echocardiography include inability to exclude small | | interventricular septal defects, small interatrial septal defects, abnormalities of | | the semilunar (aortic/pulmonary) valves and or the atrioventricular | | (mitral/tricuspid) valves, and some minor abnormalities of systemic or pulmonary | | venous return. echocardiograms also cannot predict physiologic changes after | | that are not seen in life, such as persistent patency of cardiac | | structures normally open during life (ductus arteriosus and foramen ovale), as | | well as narrowing of the aorta and/or branch pulmonary arteries associated with | | spontaneous closure of the ductus arteriosus after . If a genetic syndrome is | | diagnosed, a echocardiogram may be indicated. If a cardiac lesion is | | diagnosed, there may be an associated genetic abnormality. | | | | All findings discussed with Ms Post. Normal cardiac anatomy with qualitatively | | normal biventricular systolic function. No further cardiac imaging indicated. 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
--- OUTSIDE RECORDS SUMMARY | ~2019-10-07 | XMS | Encounter Summary ---
Demographics + + + | Address | [address] | | | [place] [address] | + + + | Home Phone | | + + + | Preferred Language | Unknown | + + + | Marital Status | | + + + | Mosque Affiliation | NON | + + + | Race | White | + + + | Ethnic Group | or | + + + Author + + + | Author | [facility] | + + + | Organization | [facility] | + + + | Address [...] [place], [place] | | | | | [address] | | + + + + + | Polly Winston | ECON | ANAYA, | | + + + + + Care Team Providers + +------+ + | Care Electrolysis Engineer Name | Role | Phone | + +------+ + | Yuli Franklin | PCP | | + +------+ + Encounter Details +--------+ + + + + | Date | Type | Department | Care Team | Description | +--------+ + + + + | 08/10/ | Documentati | Center | No Referring | | | 2020 | on | at [facility] [address] | Provider Per Patient | | | | | [address] | NO REFERRING | | | | | Physician's | PROVIDER PER PT | | | | | Pavilion, 4th floor | | | | | | [place], [place] | | | | | | [address] | | | | | | [phone] | | | +--------+ + + + [...] | | 2019 | | | [address] [facility] | | | | | | [address] | | | | | | [place], [place] | | | | | | [address] | | | | | | [phone] | | | | | | | | +--------+ + + + + documented as of this encounter Visit Diagnoses Not on filedocumented in this encounter"
--- OUTSIDE RECORDS SUMMARY | ~2019-10-07 | XMS | Encounter Summary ---
Demographics + + + | Address | [address] | | | [place] [address] | + + + | Home Phone | | + + + | Preferred Language | Unknown | + + + | Marital Status | | + + + | Protestant Affiliation | NON | + + + | Race | White | + + + | Ethnic Group | or | + + + Author + + + | Author | [facility] | + + + | Organization | [facility] | + + + | Address | Unknown | + + + | Phone | Unavailable | + + + Support + + + + + | Name | Relationship | Address | Phone | + + + + + | Alexsander Coates | ECON | Unknown | | + + + + + | Sinan Winston | ECON | [address] | | | | | [place], [place] | | | | | [address] | | + + + + + | Polly Winston | ECON | ANAYA, | | + + + + + Care Team Providers + +------+ + | Care Sample Steamer Name | Role | Phone | + +------+ + | Yuli Franklin | PCP | | + +------+ + Reason for Visit + + + | Reason | Comments | + + + | care | | + + + Consultation (Routine) + +--------+ + + + [...] | | | | congenital | Ijeoma, AGRI BUSINESS AGENT | [address] [facility] | | | | | anomalous | [address] | [place] | | | | | pulmonary | Ave | [address] | | | | | venous | [place], [place] | floor | | | | | connection | [address] | [place], [place] | | | | | Procedures | Phone: | [phone] | | | | | CONSULT TO | [phone] | Phone: | | | | | PERINATOLOGY | Fax: | [phone] | | | | | [place] NEW | [phone] | Fax: | | | | | PATIENT | | [phone] | | | | | LEVEL V [place] | | | | | | | EST PATIENT | | | | | | | LEVEL V | | | + +--------+ + + + + Encounter Details +--------+ + + + + | Date | Type | Department | Care Team | Description | +--------+ + + + + | 08/20/ | | Center | Nellie Munson, | care | | 2020 | | at [facility] [address] | MD [address] | | | | | [address] | [facility] | | | | | Physician's | [place], [place] | | | | | [address], [facility] floor | [address] | | | | | [place], [place] | [phone] | | | | | [address] | | | | | | [phone] | | | +--------+ + + + [...] + + + | Blood Pressure | 108/46 | 08/21/2019 3:52 PM | | | | | PDT | | + + + + + | Pulse | 74 | 08/21/2019 3:52 PM | | | | | PDT | | + + + + + | Temperature | - | - | | + + + + + | Respiratory Rate | - | - | | + + + + + | Oxygen Saturation | 100% | 08/21/2019 3:52 PM | | | | | PDT | | + + + + + | Inhaled Oxygen | - | - | | | Concentration | | | | + + + + + | Weight | 73 kg (160 lb 15 oz) | 08/21/2019 3:52 PM | | | | | PDT | | + + + + + | Height | 157.5 cm (5' 2.01") | 08/21/2019 3:52 PM | | | | | PDT | | + + + + + | Body Mass Index | 29.43 | 08/21/2019 3:52 PM | | | | | PDT | | + + + + + documented in this encounter Progress Notes Nellie Munson MD - 08/21/2019 3:00 PM PDTFormatting of this note might be different fr om the original. MATERNAL CARDIAC PROGRAM - MFM Return OB VISIT DATE: 08/21/2019 REFERRING PROVIDER: Brynn Reed NP PCP: LUIS MIGUEL Hoff PRIMARY OB PROVIDER: SHIRA Cantu, DO in [employer]/[facility]-MFM/MCP [place] INSERTER: [facility] GARY Planned location of delivery: [facility]. She lives in [place]. ID/CC: Ramos Villarreal is a 33 y.o. G1 at 22w0d (MARINA of 12/25/19 by LMP consistent with sandra ier ultrasounds) who presents for visit for her complicated by TAPVR s/p correction with sick sinus syndrome and pacemaker in place. She had an ultrasound prior to her visit with the findings of thin placenta previa with ove rlaying vessel, raising the possibility for development of vasa previa. She also had a echo. She is here today with her partner. CARDIAC HISTORY: 1. 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 Details unknown. Surgery was done in [place]. 2. Sick sinus syndrome, AV node dysfunction - EP: Pacemaker paced in 1999 (age 13). She had a syncopal event during class. - EP: Biventricular pacemaker upgrade. Unsuccessful placement of His bundle pacemaker (07/18 18, Henamykson). Device is Medtronic. Patient is intermittently pacemaker dependent. Last PPM check 06/07/2009: Normal device function. 6.5 years until RULA. Interval History Ramos has been doing well. We have been doing shared care with Dr. Cantu in [facility] with whom she's getting great care. Understandably she mostly wants to discuss today's ultrasound results and its implications. She has been feeling mvts. No contractions, LOF or vaginal bleeding No urinary Sx. From cardiac perspective: She denies any chest pain, dyspnea, palpitations or dizziness. She was doing Sushma prior to and has continued to exercise regularly with good ex ercise tolerance so far. Covid screening: denies any new fevers, cough, shortness of breath. As above, wants to discuss today's ultrasound results and implications. No other questions or concerns. MEDICATIONS: Current Outpatient Medications on File Prior to Visit Medication Sig Dispense Refill BABY ASPIRIN ORAL Take by mouth. vit 91/iron/folic/dha ( + DHA ORAL) Take by mouth. No current facility-administered medications on file prior to visit. ALLERGIES: Allergies Allergen Reactions Ciprofloxacin Hives Codeine Becomes Angry and Rude Venom-Honey Bee Edema PHYSICAL EXAM: Vitals: Ht 1.575 m (5' 2.01") | Wt 73 kg (160 lb 15 oz) | BMI 29.43 kg/m | BSA 1.79 m Gen: comfortable Psych: alert and oriented x 3; mood/affect appear appropriate Neuro: grossly normal Ext: no edema OB IMAGING: Ultrasound today 08/21/19: Posterior placenta previa: there is also [...] FAS WNL completed AF volume normal echo today August 21, 2019: 1. Normal cardiac anatomy. [...] LV Medtronic 4598 Attain Performa S Serial [id number], implant date 07/05/17; RA Medtr onic 5076 CapSureFix Novus Serial [id number], implant date 07/05/17 Remaining battery 6yr, 6mo [...] required: No 2. Planned location of delivery: [facility] 3. Delivery plan: No cardiac restrictions [...] contam on May 08 US done in [employer] showed placenta previa. ASSESSMENT AND PLAN: 33 y.o. G1 at 22w0d Maternal CHD: TAPVR s/p correction with sick sinus syndrome and pacemaker in place Placenta previa with vasa previa Routine care labs reviewed as above and WNL. Will need T&S at [facility]. GC/CT neg/neg Urine cult contam Pap 10/2018 wnl GDM screening/3rd trim labs in [employer] vs [facility] next visit Aneuploidy screening: s/p Genetics; cfDNA low risk; MSAFP not discussed today Carrier screening: s/p Genetics and declined FAS WNL completed today Immunizations: flu vaccine when available; TDap in third-trimester Previously oriented to [facility] practice, specifically to Maternal Cardiac Program Contraception to discuss later Maternal CHD: TAPVR s/p correction with sick sinus syndrome and pacemaker in place NYHA class 1 mWHO 2 See counseling done at New OB visit. Main maternal risks are arrhythmias (atrial) and heart failure (low risk overall) and main risk is CHD. Today: doing well without concerning Sx. Plan: - co-management by [facility] Cardiology and MFM in the Maternal Cardiac Program, with Cardiology guiding cardiac imaging/testing: next visit 32-36 wks - shared care with Dr. Cantu in [employer] - device check for Medtronic biventricular pacemaker due in November 2019 - echocardiogram at 20-22 weeks: normal today - ultrasounds for growth assessment: during COVID pandemic one additional US at 32-34 wks may be sufficient, but will get more if previa persists - testing at 32 weeks (can rediscuss if placenta previa/vasa previa resolves) - OB Anesthesia consult in third trimester - telemetry intrapartum and 24 hours - multidisciplinary delivery planning Placenta previa with vasa previa Ramos had a recent ultrasound in [employer] where placenta previa was seen. She understand [...] to reduce the time before delivery should Ramos suddenly develop vaginal bleeding from the vasa previa. However since exsanguination can occur rapidly, even inpatient management cannot guarantee intact survival in the event of bleeding from the vasa previa. Admission is possible and offered as early a s viability (23 wks) after periviability counseling which includes NICU consultation. Fish calzada, women who opt for inpatient management are [...] excellent with survival > 95%. I answered Ramos and her partner's questions. Ramos does not think she wants very early [...] not develop significant contra ctions when exercising. General questions answered Follow-up Next visit(s): continue care with Dr. Cantu in [employer]; follow-up at [facility] in 4-5 wks Next ultrasound: 4-5 wks for follow-up placental location, vasa previa and growth testin weeks for mat CHD + placenta/vasa previa Next Cardiology visit: 11/09/19 Next visit: ultrasound; GDM screen + 3rd trimester labs; cardiac Sx?; contraception; contin ue management discussion if persistent vasa previa Future Appointments Provider Department Dept Phone Center 11/09/2019 10:00 AM Marlen Rousseau Cardiology in [place] [facility] Cardiology Orders Placed This Encounter US UTERUS FOLLOW-UP SCAN UA 4 DIP N/C, POC I am Denise Lott functioning as a scribe for Nellie Munson MD I have reviewed, verified and edited the above scribed note of my visit with Ramosjustyn alejandra s recorded by Denise Lott. The majority of time for this visit, greater than 50%, was spent in counseling regarding ma ternal cardiac disease, placenta previa and vasa previa complicating . The total ph ysician time I spent in face to face discussion with Ramos Villarreal was 40 minutes. Nellie Lang MD, MSCE Suture Gauger Department of Obstetrics and Gynecology Division of Maternal Medicine [facility]wick DamElectronically signed by Nellie Munson MD at 0 9:50 PM PDTdocumented in this encounter Plan of [...] Rd | | | | | | [place], [place] | | | | | | [address] | | | | | | [phone] | | | | | | | | +--------+ + + + + documented as of this encounter Procedures + +--------+ + + + | Procedure Name | Priori | Date/Time | Associated Diagnosis | Comments | | | ty | | | | + +--------+ + + + | UA 4 DIP N/C, POC | Routin | 08/21/2019 | Maternal | Results for this | | | e | 3:01 PM | congenital cardiac | procedure are in the | | | | PDT | anomaly affecting | results section. | | | | | in first | | | | | | trimester, | | | | | | antepartum | | + +--------+ + + + documented in this encounter Results UTERUS FOLLOW-UP SCAN (09/21/2019 1:53 PM PDT) + + | Specimen | + + | | + + + + + | Narrative | Performed At | + + + | [facility] | [facility] | | OBSTETRICAL ULTRASOUND REPORT | RADIOLOGY OB US | | | | | Pat. Name: FREDI COATESA Study | | | Date: 09/21/2019 12:58pm Pat. No: [id number] | | | Referring MD: KINDRA COHEN F LMP: | | | 03/20/2019 Salesperson Meats: ОЛЬГА MARADIAGA, | | | RDMS GA by LMP: 26w3d , Age: | | | 1985, 33 GA by Last:26w3d | | | Pregnancies: 1, Para 0000 GA by US: 27w6d | | | GA Selected: 26w3d (LMP) Hist/Ind: | | | Growth Follow up previa | | | CPT4: 92335,38564 | | | MARINA: | | | 12/25/2019 | | | | | | MEASUREMENTS & AGE | | | GROWTH EVALUATION Measurement GA Range Source % | | | 26w3d Ratios ----- ------- | | | BPD 7.0 cm 28w1d | | | (26v7y-26m1o) [place] BPD 85% FL/BPD 0.75 (0.71 - 0.87) HC | | | 25.7 cm 27w6d (51h2x-64o2s) [place] HC 82% FL/AC 0.21 | | | (0.20 - 0.24) AC 25.2 cm 29w2d (85n4r-94u4z) [place] AC >95 | | | HC/AC 1.02 (1.00 - 1.19) FL 5.2 cm 27w6d (79f2i-65w5c) [place] | | | FL 81% CI 0.77 (0.70 - 0.86) GA for sonogram 27w6d | | | (61w7x-38s8m) Weight Estimate: based on (BPD,HC,AC,FL) | | [...] | | | ! x ! Cardiac [place]/! ! ! | | | ! x [...] seen in the Maternal Cardiac Program in [facility] | | | due to TAPVR s/p [...] abnormalities | | | identified. Recommendations: Ms Coates has an appointment to follow | | [...] any time and ask for the perinatologist classification and treatment director. | | | [phone] or [phone] VICKY LAM MD | | | <Electronic [...] - 09/21/2019 3:01 PM PDT | | [facility] OBSTETRICAL ULTRASOUND | | | | REPORT Pa | | t. Name: RAMOS COATES Study Date: 09/21/2019 12:58pmPat. No: | | [id number] Referring MD: KINDRA COHEN, AGATHA: 03/20/2019 | | Salesperson Meats: ОЛЬГА MARADIAGA RDMSGA by LMP: 26w3d | | , Age: 11 1985, 33GA by Last:26w3d Pregnancies: | | 1, Para 0000GA by US: 27w6d GA Selected: 26w3d | | (LMP)Hist/Ind: Growth Follow up previa | | CPT4: [id number] MARINA: | | 12/25/2019 | | --MEASUREMENTS & AGE GROWTH EVALUATIONMeasurement GA | | Range Source % 26w3d Ratios ----- ------- | | BPD 7.0 cm 28w1d (03f6y-77l9m) [place] BPD 85% FL/BPD | | 0.75 (0.71 - 0.87)HC 25.7 cm 27w6d (28c2x-67p2j) [place] HC 82% FL/AC 0.21 (0.20 | | - 0.24)AC 25.2 cm 29w2d (35c0n-16a9b) [place] AC >95 HC/AC 1.02 (1.00 - 1.19)FL | | 5.2 cm 27w6d (19f9n-36h2c) [place] FL 81% CI 0.77 (0.70 - 0.86)GA for sonogram | | 27w6d (04o1u-24g0q) Weight Estimate:based on (BPD,HC,AC,FL) Had[place] | | Weight: 1258 gm (1074-1442gm) [place] : | | 2lbs, 12oz Normal: 912 gm (606-1380gm) Rebeca | | Wt% 80% for 89m7sBiaxjf: Length: 3.6 cmFetal | | Heart Rate: [...] ! ! ! x | | !Cardiac [place]/! ! ! ! x !Four Chamber ! [...] presents for growth and placental evaluation. Ms Coates is seen in the Maternal | | Cardiac Program in [facility] due to TAPVR s/p correction with sick [...] anatomic survey with no abnormalities identified.Recommendations: Ms Coates | | has an appointment to follow [...] and ask for the perinatologist | | classification and treatment director. [phone] or [phone], JORGE, MD <Electronic | | Signature> 09/21/2019 [...] in the Maternal Cardiac | |Program in [facility] due to TAPVR s/p correction with sick [...] with no abnormalities identified. | |Recommendations: Ms Coates has an appointment to follow today in [...] | |time and ask for the perinatologist classification and treatment director. [phone] or [phone] | |VICKY LAM MD | | | |<Electronic Signature> 09/21/2019 02:53pm | |Revised | | | | | |I have personally reviewed the images and, if necessary, edited the report. I agree with t he report as now presented. | + + + +---------+ + + | Performing | Address | City/State/[place] [facility] | Phone Number | | Organization | | | | + +---------+ + + | [facility] | | | | | [place] | | | | + +---------+ + + UA 4 DIP N/C, POC (08/21/2019 3:01 PM PDT) + + + + + [...] [place] | | | | | | [place] | | | | | | OF CARE | | | | | | TESTS | | + + + + + + | GLUCOSE (UA | Negative | Negative - | [facility] - | | | DIP), POC | | Trace mg/dL | [facility] | | | | | | [place], POINT | | | | | | OF CARE | | | | | | TESTS | | + + + + + + | PROTEIN (UA | Negative | Neg - Trace | [facility] - | | | DIP), POC | | mg/dL | [facility] | | | | | | [place] | | | | | | OF CARE | | | | | | TESTS | | + + + + + + | LEUKOCYTES | Negative | Negative | [facility] - | | | (UA DIP), | | | [facility] | | | POC | | | [place], POINT | | | | | | [...] NICKIE BLAIR | 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
--- OUTSIDE RECORDS SUMMARY | ~2019-10-07 | XMS | Encounter Summary ---
Demographics + + + | Address | [address] | | | [place] [address] | + + + | Home Phone | | + + + | Preferred Language | Unknown | + + + | Marital Status | | + + + | Confucianism Affiliation | NON | + + + [...] [place], [place] | | | | | [address] | | + + + + + | Polly Winston | ECON | ANAYA, | | + + + + + Care Team Providers + +------+ + | Care Shower Screen Installer Name | Role | Phone | + +------+ + | Yuli Franklin | PCP | | + +------+ + Encounter Details +--------+ + + + + | Date | Type | Department | Care Team | Description | +--------+ + + + + | 12/13/ | MyChart | Cardiology General | | Cardiology Follow up | | 2018 | Encounter | at [facility] [address] | | appointment | | | | [facility] | | | | | | Health and Healing, | | | | | | Building | | | | | | Floor [place], [place] | | | | | | [address] | | | | | | [phone] | | | +--------+ + + + [...] | | 2019 | | | [address] [facility] | | | | | | [address] | | | | | | [place], [place] | | | | | | [address] | | | | | | [phone] | | | | | | | | +--------+ + + + + documented as of this encounter Visit Diagnoses Not on filedocumented in this encounter"
--- OUTSIDE RECORDS SUMMARY | ~2019-10-07 | XMS | Encounter Summary ---
Demographics + + + | Address | [address] | | | [place] [address] | + + + | Home Phone | | + + + | Preferred Language | Unknown | + + + | Marital Status | | + + + | Adventist Affiliation | NON | + + + | Race | White | + + + | Ethnic Group | or | + + + Author + + + | Author | [facility] | + + + | Organization | [facility] | + + + | [...] [place], [place] | | | | | [address] | | + + + + + | Polly Winston | ECON | ANAYA, | | + + + + + Care Team Providers + +------+ + | Care Coroner/Medical Examiner Name | Role | Phone | + +------+ + | Yuli Franklin | PCP | | + +------+ + Reason for Visit +--------+ + | Reason | Comments | +--------+ + | Other | Brenda bracelet | +--------+ + Encounter Details +--------+ + + + + | Date | Type | Department | Care Team | Description | +--------+ + + + + | 01/25/ | MyChart | Cardiology General | Louisa Reed | RE: Brenda Sharif | | 2018 | Encounter | at [facility] [address] | LEONARD Raphael [address] | | | | | [facility] | [address] [facility] | | | | | Health and Healing, | [place] [address] | | | | | [place] [address] [facility] | [phone] | | | | | [place], [place] | | | | | | [address] | | | | | | [phone] | | | +--------+ + + + [...] [place] | | | | | | [address] | | | | | | [phone] | | | | | | | | +--------+ + + + + documented as of this encounter Visit Diagnoses Not on filedocumented in this encounter"
--- OUTSIDE RECORDS SUMMARY | ~2019-10-07 | XMS | Encounter Summary ---
Demographics + + + | Address | [address] | | | [place] [address] | + + + | Home Phone | | + + + | Preferred Language | Unknown | + + + | Marital Status | | + + + | Anglican Affiliation | NON | + + + | Race | White | + + + | Ethnic Group | or | + + + Author + + + | Author | [facility] | + + + | Organization | [facility] | + + + | [...] [place], [place] | | | | | [address] | | + + + + + | Polly Winston | ECON | ANAYA, | | + + + + + Care Team Providers + +------+ + | Care Transplanter Name | Role | Phone | + +------+ + | Gabrielle Fernández MD | PCP | | + +------+ + Encounter Details +--------+ + + + + | Date | Type | Department | Care Team | Description | +--------+ + + + + | 09/19/ | Office | Emeli | Antonio Hines, | Various: | | 2007 | Visit-ECX | Zaki Martino | [address] [facility] | [place] willoughby NOTES | | | | [facility] [address] | [address] | JOYCE,CONSENTS | | | | (Karo) CDR | [place], [place] | | | | | [place] | [address] | | | | | [address] | [phone] | | | | | [phone] | | | +--------+ + + + [...] + + + | Blood Pressure | 118/64 | 09/20/2007 10:47 AM | | | | | PDT | | + + + + + | Pulse | 71 | 09/20/2007 10:47 AM | | | | | PDT | | + + + + + | Temperature | - | - | | + + + + + | Respiratory Rate | - | - | | + + + + + | Oxygen Saturation | 98% | 09/20/2007 10:47 AM | | | | | PDT | | + + + + + | Inhaled Oxygen | - | - | | | Concentration | | | | + + + + + | Weight | 58.6 kg (129 lb 3 | 09/20/2007 10:47 AM | | | | oz) | PDT | | + + + + + | Height | 159.5 cm (5' 2.8") | 09/20/2007 10:47 AM | | | | | PDT | | + + + + + | Body Mass Index | 23.03 | 09/20/2007 10:47 AM | | | | | PDT | | + + + + + documented in this encounter Progress Notes Antonio Hines - 09/21/2007 8:46 AM PDT [id number] BLANCHE [place] [id number] Clinic Date: 09/20/2007 Clinic: Pediatric Cardiology Outreach Clinic History: Joie is here for a followup check for her pacemaker, which usually happens in the summer on an annual basis. 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 She had a pacemaker implanted in 1999; this is a ventricular pacemaker. She currently is a student of [employer] at [employer]. She has been doing well. She has had occasional pain in the left nipple area, particularly associated during times of stress. Otherwise, she has remained well for the last year. Her past family and social history are unchanged. Review of Systems: Otherwise negative. Allergies: SHE IS ALLERGIC TO CODEINE. Medications: She is on control pills. Physical Examination: Her weight today was 58.6, height 159.5, blood pressure 118/64, heart rate 71, and saturations 98%. Joie was a well-appearing 21-year-old with no evidence of anemia, jaundice, clubbing, cyanosis, or peripheral edema. Peripheral pulses were normally palpable including good pedal pulses. Her abdomen was soft with no hepatosplenomegaly. Chest shows a midline sternal scar and a pacemaker scar in the left upper pectoral region. The pacemaker is palpable in the pectoral region. Cardiac auscultation revealed normal heart sounds with no murmurs or clicks. Central nervous system was grossly normal with normal gait, normal speech, and normal facial movements. Tone was normal in all 4 limbs. Affect was normal and pleasant. Skin was normal with no rashes. Pacemaker checked today shows that her pacemaker is working well in the ventricular rate response mode with rates being set at 60 to 170 beats per minute. Her battery voltage today was 2.73 and battery impedence was 2406 ohms. Expected battery longevity is a mean of 16 months with a range of 6 to 26 months. A ventricular lead impedence was 758 ohms. The ventricular threshold was 1 volt at 1 ms and 0.12 ms at 2.5 volts. No changes were made to the output settings. The ventricular sensing was between 4 and 5.6 mV. Her underlying rhythm is around 45 to 50 beats per minute with sinus bradycardia. Joie looks well. The main concern today is that her pacemaker battery is getting low. Since she only has about 6 to 26 months, I have asked her to do her transtelephonic checks every month and to come back and see me for pacemaker check in 6 months' time. I did indicate to her and her mom that if the battery indicator shows electrode replacement indications, we will be in touch with them and ask her to come in for a pacemaker change procedure. I also went over the procedure in detail with particular attention to wound infection as a possible complication plus the logistics, and I expect her to stay one night in hospital for the procedure. It was a pleasure to see this francisco young lady. Antonio Hines M.D. Director, Pediatric Electrophysiology Truckload Checker of Pediatrics Division of Pediatric Cardiology [facility] / [id number] / [id number] / [id number] / [id number] cc: Gabrielle Fernández M.D. [facility] [address] [place] [address] [address] [place] [address] documented in this enco unter Plan of Treatment +--------+ + + + [...] [place] | | | | | | [address] | | | | | | [phone] | | | | | | | | +--------+ + + + + documented as of this encounter Visit Diagnoses Not on filedocumented in this encounter
--- OUTSIDE RECORDS SUMMARY | ~2019-10-07 | XMS | Encounter Summary ---
Demographics + + + | Address | [address] | | | [place] [address] | + + + | Home Phone [...] [place] | | | | | [address] | | + + + + + | Polly Winston | ECON | ANAYA, | | + + + + + Care Team Providers + +------+ + | Care Manager Art Name | Role | Phone | + +------+ + | Yuli Franklin | PCP | | + +------+ + Encounter Details +--------+--------+ + + + | Date | Type | Department | Care Team | Description | +--------+--------+ + + + | 06/11/ | Travel | | | | | [...] | | 2019 | | | [address] [facility] | | | | | | [address] | | | | | | [place], [place] | | | | | | [address] | | | | | | [phone] | | | | | | | | +--------+ + + + + documented as of this encounter Visit Diagnoses Not on filedocumented in this encounter"
--- OUTSIDE RECORDS SUMMARY | ~2019-10-07 | XMS | Encounter Summary ---
Demographics + + + | Address | [address] | | | [place] [address] | + + + | Home Phone | | + + + | Preferred Language | Unknown | + + + | Marital Status | | + + + | Pentecostalism Affiliation | NON | + + + | Race | White | + + + | Ethnic Group | or | + + + Author + + + | Author | [facility] | + + + | Organization | [facility] | + + + | [...] [place], [place] | | | | | [address] | | + + + + + | Polly Winston | ECON | ANAYA, | | + + + + + Care Team Providers + +------+ + | Care Cash Register Repairer Name | Role | Phone | + +------+ + | Yuli Franklin | PCP | | + +------+ + Encounter Details +--------+ + + + + | Date | Type | Department | Care Team | Description | +--------+ + + + + | 09/16/ | Ancillary | Registration [id number] | Carlos Hinesdri, | | | 2005 | Registratio | [facility] [address] | [address] [facility] | | | | [address] | [address] Mailcode: RPB07 | [facility] | | | | | [place], [place] | [place], [place] | | | | | [address] | [address] | | | | | [phone] | [phone] | | | | | | | [...] Rd | | | | | | [place], [place] | | | | | | [address] | | | | | | [phone] | | | | | | | | +--------+ + + + + documented as of this encounter Procedures + +--------+ + + + | Procedure Name | Priori | Date/Time | Associated Diagnosis | Comments | | | ty | | | | + +--------+ + + + | X-RAY CHEST 1 VIEW | Routin | 09/16/2004 | | Results for this | | | e | 9:04 AM | | procedure are in the | | | | PDT | | results section. | + +--------+ + + + documented in this encounter Results CHEST 1 VIEW (09/16/2004 9:04 AM PDT) + + + + + + | Component | Value | Ref Range | Performed | Pathologist | | | | | At | Signature | + + + + + + | CHEST, 1 | Radiologist 1: [place], | | | | | VIEW | [facility] chest | | | | | | radiograph: 09/16/04. | | | | | | Comparison: 09/12/02. | | | | | | Clinical history: Sick | | | | | | sinus syndrome with | | | | | | sinoatrial | | | | | | nodedysfunction. | | | | | | Pacemaker. Post | | | | | | total anomalous | | | | | | pulmonary venousreturn | | | | | | repair. Findings: A | | | | | | pacemaker remains | | | | | | present with single lead | | | | | | projectingover the | | | | | | right ventricle. There | | | | | | is mild right atrial | | | | | | enlargement.Overall | | | | | | heart size is within | | | | | | normal limits. The | | | | | | pulmonaryperfusion | | | | | | pattern is within normal | | | | | | limits without | | | | | | shuntvascularity. No | | | | | | pulmonary edema is seen. | | | | | | The lungs are | | | | | | clear.There are no | | | | | | pleural effusions or | | | | | | pneumothoraces. | | | | | | Impression: 1. No | | | | | | evident change in | | | | | | pacemaker. 2. Mild | | | | | | rightatrial enlargement. | | | | | | 3. No acute | | | | | | abnormality identified. | | | | + + + + + + + + | Specimen | + + | | + + + +---------+ + + | Performing | Address | City/State/Zipcode | Phone Number | | Organization | | | | + +---------+ + + | [facility] DEPARTMENT OF | | | | | RADIOLOGY | | | | + +---------+ + + documented in this encounter Visit Diagnoses Not on filedocumented in this encounter"
--- OUTSIDE RECORDS SUMMARY | ~2019-10-07 | XMS | Encounter Summary ---
Demographics + + + | Address | [address] | | | [place] [address] | + + + | Home Phone | | + + + | Preferred Language | Unknown | + + + | Marital Status | | + + + | Jainism Affiliation | NON | + + + | Race | White | + + + | Ethnic Group | or | + + + Author + + + | Author | [facility] | + + + | Organization | [facility] | + + + | [...] [place], [place] | | | | | [address] | | + + + + + | Polly Winston | ECON | ANAYA, | | + + + + + Care Team Providers + +------+ + | Care Patient Safety Sitter Name | Role | Phone | + +------+ + | No Pcp Per Patient | PCP | Unavailable | + +------+ + Reason for Visit + + + | Reason | Comments | + + + | Device Check | documentation of where pacer being followed | + + + Encounter Details +--------+ + + + + | Date | Type | Department | Care Team | Description | +--------+ + + + + | 12/01/ | Documentati | Cardiology | Madeleine Hernandez, LEONARD | Device Check | | 2016 | on | Arrhythmia at [facility] | [address] | (documentation of | | | | [address] | [place], [place] | where pacer being | | | | [facility] | [address] | followed) | | | | and Healing, | [phone] | | | | | | | | | | | Floor [place], [place] | | | | | | [address] | | | | | | [phone] | | | +--------+ + + + [...] Rd | | | | | | [place] | | | | | | [address] | | | | | | [phone] | | | | | | | | +--------+ + + + + documented as of this encounter Visit Diagnoses Not on filedocumented in this encounter"
--- OUTSIDE RECORDS SUMMARY | ~2019-10-07 | XMS | Encounter Summary ---
Demographics + + + | Address | [address] | | | [place] [address] | + + + | Home Phone | | + + + | Preferred Language | Unknown | + + + | Marital Status | | + + + | Methodist Affiliation | NON | + + + [...] [place], [place] | | | | | [address] | | + + + + + | Polly Winston | ECON | ANAYA, | | + + + + + Care Team Providers + +------+ + | Care Scanner Supervisor Name | Role | Phone | + +------+ + | aRo Theodore MD | PCP | | + [...] + | Closed | | Cardiology | | Brian, | Abelardo, | | | | | | MD Valdez | Mellissa Romero NP | | | | | | [address] | [address] | | | | | | | [place] | | | | | | [place], | [place], [place] | | | | | | [place] [address] | [address] | | | | | | Phone: | | | | | | | [phone] | | | | | | | Fax: | | | | | | | [phone] | | +--------+--------+ + + + + Encounter Details +--------+---------+ + + + | Date | Type | Department | Care Team | Description | +--------+---------+ + + + | 12/22/ | Office | Cardiology | Mellissa Zhou, | 427.81 SICK SINUS | | 2012 | Visit | Arrhythmia at [facility] | ELEVATED MOTORMAN | SYNDROME (Primary | | | | [address] | | Dx); Total | | | | [facility] | | congenital anomalous | | | | and Healing, | | pulmonary venous | | | | Building [address], [facility] | | connection; | | | | Floor [place], [place] | | Medtronic single | | | | [address] | | chamber pacemaker | | | | [phone] | | | +--------+---------+ + + + [...] + + + | Blood Pressure | 112/65 | 12/22/2012 1:13 PM | | | | | PDT | | + + + + + | Pulse | 65 | 12/22/2012 1:13 PM | | | | | PDT | | + + + + + | Temperature | 37.1 C (98.7 F) | 12/22/2012 1:13 PM | | | | | PDT | | + + + + + | Respiratory Rate | - | - | | + + + + + | Oxygen Saturation | 98% | 12/22/2012 1:13 PM | | | | | PDT | | + + + + + | Inhaled Oxygen | - | - | | | Concentration | | | | + + + + + | Weight | 65.3 kg (144 lb) | 12/22/2012 1:13 PM | | | | | PDT | | + + + + + | Height | 160 cm (5' 3") | 12/22/2012 1:13 PM | | | | | PDT | | + + + + + | Body Mass Index | 25.51 | 12/22/2012 1:13 PM | | | | | PDT | | + + + + + documented in this encounter Patient Instructions Patient Instructions Mellissa Zhou Np - 12/22/2012 3:05 PM PDTYour pacemaker is fine You are pacing 90% of the time You are not dependent on the pacemaker--your heart rate is in the 50's without the pacemake r I adjusted your rate response so that your heart rate will increase more with activityElect ronically signed by Mellissa Zhou Np at 12/22/2012 3:07 PM PDT documented in this encounter Progress Notes Mellissa Zhou Np - 12/22/2012 2:53 PM PDT PACEMAKER HISTORY Primary Care Provider: Rao Theodore MD Heel Padder: [facility] Joie Villarreal is a 26 y.o. Female. 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 427.81 SICK SINUS SYNDROME 3. Medtronic single chamber pacemaker Device: Medtronic Sensia SESR01 Implanted: 08/13/2008 Leads: V: SJM-Pacesetter [id number] Implanted 08/11/1999 ADVISORY: NO Mode: VVIR Lower Rate: 60 Upper Rate: 170 ADL Rate: 105 Magnet Rate: 85 Battery Voltage: 2.78 Cell Impedance: 1088 ohms Estimated battery longevity: 5 yrs Patient is not pacer dependent--underlying is sinus liam and junctional rhythm. Remote monitoring is: on Output (v) Pulse Width (ms) Sensitivity (mv) Right Ventricle 2.0 0.4 2.0 TESTING: Threshold testing was performed. RT VENTRICLE RV threshold volts: 1.0 RV threshold PW: 0.4 RV lead impedance: 652 R Wave Amplitude: 2.0-2.8 Programming Changes: ADL rate to 105; exertion response from 3 to 4; activity acceleration from 30 sec to 15 sec VS: 10% CAGE MANAGER: 90% Hospitalizations: none PHYSICAL EXAM: Vitals: Visit Vitals Item Reading BP 112/65 Pulse 65 Temp (Src) 37.1 C (98.7 F) (Oral) Ht 1.6 m (5' 3") Wt 65.318 kg (144 lb) SpO2 98% BMI 25.51 kg/(m^2) Rhythm: V Pace Seen with Brynn Reed NP Current Outpatient Prescriptions Medication Sig etonogestrel-ethinyl estradiol 0.12-0.015 mg/[address] 1 Each into the v agina once. Following intravaginal insertion, ring should remain in place for 3 weeks, then removed for 1 week. A new ring is inserted 7 days after the last was removed. No current facility-administered medications for this visit. Notes: Joie is here for her first visit with adult Cardiology--both [facility] and device. 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 She grew [place]. She has had a pacemaker since 1999. She has had her current generator since 2008. She feels well. She is active--exercises at the gym three days per week--treadmill and ell iptical. She also walks regularly. She has not been lightheaded or dizzy. She has not had palpitations. She feels that her heart rate keeps up with her but her histograms show that she does not get her HR up much above 100. Adjustments made to accelerometer to try and he lp with this. Also advised her to use her arms with exercise to activate the accelerometer. She does have an underlying sinus bradycardia which gives way to a junctional rhythm at ti mes. She is not pacemaker dependent. Pacemaker reprogrammed as noted above. Will plan eit her a remote visit or in clinic visit in 6 mos depending on when she is seeing [facility] again. documented in this enc ounter Plan of Treatment +--------+ + + + + | Date | Type | Specialty | Care Team | Description | +--------+ + + + + | 10/18/ | Appointment | Radiology | | | | 2019 | | | | | +--------+ + + + + | 10/18/ | | | Nellie Munson, | | | 2019 | | | [address] [facility] | | | | | | [address] | | | | | | [place], [place] | | | | | | [address] | | | | | | [phone] | | | | | | | | +--------+ + + + + documented as of this encounter Visit Diagnoses + + | Diagnosis | + + | 427.81 SICK SINUS SYNDROME - Primary Sinoatrial node dysfunction | + + | Total congenital anomalous pulmonary venous connection | + + | Medtronic single chamber pacemaker Cardiac pacemaker in situ | + + documented in this encounter
--- OUTSIDE RECORDS SUMMARY | ~2019-10-07 | XMS | Encounter Summary ---
Demographics + + + | Address | [address] | | | [place] [address] | + + + | Home Phone [...] [place], [place] | | | | | [address] | | + + + + + | Polly Winston | ECON | ANAYA, | | + + + + + Care Team Providers + +------+ + | Care Waterproofer Name | Role | Phone | + +------+ + | Gabrielle Fernández MD | PCP | | + +------+ + Encounter Details +--------+ + + + + | Date | Type | Department | Care Team | Description | +--------+ + + + + | 07/30/ | Telephone | Pediatric | Carlos Hinesdri, | | | 2010 | | Cardiology at | MD [address] [facility] | | | | | Emeli | [facility] | | | | | [facility] | [place], [place] | | | | | [address] | [address] | | | | | Emeli | [phone] | | | | | [facility] | | | | | | [address] [facility], | | | | | | [place] [address] | | | | | | [phone] | | | +--------+ + + + [...] [address] | | | | | | [place], [place] | | | | | | [address] | | | | | | [phone] | | | | | | | | +--------+ + + + + documented as of this encounter Visit Diagnoses Not on filedocumented in this encounter"
--- OUTSIDE RECORDS SUMMARY | ~2019-10-07 | XMS | Encounter Summary ---
Demographics + + + | Address | [address] | | | [place] [address] | + + + | Home Phone | | + + + | Preferred Language | Unknown | + + + | Marital Status | | + + + | Protestant Affiliation | NON | + + + | Race | White | + + + | Ethnic Group | or | + + + Author + + + | Author | [facility] | + + + | Organization | [facility] | + + + | [...] [place], [place] | | | | | [address] | | + + + + + | Polly Winston | ECON | ANAYA, | | + + + + + Care Team Providers + +------+ + | Care Lockstitch Coat Joiner Name | Role | Phone | + +------+ + PCP | Unavailable | + +------+ + Encounter Details +--------+ + + + + | Date | Type | Department | Care Team | Description | +--------+ + + + + | 09/16/ | Office | [facility] | Note, Nadeen Cardio | Progress Note | | 2005 | Visit-Trans | CARDIOLOGY | Clinic | [...] as of this encounter Progress Notes Interface, Wheat Combine Driver In - 09/29/2004 8:49 AM SHANDRA [id number] BLANCHE BEASLEY Clinic Date: 09/16/2004 Pediatric Cardiology Clinic Site: Pediatric Cardiology Office Visit Note History: Joie returns for her annual check for her pacemaker. She is status post total anomalous pulmonary venous return as an and had a pacemaker implanted 1999 for sick sinus syndrome with AV node dysfunction. She is doing well and continues do her dance classes and reports no problems. She has been having some irregularities in her menstrual cycles and is therefore on control pills. Allergies: OTHER THAN BEING ALLERGIC TO CODEINE, SHE HAS NO OTHER HISTORY OF NOTE. Review of Systems: Review of systems was otherwise negative. Physical Examination: Vital Signs: Joie weighs 58.6 kg, her height is 160 cm, blood pressure 121/69, heart rate 72, and saturation 100%. General: She was comfortable at rest with no evidence of anemia, jaundice, clubbing, cyanosis, or peripheral edema. Peripheral pulses were normally palpable. Abdomen: Abdomen was soft. Chest: She has a midline external scar and a pacemaker scar on the left upper pectoral region and the pacemaker is also palpable at that region. Skin: Skin was normal with no rashes. Cardiac: Cardiac auscultation reveals normal heart sounds. No murmurs. FORENSIC IDENTIFICATION SPECIALIST: Central nervous system was grossly normal with normal gait, normal speech, and normal facial movements. Chest x-ray today shows a cardiothoracic ratio of 48% with pacemaker lead in the mid septal aspect of the right ventricle. There seems to be enough lead length left for growth. Pacemaker checks shows that her pacemaker is in the ventricular rate response mode with rates between 60 and 170. Battery voltage was 2.77 and cell impedance was 694 ohms. She is 93% ventricular paced. Her ventricular lead impedance was 791 ohms, R-wave amplitude was greater than 11.2 mV and her threshold was 1 V at 1 ms and 0.15 ms at 2 V. Her thresholds had gone up slightly, and therefore we increased her ventricular output from 2 V to 2.5 V and 0.4 ms to 0.45 ms. Joie is doing very well, and I do not see any problems at this time. She is going to see an scrap metal processing worker because of her menstrual problems, and I have given grandmother a card to give to the physician so that they could contact me regarding medications. I did indicate that because of her pacemaker lead, she is already at slightly increased risk of thrombogenicity and that this will need to be borne in mind when prescribing her medications. She is due to go to [place] for a youth camp for 2 weeks, and I do not see any problems with that. If any other problems occur, Joie will contact us directly. I would like to see her back in 1 year with an echocardiogram. Antonio Hines M.D. Director, Pediatric Electrophysiology V Block Saw Operator Professor Division of Pediatric Cardiology [facility] / [place] [id number] / [id number] / [id number] / [id number] cc: Gabrielle Fernández MD [address] [place] [address] Electronically signed by Antonio Hines 09-22-2004 10:22:15 AM documented i n this encounter Plan [...] Rd | | | | | | [place], [place] | | | | | | [address] | | | | | | [phone] | | | | | | | | +--------+ + + + + documented as of this encounter Visit Diagnoses Not on filedocumented in this encounter"
--- OUTSIDE RECORDS SUMMARY | ~2019-10-07 | XMS | Encounter Summary ---
Demographics + + + | Address | [address] | | | [place] [address] | + + + | Home Phone | | + + + | Preferred Language | Unknown | + + + | Marital Status | | + + + | Zoroastrian Affiliation | NON | + + + | Race | White | + + + | Ethnic Group | or | + + + Author + + + | Author | [facility] | + + + | Organization | [facility] | + + + | [...] [place], [place] | | | | | [address] | | + + + + + | Polly Winston | ECON | ANAYA, | | + + + + + Care Team Providers + +------+ + | Care Bank Officer Name | Role | Phone | + [...] Closed | | Cardiology | Diagnoses | Paez, | Car Echo | | | | | Maternal | Evy D, | S[address] | | | | | congenital | MD [address] | | | | | cardiac | [address] | Shay Hernandez | | | | | anomaly | [facility] [place] | [place] | | | | | affecting | [address] | Building, 2nd | | | | | in | Phone: | floor | | | | | first | [phone] | [place], [place] | | | | | trimester, | Fax: | [phone] | | | | | antepartum | [phone] | Phone: | | | | | Total | | [phone] | | | | | 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 | | | | | | | pulmonary | | | | | | | venous | | | | | | | connection | | | | | | | Procedures | | | | | | | TRANSTHORACI | | | | | | | C | | | | | | | ECHOCARDIOGR | | | | | | | AM, ADULT | | | +--------+--------+ + + + + Other (Routine) +--------+--------+ + + + + | Status | Reason | Specialty | Diagnoses / | Referred By | Referred To | | | | | Procedures | Contact | Contact | +--------+--------+ + + + + | Closed | | | Diagnoses | | Pnc | | | | | Maternal | [place], | | | | | | congenital | Abi F, | Diag Ppv | | | | | cardiac | ,PhD [address] | [address] | | | | | anomaly | [address] | [address] | | | | | affecting | [address] | Physician's | | | | | in | Rd | [address], | | | | | first | [facility], [place] | 4th floor | | | | | trimester, | [address] | [place], [place] | | | | | antepartum | Phone: | [phone] | | | | | Total | [phone] | Phone: | | | | | congenital | Fax: | [phone] | | | | | anomalous | [phone] | Fax: | | | | | pulmonary | | [phone] | | | | | venous | | | | | | | connection | | | | | | | Procedures | | | | | | | CONSULT TO | | | | | | | [facility] | | | | | | | GENETIC | | | | | | | COUNSELING | | | | | | | OR GENETIC | | | | | | | COUNSELING, | | | | | | | 30 MIN OR | | | | | | | | | | | | | | CHROMOSOMAL | | | | | | | ANEUPLOIDY | | | | | | | GENOMIC | | | | | | | SEQUENCE | | | | | | | ANALYSIS | | | | | | | PANEL | | | +--------+--------+ + + + [...] | | | | congenital | Ijeoma, TACK CLEANER | [address] | | | | | anomalous | [address] | | | | | pulmonary | Ave | [address], 7th | | | | | venous | [place], [place] | floor | | | | | connection | [address] | [facility] [place] | | | | | Procedures | Phone: | [phone] | | | | | CONSULT TO | [phone] | Phone: | | | | | PERINATOLOGY | Fax: | [phone] | | | | | OR NEW | [phone] | Fax: | | | | | PATIENT | | [phone] | | | | | LEVEL V OR | | | | | | | EST PATIENT | | | | | | | LEVEL V | | | + +--------+ + + + + Encounter Details +--------+ + + + + | Date | Type | Department | Care Team | Description | +--------+ + + + + | 04/21/ | [facility] | | [facility] [address] | | | [address] | | | | | | [address] | | | | | | [place], [place] | | | | | | [address] | | | | | | [phone] | | | +--------+ + + + [...] documented as of this encounter Progress Notes Vickie Beauchamp, NORI - 04/21/2019 8:00 AM PST Initial Clinic Note Nurse OB Intake completed with patient via phone call. 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 Medical hi story also significant for anxiety, well managed with lifestyle approaches (exercise, diet, sleep). Referring provider: Self-referring, established patient of Brynn Reed NP who was told to [facility] maternal cardiac clinic when she became . OB care at: Has appointment on 05/[address] [place] [address] Cantu of [facility] evelina LMP: 03/20/19 Last ob ultrasound: n/a MARINA: 12/25/19 by ultrasound Echo: n/a NST: n/a Contact Lens Edge Buffer: Brynn Reed NP, Madeleine Hernandez MD at [facility] Last Echo: 01/28/17 Last pacemaker check: 12/26/18 Additional cardiac testing: none outside [facility] LMP: Patient's last menstrual period was 03/20/2019 (exact date). MARINA: Estimated Date of Delivery: None noted. OB History 1 Para Term AB Living SAB TAB Ectopic Multiple Live Births # Outc Date GA Lbr Osman/2nd Wgt Sex Del Anes PTL Lv 1 Current Obstetric Comments Menarche: 10 or 20. LMP: 03/20/19. Periods irregular and heavy, q 28-30 days, lasting 10-14 d ays. Was on control very young for control. Last pap: 10/2018, normal. 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 Hx STD's: no. 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 Lifestyle Physical activity: Days per week: Not on file Minutes per session: Not on file Stress: Not on file Relationships Social connections: Talks on phone: Not on file Gets together: Not on file Attends worship service: Not on file Active member of club or organization: Not on file Attends meetings of clubs or organizations: Not on file Relationship status: Not on file Other Topics Concern Service No Blood Transfusions No Caffeine Concern No Occupational Exposure No Hobby Hazards No Sleep Concern Yes Comment: Insomnia, wakes in the middle of the night and has trouble falling back asleep Stress Concern No Weight Concern No Special Diet No Back Care No Exercise Yes Comment: Sushma, aerobics at home Bike Helmet Yes Seat Belt Yes Self-Exams No Social History Narrative LW: Alexsander, 2 dogs. Cats in home: no. Cat litter box? no. Working smoke alarms: yes. Guns in the house: yes. Kept in safe. Zoroastrian preference: no. Agreeable to blood transfusion: yes. Racial ethnicity: 1/2 . Primary Language: Surinamese. Years of Education: 16. Degree in Bachelors of Arts. 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 Domestic Violence: No. Past Surgical History Procedure Laterality Date Pacemaker placement [place] teeth extraction Bilateral 2011 Family History Problem Relation Depression Mother Asthma Brother Skin Cancer Maternal Grandmother No Known Problems Maternal Grandfather Lung Cancer Paternal Grandfather 2018 Asthma Brother Allergies Allergen Reactions Ciprofloxacin Hives Codeine Becomes Angry and Rude Venom-Honey Bee Edema Pertinent history/current issues: 1) No major concerns. Excited for and feeling well. Discussed today: 1) Basic information: Patient will receive basic information covering such topics as: morning sickness, exercise, traveling during , childbirth education, car safet y for mom and baby, , nutrition, taking a vitamin with folic acid, med ications safe to take in at new patient visit. This nurse reviewed how and when to contact the stone finisher provider and appropriate use of MyC garcia. Referral to filtering machine tender helper offered and she will think about this. 2) Genetic Testing Options: Referral placed to [facility] genetic counseling. 3) Medical review indicates need for: Echo, EKG, ob ultrasound, genetic counseling, MFM, Ca rdiology. At the completion of the call all the patient's questions are answered. Scheduled for with NT ultrasound, genetics, Echo, Dr. Canas and Dr. Paez. New patient letter and future appointments mailed. Encouraged to call back with questions, if any, prior to appoin tment. Vickie Beauchamp RN documented in this encount er Plan of Treatment +--------+ + + + + | Date | Type | Specialty | Care Team | Description | +--------+ + + + + | 10/18/ | Appointment | Radiology | | | | 2019 | | | | | +--------+ + + + + | 10/18/ | | | Nellie Munson, | | | 2019 | | | [address] [facility] | | | | | | [address] | | | | | | [place], [place] | | | | | | [address] | | | | | | [phone] | | | | | | | | +--------+ + + + + documented as of this encounter Procedures + +--------+ + + + | Procedure Name | Priori | Date/Time | Associated Diagnosis | Comments | | | ty | | | | + +--------+ + + + | TRANSTHORACIC | Routin | 06/12/2019 | Maternal | Results for this | | ECHOCARDIOGRAM, | e | 11:02 AM | congenital cardiac | procedure are in the | | ADULT | | PDT | anomaly affecting | results section. | | | | | in first | | | | | | trimester, | | | | | | antepartum Total | | | | | | congenital anomalous | | | | | | pulmonary venous | | | | | | connection | | + +--------+ + + + documented in this encounter Results TRANSTHORACIC ECHOCARDIOGRAM, ADULT (06/12/2019 11:02 AM PDT) + + + + + + | Component | Value | Ref Range | Performed | Pathologist | | | | | At | Signature | + + + + + + | AOV VMN | 7.4 | | [facility] | | | (AORTIC | | | OF | | | VALVE) | | | CARDIOLOGY | | + + + + + + | BIPLANE, EF | 60 | | [facility] | | | | | | OF | | | | | | CARDIOLOGY | | + + + + + + | EJECTION | 55 to 60 | | [facility] | | | FRACTION | | | OF | | | | | | CARDIOLOGY | | + + + + + + | LA | 2.5 | | [facility] | | | DIMENSION | | | OF | | | | | | CARDIOLOGY | | + + + + + + | LVIDD | 4.4 | | [facility] | | | | | | OF | | | | | | CARDIOLOGY | | + + + + + + | MV A VMAX | 0.3 | | [facility] | | | | | | OF | | | | | | CARDIOLOGY | | + + + + + + | MV E? | 0.1 | | [facility] | | | | | | OF | | | | | | CARDIOLOGY | | + + + + + + | MV E VMAX | 1.2 | | [facility] | | | | | | OF | | | | | | CARDIOLOGY | | + + + + + + | MV E/E' | 10.6 | | [facility] | | | (MITRAL | | | OF | | | VALVE) | | | CARDIOLOGY | | + + + + + + | MITRAL | 11.7 | | [facility] | | | ANNULUS | | | OF | | | MEDIAL E/E" | | | CARDIOLOGY | | | (TISSUE | | | | | | DOPPLER) | | | | | + + + + + + | RV TAPSE | 1.9 | | [facility] | | | | | | OF | | | | | | CARDIOLOGY | | + + + + + + | RV TDI S? | 10.0 | | [facility] | | | | | | OF | | | | | | CARDIOLOGY | | + + + + + + | TR VMAX | 1.9 | | [facility] | | | (TRICUSPID | | | OF | | | VALVE) | | | CARDIOLOGY | | + + + + + + | EJECTION | 57.5 | % | [facility] | | | FRACTION | | | OF | | | RANGE MEAN | | | CARDIOLOGY | | | VALUE | | | | | + + + + + + + + | Specimen | + + | | + + + + + | Narrative | Performed At | + + + | [facility] | [facility] OF | | [facility] [address] | CARDIOLOGY | | [place], [place] [address] Ph: | | | Pt Name: JOIE COATES | | | Study Date/Time 06/12/2019:02:20 AMMRN: [id number] | | | Most recent prior: 01/28/2017Acc #: [id number] | | | No. previous echos: 4DOB: 1985 33 years | | | Heart Rate: 67 bpmHeight: 62.0 in | | | Blood Pressure: 104/61 mm/HgWeight: 171.0 lb | | | Gender: FBSA: 1.79 m | | | Order ID: [id number] Study | | | Location: OPSonographer: Chr[facility]zanares [facility], [facility] | | | Provider: EVY Lugo Performed: CHD 2D, Color Flow, | | | Spectral Doppler.Study Quality: Good.Exam Indication: ACHD; Anomalous | | | pulmonary veinsHistory: 32 y.o NYHA class I. Repair of TAPV return, | | | SSS with pacemaker. Patient history has been obtained from the EHR | | | Transthoracic Echocardiographic Report | | | + | | | ---------+ Final Impressions: | | | | | | | | | | | | | | | 1. The left ventricular size is normal. | | | 2. The LV function is | | | normal. | | | 3. Right ventricular size, thickness and function are | | | normal. 4. Normal atrial size. | | | | | | 5. Pulmonary venous redirection baffle (image 90-93) without | | | suggestion of obstruction. | | | 6. | | | Compared to the most recent exam dated 01/28/2017, there are no | | | significant changes. | | | | | | | | | | | | + | | | + Description of Findings: Cardiac Rhythm: Normal sinus | | | rhythm.Left Ventricle: The left ventricular size is normal. Visually | | | estimated left ventricular ejection fraction is 55 - 60%. The ejection | | | fraction is 60.4 % as measured by Griffin's biplane method. The LV | | | function is normal.Atria: Left atrial size is normal. Normal right | | | atrium. Pulmonary venous redirection baffle (image 90-93) without | | | suggestion of obstruction. There is Pacer / ICD electrode noted in RA | | | / RV.Right Ventricle: Right ventricular size, thickness and function | | | are normal. TAPSE measures 1.9cm. The RV TDI s' velocity is | | | 10cm/sec.Aortic Valve: The aortic valve is trileaflet. No indication | | | of aortic valve regurgitation.Mitral Valve: The mitral valve is | | | structurally normal. No evidence of mitral valve stenosis. Trace | | | mitral valve regurgitation.Tricuspid Valve: The tricuspid valve is | | | structurally normal. Trace tricuspid regurgitation.Venous: Inferior | | | vena cava is normal with normal inspiratory collapse.Pericardium: No | | | pericardial effusion is seen.2D Measurements | | | Doppler Measurements 2D NL Values Aortic | | | MitralLVID(d) 4.36 (3.5-5.7cm) Max Markie 1.81 | | | Peak E 1.17 cm | | | m/s m/sLVID(s) 2.87 | | | Mean grad 7.4 Peak A 0.34 cm | | | mmHg m/sIVS(d) | | | 0.87 (0.6-1.1cm) LVOT Markie 1.46 E/A Ratio 3.42 | | | cm m/sLVPW(d) 0.79 | | | (0.6-1.1cm) LVOT VTI 0.311 TDI (E/e') 10.6 cm | | | mLA A/Ps 2D 2.53 (2.7-3.9cm) LVOT | | | Diam 1.89 MV mn gd cm | | | cmLA vol A/L 18.6 (16-34) LVOT SV 48.6 MR | | | EROindex ml/m | | | indexed ml/m | | | LVEDV 50.33 Tricuspid | | | Pulmonicindex ml/m | | | TR Vmax 2.09 PV Vmax 1.0Biplane EF | | | 60.4 % m/s m/s | | | RA Press RVOT | | | VTI 14.7 | | | cm | | | Aorta: Index: | | | Ao Sinus 2.52 (2.1-3.5cm) | | | cm | | | Asc Ao 2.15 | | | (prox) cmEvaluation of chamber size and geometry | | | is accomplished through the incorporation of linear, volumetric, and | | | indexed values Report electronically signed by: [id number] Grayson | | | Johny JAIME (06/12/2019, 12:39:11 PM) Final | | | Aorta: Index: | | | Ao Sinus 2.52 (2.1-3.5cm) | | | cm | | | Asc Ao 2.15 | | | (prox) cm | | |Evaluation of chamber size and geometry is accomplished through the incorporation of | | |linear, volumetric, and indexed values | | | | | |Report electronically signed by: [id number] Grayson Mcclain MD (06/12/2019, 12:39:11 PM) | | | | | | | | | | | | Final | | + + + + + | Procedure Note | + + | Interface, Cardiology Results - 06/12/2019 12:39 PM [facility] | | [facility] Echocardiography Laboratory [address] [place] [address] | | [place], [place] [address] Pt Name: JOIE COATES | | Study Date/Time 06/12/2019 / 11:02:20 AMMRN: [id number] [facility] | | recent prior: 01/28/2017Acc #: [id number] No. previous echos: 4DOB: | | 1985 33 years Heart Rate: 67 bpmHeight: 62.0 in Blood | | Pressure: 104/61 mm/HgWeight: 171.0 lb Gender: FBSA: | | 1.79 m | | Order ID: [id number] Study Location: OPSonographer: [facility] | | [facility] AE, PEReferring Provider: EVY Lugo Performed: CHD 2D, | | Color Flow, Spectral Doppler.Study Quality: Good.Exam Indication: ACHD; Anomalous | | pulmonary veinsHistory: 32 y.o NYHA class I. Repair of TAPV return, SSS with pacemaker. | | Patient history has been obtained from the EHR Transthoracic Echocardiographic | | Report+ + | | Final Impressions: | | | | 1. The left ventricular | | size is normal. 2. The LV function is normal. | | 3. Right ventricular size, thickness and | | function are normal. 4. Normal atrial size. | | 5. Pulmonary venous redirection baffle (image 90-93) | | without suggestion of obstruction. | | 6. Compared to the most recent exam dated 01/28/2017, there are no | | significant changes. | | | | + + | | Description of Findings: Cardiac Rhythm: Normal sinus rhythm.Left Ventricle: The left | | ventricular size is normal. Visually estimated left ventricular ejection fraction is 55 | | - 60%. The ejection fraction is 60.4 % as measured by Griffin's biplane method. The LV | | function is normal.Atria: Left atrial size is normal. Normal right atrium. Pulmonary | | venous redirection baffle (image 90-93) without suggestion of obstruction. There is | | Pacer / ICD electrode noted in RA / RV.Right Ventricle: Right ventricular size, | | thickness and function are normal. TAPSE measures 1.9cm. The RV TDI s' velocity is | | 10cm/sec.Aortic Valve: The aortic valve is trileaflet. No indication of aortic valve | | regurgitation.Mitral Valve: The mitral valve is structurally normal. No evidence of | | mitral valve stenosis. Trace mitral valve regurgitation.Tricuspid Valve: The tricuspid | | valve is structurally normal. Trace tricuspid regurgitation.Venous: Inferior vena cava | | is normal with normal inspiratory collapse.Pericardium: No pericardial effusion is | | seen.2D Measurements Doppler Measurements 2D NL Values | | Aortic MitralLVID(d) 4.36 (3.5-5.7cm) Max Markie 1.81 Peak E 1.17 | | cm m/s m/sLVID(s) 2.87 | | Mean grad 7.4 Peak A 0.34 cm mmHg | | m/sIVS(d) 0.87 (0.6-1.1cm) LVOT Markie 1.46 E/A Ratio 3.42 cm | | m/sLVPW(d) 0.79 (0.6-1.1cm) LVOT VTI 0.311 TDI (E/e') 10.6 | | cm mLA A/Ps 2D 2.53 (2.7-3.9cm) LVOT Diam 1.89 MV mn | | gd cm cmLA vol A/L 18.6 (16-34) LVOT SV | | 48.6 MR EROindex ml/m | | indexed ml/m | | LVEDV 50.33 Tricuspid Pulmonicindex ml/m | | TR Vmax 2.09 PV Vmax 1.0Biplane EF 60.4 % | | m/s m/s RA Press RVOT VTI 14.7 | | cm | | Aorta: Index: Ao Sinus 2.52 | | (2.1-3.5cm) cm Asc | | Ao 2.15 (prox) cmEvaluation of chamber size and | | geometry is accomplished through the incorporation of linear, volumetric, and indexed | | values Report electronically signed by: [id number] Grayson Mcclain MD (06/12/2019, 12:39:11 | | PM) Final | |Tricuspid Valve: The tricuspid valve is structurally normal. Trace tricuspid | |regurgitation. | |Venous: Inferior vena cava is normal with normal inspiratory collapse. | |Pericardium: No pericardial effusion is seen. | |2D Measurements Doppler Measurements | | | | 2D NL Values Aortic Mitral | |LVID(d) 4.36 (3.5-5.7cm) Max Markie 1.81 Peak E 1.17 | | cm m/s m/s | |LVID(s) 2.87 Mean grad 7.4 Peak A 0.34 | | cm mmHg m/s | |IVS(d) 0.87 (0.6-1.1cm) LVOT Markie 1.46 E/A Ratio 3.42 | | cm m/s | |LVPW(d) 0.79 (0.6-1.1cm) LVOT VTI 0.311 TDI (E/e') 10.6 | | cm m | |LA A/Ps 2D 2.53 (2.7-3.9cm) LVOT Diam 1.89 MV mn gd | | cm cm | |LA vol A/L 18.6 (16-34) LVOT SV 48.6 MR ERO | |index ml/m indexed ml/m | |LVEDV 50.33 Tricuspid Pulmonic | |index ml/m TR Vmax 2.09 PV Vmax 1.0 | |Biplane EF 60.4 % m/s m/s | | RA Press RVOT VTI 14.7 | | cm | | | | Aorta: Index: | | Ao Sinus 2.52 (2.1-3.5cm) | | cm | | Asc Ao 2.15 | | (prox) cm | |Evaluation of chamber size and geometry is accomplished through the incorporation of | |linear, volumetric, and indexed values | | | |Report electronically signed by: [id number] Grayson Mcclain MD (06/12/2019, 12:39:11 PM) | | | | | | | | Final | + + + + + + + | Performing | Address | City/State/Zipcode | Phone Number | | Organization | | | | + + + + + | [facility] | [address] | [place], [place] | | | CARDIOLOGY | [address] | [address] | | + + + + + documented in this encounter Visit Diagnoses + + | Diagnosis | + + | Maternal congenital cardiac anomaly affecting in first trimester, antepartum | | - Primary | + + | Total congenital anomalous pulmonary venous connection | + + documented in this encounter
--- OUTSIDE RECORDS SUMMARY | ~2019-10-07 | XMS | Encounter Summary ---
Demographics + + + | Address | [address] | | | [place] [address] | + + + | Home Phone | | + + + | Preferred Language | Unknown | + + + | Marital Status | | + + + | Rastafarian Affiliation | NON | + + + [...] [place], [place] | | | | | [address] | | + + + + + | Polly Winston | ECON | ANAYA, | | + + + + + Care Team Providers + +------+ + | Care Flatwork Supervisor Name | Role | Phone | + +------+ + | Yuli Franklin | PCP | | + +------+ + Reason for Visit + + + | Reason | Comments | + + + | Follow-up visit | | + + + Consultation (Routine) +--------+--------+ + + + + | Status | Reason | Specialty | Diagnoses / | Referred By | Referred To | | | | | Procedures | Contact | Contact | +--------+--------+ + + + + | Closed | | Cardiology | Diagnoses | No | Car Achd | | | | | Sick sinus | Referring | [facility] [address] | | | | | syndrome | Provider Per | [address] | | | | | (HCC) Total | Patient NO | [facility] for | | | | | congenital | REFERRING | Health and | | | | | anomalous | PROVIDER PER | Healing, | | | | | pulmonary | PT | Building 1, | | | | | venous | | 9th Floor | | | | | connection | | [place], [place] | | | | | Procedures | | [address] | | | | | [place] | | Phone: | | | | | PATIENT | | [phone] | | | | | LEVEL V | | Fax: | | | | | | | [phone] | +--------+--------+ + + + + Encounter Details +--------+---------+ + + + | Date | Type | Department | Care Team | Description | +--------+---------+ + + + | 01/28/ | Office | Cardiology General | Louisa Reed | Congenital heart | | 2017 | Visit | at [facility] [address] | LEONARD Raphael [address] | disease (Primary Dx) | | | | [facility] | [facility], | | | | | Health and [facility], | [place] [address] | | | | | [place] [address] [facility] | [phone] | | | | | [place], [place] | | | | | | [address] | | | | | | [phone] | | | +--------+---------+ + + + [...] + + + | Blood Pressure | 113/63 | 01/28/2017 2:06 PM | | | | | PST | | + + + + + | Pulse | 68 | 01/28/2017 2:06 PM | | | | | PST | | + + + + + | Temperature | - | - | | + + + + + | Respiratory Rate | - | - | | + + + + + | Oxygen Saturation | 100% | 01/28/2017 2:06 PM | | | | | PST | | + + + + + | Inhaled Oxygen | - | - | | | Concentration | | | | + + + + + | Weight | 74.4 kg (164 lb) | 01/28/2017 2:06 PM | | | | | PST | | + + + + + | Height | 157.5 cm (5' 2") | 01/28/2017 2:06 PM | | | | | PST | | + + + + + | Body Mass Index | 30 | 01/28/2017 2:06 PM | | | | | PST | | + + + + + documented in this encounter Patient Instructions Patient Instructions Louisa Reed NP - 01/28/2017 2:50 PM PSTReturn check in one year Thank you for your visit today. Adult Congenital Heart Disease Clinic MD Huan Nolen MD PhD MD Joi Blanco, Psychologist PhD Brynn Reed, LEONARD Overton, RN Important Phone Numbers Adult Congenital Cardiology Office: [phone] (ask for Mavis) Clinic Nurse, Genny Overton: [phone] Clinic [phone] Echo lab [phone] Radiology Scheduling (including MRI, ask for Nathalie): [phone] Pulmonary function [phone] seed laboratory assistant [phone] After hours emergency: [phone] Long distance: Financial Assistance: [phone] Website: www.[facility]/cardiology Satellite Clinics: Karolina Traylor [phone] Gunner [phone] Upcoming Events Congenital Heart Spring Come enjoy spring and support the ACHD cause. Tour the [employer] and take something home for Mothers Day. July 10 at [facility] [address], [place] [address] Contact Paul Crowe, [email or web address]) Congenital Heart Walk The next PDX heart walk is being planned for the spring Stay tuned! We support the Adult Congenital Heart Association and invite you to be a member, to promote patient peer support, education, community events, patient advocacy, and research in congen ital heart disease. Details at www.[email or web address] [facility] To make the camp a success we need volunteers If your interested, please visit website: [email or web address].[email or web address] Web based, fun interactive learning: [email or web address] documented in this encounter Progress Notes Louisa Reed NP - 01/28/2017 2:50 PM PSTFormatting of this note might be differen t from the original. ADULT CONGENITAL HEART CLINIC PROGRESS NOTE Joie Villarreal is a 31 y.o. female here for Follow-up visit PCP: No Pcp Past Medical History: 1. 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 427.81 SICK SINUS SYNDROME Overview Note: <PROVIDER>KAYLA CARDONA MD Current History: No intercurrent illnesses Sinus infection earlier this year Very active No complaints of SOB, CP or palpitations with current activity Participates in [employer] 3 times a week and group cycling [email or web address] for birthcontrol Exercising Device check after this appointment ROS: As above, all other reviewed systems were negative, specifically, no headaches, swall owing problems, cough or hemoptysis, heat or cold intolerance, nausea, vomiting, diarrhea, h ematuria, melena, fever, chills, shakes, rash or bruise, numbness or tingling. FHx: Unchanged from last visit No past encounter found in . SHx: Nonsmoker; Lives in [facility]; Works for [employer]. Marri ed. ETOH: glass of wine with dinner 2-3 times per week. Current Outpatient Prescriptions Medication Sig levonorgestrel (MIRENA) 20 mcg/24 hour (5 years) intrauterine intrauterine device 1 eac h by intrauterine route once. May be removed and replaced with a new unit at anytime during menstrual cycle; do not leave any one system in place for > 5 years. No current facility-administered medications for this visit. Physical Exam: BP 113/63 | Pulse 68 | Ht 1.575 m (5' 2") | Wt 74.4 kg (164 lb) | SpO2 100% | BMI 30 kg/(m^ 2) GEN: Well appearing JVP: Not elevated. Normal waveform CAROTID: Normal upstroke. CHEST: Normal respiratory effort. Clear to auscultation throughout. HEART: Regular rate and rhythm.+systolic murmur. No diastolic murmur. Second heart dillon nd normal. ABDOM: Soft, non tender, no organomegaly EXTREM: No edema, no clubbing SKIN: Warm and dry NEURO: Awake and oriented DATA: Lab Results Component Value Date RATE 63 01/28/2017 ATRIALRATE 0 01/28/2017 VA 90 01/28/2017 QRS 143 01/28/2017 QT 464 01/28/2017 PAXIS 0 01/28/2017 RAXIS -78 01/28/2017 Echo today Final Impressions: 1. The left ventricular cavity [...] no significant changes. Impression: Joie is a 31 y.o NYHA class I. Repair of TAPV return, SSS with pacemaker. Well compensat ed on exam, no concerns or issues reported. Recommendations/Plan: Echo at next visit Return for follow-up visit in 12 months. We had a discussion about the risks [...] indicated. Medication change? N Referral? (Interventional cardiology/EP/surgical)? N Plan to call patient? N Who will [...] Rd | | | | | | [place], [place] | | | | | | [address] | | | | | | [phone] | | | | | | | | +--------+ + + + + documented as of this encounter Visit Diagnoses + + | Diagnosis | + + | Congenital heart disease - Primary Unspecified congenital anomaly of heart | + + documented in this encounter
--- OUTSIDE RECORDS SUMMARY | ~2019-10-07 | XMS | Encounter Summary ---
Demographics + + + | Address | [address] | | | [place] [address] | + + + | Home Phone [...] + + + + + | Sinan Wintson | ECON | [address] | | | | | [facility] [place] | | | | | [address] | | + + + + + | Polly Winston | ECON | ANAYA, | | + + + + + Care Team Providers + +------+ + | Care Plastics Seasoner Operator Name | Role | Phone | + +------+ + | Rao Theodore MD | PCP | | + +------+ + Reason for Visit Consultation (Routine) +--------+--------+ + + + + [...] | | | | connection | | [place], [place] | | | | | Procedures | | [address] | | | | | CONSULT TO | | Phone: | | | | | CARDIOLOGY | | [phone] | | | | | | | Fax: | | | | | | | [phone] | +--------+--------+ + + + + Encounter Details +--------+---------+ + + + | Date | Type | Department | Care Team | Description | +--------+---------+ + + + | 12/22/ | Office | Cardiology General | Louisa Reed | Total congenital | | 2012 | Visit | at [facility] [address] | [place], MEDICAL ORDERLY [address] | anomalous pulmonary | | | | [address] [facility] for | [address] [place], | venous connection | | | | Health and Healing, | [place] [address] | (Primary Dx) | | | | Building | [phone] | | | | | Floor [place], [place] | | | | | | [address] | | | | | | [phone] | | | +--------+---------+ + + + [...] documented as of this encounter Progress Notes Louisa Reed, MEDICAL ORDERLY - 12/23/2012 10:30 AM PDTFormatting of this note might be differen t from the original. Joie Villarreal is a 26 y.o. female here to establish in the ACHD program PCP: Rao Theodore MD Referring: No Referring Provider Dr Hines Past Medical History: 1. 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 Pacemaker implanted (age 13) 1999 for sick sinus syndrome with AV node dysfunction (Dr Jeremi vasquez) 2.29 November 1998 episodic lightheadedness. Holter monitor demonstrated sinus bradycardia with low heart rates in the 30s. Although it was not established that sinus node dysfunction was the cause of her lighthead edness, in view of the significant sinus bradycardia, was decided to perform a pacemaker imp lantation. 2.2 08/13/2008 single-chamber pacemaker replacement due to battery depletion 2.3 Patient is not pacer dependent--underlying is sinus liam and junctional rhythm, FLOOR BROKER 90 % of the time Current History: Joie is seen today with Mellissa Zhou for pacer check. 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 She is very active, she runs at least 3x's week, participates in [employer] exercise classes. Denies any symptoms or limitations with her current activity level. She is on control. Has some anxiety. Has continue to practice SBE. She has been follo wed by Dr Hines at [facility] and is here today to establish with the ACHD program. ROS: As above, all other reviewed systems were negative, specifically, no headaches, swall owing problems, cough or hemoptysis, heat or cold intolerance, nausea, vomiting, diarrhea, h ematuria, melena, fever, chills, shakes, rash or bruise, numbness or tingling. FHx: No known family history of congenital heart disease SHx: nonsmoker Current Outpatient Prescriptions Medication Sig etonogestrel-ethinyl estradiol 0.12-0.015 mg/[address] 1 Each into the v agina once. Following intravaginal insertion, ring should remain in place for 3 weeks, then removed for 1 week. A new ring is inserted 7 days after the last was removed. Physical Exam: BP Readings from Last 1 Encounters: 12/22/12 112/65 Pulse Readings from Last 1 Encounters: 12/22/12 65 Resp Readings from Last 1 Encounters: 08/13/08 18 Wt Readings from Last 1 Encounters: 12/22/12 65.318 kg (144 lb) Temp Readings from Last 1 Encounters: 12/22/12 37.1 C (98.7 F) Oral GEN: Well appearing; INAD JVP: Not elevated. Normal waveform CAROTID: Normal upstroke. LUNGS: Clear to auscultation throughout. HEART: Regular rate and rhythm. Grade III/ systolic murmur at left sternum. No diastol ic murmur. Second heart sound normal. PMI nondisplaced and RV lift appreciated. ABDOM: Soft, non tender, no organomegaly EXTREM: No edema, no clubbing. Peripheral pulses symmetric. SKIN: Warm and dry NEURO: Awake and oriented DATA: Echo 01/26/2012 1. Post-operative total anomalous pulmonary vein connection and pacemaker. There is no Dopp ler or 2D evidence of residual pulmonary vein obstruction. 2. A pacemaker lead is visible attached to the interventricular septum. There is no evidenc e of thrombus. 3. Mild tricuspid valve regurgitation. 4. Normal right and left ventricular systolic function. IMP: Joie is a 26 y.o female, repair of TAPV return, SSS with pacemaker. Well compensated on exam, NYHA class I. No concerns or issues reported. PLAN: 1) Echo today 2) RTC in one year 3) may continue with SBE prophylaxis (as she has done per Dr Hines's recommendations)Elect ronically signed by Louisa Reed NP at 12/23/2012 11:04 AM PDTdocumented in this enc ounter Plan of Treatment [...] Rd | | | | | | [place], [place] | | | | | | [address] | | | | | | [phone] | | | | | | | | +--------+ + + + + documented as of this encounter Procedures + +--------+ + + + | Procedure Name | Priori | Date/Time | Associated Diagnosis | Comments | | | ty | | | | + +--------+ + + + | EJECTION FRACTION | Routin | 12/22/2012 | | Results for this | | | e | 2:18 PM | | procedure are in the | | | | PDT | | results section. | + +--------+ + + + documented in this encounter Results EJECTION FRACTION (12/22/2012 2:18 PM PDT) + + + + + + | Component | Value | Ref Range | Performed | Pathologist | | | | | At | Signature | + + + + + + | EJECTION | 65 - 70%Comment: EF | | [facility] | | | FRACTION | Recorded from | | OF | | | | Transthoracic | | CARDIOLOGY | | | | Echocardiogram | | | | + + + + + + | BIPLANE, EF | 69 | | [facility] | | | [...] DEPT OF | [address] | [place], [place] | | | CARDIOLOGY | [address] | [address] | | + + + + + documented in this encounter Visit Diagnoses + + | Diagnosis | + + | 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
--- OUTSIDE RECORDS SUMMARY | ~2019-10-07 | XMS | Encounter Summary ---
Demographics + + + | Address | [address] | | | [place] [address] | + + + | Home Phone [...] [place], [place] | | | | | [address] | | + + + + + | Polly Winston | ECON | ANAYA, | | + + + + + Care Team Providers + +------+ + | Care Fire Control Officer Name | Role | Phone | + +------+ + | Yuli Franklin | PCP | | + +------+ + Encounter Details +--------+ + + + + | Date | Type | Department | Care Team | Description | +--------+ + + + + | 10/05/ | Ancillary | Registration [address] | Carlos Hinesdri, | | | 2006 | Registratio | [facility] David Lopez | [address] [facility] | | | | [address] | [address] Mailcode: [id number] | [facility] | | | | | [place], [place] | [place], [place] | | | | | [address] | [address] | | | | | [phone] | [phone] | | | | | | | [...] Rd | | | | | | [place], [place] | | | | | | [address] | | | | | | [phone] | | | | | | | | +--------+ + + + + documented as of this encounter Visit Diagnoses Not on filedocumented in this encounter"
--- OUTSIDE RECORDS SUMMARY | ~2019-10-07 | XMS | Encounter Summary ---
Demographics + + + | Address | [address] | | | [place] [address] | + + + | Home Phone | | + + + | Preferred Language | Unknown | + + + | Marital Status | | + + + | Church Affiliation | NON | + + + | Race | White | + + + | Ethnic Group | or | + + + Author + + + | Author | [facility] | + + + | Organization | [facility] | + + + | Address [...] [address] | | | | | [facility] [place] | | | | | [address] | | + + + + + | Polly Winston | ECON | ANAYA, | | + + + + + Care Team Providers + +------+ + | Care Blending Tank Tender Helper Name | Role | Phone | + [...] | Cardiology | Diagnoses | Babij, | Car | | | | | Primary | MD Valdez | Arrhythmia Ep | | | | | Diagnosis:42 | [address] | [address] | | | [address] | [address] | | | | | 427.81 SICK | [facility] | | | | | SINUS | [place] [address] | Health and | | | | | SYNDROME | Phone: | Healing, | | | | | Other | [phone] | Building 1, | | | | | Diagnoses:74 | Fax: | 7th Floor | | | | | [address] | [phone] | [place], [place] | | | | | Total | | [address] | | | | | congenital | | Phone: | | | | | anomalous | | [phone] | | | | | pulmonary | | Fax: | | | | | venous | | [phone] | | | | | | | [...] | | | | | | | [place] ICD DVC | | | | | | | PRG EVL,1 | | | | | | | SNGL [place] ICD | | | | | | | DVC PRGR | | | | | | | EVL,COKE STILL CLEANER | | | +--------+--------+ + + + + Encounter Details +--------+---------+ + + + | Date | Type | Department | Care Team | Description | +--------+---------+ + + + | 12/25/ | Office | Cardiology | Mellissa Aguilar, | 427.81 SICK SINUS | | 2015 | Visit | Arrhythmia at [facility] | RN [address] | SYNDROME (Primary | | | | [address] | [facility] [address] | Dx); Total | | | | [place] [facility] | [facility] [place] | congenital anomalous | | | | and Healing, | [address] | pulmonary venous | | | | Building | | connection; | | | | Floor [facility] [place] | | Medtronic single | | | | [address] | | chamber pacemaker; | | | | [phone] | | Bradycardia; | | | | | | Atrioventricular | | | | | | block, complete | | | | | | ([facility]) | +--------+---------+ + + + Social History [...] + + + | Blood Pressure | 116/68 | 12/25/2014 2:46 PM | | | | | PDT | | + + + + + | Pulse | 84 | 12/25/2014 2:46 PM | | | | | PDT | | + + + + + | Temperature | 36.6 C (97.8 F) | 12/25/2014 2:46 PM | | | | | PDT | | + + + + + | Respiratory Rate | - | - | | + + + + + | Oxygen Saturation | 100% | 12/25/2014 2:46 PM | | | | | PDT | | + + + + + | Inhaled Oxygen | - | - | | | Concentration | | | | + + + + + | Weight | 68.5 kg (151 lb) | 12/25/2014 2:46 PM | | | | | PDT | | + + + + + | Height | 157.5 cm (5' 2") | 12/25/2014 2:46 PM | | | | | PDT | | + + + + + | Body Mass Index | 27.62 | 12/25/2014 2:46 PM | | | | | PDT | | + + + + + documented in this encounter Patient Instructions Patient Instructions Mellissa Aguilar RN - 12/25/2014 3:32 PM PDTYour pacer battery is arik perry elective replacement- probably 2 years, though. since you are using the pacer all the time- we will plan for a remote visit in 4months. If you notice your heart rate is 65 all the time- send a remote and callElectronically sign ed by Mellissa Aguilar RN at 12/25/2014 3:33 PM PDT documented in this encounter Progress Notes Madeleine Hernandez NP - 12/28/2014 4:00 PM PDT I have reviewed the progress note and agree with documentation. Madeleine Hernandez NP CARDIOLOGY ARRHYTHMIA AT [address] Denise Breen Mailcode: [address] [phone] PROGRESS NOTE: ellissa Aguilar RN - 12/25/2014 3:24 PM PDTFormatting of this note might be different from the [place]. PACEMAKER HISTORY Primary Care Provider: No Pcp Per PATIENT Cardiovascular Radiologic Technologist: ACHD team Posting Specialist: none INDICATION Joie Villarreal is a 28 y.o. female who has a single chamber pacemaker implanted for SSS ICD-10-CM ICD-9-CM 1. 427.81 SICK SINUS SYNDROME I49.5 427.81 2. 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 Medtronic single chamber pacemaker Z95.0 V45.01 Presenting Rhythm V pacing Underlying Rhythm No underlying ventricular escape when pacer turned down to 40; and she w as symptomatic Patient is pacer dependent. Device Information: Generator: Medtronic Model #: Sensia [id number] Serial #: [id number] Implanted: 08/14/2008 Leads: RV: St [place] Model #: [id number] Serial #: [id number] Implanted: 08/11/1999 ADVISORY: no PACEMAKER PROGRAMMING: Ramesh Mode: VVIR Lower Rate: 60 bpm Hysteresis: na Upper Sensor Rate: 170 bpm RV Output: 2.5 V @ 0.4 ( Adaptive on) RV Sensitivity: 2.0 mV EPISODES SINCE LAST VISIT: VHR Episodes: 0 TODAY'S TESTING RESULTS: Battery status: Battery Voltage: 2.74 Cell impedence 2613 Estimated Longevity: 2years (1-3.5 years) RV lead: Imped: 718 ohms R. Wave Amplitude: paced Threshold: 1.25V @ 0.4ms PACING PERCENTAGE: Since Dec 26, 2013 VS: 2.7% PLAN CHECKER: 97.3% Heart Rate Histogram - heart rate range 60-110, with somewhat blunted range Programming Changes: Returned to initial after threshold testing. Programming Details: Hospitalizations: PHYSICAL EXAM: Vitals: Visit Vitals Item Reading BP 116/68 Pulse 84 Temp 36.6 C (97.8 F) Ht 1.575 m (5' 2") Wt 68.493 kg (151 lb) SpO2 100% BMI 27.61 kg/(m^2) Seen By: Brynn Reed NP Pacemaker Site: skin integrity intact Conclusion: - Device function normal. - Battery status good, estimated longevity 2years. - Lead impedance, sensing, and pacing thresholds are normal/stable. - Patient is moderately pacemaker dependent. Underlying rhythm is less than 40 today- and s he is symptomatic - No arrhythmia noted by pacemaker data. - No programming changes indicated Progress note: Joie is her for ACHD and pacemaker check. She has been feeling well,and is able to be active- can exercise in [employer] class and keep up. She does not feel like her h eart rate limits her in any way. Histogram does show blunted HR response, but activity thes hold is set to medium low, with activity acceleration 15sec. Discussed with her whether she would want to try to maximize her sensor more; and she feels that it is working fine for he r. She has been seeing ACHD yearly, and has a remote monitor for her pacer. Since she live s in [place], and is using the pacer all the time, will plan to follow her more closely Follow up - Remote Every 4months, clinic in 1 year, coordinating with ACHD clinic Remote monitoring is: on documented in this en counter Plan of [...] Rd | | | | | | [place], [place] | | | | | | [address] | | | | | | [phone] | | | | | | | | +--------+ + + + + documented as of this encounter Procedures + +--------+ + + + | Procedure Name | Priori | Date/Time | Associated Diagnosis | Comments | | | ty | | | | + +--------+ + + + | CARDIOLOGY | | 12/25/2014 | | Results for this | | | | 12:00 AM | | procedure are in the | | | | PDT | | results section. | + +--------+ + + + documented in this encounter Results CARDIOLOGY (12/25/2014 12:00 AM PDT) + + + | [...] pacemaker in situ | + + | Bradycardia Other specified cardiac dysrhythmias | + + | Atrioventricular block, complete (HCC) Atrioventricular block, complete | + + documented in this encounter
--- OUTSIDE RECORDS SUMMARY | ~2019-10-07 | XMS | Encounter Summary ---
Demographics + + + | Address | [address] | | | [place] [address] | + + + | Home Phone [...] [place], [place] | | | | | [address] | | + + + + + | Polly Winston | ECON | ANAYA, | | + + + + + Care Team Providers + +------+ + | Care Damper Worker Name | Role | Phone | [...] [address] | | | | | | [place], | [place], [place] | | | | | | [place] [address] | [address] | | | | | | Phone: | | | | | | | [phone] | | | | | | | Fax: | | | | | | | [phone] | | +--------+--------+ + + + + Encounter Details +--------+---------+ + + + | Date | Type | Department | Care Team | Description | +--------+---------+ + + + | 06/27/ | Office | Cardiology | Mellissa Zhou, | [phone] SICK SINUS | | 2012 | Visit | Arrhythmia at [facility] | DIRECTOR OF PLAYER PERSONNEL | SYNDROME (Primary | | | | [address] | | Dx); Total | | | | [place] [facility] | | congenital anomalous | | | | and Healing, | | pulmonary venous | | | | Building [facility] | | connection; | | | | Floor [place], [place] | | Medtronic single | | | | [address] | | chamber pacemaker | | | | [phone] | | | +--------+---------+ + + + [...] encounter Progress Notes Mellissa Zhou Np - 06/27/2012 8:59 AM PDT REMOTE VISIT Current Outpatient Prescriptions Medication Sig etonogestrel-ethinyl estradiol 0.12-0.015 mg/[address] 1 Each into the v agina once. Following intravaginal insertion, ring should remain in place for 3 weeks, then removed for 1 week. A new ring is inserted 7 days after the last was removed. Notes: Called Joie to discuss the above. She has just started a new job with [employer] for the [employer]. She really likes it so far. She has been feeling well. She has not been dizzy or lightheaded. She has not had palpitations. She did not notice the NSVT e pisode in January. She is V pacing 89% of the time. She is regularly active. No changes made today. We reviewed symptoms to call about. She will send a remote transmission every three months--will plan for yearly clinic visit in the fall. documented in this encounter Plan of Treatment [...] [address] | | | | | | [place], [place] | | | | | | [address] | | | | | | [phone] | | | | | | | [...]
--- OUTSIDE RECORDS SUMMARY | ~2019-10-07 | XMS | Encounter Summary ---
Demographics + + + | Address | [address] | | | [place] [address] | + + + | Home Phone | | + + + | Preferred Language | Unknown | + + + | Marital Status | | + + + | Voodoo Affiliation | NON | + + + | Race | White | + + + | Ethnic Group | or | + + + Author + + + | Author | [facility] | + + + | Organization | [facility] | + + + | Address [...] [place], [place] | | | | | [address] | | + + + + + | Polly Winston | ECON | ANAYA, | | + + + + + Care Team Providers + +------+ + | Care Laboratory Technician Name | Role | Phone | + +------+ + | Gabrielle Fernández MD | PCP | | + +------+ + Encounter Details +--------+ + + + + | Date | Type | Department | Care Team | Description | +--------+ + + + + | 03/26/ | Telephone | Pediatric | Carlos Hinesdri, | | | 2011 | | Cardiology at | MD [address] [facility] [address] | | | | | [place] | [facility] | | | | | [facility] | [place], [place] | | | | | [address] | [address] | | | | | [place] | [phone] | | | | | [facility] | | | | | | [address] [facility], | | | | | | [place] [address] | | | | | | [phone] | | | +--------+ + + + [...] [address] | | | | | | [place], [place] | | | | | | [address] | | | | | | [phone] | | | | | | | | +--------+ + + + + documented as of this encounter Visit Diagnoses Not on filedocumented in this encounter"
--- OUTSIDE RECORDS SUMMARY | ~2019-10-07 | XMS | Encounter Summary ---
Demographics + + + | Address | [address] | | | [place] [address] | + + + | Home Phone | | + + + | Preferred Language | Unknown | + + + | Marital Status | | + + + | Judaism Affiliation | NON | + + + [...] [place], [place] | | | | | [address] | | + + + + + | Polly Winston | ECON | ANAYA, | | + + + + + Care Team Providers + +------+ + | Care Turner Off Name | Role | Phone | + +------+ + | Gabrielle Fernández MD | PCP | | + +------+ + Encounter Details +--------+ + + + + | Date | Type | Department | Care Team | Description | +--------+ + + + + | 09/17/ | Telephone | Pediatric | Carlos Hinesdri, | | | 2009 | | Cardiology at | MD [address] [facility] | | | | | [place] | [facility] | | | | | [facility] | [place], [place] | | | | | [address] | [address] | | | | | [place] | [phone] | | | | | [facility] | | | | | | 7th [facility], | | | | | | [place] [address] | | | | | | [phone] | | | +--------+ + + + [...] [address] | | | | | | [place], [place] | | | | | | [address] | | | | | | [phone] | | | | | | | | +--------+ + + + + documented as of this encounter Visit Diagnoses Not on filedocumented in this encounter"
--- OUTSIDE RECORDS SUMMARY | ~2019-10-07 | XMS | Encounter Summary ---
Demographics + + + | Address | [address] | | | [place] [address] | + + + | Home Phone [...] [place] | | | | | [address] | | + + + + + | Polly Winston | ECON | ANAYA, | | + + + + + Care Team Providers + +------+ + | Care Client Delivery Specialist Name | Role | Phone | + +------+ + | Gabrielle Fernández MD | PCP | | + +------+ + Encounter Details +--------+ + + + + | Date | Type | Department | Care Team | Description | +--------+ + + + + | 08/10/ | Transcribed | | Dictation, Other | [...] as of this encounter Progress Notes Interface, Traffic Lieutenant In - 01/16/2006 1:07 AM [facility] ON [address] [address] , [facility] [employer], Department of Medicine Division of Cardiology Cardiac Catheterization Laboratory [facility] [phone] Patient Name: Sarah Villarreal Patient Data: Height 61.50 in Weight 250.2 lb BSA 2.09 m2 Date of Procedure: August 12, 1999 : 1985 Physician: Antonio Hines M.D. Information Security, Pediatrics Division of Cardiology Referring Physician: Cyrus Hobbs M.D. Professor, Pediatric Cardiology Primary Physician: Jenniffer Fernández M.D. [facility] [address] [place] [address] TITLE OF PROCEDURE: Pacemaker atrial lead explantation. INDICATIONS: This patient underwent dual chamber pacemaker implantation yesterday for sick sinus syndrome with symptomatic bradycardia. 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 At yesterday's procedure, the patient had implantation of a screw-in lead in the ventricle and a screw-in lead in the right atrium. At the end of the procedure, it was noted that the right atrial lead had become dislodged. Therefore, yesterday, the wound was reopened, and the atrial lead was moved to a new spot where it was screwed in in the low right atrium. This morning's chest x-ray showed that this atrial lead had once again become dislodged. In view of this, it was decided that the patient needed an additional procedure, either to replace the lead or to explant it. After much consideration and discussion with my electrophysiology colleagues, I felt that trying to reimplant the same lead into a new spot would probably be counterproductive and could increase the chance of another dislodgement. Given that fact, and given the fact that we had already performed a long pacemaker procedure yesterday, I felt that the simplest course to undertake at this time was to remove the atrial lead and to leave the patient on ventricular pacing only for the time being. I felt that another prolonged procedure would incur the risk of wound infection, which would have been unacceptable. In view of this, the patient was brought back to the Cardiac Catheterization Laboratory for atrial lead explantation. PROCEDURE NARRATIVE: The patient was sedated with intravenous Versed and fentanyl. The wound was infiltrated with 1% lidocaine and reopened under sterile conditions. The atrial lead was detached from the pacemaker and was unscrewed back into its housing without any difficulty. The atrial lead was then explanted without any difficulty. The atrial lead port in the pacemaker was plugged with a custom plug-in device, and the pacemaker was put back in its pocket after the pocket being irrigated and cleaned out once again. The wound was closed back in sutures with interrupted 2.0 Dexon sutures to the subcutaneous layer, and a continuous subcuticular suture to the skin layer with 4.0 Dexon. The procedure was uneventful and well tolerated by the patient. The patient was transported back to the IRU in a stable condition in an awake and alert state. FINAL DIAGNOSIS: 1. 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 2. Sick sinus syndrome with symptomatic bradycardia. 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 4. Implantation of a dual chamber pacemaker, August 11, 1999. 5. Atrial lead dislodgement. 6. Explantation of atrial lead. I was present for the entire procedure, and performed the procedure myself. Antonio Hines M.D. Information Security, Pediatrics Division of Cardiology SB/allison LIO Goodwin, Traffic Lieutenant In - 01/16/2006 1:07 AM [facility] ON [address] [address] , [facility], Department of Medicine Division of Cardiology Cardiac Catheterization Laboratory [facility] [phone] Patient Name: Sarah Villarreal Patient Data: Height 61.50 in Weight 250.2 lb BSA 2.09 m2 Date of Procedure: August 11, 1999 MRN: [id number] : 1985 Physician: Antonio Hines M.D. Information Security, Pediatrics Division of Cardiology Referring Physician: Cyrus Hobbs M.D. Professor, Pediatric Cardiology Primary Physician: Jenniffer Fernández M.D. [address] [place] [address], [address] [place] [address] TITLE OF PROCEDURE: Pacemaker implantation. INDICATIONS: Sarah is a 13-year-old girl who has previously undergone total anomalous pulmonary venous return repair at the age of [age] days in [place]. Since November 1998, she has been having episodic lightheadedness. Holter monitors done have shown sinus bradycardia with low heart rates in the 30s. Although it was not established that sinus node dysfunction was the cause of her lightheadedness, in view of the significant sinus bradycardia, it was decided to perform a pacemaker implantation. The plan for today was to also perform single catheter atrial electrophysiology study to determine whether she needed a single lead atrial pacemaker versus a dual chamber pacemaker. PROCEDURE NARRATIVE: The right groin was prepped and draped, and using the Seldinger technique, a 6 Fr sheath was placed in the right femoral vein. Through this, a quadripolar catheter was placed in the right atrium, and atrial pacing was attempted. At a cycle length of 600 msec (100 beats per minute), the patient had atrioventricular node Wenckebach. This suggested straightaway that the patient needed a dual chamber pacemaker rather than a single chamber pacemaker. The quadripolar catheter was removed, and a multipurpose catheter was placed through the right femoral vein into the left subclavian vein where an injection of 8 cc of dye was performed to make sure that the left subclavian vein was nicely patent. Having confirmed this, the patient was then prepped and draped in the left pectoral region for pacemaker implantation. After additional doses of intravenous Versed and fentanyl, and one gram of Ancef (cefazolin), 1% lidocaine was instilled into the left infraclavicular region. A 2 cm long incision was made parallel to the clavicle in the lateral region of the infraclavicular region. Blunt dissection was carried out, and a subcutaneous pocket was created antegrade to the pectoralis muscle. Using the Seldinger technique, an 8 Fr Safe sheath was placed in the left subclavian vein. Through this, a 52 cm Tendril lead was placed in the right atrium. An additional wire was placed alongside the lead. The Safe sheath was peeled away, and a second sheath was placed through the previously inserted wire, and through this, a second lead, which was 46 cm in length, was placed into the atrium. Using appropriate stylets, the ventricular lead was positioned in the right ventricular apex. Testing at this site showed a ventricular threshold of 0.4 volts with a current of 0.46 mA, an impedance of 812 ohms, and an R wave of greater than 20 mV. This lead was screwed into place. Attention was then directed to the atrial lead. Using appropriate stylets, the atrial lead was screwed into the high right atrium on the medial aspect. The lead was tested and found to be working adequately. The leads were connected to a [employer] pacemaker, which was placed in the subcutaneous pocket, and the wound was closed in layers using 2.0 Vicryl for the subcutaneous layers and 4.0 Vicryl as a subcuticular layer for the skin closure. At the end of the procedure, fluoroscopy was done to make sure that the leads were in good position. At this time, it was noticed that the atrial lead had become dislodged. In view of the atrial lead dislodgement, the patient was prepped and draped once again, and the wound was reopened. Using a Locater Pacesetter stylet, the atrial lead was repositioned into the low right atrium, after many trials, into an area, where thresholds were good and no evidence of diaphragmatic stimulation was noticed. The threshold at this position was 0.5 volts with a current of 1.06 mA and an impedance of 521 ohms. The P wave was 2.71 mV. The lead was screwed into place and attached back into the [place] pacemaker. The pacemaker was replaced back in the pocket, and the wound was closed in layers after instilling 500 mg of Vancomycin into the wound pocket in order to try to prevent infection in view of the reopening of the wound. Apart from the atrial lead dislodgement, which was noticed and corrected, there were no other complications. The patient tolerated the procedure well. The sheath in the right femoral vein was removed, and pressure hemostasis was achieved. The patient was transported to the IRU in good condition, awake and alert. FINAL DIAGNOSIS: 1. 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 2. Sick sinus syndrome with dizziness. 3. 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 4. Status-post dual chamber pacemaker placement. Antonio Hines M.D. Information Security, Pediatrics Division of Cardiology KATYA/allison Tdocumented in this encounter Plan of Treatment +--------+ [...] [address] | | | | | | [place] | | | | | | [address] | | | | | | [phone] | | | | | | | | +--------+ + + + + documented as of this encounter Visit Diagnoses Not on filedocumented in this encounter"
--- OUTSIDE RECORDS SUMMARY | ~2019-10-07 | XMS | Encounter Summary ---
Demographics + + + | Address | [address] | | | [place] [address] | + + + | Home Phone [...] [place], [place] | | | | | [address] | | + + + + + | Polly Winston | ECON | ANAYA, | | + + + + + Care Team Providers + +------+ + | Care Rn Angiography Name | Role | Phone | + +------+ + | No Pcp Per Patient | PCP | Unavailable | + +------+ + Encounter Details +--------+ + + + + | Date | Type | Department | Care Team | Description | +--------+ + + + + | 05/19/ | Abstract | Cardiology | Madeleine Hernandez NP | | | 2017 | | Arrhythmia at [facility] | [address] | | | | | [address] | [place], [place] | | | | | [facility] | [address] | | | | | and [place], | [phone] | | | | | [facility] | | | | | | Floor [facility] [place] | | | | | | [address] | | | | | | [phone] | | | +--------+ + + + [...] | | 2020 | | | [address] [facility] | | | | | | [address] | | | | | | [place], [place] | | | | | | [address] | | | | | | [phone] | | | | | | | | +--------+ + + + + documented as of this encounter Visit Diagnoses Not on filedocumented in this encounter"
--- OUTSIDE RECORDS SUMMARY | ~2019-10-07 | XMS | Clinical Summary ---
Demographics + + + | Address | [address] | | | [place] [address] | + + + | Home Phone | | + + + | Preferred Language | Unknown | + + + | Marital Status | | + + + | Scientologist Affiliation | NON | + + + | Race | White | + + + | Ethnic Group | or | + + + Author + + + | Author | [facility] | + + + | Organization | [facility] | + + + | Address | [...] [place] | | | | | [address] | | + + + + + | Polly Winston | ECON | ANAYA, | | + + + + + Care Team Providers + +------+ + | Care Bridge Crew Member Name | Role | Phone | + +------+ + | Yuli Franklin | PCP | | + +------+ + Source Comments L[facility]OCARINA is [facility] and [facility] Allergies + + + + + + | Active Allergy | Reactions | Severity | Noted | Comments | | | | | Date | | + + + + + + | Ciprofloxacin | Hives | Medium | 11/26/19 | | | | | | 11 | | + + + + + + | Codeine | | Medium | 09/09/19 | Becomes Angry and | | | | | 06 | Rude | + + + + + + | Venom-Honey Bee | Edema | | 06/17/19 | | | | | | 14 | | + + + + + + Medications + + + +---------+------+------+-------+ | Medication | Sig | Dispensed | Refills | Star | End | Statu | | | | | | t | Date | s | | | | | | Date | | | + + + +---------+------+------+-------+ | vit | Take by mouth. | | 0 | | | Activ | | 91/iron/folic/dha | | | | | | e | | ( + DHA | | | | | | | | ORAL) | | | | | | | + + + +---------+------+------+-------+ | BABY ASPIRIN ORAL | Take by mouth. 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 | + + + | 427.81 SICK SINUS SYNDROME | | + + + + + | Overview: <PROVIDER>KAYLA CARDONA MD | + + + + + + | | Estimated Date of Delivery | Comments | + + + + | Yes | 12/25/2019 | Based on last | | | | menstrual period of | | | | 03/20/2019 (Exact | | | | Date) | + + + + Encounters +--------+ + + + + | Date | Type | Specialty | Care Team | Description | +--------+ + + + + | 09/20/ | Office | Cardiology | Haylie Paez, | Total congenital | | 2019 | Visit | | MD | anomalous pulmonary | | | | | | venous connection | | | | | | (Primary Dx); | | | | | | Cardiac disease in | | | | | | , second | | | | | | trimester | +--------+ + + + + | 09/20/ | | | Nellie Munson, | | | 2019 | | | MD | | +--------+ + + + + | 09/20/ | Hospital | Radiology | Nellie Munson, | | | 2019 | Encounter | | MD | | +--------+ + + + + | 09/20/ | Ancillary | | Nellie Munson, | | | 2019 | Orders | | MD | | +--------+ + + + + | 09/20/ | Travel | | | | | 2019 | | | | | +--------+ + + + + | 09/06/ | MyChart | | Nellie Munson, | RE: Record results | | 2020 | Encounter | | MD | from 08/20 | +--------+ + + + + | 08/20/ | | | Nellie Munson, | care | | 2020 | | | MD | | +--------+ + + + + | 08/20/ | Hospital | Radiology | Nellie Munson, | | | 2019 | Encounter | | MD | | +--------+ + + + + | 08/20/ | Results/Int | Pediatric Cardiology | Kiki Buitrago, | Maternal | | 2019 | erpretation | | MD | cardiovascular | | | | | | disease complicating | | | | | | , | | | | | | antepartum (Primary | | | | | | Dx) | +--------+ + + + + | 08/20/ | Hospital | Pediatric Cardiology | | | | 2019 | Encounter | | | | +--------+ + + + + | 08/20/ | Ancillary | Radiology | Nellie Munson, | | | 2019 | Orders | | MD | | +--------+ + + + + | 08/20/ | Travel | | | | | 2020 | | | | | +--------+ + + + + | 08/16/ | Telephone | Radiology | Nellie Munson, | US - Ultrasound | | 2019 | | | MD | (Requesting Anatomy | | | | | | US Order for 08/20 | | | | | | appt.) | +--------+ + + + + | 08/10/ | MyChart | | Mellissa Harrison, | RE: Ultrasound | | 2019 | Encounter | | MD | results 08/07/19 | +--------+ + + + + | 08/10/ | Documentati | | No Referring | | | 2020 | on | | Provider Per Patient | | +--------+ + + + + | 08/10/ | Documentati | | No Referring | | | 2020 | on | | Provider Per Patient | | +--------+ + + + + | 08/10/ | Telephone | | Nellie Munson, | US - Ultrasound | | 2020 | | | MD | | +--------+ + + + + from Last 3 Months Family History + + +------+ + | Medical History | Relation | Name | Comments | + + +------+ + | Asthma | Brother | | | + + +------+ + | Asthma | Brother | | | + + +------+ + | No Known Problems | Maternal | | | | | Grandfath | | | | | er | | | + + +------+ + | Skin Cancer | Maternal | | | | | Grandmoth | | | | | er | | | + + +------+ + | Depression | Mother | | | + + +------+ + | Lung Cancer | Paternal | | 2018 | | | Grandfath | | | | | er | | | + + +------+ + + +------+ + + | Relation | Name | Status | Comments | + +------+ + + | Brother | | Alive | | + +------+ + + | Brother | | Alive | | + +------+ + + | Brother | | Alive | | + +------+ + + | Brother | | Alive | | + +------+ + + | Brother | | Alive | | + +------+ + + | Father | | Alive | | + +------+ + + | Maternal Grandfather | | | | + +------+ + + | Maternal Grandmother | | Alive | | + +------+ + + | Mother | | Alive | | + +------+ + + | Paternal Grandfather | | | | + +------+ + + | Paternal Grandmother | | Alive | | + +------+ + + | Sister | | Alive | | + +------+ + + Social History + +-------+ +--------+------+ [...] + + + + + + | | Estimated Date of Delivery | Comments | + + + + | Yes | 12/25/2019 | Based on last | | | | menstrual period of | | | | 03/20/2019 (Exact | | | | Date) | + + + + + + [...] | | | + + + + Last Filed Vital Signs + + + [...] | | + + + + + Plan of Treatment +--------+ + + + [...] Rd | | | | | | [place], [place] | | | | | | [address] | | | | | | [phone] | | | | | | | | +--------+ + + + + + + + + + | Health Maintenance | Due Date | Last Done | Comments | + + + + + | Influenza (Flu) | | 01/16/2016, 12/25/2005, | | | vaccination (#1) | 0 | 12/05/2004, Additional history | | | | | exists | | + + + + + | Pneumococcal | Aged Out | 11/26/2003 | No longer eligible | | vaccination | | | based on patient's | | | | | age to complete this | | | | | topic | + + + + + Implants + +------+--------+ +--------+--------+--------+ | Implanted | Type | Area | Manufacture | Device | Shelf | Model | | | | | r | | Expira | / | | | | | | Identi | tion | Serial | | | | | | fier | Date | / Lot | + +------+--------+ +--------+--------+--------+ | Ra Lead-07/05/2017Implanted: | LEAD | Left: | [employer] | | 03/22/ | [id number] | | Qty: 1 on 07/05/2017 by | | Chest | INC | | 2020 | /[id number] | | [place]hel [place] | | | | | | [id number] | | | | | | | | / | + +------+--------+ +--------+--------+--------+ + + | Description:RA Lead for | | Upgrade to Bi-V (LONG WALL MINING MACHINE HELPER-P) PPM | + + + +------+---+ +---+--------+--------+ | Cs-Lead-07/05/2017Implanted: | LEAD | | [employer] | | 05/17/ | ATTAIN | | Qty: 1 on 07/05/2017 by | | | [place] | | 2020 | | | Bethel Salvador MD | | | | | | PERFOR | | | | | | | | MA S | | | | | | | | [id number] | | | | | | | | /[id number] | | | | | | | | [id number] | | | | | | | | / | + +------+---+ +---+--------+--------+ + + | Description:Cornary Sinus | | Pacemaker Lead | + + + +--------+--------+ +---+---+--------+ | Pacemaker-07/05/2017Implanted: | PACEMA | Left: | [employer] | | | PERCEP | | 07/05/2017 by Neha Salvador KER | Chest | [place] | | | TA | | Bethel Lizarraga MD (Quantity not | | | | | | QUAD | | on file) | | | | | | | | | | | | | | [id number] | | | | | | | | | | | | | | | | /[id number] | | | | | | | | [id number] | | | | | | | | / | + +--------+--------+ +---+---+--------+ + + | Description:Dual Chamber | | LONG WALL MINING MACHINE HELPER-Pacemaker | + + + +---+--------+ +---+--------+--------+ | Antibacterial | | Left: | [employer] | | 07/29/ | [id number] | | Envelope-07/05/2017Implanted: | | Chest | | | 2018 | 33 / | | Qty: 1 on 07/05/2017 by | | | | | | /[id number] | | Bethel aSlvador MD | | | | | | 14 | + +---+--------+ +---+--------+--------+ + + | Description:TYRX Absorbable | | Antibacterial Envelope | + + Procedures + +--------+ + + + | [...] + | US UTERUS | Routin | 09/21/2019 | Maternal | Results for this | | TRANSVAGINAL REAL | e | 1:53 PM | congenital cardiac | procedure are in the | | TME | | PDT | anomaly affecting | results section. | | | | | in first | | | | | | trimester, | | | | | | antepartum | | + +--------+ + + + | US UTERUS | Routin | 09/21/2019 | Maternal | Results for this | | FOLLOW-UP SCAN | e | 1:53 PM | congenital cardiac | procedure are [...] | + +--------+ + + + | [place] DOPPLER COLOR | Routin | 08/21/2019 | Maternal | | | FLOW VELOCITY MAP | e | 3:03 PM | cardiovascular | | | | | PDT | disease complicating | | | | | | , | | | | | | antepartum [...] | | + +--------+ + + + from Last 3 Months Results UA 4 DIP, POC (09/21/2019 2:27 [...] | DIP), POC | | mg/dL | [facility] | | | | | | [facility], POINT | | | | | | OF CARE | | | | | | TESTS | | + + + + + + | GLUCOSE (UA | Negative | Negative - | [facility] - | | | DIP), POC | | Trace mg/dL | [facility] | | | | | | WALK[facility] [...] | [address] | [place], [place] | | | [facility] | [address] | [address] | | | TESTS | | | | + + + + + US UTERUS FOLLOW-UP SCAN (09/21/2019 1:53 PM PDT) + + | Specimen | + + | | + + + + + | Narrative | Performed At | + + + | [facility] | [facility] | | OBSTETRICAL ULTRASOUND REPORT | RADIOLOGY OB US | | | | | Pat. Name: JOIE COATES Study | | | Date: 09/21/2019 12:58pm Pat. No: [id number] | | | Referring MD: KINDRA COHEN F LMP: | | | 03/20/2019 Installers Mechanical: ОЛЬГА MARADIAGA, | | | MAYDA GA by LMP: 26w3d , Age: | | | 1985, 33 GA by Last:26w3d | | | Pregnancies: 1, Para 0000 GA by US: 27w6d | | | GA Selected: 26w3d (LMP) Hist/Ind: | | | Growth Follow up previa | | | CPT4: 05268,37788 | | | MARINA: | | | 12/25/2019 | | | | | | MEASUREMENTS & AGE | | | GROWTH EVALUATION Measurement GA Range Source % | | | 26w3d Ratios ----- ------- | | | BPD 7.0 cm 28w1d | | | (03h4a-55u6k) Hadlock BPD 85% FL/BPD 0.75 (0.71 - 0.87) HC | | | 25.7 cm 27w6d (01a2i-25d0j) [place] HC 82% FL/AC 0.21 | | | (0.20 - 0.24) AC 25.2 cm 29w2d (15v8r-88r5w) [place] AC >95 | | | HC/AC 1.02 (1.00 - 1.19) FL 5.2 cm 27w6d (48z7a-89l8m) Hadlock | | | FL 81% CI 0.77 (0.70 - 0.86) GA for sonogram 27w6d | | | (02i2g-76d3h) Weight Estimate: based on (BPD,HC,AC,FL) | | [...] | | | ! x ! Cardiac Dryfork/! ! ! | | | ! x [...] | | CLINICAL SUMMARY Type of Gestation: Huffman Uterus and | | | adnexae: No [...] and placental | | | evaluation. Ms Coates is seen in the Maternal Cardiac Program in [facility] | | | due to TAPVR s/p [...] any time and ask for the perinatologist micromatic hone operator. | | | [phone] or [phone] VICKY LAM MD | | | <Electronic [...] - 09/21/2019 3:01 PM PDT | | [facility] OBSTETRICAL ULTRASOUND | | | | REPORT Pa | | t. Name: JOIE COATES Study Date: 09/21/2019 12:58pmPat. No: | | [id number] Referring MD: KINDRA COHEN FLMP: 03/20/2019 | | Installers Mechanical: ОЛЬГА MARADIAGA RDMSGA by LMP: 26w3d | | , Age: 10 1985, 33GA by Last:26w3d Pregnancies: | | 1, Para 0000GA by US: 27w6d GA Selected: 26w3d | | (LMP)Hist/Ind: Growth Follow up previa | | CPT4: 42608,31445 MARINA: | | 12/25/2019 | | --MEASUREMENTS & AGE GROWTH EVALUATIONMeasurement GA | | Range Source % 26w3d Ratios ----- ------- | | BPD 7.0 cm 28w1d (47k9n-65r5h) [place] BPD 85% FL/BPD | | 0.75 (0.71 - 0.87)HC 25.7 cm 27w6d (43x7l-97l4f) [place] HC 82% FL/AC 0.21 (0.20 | | - 0.24)AC 25.2 cm 29w2d (33s1m-61l0q) [place] AC >95 HC/AC 1.02 (1.00 - 1.19)FL | | 5.2 cm 27w6d (65j9n-88d8y) [place] FL 81% CI 0.77 (0.70 - 0.86)GA for sonogram | | 27w6d (53o9u-64u3g) Weight Estimate:based on (BPD,HC,AC,FL) Hadlock | | Weight: 1258 gm (1074-1442gm) Hadlock : | | 2lbs, 12oz Normal: 912 gm (606-1380gm) Rebeca | | Wt% 80% for 55t4hTbxvhd: Length: 3.6 cmFetal | | Heart Rate: [...] ! ! ! x | | !Cardiac Dryfork/! ! ! ! x !Four Chamber ! [...] the Maternal | | Cardiac Program in [facility] due to TAPVR s/p correction with sick [...] and ask for the perinatologist | | micromatic hone operator. [phone] or [phone], JORGE, MD <Electronic | | Signature> 09/21/2019 [...] | |CLINICAL SUMMARY | |Type of Gestation: Huffman | |Uterus and adnexae: No abnormalities seen. [...] in the Maternal Cardiac | |Program in [facility] due to TAPVR s/p correction with sick [...] | |time and ask for the perinatologist micromatic hone operator. [phone] or [phone] | |VICKY LAM MD | | | [...] | | + +---------+ + + US UTERUS TRANSVAGINAL REAL TME (09/21/2019 1:53 PM PDT)Only the most recent of 2 results within the time period is included. + + | Specimen | + + | | + + + + + | Narrative | Performed At | + + + | [facility] | [facility] | | OBSTETRICAL ULTRASOUND REPORT | RADIOLOGY OB US | | | | | Pat. Name: JOIE COATES Study | | | Date: 09/21/2019 12:58pm Pat. No: [id number] | | | Referring MD: KINDRA COHEN F LMP: | | | 03/20/2019 Installers Mechanical: ОЛЬГА MARADIAGA, | | | RDMS GA by LMP: 26w3d , Age: | | | 1985, 33 GA by Last:26w3d | | | Pregnancies: 1, Para 0000 GA by US: 27w6d | | | GA Selected: 26w3d (LMP) Hist/Ind: | | | Growth Follow up previa | | | CPT4: 91155,66973 | | | MARINA: | | | 12/25/2019 | | | | | | MEASUREMENTS & AGE | | | GROWTH EVALUATION Measurement GA Range Source % | | | 26w3d Ratios ----- ------- | | | BPD 7.0 cm 28w1d | | | (97v4k-87i8j) Hadlock BPD 85% FL/BPD 0.75 (0.71 - 0.87) HC | | | 25.7 cm 27w6d (10n7n-26u8i) [place] HC 82% FL/AC 0.21 | | | (0.20 - 0.24) AC 25.2 cm 29w2d (96b8e-23k8w) [place] AC >95 | | | HC/AC 1.02 (1.00 - 1.19) FL 5.2 cm 27w6d (77r5p-23b6u) Hadlock | | | FL 81% CI 0.77 (0.70 - 0.86) GA for sonogram 27w6d | | | (99a7i-02b5s) Weight Estimate: based on (BPD,HC,AC,FL) | | [...] | | | ! x ! Cardiac Dryfork/! ! ! | | | ! x [...] | | CLINICAL SUMMARY Type of Gestation: Huffman Uterus and | | | adnexae: No [...] and placental | | | evaluation. Ms Coates is seen in the Maternal Cardiac Program in [facility] | | | due to TAPVR s/p [...] any time and ask for the perinatologist micromatic hone operator. | | | [phone] or [phone] VICKY LAM MD | | | <Electronic [...] - 09/21/2019 3:01 PM PDT | | [facility] OBSTETRICAL ULTRASOUND | | | | REPORT Pa | | t. Name: JOIE COATES Study Date: 09/21/2019 12:58pmPat. No: | | [id number] Referring MD: KINDRA COHEN, AGATHAMP: 03/20/2019 | | Installers Mechanical: ОЛЬГА MARADIAGA RDMSGA by LMP: 26w3d | | , Age: 10 1985, 33GA by Last:26w3d Pregnancies: | | 1, Para 0000GA by US: 27w6d GA Selected: 26w3d | | (LMP)Hist/Ind: Growth Follow up previa | | CPT4: 13167,50526 MARINA: | | 12/25/2019 | | --MEASUREMENTS & AGE GROWTH EVALUATIONMeasurement GA | | Range Source % 26w3d Ratios ----- ------- | | BPD 7.0 cm 28w1d (28r5f-00m8l) [place]lock BPD 85% FL/BPD | | 0.75 (0.71 - 0.87)HC 25.7 cm 27w6d (54p5w-05k0d) [place] HC 82% FL/AC 0.21 (0.20 | | - 0.24)AC 25.2 cm 29w2d (65y5z-89f9b) [place] AC >95 HC/AC 1.02 (1.00 - 1.19)FL | | 5.2 cm 27w6d (83j9z-79q7f) [place]lock FL 81% CI 0.77 (0.70 - 0.86)GA for sonogram | | 27w6d (57r9u-37f0b) Weight Estimate:based on (BPD,HC,AC,FL) Hadlock | | Weight: 1258 gm (1074-1442gm) Hadlock : | | 2lbs, 12oz Normal: 912 gm (606-1380gm) Rebeca | | Wt% 80% for 17a9qNofghu: Length: 3.6 cmFetal | | Heart Rate: [...] ! ! ! x | | !Cardiac Dryfork/! ! ! ! x !Four Chamber ! [...] the Maternal | | Cardiac Program in [facility] due to TAPVR s/p correction with sick [...] and ask for the perinatologist | | micromatic hone operator. [phone] or [phone], JORGE, MD <Electronic | | Signature> 09/21/2019 [...] | |CLINICAL SUMMARY | |Type of Gestation: Huffman | |Uterus and adnexae: No abnormalities seen. [...] for | |growth and placental evaluation. Ms Coates is seen in the Maternal Cardiac | |Program in [facility] due to TAPVR s/p correction with sick [...] | |time and ask for the perinatologist micromatic hone operator. [phone] or [phone] | |VICKY LAM MD | | | |<Electronic Signature> 09/21/2019 02:53pm | |Revised | | | | | |I have personally reviewed the images and, if necessary, edited the report. I agree with t he report as now presented. | + + + +---------+ + + | Performing | Address | City/[facility] | Phone Number | | Organization | [...] Performed At | + + + | [facility] | [facility] | | OBSTETRICAL ULTRASOUND REPORT | RADIOLOGY OB US | | | | | Pat. Name: JOIE COATES Study | | | Date: 08/21/2019 2:47pm Pat. No: [id number] | | | Referring MD: KINDRA COHEN F LMP: | | | 03/20/2019 Installers Mechanical: ANGEL SOLITARIO, | | | BS, MAYDA GA by LMP: 22w0d , | | | Age: 10 1985, 33 GA by Last:22w0d | | | Pregnancies: 1, Para 0000 GA by US: 22w5d | | | GA Selected: 22w0d (From Last St) | | | Hist/Ind: Anatomy detail, evaluate complete previa and vasa | | | previa, Maternal congenital cardiac anomaly | | | CPT4: 88211,74973 | | | MARINA: | | | 12/25/2019 | | | | | | MEASUREMENTS & AGE | | | GROWTH EVALUATION Measurement GA Range Source % | | | 22w0d Ratios ----- ------- | | | BPD 5.4 cm 22w4d | | | (97s4b-08d6u) [place]lock BPD 65% FL/BPD 0.77 HC 20.2 cm 22w2d | | | (71m6d-19v2n) [place] HC 59% FL/AC 0.23 (0.20 - 0.24) AC | | | 18.6 cm 23w3d (77v1f-09d1k) [place] AC 80% HC/AC 1.08 | | | (1.04 - 1.23) FL 4.2 cm 23w4d (11y0t-56s6w) [place]lock FL 91% | | | CI 0.75 (0.70 - 0.86) HL 4.0 cm 24w2d (98c0j-90h9r) Zari | | | HL 88% Cere 2.3 cm Hill | | | Cere [place] for sonogram 22w5d (42j5m-73f6f) Weight | | | Estimate: based on [...] ! | | | ! ! Cardiac Dryfork/! x ! ! | | | ! [...] | | CLINICAL SUMMARY Type of Gestation: Huffman Uterus and | | | adnexae: No [...] any time and ask for the perinatologist micromatic hone operator. | | | [phone] or [phone] ASHLEE HOOVER MD | | | <Electronic Signature> 08/21/2019 04:07pm | | | I have personally reviewed the images and, if necessary, edited | | | the report. I agree with the report as now presented. | | + + + + + | Procedure Note | + + | Miles Red, Lorie Res In Interface - 08/21/2019 4:10 PM PDT | | [facility] OBSTETRICAL ULTRASOUND | | | | REPORT Pa | | maira Name: JOIE COATES Study Date: 08/21/2019 2:47pmPat. No: | | [id number] Referring MD: KINDRA COHEN, FLMP: 03/20/2019 | | Installers Mechanical: ANGEL SOLITARIO BS, RDMSGA by LMP: 22w0d | | , Age: 10 1985, 33GA by Last:22w0d | | Pregnancies: 1, Para 0000GA by US: 22w5d GA Selected: | | 22w0d (From Last )Hist/Ind: Anatomy detail, evaluate complete previa and vasa | | previa, Maternal congenital cardiac anomaly | | [facility]4: [id number] MARINA: | | 12/25/2019 | | --MEASUREMENTS & AGE GROWTH EVALUATIONMeasurement GA | | Range Source % 22w0d Ratios ----- ------- | | BPD 5.4 cm 22w4d (71l0e-78n2c) [place]lock BPD 65% FL/BPD | | 0.77HC 20.2 cm 22w2d (43e3a-21f4i) [place] HC 59% FL/AC 0.23 (0.20 - 0.24)AC | | 18.6 cm 23w3d (19y7k-07t1e) [place] AC 80% HC/AC 1.08 (1.04 - 1.23)FL 4.2 cm | | 23w4d (21v1d-41h3o) [place]lock FL 91% CI 0.75 (0.70 - 0.86)HL 4.0 cm 24w2d | | (24u1m-19e8w) Zari HL 88%Cere 2.3 cm [place] Cere [place] for | | sonogram 22w5d (54m4i-92y5b) Weight Estimate:based on (BPD,HC,AC,FL) Hadlock | | Weight: 586 gm (500-671gm) Hadlock | | : 1lbs, 4oz Normal: 480 gm (320-920gm) Rebeca | | Wt% 60% for 35c1vBptto Heart Rate: 142 | | bpm | [...] x ! ! ! | | !Cardiac Dryfork/! x ! ! ! !Four Chamber ! [...] any time and ask for the perinatologist micromatic hone operator. [phone] or [phone], | | ASHLEE JAIME <Electronic Signature> 08/21/2019 [...] | |CLINICAL SUMMARY | |Type of Gestation: Huffman | |Uterus and adnexae: No abnormalities seen. [...] | |time and ask for the perinatologist micromatic hone operator. [phone] or [phone] | |ASHLEE HOOVER MD | | | [...] | + +---------+ + + UA 4 JOSEPH N/CANASTASIIA (08/21/2019 3:01 PM PDT) + + + [...] | DIP), POC | | mg/dL | [facility] | | | | [...] + + + + | [facility] | [address] | [place], [place] | | | [facility] | [address] | [address] | | | TESTS | | | | + + + + + ECHOCARDIOGRAM, PEDS (08/21/2019 1:06 PM PDT) + [...] | + +---- + | | [facility] | | Echocardiography Laboratory [address] | CAR DIOLOGY | | [place] [address] ; | | | ECV 3660 Echocardiogram and Consultation Report | | | NAME: JOIE COATES Study Date: 08/21/2019 1:06:28 PMPatient ID#: | | | [id number] Order #: [id number] ACC #: [id number] : 1985 Ht: | | | Age: [...] of the heart/pacemakers. No history of early MS or sudden . The | | | [...] BiometryBiparietal Diameter: 5.4 cm | | | 26q3tDlgrx Length: 4.3 cm 85c9eSffigzza | | | Circumference: 15.0 cm 50p7jDwrklnrjfuenbc Ratio: 50.1 % | | | Pulsatility [...] | | 0.57 m/sPeak gradient 1.31 mmHg Installers Mechanical: Marga Husain | | | CLINTSonographer: Ivone Dick RDCS Electronically signed by | | | [id number] Danielito Blount 08/21/2019 at 2:48:19 PM | | | Echocardiography Laboratory [address] | | | [place] [address] ; | | | Echocardiogram and Consultation Report MELLISSA Worley | | | NANY HARRISON, Ms. JOIE COATES underwent a | | | cardiac consultation. [...] No history | | | of early MS or sudden . She takes Baby Asprin. [...] report. I discussed the exam limitations with JOIE COATES. As you | | | know, the [...] | | | findings discussed with Ms Post. Normal cardiac anatomy with | | | qualitatively normal biventricular systolic function. No further | | | cardiac imaging indicated. [facility] Regards, [phone] Danielito Buitrago | | | MD Final [...] | | | | | | | |Installers Mechanical: Marga Husain RDCS | | |Installers Mechanical: Ivone Dick RDCS | | | | | | | | |Electronically signed by [id number] Danielito Buitrago MD | | |on 08/21/2019 at 2:48:19 PM | | | | | | | | | | | | Echocardiography Laboratory | | | [address] [facility] | | | [place] [address] | | | ; | | | Echocardiogram and Consultation Report | | | | | | | | |MELLISSA HARRISON | | | | | | | | |Greetings MELLISSA HARRISON, | | | | | |Ms. JOIE COATES underwent a cardiac consultation. The patient is [...] |of the heart/pacemakers. No history of early MS or sudden . She takes Baby | [...] | |I discussed the exam limitations with JOIE COATES. As you know, the limitations of | [...] | | |All findings discussed with Ms Coates. Normal cardiac anatomy with qualitatively | | |normal biventricular systolic function. No further cardiac imaging indicated. | | | | | |Best Regards, | | | | | |[id number] Danielito Buitrago MD | | | | | | | | | | | | Final | | + +---- + + + | Procedure Note | + + | Interface, Cardiology Results - 08/21/2019 2:48 PM [facility] Echocardiography Laboratory | | [address] | | [place] [address] | | ; | | ECV [id number] | | | | Echocardiogram and Consultation Report | | | | | | NAME: JOIEMEGAN COATES Study Date: 08/21/2019 1:06:28 PM | | Order #: [id number] ACC #: [id number] | | | | : 1985 Ht: | | Age: 33 years Wt: | | Gender: F BSA: | | BMI | | | | Requesting Physician: MELLISSA HARRISON | | Reason for test: , maternal [...] of the heart/pacemakers. No history of early MS or | | sudden . The patient [...] mmHg | | | | | | Installers Mechanical: Marga Husain RDCS | | Installers Mechanical: Ivone Dick RDCS | | | | | | | | | | | | | | Echocardiography Laboratory | | [address] | | [place] [address] | | ; | | Echocardiogram and Consultation Report | | | | | | MELLISSA HARRISON | | | | | | Emely HARRISON, | | | | Ms. JOIE COATES underwent a cardiac consultation. The patient is [...] of the heart/pacemakers. No history of early MS or sudden . She takes Baby | [...] | I discussed the exam limitations with JOIE COATES. As you know, the limitations of | [...] | | All findings discussed with Ms Coates. Normal cardiac anatomy with qualitatively | | normal biventricular systolic function. No further cardiac imaging indicated. | | | | Best Regards, | | | | [phone] Danielito Buitrago MD | | | | | | | | Final | + + + + + + + | Performing | Address | City/State/Zipcode | Phone Number | | Organization | | | | + + + + + | [facility] | [address] [facility] | [place], [place] | | | CARDIOLOGY | [address] | [address] | | + + + + + from Last 3 Months Insurance + +--------+ +--------+ + +------+ | Payer | Benefi | Subscriber | Effect | Phone | Address | Type | | | t Plan | ID | tricia | | | | | | / | | Dates | | | | | | Group | | | | | | + +--------+ +--------+ + +------+ | LOUIAS | PACIFI | xxxxxxxxxxx | 09/30/19 | [phone] | [address] | PPO | | | [facility] | | [phone] | | | | [address] | | sent | | [place] | | | | | | | | , [place] | | | | | | | | [address] | | + +--------+ +--------+ + +------+ + +--------+ +--------+ + + | Guarantor Name | Accoun | Relation to | Date | Phone | Billing Address | | | t Type | Patient | of | | | | | | | | | | + +--------+ +--------+ + + | Joie Coates | Person | Self [birth year] | [address] | | | al/Fam | | 1986 | [phone] | [place] [address] | | | lino | | | 1 (Home) | | + +--------+ +--------+ + + Advance Directives + + + + + | Type | Date Recorded | Patient | Explanation | | | | Weigher And Grader | | + + + + + | Advance | | | | | Directives and | | | | | Living Will | | | | + + + + + | Power of | | | | | Station Baggage Porter | | | | + + + + + + + + + + | Code Status | Date | Date | Comments | | | Activated | Inactivated | | + + + + + | Full Code | 07/05/2017 | 07/06/2017 | | | | 1:08 PM | 2:35 PM | | + + + + + + + + +---+ | | | | | + + + +---+ | Full Code | 08/13/2008 | 08/14/2008 | | | | 2:30 PM | 2:42 AM | | + + + +---+ + + + +---+ | | | | | + + + +---+ | Full Code | 08/13/2008 | 08/13/2008 | | | | 9:42 AM | 2:30 PM | | + + + +---+
--- OUTSIDE RECORDS SUMMARY | ~2019-10-07 | XMS | Encounter Summary ---
Demographics + + + | Address | [address] | | | [place] [address] | + + + | Home Phone [...] [place], [place] | | | | | [address] | | + + + + + | Polly Winston | ECON | ANAYA, | | + + + + + Care Team Providers + +------+ + | Care Professional Driver Name | Role | Phone | [...] Closed | | Cardiology | Diagnoses | Hernandez, | Car Echo | | | | | Total | MadeleineLEONARD | [address] | | | | | congenital | [address] | [address] | | | | | anomalous | Ave | [facility] | | | | | pulmonary | [place], [place] | Health and | | | | | venous | [address] | Healing, | | | | | connection | Phone: | [address] | | | | | Procedures | [phone] | [place], [place] | | | | | TRANSTHORACI | Fax: | [address] | | | | | C | [phone] | Phone: | | | | | ECHOCARDIOGR | | [phone] | | | | | AM, ADULT | | | +--------+--------+ + + + + Encounter Details +--------+ + + + + | Date | Type | Department | Care Team | Description | +--------+ + + + + | 01/28/ | Hospital | Cardiac | | | | 2017 | Encounter | Non-Invasive Testing | | | | | | at [facility] [address] | | | | | | [facility] | | | | | [facility], | | | | | | [address] | | | | | | [place], [place] | | | | | | [address] | | | | | | [phone] | | | +--------+ + + + [...] + documented as of this encounter Progress Lilian Dave - 01/28/2017 1:53 PM PSTTransthoracic echocardiogram completed. Final report to follow. documented in this encounter Plan of Treatment [...] [address] | | | | | | [place], [place] | | | | | | [address] | | | | | | [phone] | | | | | | | | +--------+ + + + + documented as of this encounter Procedures + +--------+ + + + | Procedure Name | Priori | Date/Time | Associated Diagnosis | Comments | | | ty | | | | + +--------+ + + + | TRANSTHORACIC | Routin | 01/28/2017 | Total congenital | Results for this | | ECHOCARDIOGRAM, | e | 1:07 PM | anomalous pulmonary | procedure are in the | | ADULT | | PST | venous connection | results section. | + +--------+ + + + documented in this encounter Results TRANSTHORACIC ECHOCARDIOGRAM, ADULT (01/28/2017 1:07 PM PST) + + + + + + | Component | Value | Ref Range | Performed | Pathologist | | | | | At | Signature | + + + + + + | BIPLANE, EF | 58 | | [facility] | | | | | | OF | | | | | | CARDIOLOGY | | + + + + + + | EJECTION | 65 to 70 | | [facility] | | | FRACTION | | | OF | | | | | | CARDIOLOGY | | + + + + + + | LA | 2.5 | | [facility] | | | DIMENSION | | | OF | | | | | | CARDIOLOGY | | + + + + + + | LVIDD | 4.6 | | [facility] | | | | | | OF | | | | | | CARDIOLOGY | | + + + + + + | MV A VMAX | 0.5 | | [facility] | | | | | | OF | | | | | | CARDIOLOGY | | + + + + + + | MV E? | 0.2 | | [facility] | | | | | | OF | | | | | | CARDIOLOGY | | + + + + + + | MV E VMAX | 1.3 | | [facility] | | | | | | OF | | | | | | CARDIOLOGY | | + + + + + + | RVSP | 24 | | [facility] | | | | | | OF | | | | | | CARDIOLOGY | | + + + + + + | RV TAPSE | 1.5 | | [facility] | | | | | | OF | | | | | | CARDIOLOGY | | + + + + + + | RV TDI S? | 8.0 | | [facility] | | | | | | OF | | | | | | CARDIOLOGY | | + + + + + + | EJECTION | 67.5 | % | [facility] | | | FRACTION | | | OF | | | RANGE MEAN | | | CARDIOLOGY | | | VALUE | | | | | + + + + + + + + | Specimen | + + | | + + + +---- + | Narrative | Per formed At | + +---- + | [facility] | [facility] | | [facility] [address] | CAR DIOLOGY | | [place], [place] [address] Ph: | | | Pt Name: JOIE MANCIA | | | Study Date/Time 01/28/2017 / 1:07:38 PMMRN: [id number] | | | Most recent prior: 12/25/2014 #: [id number] | | | No. 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 Medtronic single chamber pacemaker Patient history has [facility] | | | [facility] Tr[facility] Ech[facility] Report | | | + | | | ---------+Final Impressions: | | | | | | | | | | | | | | | 1. The left ventricular cavity size is normal. | | | 2. The LV ejection fraction is normal. | | | 3. Right | | | ventricular size, thickness and function are normal. | | | 4. No significant valvular abnormalities seen. | | | 5. There is a posterior common baffle | | | of the pulmonary veins without evidence of baffle | | | obstruction. | | | 6. Compared to the most recent exam dated, 12/25/2014, | | | there are no significant changes. | | | | | | | | | | | | + | | | + Description of Findings: Cardiac Rhythm: Normal sinus | | | rhythm.Left Ventricle: The left ventricular cavity size is normal. | | | Visually estimated left ventricular ejection fraction is 65 - 70%. The | | | ejection fraction is 57.9 % as measured by Griffin's biplane method. | | | The LV ejection fraction is normal.Left Ventricular Wall Motion: Left | | | ventricular systolic thickening is normal in all segments.Atria: Left | | | atrial size is normal. Normal right atrium.Right Ventricle: Right | | | ventricular size, thickness and function are normal. TAPSE measures | | | 1.5cm. The RV TDI s' velocity is 8cm/sec.Aortic Valve: The aortic | | | valve is trileaflet and normal in structure and function. No | | | indication of aortic valve regurgitation.Mitral Valve: The mitral | | | valve is structurally normal. No evidence of mitral valve stenosis. No | | | evidence of mitral valve regurgitation.Tricuspid Valve: The tricuspid | | | valve is structurally normal. Mild tricuspid regurgitation. The | | | tricuspid regurgitant velocity is 2.16 m/s, and with an assumed right | | | atrial pressure of 5 mmHg, the estimated right ventricular systolic | | | pressure is normal at 23.7 mmHg.Pulmonic Valve: The pulmonic valve is | | | structurally normal. The peak trans pulmonic gradient is 5.7 | | | mmHg.Aorta: Visualized portions of the ascending aorta and aortic root | | | appear normal.Venous: Inferior vena cava is normal with normal | | | inspiratory collapse.Pericardium: No pericardial effusion is seen.2D | | | Measurements Doppler Measurements | | | 2D NL Values Aortic MitralLVID(d) 4.59 | | | (3.5-5.7cm) Max Markie 1.66 Peak E 1.30 cm | | | m/s m/sLVID(s) | | | 2.67 Mean grad 6.0 Peak A 0.50 | | | cm mmHg | | | m/sIVS(d) 0.76 (0.6-1.1cm) LVOT Markie 1.38 E/A Ratio | | | 2.58 cm | | | m/sLVPW(d) 0.89 (0.6-1.1cm) TDI (E/e') | | | 7.6 cm LVOT Diam 1.86 MV mn | | | gdLA A/Ps 2D 2.54 (2.7-3.9cm) cm cm | | | Tricuspid PulmonicLA vol A/L 34.9 | | | (40-73ml) TR Vmax 2.16 PV Vmax 1.2BP ml | | | m/s m/sLA vol A/L | | | 20.1 (16-34) RA Press 5 RVOT VTI 17.6index | | | ml/m2 mmHg | | | cmLA vol MOD 25.7 (40-73ml) RVSP 24 PV mn gdBP | | | ml mmHgLA vol MOD 14.8 | | | (16-34)index ml/m2 Aorta: | | | Index: Ao | | | Sinus 2.15 (2.1-3.5cm)Biplane EF 57.9 % | | | cm Asc Ao 2.11 | | | (prox) cmEvaluation | | | of chamber size and geometry is accomplished through the incorporation | | | of linear, volumetric, and indexed values Report electronically | | | signed by: [id number] Chris Lua MD (01/28/2017, 2:28:26 PM) | | | Final | | |LA vol MOD 25.7 (40-73ml) RVSP 24 PV mn gd | | |BP ml mmHg | | |LA vol MOD 14.8 (16-34) | | |index ml/m2 Aorta: Index: | | | Ao Sinus 2.15 (2.1-3.5cm) | | |Biplane EF 57.9 % cm | | | Asc Ao 2.11 | | | (prox) cm | | |Evaluation of chamber size and geometry is accomplished through the incorporation of | | |linear, volumetric, and indexed values | | | | | |Report electronically signed by: [id number] Chris Lua MD (01/28/2017, 2:28:26 | | |PM) | | | | | | | | | | | | Final | | + +---- + + + | Procedure Note | + + | Interface, Cardiology Results - 01/28/2017 2:28 PM [facility] [employer] | | [facility] [address] [place] [address] | | [place], [place] [address] Pt Name: JOIE | | MANCIA Study Date/Time 01/28/2017 / 1:07:38 PMMRN: [id number] | | Most recent prior: 12/25/2014cc #: [id number] No. previous echos: 3DOB: | | 1985 31 years Heart Rate: 60 bpmHeight: 62.0 in Blood | | Pressure: 113/66 mm/HgWeight: 160.0 lb Gender: FBSA: | | 1.74 m2 Order ID: [id number] Rib Bender: Lilian Guadalupe RDCSReferring | | Provider: Madeleine Viveros Location: [facility] Performed: CHD 2D, Color Flow, | | Spectral Doppler.Study Quality: Good.Imaging Limitations: There are pacer wires | | present.Exam Indication: Congenital heart disease(Total Anomalous venous Return)History: | | Total congenital anomalous pulmonary venous connection . Medtronic single chamber | | pacemaker Patient history has been obtained from the [facility] Transthoracic | | Echocardiographic | | Report+ +Fi | | nal Impressions: | | | | 1. The left ventricular cavity | | size is normal. 2. The LV ejection fraction is normal. | | 3. Right ventricular size, thickness and function | | are normal. 4. No significant valvular abnormalities seen. | | 5. There is a posterior common baffle of the pulmonary veins without | | evidence of baffle obstruction. 6. | | Compared to the most recent exam dated, 12/25/2014, there are no significant | | changes. | | | | + + | | Description of Findings: Cardiac Rhythm: Normal sinus rhythm.Left Ventricle: The left | | ventricular cavity size is normal. Visually estimated left ventricular ejection fraction | | is 65 - 70%. The ejection fraction is 57.9 % as measured by Griffin's biplane method. | | The LV ejection fraction is normal.Left Ventricular Wall Motion: Left ventricular | | systolic thickening is normal in all segments.Atria: Left atrial size is normal. Normal | | right atrium.Right Ventricle: Right ventricular size, thickness and function are normal. | | TAPSE measures 1.5cm. The RV TDI s' velocity is 8cm/sec.Aortic Valve: The aortic valve | | is trileaflet and normal in structure and function. No indication of aortic valve | | regurgitation.Mitral Valve: The mitral valve is structurally normal. No evidence of | | mitral valve stenosis. No evidence of mitral valve regurgitation.Tricuspid Valve: The | | tricuspid valve is structurally normal. Mild tricuspid regurgitation. The tricuspid | | regurgitant velocity is 2.16 m/s, and with an assumed right atrial pressure of 5 mmHg, | | the estimated right ventricular systolic pressure is normal at 23.7 mmHg.Pulmonic Valve: | | The pulmonic valve is structurally normal. The peak trans pulmonic gradient is 5.7 | | mmHg.Aorta: Visualized portions of the ascending aorta and aortic root appear | | normal.Venous: Inferior vena cava is normal with normal inspiratory | | collapse.Pericardium: No pericardial effusion is seen.2D Measurements | | Doppler Measurements 2D NL Values Aortic MitralLVID(d) 4.59 | | (3.5-5.7cm) Max Makrie 1.66 Peak E 1.30 cm m/s | | m/sLVID(s) 2.67 Mean grad 6.0 Peak A 0.50 | | cm mmHg m/sIVS(d) 0.76 (0.6-1.1cm) LVOT Markie | | 1.38 E/A Ratio 2.58 cm m/sLVPW(d) 0.89 | | (0.6-1.1cm) TDI (E/e') 7.6 cm LVOT Diam 1.86 | | MV mn gdLA A/Ps 2D 2.54 (2.7-3.9cm) cm cm | | Tricuspid PulmonicLA vol A/L 34.9 (40-73ml) TR Vmax 2.16 PV Vmax 1.2BP | | ml m/s m/sLA vol A/L 20.1 (16-34) RA | | Press 5 RVOT VTI 17.6index ml/m2 mmHg | | cmLA vol MOD 25.7 (40-73ml) RVSP 24 PV mn gdBP ml | | mmHgLA vol MOD 14.8 (16-34)index ml/m2 Aorta: | | Index: Ao Sinus 2.15 (2.1-3.5cm)Biplane EF 57.9 % | | cm Asc Ao 2.11 | | (prox) cmEvaluation of chamber size and geometry is accomplished through the | | incorporation of linear, volumetric, and indexed values Report electronically signed by: | | [id number] Chris Lua MD (01/28/2017, 2:28:26 PM) Final | |regurgitation. The tricuspid regurgitant velocity is 2.16 m/s, and with an assumed | |right atrial pressure of 5 mmHg, the estimated right ventricular systolic pressure is | | normal at 23.7 mmHg. | |Pulmonic Valve: The pulmonic valve is structurally normal. The peak trans pulmonic | |gradient is 5.7 mmHg. | |Aorta: Visualized portions of the ascending aorta and aortic root appear normal. | |Venous: Inferior vena cava is normal with normal inspiratory collapse. | |Pericardium: No pericardial effusion is seen. | |2D Measurements Doppler Measurements | | | | 2D NL Values Aortic Mitral | |LVID(d) 4.59 (3.5-5.7cm) Max Markie 1.66 Peak E 1.30 | | cm m/s m/s | |LVID(s) 2.67 Mean grad 6.0 Peak A 0.50 | | cm mmHg m/s | |IVS(d) 0.76 (0.6-1.1cm) LVOT Markie 1.38 E/A Ratio 2.58 | | cm m/s | |LVPW(d) 0.89 (0.6-1.1cm) TDI (E/e') 7.6 | | cm LVOT Diam 1.86 MV mn gd | |LA A/Ps 2D 2.54 (2.7-3.9cm) cm | | cm Tricuspid Pulmonic | |LA vol A/L 34.9 (40-73ml) TR Vmax 2.16 PV Vmax 1.2 | |BP ml m/s m/s | |LA vol A/L 20.1 (16-34) RA Press 5 RVOT VTI 17.6 | |index ml/m2 mmHg cm | |LA vol MOD 25.7 (40-73ml) RVSP 24 PV mn gd | |BP ml mmHg | |LA vol MOD 14.8 (16-34) | |index ml/m2 Aorta: Index: | | Ao Sinus 2.15 (2.1-3.5cm) | |Biplane EF 57.9 % cm | | Asc Ao 2.11 | | (prox) cm | |Evaluation of chamber size and geometry is accomplished through the incorporation of | |linear, volumetric, and indexed values | | | |Report electronically signed by: [id number] Chris Lua MD (01/28/2017, 2:28:26 | |PM) | | | | | | | | Final | + + + + + + + | Performing | Address | City/State/Zipcode | Phone Number | | Organization | | | | + + + + + | [facility] | [address] | [place], [place] | | | CARDIOLOGY | [address] | [address] | | + + + + + documented in this encounter Visit Diagnoses + + | Diagnosis | + + | Total congenital anomalous pulmonary venous connection | + + documented in this encounter"
--- OUTSIDE RECORDS SUMMARY | ~2019-10-07 | XMS | Encounter Summary ---
Demographics + + + | Address | [address] | | | [place] [address] | + + + | Home Phone [...] [place], [place] | | | | | [address] | | + + + + + | Polly Winston | ECON | ANAYA, | | + + + + + Care Team Providers + +------+ + | Care Road Grader Name | Role | Phone | + +------+ + | Gabrielle Fernández MD | PCP | | + +------+ + Encounter Details +--------+ + + + + | Date | Type | Department | Care Team | Description | +--------+ + + + + | 06/17/ | Telephone | Pediatric | Antonio Hines, | | | 2011 | | Cardiology at | MD [address] [facility] | | | | | [place] | [facility] | | | | | [facility] | [place], [place] | | | | | [address] | [address] | | | | | [place] | [phone] | | | | | [facility] | | | | | | [address] [facility], | | | | | | [place] [address] | | | | | | [phone] | | | +--------+ + + + [...] [address] | | | | | | [place], [place] | | | | | | [address] | | | | | | [phone] | | | | | | | | +--------+ + + + + documented as of this encounter Visit Diagnoses Not on filedocumented in this encounter"
--- OUTSIDE RECORDS SUMMARY | ~2019-10-07 | XMS | Encounter Summary ---
Demographics + + + | Address | [address] | | | [place] [address] | + + + | Home Phone | | + + + | Preferred Language | Unknown | + + + | Marital Status | | + + + | Latter-Day Affiliation | NON | + + + | Race | White | + + + | Ethnic Group | or | + + + Author + + + | Author | [facility] | + + + | Organization | [facility] | + + + | [...] [place], [place] | | | | | [address] | | + + + + + | Polly Winston | ECON | ANAYA, | | + + + + + Care Team Providers + +------+ + | Care Public Policy Professor Name | Role | Phone | + +------+ + | Yuli Franklin | PCP | | + +------+ + Reason for Visit + + + | Reason | Comments | + + + | US - Ultrasound | | + + + Encounter Details +--------+ + + + + | Date | Type | Department | Care Team | Description | +--------+ + + + + | 08/10/ | Telephone | Center | Nellie Munson, | US - Ultrasound | | 2020 | | at [facility] [address] | MD [address] | | | | | [address] | David Jessica | | | | | Physician's | [place], [place] | | | | | [address], 4th floor | [address] | | | | | [place], [place] | [phone] | | | | | [address] | | | | | | [phone] | | | +--------+ + + + [...] Rd | | | | | | [place], [place] | | | | | | [address] | | | | | | [phone] | | | | | | | | +--------+ + + + + documented as of this encounter Visit Diagnoses Not on filedocumented in this encounter"
--- OUTSIDE RECORDS SUMMARY | ~2019-10-07 | XMS | Encounter Summary ---
Demographics + + + | Address | [address] | | | [place] [address] | + + + | Home Phone | | + + + | Preferred Language | Unknown | + + + | Marital Status | | + + + | Baptist Affiliation | NON | + + + [...] [place], [place] | | | | | [address] | | + + + + + | Polly Winston | ECON | ANAYA, | | + + + + + Care Team Providers + +------+ + | Care Rn Psychiatric Name | Role | Phone | + +------+ + PCP | Unavailable | + +------+ + Encounter Details +--------+ + + + + | Date | Type | Department | Care Team | Description | +--------+ + + + + | 07/14/ | MyChart | Cardiology | Mellissa Zhou, | RE: Set-up | | 2012 | Encounter | Arrhythmia at [facility] | DISTRIBUTION ACCOUNTING CLERK | | | | | [address] | | | | | | [facility] | | | | | | and Healing, | | | | | | [facility] | | | | | | [place], [place] | | | | | | [address] | | | | | | [phone] | | | +--------+ + + + [...] | | 2019 | | | [address] [facility] | | | | | | [address] | | | | | | [place], [place] | | | | | | [address] | | | | | | [phone] | | | | | | | | +--------+ + + + + documented as of this encounter Visit Diagnoses Not on filedocumented in this encounter"
--- OUTSIDE RECORDS SUMMARY | ~2019-10-07 | XMS | Encounter Summary ---
Demographics + + + | Address | [address] | | | [place] [address] | + + + | Home Phone | | + + + | Preferred Language | Unknown | + + + | Marital Status | | + + + | Confucianism Affiliation | NON | + + + | Race | White | + + + | Ethnic Group | or | + + + Author + + + | Author | [facility] | + + + | Organization | [facility] | + + + | Address | [...] [place], [place] | | | | | [address] | | + + + + + | Polly Winston | ECON | ANAYA, | | + + + + + Care Team Providers + +------+ + | Care Drier And Evaporator Operator Name | Role | Phone | [...] floor | | | | | | [place], [place] | | | | | | [address] | | | | | | [phone] | | | +--------+ + + + [...] | | | | | | [place], [place] | | | | | | [address] | | | | | | [phone] | | | | | | | | +--------+ + + + + documented as of this encounter Visit Diagnoses Not on filedocumented in this encounter"
--- OUTSIDE RECORDS SUMMARY | ~2019-10-07 | XMS | Encounter Summary ---
Demographics + + + | Address | [address] | | | [place] [address] | + + + | Home Phone | | + + + | Preferred Language | Unknown | + + + | Marital Status | | + + + | Gnosticist Affiliation | NON | + + + [...] [place], [place] | | | | | [address] | | + + + + + | Polly Winston | ECON | ANAYA, | | + + + + + Care Team Providers + +------+ + | Care Hand Rigger Name | Role | Phone | + +------+ + | Rao Theodore MD | PCP | | + +------+ + Reason for Visit + + + | Reason | Comments | + + + | Test Results | | + + + Encounter Details +--------+ + + + + | Date | Type | Department | Care Team | Description | +--------+ + + + + | 12/27/ | MyChart | Cardiology [facility] at | Louisa Reed | RE: Echo Update | | 2012 | Encounter | [facility] [address] | LEONARD Raphael [address] | | | | | [facility] | [facility] | | | | Health and Healing, | [place] [address] | | | | | [facility] | [phone] | | | | | [place], [place] | | | | | | [address] | | | | | | [phone] | | | +--------+ + + + [...] [place] | | | | | | [address] | | | | | | [phone] | | | | | | | | +--------+ + + + + documented as of this encounter Visit Diagnoses Not on filedocumented in this encounter"
--- OUTSIDE RECORDS SUMMARY | ~2019-10-07 | XMS | Encounter Summary ---
Demographics + + + | Address | [address] | | | [place] [address] | + + + | Home Phone [...] [place], [place] | | | | | [address] | | + + + + + | Polly Winston | ECON | ANAYA, | | + + + + + Care Team Providers + +------+ + | Care Lining Machine Operator Name | Role | Phone | + +------+ + PCP | Unavailable | + +------+ + Encounter Details +--------+ + + + + | Date | Type | Department | Care Team | Description | +--------+ + + + + | 10/12/ | Results | Pediatric | Antonio Hines, | | | 2000 | Only | Cardiology at | MD [address] [facility] | | | | | Em[place] | [facility] | | | | | [facility] | [place], [place] | | | | | [address] | [address] | | | | | Emeli | [phone] | | | | | [facility] | | | | | | 7th Floor [place], | | | | | | [place] [address] | | | | | | [phone] | | | +--------+ + + + [...] | | | | | | [address] | | | | | | [place], [place] | | | | | | [address] | | | | | | [phone] | | | | | | | | +--------+ + + + + documented as of this encounter Procedures + +--------+ + + + | Procedure Name | Priori | Date/Time | Associated Diagnosis | Comments | | | ty | | | | + +--------+ + + + | X-RAY CHEST 1 VIEW | Routin | 10/12/2000 | | Results for this | | | e | 8:23 AM | | procedure are in the | | | | PDT | | results section. | + +--------+ + + + documented in this encounter Results CHEST 1 VIEW (10/12/2000 8:23 AM PDT) + + + + + + | Component | Value | Ref Range | Performed | Pathologist | | | | | At | Signature | + + + + + + | CHEST, 1 | Radiologist 1: MI, | | | | | VIEW | MADELINE PattersonONE VIEW | | | | | | CHEST: 10/12/2000 | | | | | | Dictated 10/12/2000 | | | | | | COMPARISON: No | | | | | | comparison. CLINICAL | | | | | | HISTORY: Status post | | | | | | repair of total | | | | | | anomalous | | | | | | pulmonaryvenous return. | | | | | | Pacemaker. FINDINGS: | | | | | | A pacemaker is | | | | | | identified with lead | | | | | | projecting over theright | | | | | | ventricle and battery | | | | | | pack projecting over the | | | | | | left shoulder.The lead | | | | | | appears to be intact in | | | | | | this projection. Heart | | | | | | size isnormal. The | | | | | | lungs are clear. The | | | | | | pulmonary perfusion | | | | | | pattern isnormal. No | | | | | | pleural effusions or | | | | | | pneumothoraces are seen. | | | | | | IMPRESSION: Pacemaker. | | | | | | No acute | | | | | | cardiopulmonary | | | | | | abnormalities | | | | | | identified. END OF | | | | | | IMPRESSION: | | | | + + + + + + + + | Specimen | + + | | + + + +---------+ + + | Performing | Address | City/State/Zipcode | Phone Number | | Organization | | | | + +---------+ + + | [facility] | | | | | RADIOLOGY | | | | + +---------+ + + documented in this encounter Visit Diagnoses Not on filedocumented in this encounter"
--- OUTSIDE RECORDS SUMMARY | ~2019-10-07 | XMS | Encounter Summary ---
Demographics + + + | Address | [address] | | | [place] [address] | + + + | Home Phone [...] [place], [place] | | | | | [address] | | + + + + + | Polly Winston | ECON | ANAYA, | | + + + + + Care Team Providers + +------+ + | Care Cook Apprentice Name | Role | Phone | + +------+ + | Gabrielle Fernández MD | PCP | | + +------+ + Encounter Details +--------+---------+ + + + | Date | Type | Department | Care Team | Description | +--------+---------+ + + + | 06/28/ | Office | Pediatric | Antonio Hines, | 427.81 SICK SINUS | | 2011 | Visit | Cardiology at | [address] [facility] | SYNDROME (Primary | | | | [address] | [facility] [address] | Dx) | | | | [facility] | [place], [place] | | | | | [address] | [address] | | | | | Emeli | [phone] | | | | | [facility] | | | | | | [address] [facility], | | | | | | [place] [address] | | | | | | [phone] | | | +--------+---------+ + + + [...] Instructions Patient Instructions Antonio Hines MD - 07/01/2011 8:34 AM PDTPacemaker Carelink check looks good. Please repeat in 3 months. Antonio Hines MD Director, Pediatric Electrophysiology Professor of Pediatrics [phone] documented in this encounter Progress Notes Antonio Hines MD - 07/01/2011 8:33 AM PDTThis is a Carelink check of the ventricular p acemaker done on 06/26/11 on Joie Villarreal who is a 25 y.o. 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 Device: Medtronic Sensia Implanted: 08/13/08 RULA: no ADVISORY: NO Mode: VVIR Lower Rate: 60 Upper Rate: 170 Battery Voltage: 2.78 volts Cell Impedance: 437 ohms Estimated battery longevity: 7.5 years (range 6-8.5) Patient is not pacer dependent. Telephone monitoring is: on Output (v) Pulse Width (ms) Sensitivity (mv) Right Ventricle 2.5 0.45 2.8 TESTING: Threshold testing was performed. RT VENTRICLE RV threshold volts:1.25 v RV threshold PW: 0.4 ms RV lead impedance: 706 ohms R Wave Amplitude: unable to check She is paced 87% of the time. Ventricular capture looks good. I am pleased with this check. The next check will be in 3 months. Antonio Hines MD Director, Pediatric Electrophysiology Professor of Pediatrics [phone] documented in this e ncounter Plan of [...] | 2019 | | | [address] [facility] | | | | | | [address] | | | | | | [place], [place] | | | | | | [address] | | | | | | [phone] | | | | | | | | +--------+ + + + + documented as of this encounter Visit Diagnoses + + | Diagnosis | + + | 427.81 SICK SINUS SYNDROME - Primary Sinoatrial node dysfunction | + + documented in this encounter"
--- OUTSIDE RECORDS SUMMARY | ~2019-10-07 | XMS | Encounter Summary ---
Demographics + + + | Address | [address] | | | [place] [address] | + + + | Home Phone [...] [place], [place] | | | | | [address] | | + + + + + | Polly Winston | ECON | ANAYA, | | + + + + + Care Team Providers + +------+ + | Care General Adjuster Name | Role | Phone | + +------+ + | Yuli Franklin | PCP | | + +------+ + Encounter Details +--------+ + + + + | Date | Type | Department | Care Team | Description | +--------+ + + + + | 11/11/ | MyChart | Cardiology General | | Please call to | | 2018 | Encounter | at [facility] [address] | | reschedule your | | | | [facility] | | Cardiology | | | | Health and Healing, | | appointment | | | | Building | | | | | | Floor [place], [place] | | | | | | [address] | | | | | | [phone] | | | +--------+ + + + [...] Rd | | | | | | [place], [place] | | | | | | [address] | | | | | | [phone] | | | | | | | | +--------+ + + + + documented as of this encounter Visit Diagnoses Not on filedocumented in this encounter"
--- OUTSIDE RECORDS SUMMARY | ~2019-10-07 | XMS | Encounter Summary ---
Demographics + + + | Address | [address] | | | [place] [address] | + + + | Home Phone [...] [place], [place] | | | | | [address] | | + + + + + | Polly Winston | ECON | ANAYA, | | + + + + + Care Team Providers + +------+ + | Care Apparel Cutter Name | Role | Phone | + +------+ + | Yuli Franklin | PCP | | + +------+ + Reason for Visit + + + | Reason | Comments | + + + | Education procedure | pacemaker upgrade | + + + Encounter Details +--------+ + + + + | Date | Type | Department | Care Team | Description | +--------+ + + + + | 06/30/ | Telephone | Cardiology - | Diane Jaimes, | Education procedure | | 2018 | | Arrhythmia [address] | RN [address] | (pacemaker upgrade) | | | | [address] | [address] | | | | | Mailcode: [id number] | [place], [place] | | | | | [facility] | [address] | | | | | [place], [place] | | | | | | [address] | | | | | | [phone] | | | +--------+ + + + [...] | | 2019 | | | [address] [facility] | | | | | | [address] | | | | | | [place], [place] | | | | | | [address] | | | | | | [phone] | | | | | | | | +--------+ + + + + documented as of this encounter Visit Diagnoses + + | Diagnosis | + + | Heart block - Primary Conduction disorder, unspecified | + + documented in this encounter"
--- OUTSIDE RECORDS SUMMARY | ~2019-10-07 | XMS | Encounter Summary ---
Demographics + + + | Address | [address] | | | [place] [address] | + + + | Home Phone [...] [place], [place] | | | | | [address] | | + + + + + | Polly Winston | ECON | ANAYA, | | + + + + + Care Team Providers + +------+ + | Care Hydraulic Blocker Name | Role | Phone | + +------+ + | No Pcp Per Patient | PCP | Unavailable | + +------+ + Reason for Visit + + + | Reason | Comments | + + + | Device Check | remote visit | + + + | Device Check | | + + + Encounter Details +--------+---------+ + + + | Date | Type | Department | Care Team | Description | +--------+---------+ + + + | 06/28/ | Office | Cardiology | Tiera Bush | Sinoatrial node | | 2014 | Visit | Arrhythmia at [facility] | [place] [address] | dysfunction (HCC) | | | | [address] | [address] | (Primary Dx) | | | | [facility] | [place], [place] | | | | | and [place], | [address] | | | | | [place] [address] [facility] | | | | | | [place], [place] | | | | | | [address] | | | | | | [phone] | | | +--------+---------+ + + + [...] encounter Progress Notes Madeleine Hernandez NP - 07/10/2014 11:54 AM PDT I reviewed the remote documentatiobn and agree with the progress notes. Madeleine Hernandez NP CARDIOLOGY ARRHYTHMIA AT [facility] [address] Mailcode: [address] [address] PROGRESS NOTE: Tiera Conte RN - 06/28/2014 9:16 AM PDTREMOTE VISIT NOTES: Since last device check on 12/26/13, no VHR episodes reported. Battery longevity is good, lead impedance and threshold are stable. I called pt and reviewed her allergies and medications. She reports doing well - no changes nor concerns to report. Next device check due in 6 months [facility], unless otherwise requested. Electronical ly signed by Tiera Bush RN at 06/28/2014 9:55 AM PDTdocumented in this encounter Plan of [...] | | 2019 | | | [address] [facility] | | | | | | [address] | | | | | | [place], [place] | | | | | | [address] | | | | | | [phone] | | | | | | | | +--------+ + + + + documented as of this encounter Visit Diagnoses + + | Diagnosis | + + | Sinoatrial node dysfunction (HCC) - Primary Sinoatrial node dysfunction | + + documented in this encounter"
--- OUTSIDE RECORDS SUMMARY | ~2019-10-07 | XMS | Encounter Summary ---
Demographics + + + | Address | [address] | | | [place] [address] | + + + | Home Phone [...] [place], [place] | | | | | [address] | | + + + + + | Polly Winston | ECON | ANAYA, | | + + + + + Care Team Providers + +------+ + | Care County Administrator Name | Role | Phone | + +------+ + | Yuli Franklin | PCP | | + +------+ + Reason for Visit + + + | Reason | Comments | + + + | Care Coordination | | + + + Encounter Details +--------+ + + + + | Date | Type | Department | Care Team | Description | +--------+ + + + + | 05/29/ | Telephone | [facility] | Nellie Munson, | Care Coordination | | 2020 | | Health [address] | [address] [facility] | | | | | [address] | [facility] | | | | | [place], [facility] floor | [place], [place] | | | | | [place], [place] | [address] | | | | | [address] | [phone] | | | | | [phone] | | | +--------+ + + + [...] Rd | | | | | | [place], [place] | | | | | | [address] | | | | | | [phone] | | | | | | | | +--------+ + + + + documented as of this encounter Visit Diagnoses Not on filedocumented in this encounter"
--- OUTSIDE RECORDS SUMMARY | ~2019-10-07 | XMS | Encounter Summary ---
Demographics + + + | Address | [address] | | | [place] [address] | + + + | Home Phone | | + + + | Preferred Language | Unknown | + + + | Marital Status | | + + + | Alevism Affiliation | NON | + + + | Race | White | + + + | Ethnic Group | or | + + + Author + + + | Author | [facility] | + + + | Organization | [facility] | + + + | Address [...] [place], [place] | | | | | [address] | | + + + + + | Polly Winston | ECON | ANAYA, | | + + + + + Care Team Providers + +------+ + | Care Spanish Teacher Name | Role | Phone | + +------+ + | No Pcp Per Patient | PCP | Unavailable | + +------+ + Encounter Details +--------+ + + + + | Date | Type | Department | Care Team | Description | +--------+ + + + + | 04/ | MyChart | Cardiology | Madeleine Hernandez NP | Free Medtronic | | 2016 | Encounter | Arrhythmia at [facility] | [address] | Upgrade | | | | [address] | [place], [place] | | | | | [facility] | [address] | | | | | and Healing, | [phone] | | | | | [facility] | | | | | | Floor [place], [place] | | | | | | [address] | | | | | | [phone] | | | +--------+ + + + [...] Rd | | | | | | [place], [place] | | | | | | [address] | | | | | | [phone] | | | | | | | | +--------+ + + + + documented as of this encounter Visit Diagnoses Not on filedocumented in this encounter"
--- OUTSIDE RECORDS SUMMARY | ~2019-10-07 | XMS | Encounter Summary ---
Demographics + + + | Address | [address] | | | [place] [address] | + + + | Home Phone [...] [place], [place] | | | | | [address] | | + + + + + | Polly Winston | ECON | ANAYA, | | + + + + + Care Team Providers + +------+ + | Care Astrophysics Teacher Name | Role | Phone | + +------+ + | Yuli Franklin | PCP | | + +------+ + Encounter Details +--------+ + + + + | Date | Type | Department | Care Team | Description | +--------+ + + + + | 07/09/ | MyChart | Cardiology | Bethel Salvador | RE: Breathing pain | | 2018 | Encounter | Arrhythmia at [facility] | MD [place] [address] | | | | | [address] | [facility] | | | | | [facility] | [place], [place] | | | | | and [place], | [address] | | | | | [facility] | [phone] | | | | | Floor [place], [place] | | | | | | [address] | | | | | | [phone] | | | +--------+ + + + [...] [place] | | | | | | [address] | | | | | | [phone] | | | | | | | | +--------+ + + + + documented as of this encounter Visit Diagnoses Not on filedocumented in this encounter"
--- OUTSIDE RECORDS SUMMARY | ~2019-10-07 | XMS | Encounter Summary ---
Demographics + + + | Address | [address] | | | [place] [address] | + + + | Home Phone [...] [place] | | | | | [address] | | + + + + + | Polly Winston | ECON | ANAYA, | | + + + + + Care Team Providers + +------+ + | Care Hot Mill Tin Roller Name | Role | Phone | + +------+ + | Yuli Franklin | PCP | | + +------+ + Encounter Details +--------+--------+ + + + | Date | Type | Department | Care Team | Description | +--------+--------+ + + + | 09/20/ | Travel [...] | | 2019 | | | [address] [facility] | | | | | | [address] | | | | | | [place], [place] | | | | | | [address] | | | | | | [phone] | | | | | | | | +--------+ + + + + documented as of this encounter Visit Diagnoses Not on filedocumented in this encounter"
--- OUTSIDE RECORDS SUMMARY | ~2019-10-07 | XMS | Encounter Summary ---
Demographics + + + | Address | [address] | | | [place] [address] | + + + | Home Phone [...] [place], [place] | | | | | [address] | | + + + + + | Polly Winston | ECON | ANAYA, | | + + + + + Care Team Providers + +------+ + | Care Corporate Investigator Name | Role | Phone | + +------+ + | Gabrielle Fernández MD | PCP | | + +------+ + Encounter Details +--------+ + + + + | Date | Type | Department | Care Team | Description | +--------+ + + + + | 05/12/ | Telephone | Pediatric | Antonio Hines, | | | 2011 | | Cardiology at | MD [address] [facility] | | | | | [place] | [facility] | | | | | [facility] | [place], [place] | | | | | [address] | [address] | | | | | [place] | [phone] | | | | | [facility] | | | | | | [address] [facility], | | | | | | [place] [address] | | | | | | [phone] | | | +--------+ + + + [...] | | 2019 | | | [address] | | | | | | [address] | | | | | | [place], [place] | | | | | | [address] | | | | | | [phone] | | | | | | | | +--------+ + + + + documented as of this encounter Visit Diagnoses Not on filedocumented in this encounter"
--- OUTSIDE RECORDS SUMMARY | ~2019-10-07 | XMS | Encounter Summary ---
Demographics + + + | Address | [address] | | | [place] [address] | + + + | Home Phone | | + + + | Preferred Language | Unknown | + + + | Marital Status | | + + + | Episcopal Affiliation | NON | + + + [...] [address] | | | | | [place], [place] | | | | | [address] | | + + + + + | Polly Winston | ECON | ANAYA, | | + + + + + Care Team Providers + +------+ + | Care Auto Salvage Worker Name | Role | Phone | [...] | | | | connection | | [place], [place] | | | | | Procedures | | [address] | | | | | CONSULT TO | | Phone: | | | | | CARDIOLOGY | | [phone] | | | | | | | Fax: | | | | | | | [phone] | +--------+--------+ + + + + Encounter Details +--------+---------+ + + + | Date | Type | Department | Care Team | Description | +--------+---------+ + + + | 12/25/ | Office | Cardiology General | Louisa Reed | TAPVC (total | | 2014 | Visit | at [facility] [address] | [place], SEWING MACHINE ADJUSTER [address] | anomalous pulmonary | | | | [facility] for | [address] [place], | venous connection) | | | | Health and Healing, | [place] [address] | (Primary Dx) | | | | [facility] | [phone] | | | | | [place], [place] | | | | | | [address] | | | | | | [phone] | | | +--------+---------+ + + + [...] | Blood Pressure | 116/68 | 12/25/2014 2:51 PM | | | | | PDT | | + + + + + | Pulse | 84 | 12/25/2014 2:51 PM | | | | | PDT | | + + + + + | Temperature | 36.6 C (97.8 F) | 12/25/2014 2:51 PM | | | | | PDT | | + + + + + | Respiratory Rate | - | - | | + + + + + | Oxygen Saturation | 100% | 12/25/2014 2:51 PM | | | | | PDT | | + + + + + | Inhaled Oxygen | - | - | | | Concentration | | | | + + + + + | Weight | 68.5 kg (151 lb) | 12/25/2014 2:51 PM | | | | | PDT | | + + + + + | Height | 157.5 cm (5' 2") | 12/25/2014 2:51 PM | | | | | PDT | | + + + + + | Body Mass Index | 27.62 | 12/25/2014 2:51 PM | | | | | PDT | | + + + + + documented in this encounter Patient Instructions Patient Instructions Louisa Reed NP - 12/25/2014 3:50 PM PDT Return check in one year with echo Keep up the good work Thank you for your visit today. Adult [facility] MD Huan Nolen MD PhD MD Brynn Blanco NP Victor Menashe, MD Susan Davidson, NORI Important Phone Numbers Adult Congenital Cardiology Office: [phone] (ask for Mavis) Clinic Nurse, Genny Overton: [phone] Clinic [phone] Echo lab [phone] Radiology Scheduling (including MRI): [phone] Pulmonary function [phone] laboratory equipment installer [phone] After hours emergency: [phone] Long distance: Website: [email or web address] The single best way to protect against the flu is to get vaccinated each year. Protect yourself and those around you - GET A FLU VACCINE We support the Adult Congenital Heart Association and invite you to be a member, to promote patient peer support, education, community events, patient advocacy, and research in congen ital heart disease. [email or web address].[email or web address] PLEASE JOIN US: 2015 [facility] Congenital Heart Walk TBA Follow @ [email or web address] [facility] October 20-2015 To make the camp a success we need volunteers If your interested, please visit website: [email or web address] Web based, fun interactive learning: [email or web address] Direct [facility] Clinics: [facility] [phone] [place] scheduling: [place] [phone] [place] scheduling: documented in this encounter Progress Notes Louisa Reed NP - 12/25/2014 3:41 PM PDTFormatting of this note might be differen t from the original. ADULT CONGENITAL HEART CLINIC PROGRESS NOTE Joie Villarreal is a 28 y.o. female here for Follow-up visit PCP: No Pcp Per PATIENT Past Medical History: 1. 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 FHx: Unchanged from last visit No past encounter found in . SHx: Nonsmoker; Lives in [facility]; Works for [employer]. Has a boyfriend. ETOH: glass of wine with dinner 2-3 [...] medications for this visit. Physical Exam: BP 116/68 | Pulse 84 | Temp 36.6 C (97.8 F) | Ht 1.575 m (5' 2") | Wt 68.493 kg (151 lb ) | SpO2 100% | BMI 27.61 kg/(m^2) GEN: Well appearing JVP: Not elevated. Normal waveform CAROTID: Normal upstroke. CHEST: Normal respiratory effort. Clear to auscultation throughout. HEART: Regular rate and rhythm.+systolic murmur. No diastolic murmur. Second heart dillon nd normal. ABDOM: Soft, non tender, no organomegaly EXTREM: No edema, no clubbing SKIN: Warm and dry NEURO: Awake and oriented DATA: Lab Results Component Value Date RATE 74 12/25/2014 ATRIALRATE 74 12/25/2014 TX 316 12/25/2014 QRS 130 12/25/2014 QT 412 12/25/2014 PAXIS 0 12/25/2014 RAXIS -69 12/25/2014 Echo 12/25/14 1. Hx of Total Anomalous Pulmonary Veins, s/p baffled repair. 2. The left ventricular cavity size is normal. 3. Visually estimated left ventricular ejection fraction is 60 - 65%. 4. The LV ejection fraction is normal. 5. A posterior baffle of pulmonary veins is noted for venous drainage to left atrium. There is no color Doppler flow noted from the baffle into the right atrium. 6. Right ventricular size, thickness and function are normal. 7. Compared to the most recent exam dated, 12/26/2013, there are no significant changes. Impression: Joie is a 28 y.o NYHA class I. Repair of TAPV [...] Rd | | | | | | [place], [place] | | | | | | [address] | | | | | | [phone] | | | | | | | | +--------+ + + + + documented as of this encounter Visit Diagnoses + + | Diagnosis | + + | TAPVC (total anomalous pulmonary venous connection) - Primary Total congenital | | anomalous pulmonary venous connection | + + documented in this encounter
--- OUTSIDE RECORDS SUMMARY | ~2019-10-07 | XMS | Encounter Summary ---
Demographics + + + | Address | [address] | | | [place] [address] | + + + | Home Phone | | + + + | Preferred Language | Unknown | + + + | Marital Status | | + + + | Gnosticism Affiliation | NON | + + + | Race | White | + + + | Ethnic Group | or | + + + Author + + + | Author | [facility] | + + + | Organization | [facility] | + + + | Address [...] [place], [place] | | | | | [address] | | + + + + + | Polly Winston | ECON | ANAYA, | | + + + + + Care Team Providers + +------+ + | Care [facility] Counselor Name | Role | Phone | [...] Closed | | Cardiology | Diagnoses | David, | Madeleine, | | | | | Total | LEONARD Salvador | Bethel Lizarraga MD | | | | | congenital | [address] | [address] | | | | | anomalous | [address] | [place] | | | | | pulmonary | [place], [place] | Rd | | | | | venous | [address] | [place] | | | | | connection | Phone: | [address] | | | | | Procedures | [phone] | Phone: | | | | | CONSULT TO | Fax: | [phone] | | | | | CARDIOLOGY | [phone] | Fax: | | | | | | | [phone] | +--------+--------+ + + + + Encounter Details +--------+---------+ + + + | Date | Type | Department | Care Team | Description | +--------+---------+ + + + | 01/29/ | Office | Cardiology | Bethel Salvador | Bradycardia (Primary | | 2017 | Visit | Arrhythmia at [facility] | MD [place] [address] | Dx) | | | | [address] | [facility] | | | | | [facility] | [place], [place] | | | | | and [place], | [address] | | | | | [place] [address] [facility] | [phone] | | | | | Floor [place], [place] | | | | | | [address] | | | | | | [phone] | | | +--------+---------+ + + + [...] + + + | Blood Pressure | 122/73 | 01/29/2017 9:48 AM | | | | | PST | | + + + + + | Pulse | 80 | 01/29/2017 9:48 AM | | | | | PST | | + + + + + | Temperature | - | - | | + + + + + | Respiratory Rate | - | - | | + + + + + | Oxygen Saturation | 100% | 01/29/2017 9:48 AM | | | | | PST | | + + + + + | Inhaled Oxygen | - | - | | | Concentration | | | | + + + + + | Weight | 74.4 kg (164 lb) | 01/29/2017 9:48 AM | | | | | PST | | + + + + + | Height | 162.6 cm (5' 4") | 01/29/2017 9:48 AM | | | | | PST | | + + + + + | Body Mass Index | 28.15 | 01/29/2017 9:48 AM | | | | | PST | | + + + + + documented in this encounter Patient Instructions Patient Instructions Chalino Ramos MD - 01/29/2017 9:55 AM PSTIt was nice to meet yo u today. Give us a call and let us know if in the future you would just like the generator of the pa cemaker to be changed or you would like extra leads put in at the time of changing the gener ator. documented in this encounter Progress Notes Bethel Salvador MD - 01/29/2017 9:55 AM PSTElectrophysiology Attending I have seen and examined Ms. Villarreal and discussed the patient's management with the residen t and/or fellow. I reviewed the housestaff note above and agree with the documented finding s and plan of care. Her single chamber PPM is approaching the elective replacement indicato r. While she is free of symptoms and her EF is normal, she is now RV pacing 94%. Also, paresh or attempts at placing an atrial lead failed, presumably secondary to scarring in the atrium after her surgery. We discussed the potential utility of both CS and RA leads, and we will consider these. She is not yet ready to make a decision (i.e. Simple generator change v. U pgrade), but will let us know what she would like to do. Bethel Salvador M.D. Director, Electrophysiology [employer]ber [facility] Cardiovascular [facility] [place] [address] Chalino Omer MD - 01/29/2017 9:55 AM PST . [facility] CONSULT Madeleine Aponte, LEONARD requested this consultation for pacemaker generator change and to es tablish with EP PCP: LUSI MIGUEL Hoff HPI: Joie Villarreal is a 31 y.o. 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 She does not have any concerns today. She denies having any chest pain, dyspnea on exertion, LE edema, orthopnea, presyncope, syncope, or palpitations. She ex ercises frequently specifically doing daphnie three times per week. Her recent device interrog ation yesterday showed that she is V paced 93% of the time. Her battery for her pacemaker sh owed that she has 10 months left with this current battery. She is planning on getting August and then eventually pursuing with her alexander n to be . She denies any recent hospitalizations or new medications. 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 Reed' note from visit on 01/28/2017): 1. TAPV (total anomalous pulmonary venous surgery done in [place] at 6 days of age) 1.1 Mild TR 1.2 No PS or PI 2. Pacemaker implanted (age 13) 1999 for sick sinus syndrome with AV node dysfunction (Dr Jeremi vasquez) 2.29 November 1998 episodic lightheadedness. Holter monitor demonstrated sinus br adycardia with low heart rates in the 30s. Although it was not established that sinus node dysfunction was the cause of he r lightheadedness, in view of the significant sinus bradycardia, was decided to perform a pa cemaker implantation. 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 May be removed and replaced with a new unit at anytime during menstrual cycle; do not leave any one system in place for > 5 years. No current facility-administered medications for this visit. Social history: reports that she has never smoked. She has never used smokeless tobacco.. She has a glass of wine with dinner two to three nights per week. She denies any recreationa l drug use. She lives in [place], [place] with her fiance. 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 Family history: No sudden cardiac arrest, familial cardiomypathy or premature coronary sena ry disease. Great grandfather - lung cancer Great grandmother - breast cancer First cousin - thyroid cancer Complete review of systems as documented, otherwise or negative. Physical Exam: Gen: NAD, alert and oriented x 4 HEENT: PERRLA, EOMI; no erythema or exudates in the throat Cardiac: RRR, no m/r/g, normal S1 and S2, JVP 6 cm; no erythema or swelling around the pock et of pacemaker placement Resp: CTA b/l, no wheezes or crackles Abdomen: soft, non-tender, non-distended, +BS present; no rebound or guarding Ext: warm and well perfused; no LE edema; pulses present in all 4 extremities Neuro: CN 2-12 intact, no focal deficits ECG from 01/28/2017: ventricularly paced rhythm with only one p wave apparent on ECG Imaging: TTE 12/25/2014: 1. Hx of Total Anomalous Pulmonary Veins, [...] dated, 12/26/2013, there are no significant changes. Labs: No results found for: NA, K, CL, BICARB, BUN, CR, GLU, CA, AST, ALT, AP, TBILI, TP, ALB Lab Results Component Value Date WBC See [facility] 08/13/2008 HB See [facility] 08/13/2008 HCT See [facility] 08/13/2008 PLT See [facility] 08/13/2008 MCV See [facility] 08/13/2008 RDW See [facility] 08/13/2008 Outside records were reviewed Impression: Joie Villarreal is a 31 y.o. Woman with PMHx of total anomalous pulmonary venous return s/p total anomalous pulmonary venous surgery done in [place] at 6 days of age and sick sinus syn drome s/p VVI pacemaker placement in 1996 who presents for pacemaker generator change and to establish with EP. She is currently asymptomatic and doing well today. Given the risk of ca rdiomyopathy and heart failure with a single chamber ventricular device and the fact that sh e will be due for a generator change in the next 10 months, the option of proceeding with a biventricular pacemaker implantation in addition to generator change was discussed by Dr. Royce cui with Ms. Villarreal. She would like to think about the option of the biventricular pacem idalia implantation and will call the clinic when she has made her decision as to whether to p ursue this option. Her last TTE showed a normal LVEF. Recommendations/Plan: - recommend biventricular pacemaker implantation at the time of generator change given the risk of heart failure/cardiomyopathy with a single chamber pacemaker; she plans to call the clinic once she has decided whether she wants to pursue biventricular pacemaker implantation Patient was seen and discussed with Dr. Salvador who agrees with my assessment and plan. Chalino Ramos MD PGY-2, Internal Medicine 01/29/2017 documentmariza d in this encounter Plan of Treatment +--------+ [...] Rd | | | | | | [place], [place] | | | | | | [address] | | | | | | [phone] | | | | | | | | +--------+ + + + + documented as of this encounter Visit Diagnoses + + | Diagnosis | + + | Bradycardia - Primary Other specified cardiac dysrhythmias | + + documented in this encounter
--- OUTSIDE RECORDS SUMMARY | ~2019-10-07 | XMS | Encounter Summary ---
Demographics + + + | Address | [address] | | | [place] [address] | + + + | Home Phone | | + + + | Preferred Language | Unknown | + + + | Marital Status | | + + + | Adventism Affiliation | NON | + + + [...] [place], [place] | | | | | [address] | | + + + + + | Polly Winston | ECON | ANAYA, | | + + + + + Care Team Providers + +------+ + | Care Accounting Coordinator Name | Role | Phone | + +------+ + | Yuli Franklin | PCP | | + +------+ + Reason for Visit + + + | Reason | Comments | + + + | Scheduling | 1 month remote check | + + + Encounter Details +--------+ + + + + | Date | Type | Department | Care Team | Description | +--------+ + + + + | 06/07/ | Telephone | Cardiology | Madeleine Hernandez NP | Scheduling (1 month | | 2018 | | Arrhythmia at [facility] | [address] | remote check ) | | | | [address] | [place], [place] | | | | | [facility] | [address] | | | | | and [place], | [phone] | | | | | [facility] | | | | | | [place], [place] | | | | | | [address] | | | | | | [phone] | | | +--------+ + + + [...] [place] | | | | | | [address] | | | | | | [phone] | | | | | | | | +--------+ + + + + documented as of this encounter Visit Diagnoses Not on filedocumented in this encounter"
--- OUTSIDE RECORDS SUMMARY | ~2019-10-07 | XMS | Encounter Summary ---
Demographics + + + | Address | [address] | | | [place] [address] | + + + | Home Phone [...] [place], [place] | | | | | [address] | | + + + + + | Polly Winston | ECON | ANAYA, | | + + + + + Care Team Providers + +------+ + | Care Photographic Restorer Name | Role | Phone | + +------+ + | Gabrielle Fernández MD | PCP | | + +------+ + Reason for Visit + + + | Reason | Comments | + + + | Phone communication | | + + + Encounter Details +--------+ + + + + | Date | Type | Department | Care Team | Description | +--------+ + + + + | 04/20/ | Telephone | Cardiology General | Mellissa Zhou, | Phone communication | | 2012 | | at [facility] [address] | LEONARD | | | | | [facility] | | | | | | Health and Healing, | | | | | | [facility] | | | | | | [place], [place] | | | | | | [address] | | | | | | [phone] | | | +--------+ + + + [...] Rd | | | | | | [place], [place] | | | | | | [address] | | | | | | [phone] | | | | | | | | +--------+ + + + + documented as of this encounter Visit Diagnoses Not on filedocumented in this encounter"
--- OUTSIDE RECORDS SUMMARY | ~2019-10-07 | XMS | Encounter Summary ---
Demographics + + + | Address | [address] | | | [place] [address] | + + + | Home Phone | | + + + | Preferred Language | Unknown | + + + | Marital Status | | + + + | Sikhism Affiliation | NON | + + + | Race | White | + + + | Ethnic Group | or | + + + Author + + + | Author | [facility] | + + + | Organization | [facility] | + + + | Address [...] [place], [place] | | | | | [address] | | + + + + + | Polly Winston | ECON | ANAYA, | | + + + + + Care Team Providers + +------+ + | Care Cartographic Drafter Name | Role | Phone | + +------+ + PCP | Unavailable | + +------+ + Encounter Details +--------+ + + + + | Date | Type | Department | Care Team | Description | +--------+ + + + + | 09/06/ | Results | Pediatric | Antonio Hines, | | | 2001 | Only | Cardiology at | MD [address] [facility] | | | | | [place] | [facility] | | | | | [facility] | [place], [place] | | | | | [address] | [address] | | | | | [place] | [phone] | | | | | [facility] | | | | | | 7th Floor [place], | | | | | | [place] [address] | | | | | | [phone] | | | +--------+ + + + [...] Rd | | | | | | [place], [place] | | | | | | [address] | | | | | | [phone] | | | | | | | | +--------+ + + + + documented as of this encounter Procedures + +--------+ + + + | Procedure Name | Priori | Date/Time | Associated Diagnosis | Comments | | | ty | | | | + +--------+ + + + | X-RAY CHEST 2 VIEW | Routin | 09/06/2001 | | Results for this | | | e | 12:10 PM | | procedure are in the | | | | PDT | | results section. | + +--------+ + + + documented in this encounter Results CHEST 2 VIEW (09/06/2001 12:10 PM PDT) + + + + + + | Component | Value | Ref Range | Performed | Pathologist | | | | | At | Signature | + + + + + + | CHEST, 2 | Radiologist 1: [place], | | | | | VIEWS [place] | MADELINE PattersonCHEST TWO | | | | | STEREO | VIEWS: 09/06/2001 | | | | | | DICTATED: 09/06/2001 | | | | | | COMPARISON: | | | | | | 10/12/2000 and | | | | | | previous. 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 Total | | | | | | anomalous | | | | | | pulmonaryvenous return. | | | | | | Status post repair. | | | | | | FINDINGS: A pacemaker | | | | | | is present with pulse | | | | | | generator projectingover | | | | | | the left upper chest | | | | | | and lead projecting over | | | | | | the rightventricle. The | | | | | | lead is intact. Heart | | | | | | size is normal. The | | | | | | lungs areclear without | | | | | | pulmonary edema or | | | | | | consolidation. No | | | | | | effusions | | | | | | orpneumothoraces are | | | | | | seen. There is minimal | | | | | | spinal curvature. | | | | | | IMPRESSION: Pacemaker | | | | | | unchanged. No acute | | | | | | cardiopulmonary | | | | | | abnormality identified. | | | | | | END OF IMPRESSION: | | | | + + + + + + + + | Specimen | + + | | + + + +---------+ + + | Performing | Address | City/State/Zipcode | Phone Number | | Organization | | | | + +---------+ + + | [facility] DEPARTMENT | | | | | RADIOLOGY | | | | + +---------+ + + documented in this encounter Visit Diagnoses Not on filedocumented in this encounter"
--- OUTSIDE RECORDS SUMMARY | ~2019-10-07 | XMS | Encounter Summary ---
Demographics + + + | Address | [address] | | | [place] [address] | + + + | Home Phone [...] [address] | | | | | [facility] [place] | | | | | [address] | | + + + + + | Polly Winston | ECON | ANAYA, | | + + + + + Care Team Providers + +------+ + | Care Apartment Manager Name | Role | Phone | [...] | Total | MD Antonio | [facility] [address] | | | | | congenital | [address] | | | | | anomalous | [address] | [place] | | | | | pulmonary | [address] | Children's | | | | | venous | [place], [place] | [address] | | | | | connection | [address] | 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 | Phone: | [place], [place] | | | | | node | [phone] | [address] | | | | | dysfunction | Fax: | Phone: | | | | | (HCC) | [phone] | [phone] | | | | | Procedures | | Fax: | | | | | TRANSTHORACI | | [phone] | | | | | C | | | | | | | ECHOCARDIOGR | | | | | | | AM, PEDS | | | +--------+--------+ + + + + Encounter Details +--------+ + + + + | Date | Type | Department | Care Team | Description | +--------+ + + + + | 01/24/ | Medical Clerical Assistant | Pediatric | Antonio Hines, | Total congenital | | 2011 | | Cardiology at | MD [address] [facility] | anomalous pulmonary | | | | [place] | [facility] [address] | venous connection; | | | | [facility] | [facility] [place] | 427.81 SICK SINUS | | | | [address] | [address] | SYNDROME | | | | [place] | [phone] | | | | | [facility] | | | | | | 7th [facility], | | | | | | [place] [address] | | | | | | [phone] | | | +--------+ + + + [...] | | 2020 | | | [address] [facility] [address] | | | | | | [address] | | | | | | [place], [place] | | | | | | [address] | | | | | | [phone] | | | | | | | [...] pulmonary venous connection | + + | 427.81 SICK SINUS SYNDROME Sinoatrial node dysfunction | + + documented in this encounter"
--- OUTSIDE RECORDS SUMMARY | ~2019-10-07 | XMS | Encounter Summary ---
Demographics + + + | Address | [address] | | | [place] [address] | + + + | Home Phone [...] [address] | | | | | [facility] [place] | | | | | [address] | | + + + + + | Polly Winston | ECON | ANAYA, | | + + + + + Care Team Providers + +------+ + | Care Shotgun Shell Loading Machine Operator Name | Role | Phone [...] | | Status post | Louisa | [facility] [address] | | | | | TAPVC | Ijeoma, ASSOCIATE PROFESSOR OF THEATRE | [address] | | | | | repair | [address] | [address] [address] | | | | | Procedures | Ave | [place] | | | | | TRANSTHORACI | [place], [place] | [facility] | | | | | C | [address] | floor | | | | | ECHOCARDIOGR | Phone: | [place], [place] | | | | | AM, ADULT | [phone] | [address] | | | | | | Fax: | Phone: | | | | | | [phone] | [phone] | +--------+--------+ + + + + Reason for Visit + + + | Reason | Comments | + + + | New patient | | | consultation | | + + + Consultation (Routine) [...] | | | | connection | | [place], [place] | | | | | Procedures | | [address] | | | | | CONSULT TO | | Phone: | | | | | CARDIOLOGY | | [phone] | | | | | | | Fax: | | | | | | | [phone] | +--------+--------+ + + + + Encounter Details +--------+---------+ + + + | Date | Type | Department | Care Team | Description | +--------+---------+ + + + | 12/22/ | Office | Cardiology [facility] at | Matty Foster MD | Status post TAPVC | | 2012 | Visit | [facility] [address] | [address] | repair (Primary Dx) | | | | e Center for | [address] | | | | | Health and Healing, | [place] [address] | | | | | Building | [phone] | | | | | Floor [place], [place] | | | | | | [address] | | | | | | [phone] | | | +--------+---------+ + + + [...] | Blood Pressure | 112/65 | 12/22/2012 1:01 PM | | | | | PDT | | + + + + + | Pulse | 65 | 12/22/2012 1:01 PM | | | | | PDT | | + + + + + | Temperature | 37.1 C (98.7 F) | 12/22/2012 1:01 PM | | | | | PDT | | + + + + + | Respiratory Rate | - | - | | + + + + + | Oxygen Saturation | 98% | 12/22/2012 1:01 PM | | | | | PDT | | + + + + + | Inhaled Oxygen | - | - | | | Concentration | | | | + + + + + | Weight | 65.7 kg (144 lb 12.8 | 12/22/2012 1:01 PM | | | | oz) | PDT | | + + + + + | Height | 160 cm (5' 3") | 12/22/2012 1:01 PM | | | | | PDT | | + + + + + | Body Mass Index | 25.65 | 12/22/2012 1:01 PM | | | | | PDT | | + + + + + documented in this encounter Patient Instructions Patient Instructions Louisa Reed NP - 12/22/2012 1:54 PM PDTPlease have your ech o done today after your pacer evaluation I will Mychart you the results Otherwise, we will see you in one year. Thank you for your visit today. [facility] MD Brynn Nolen NP Victor Menashe, MD George Pantely, MD Susan Davidson, RN Important Phone Numbers Cardiology Office: [phone] Clinic Nurse, Genny Overton: [phone] Clinic [phone] Echo lab [phone] MRI [phone] ([place]) Radiology [phone] Pulmonary function [phone] blood and plasma laboratory assistant [phone] After hours emergency: [phone] Long distance: Website: [email or web address] documented in this encounter Progress Notes Louisa Reed NP - 12/22/2012 1:40 PM PDTTAPV at 2 weeks of age, [facility] Pacemaker inserted at age 12 SEcond 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 [place] 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[place], [place] Activity: 3x's week, running TM, participates in classes Denies any symptoms On Birthcontrol Has some anxiety Has practiced SBE documented in t his encounter Plan of Treatment +--------+ + + + + | Date | Type | Specialty | Care Team | Description | +--------+ + + + + | 10/18/ | Appointment | Radiology | | | | 2019 | | | | | +--------+ + + + + | 10/18/ | | | Nellie Munson, | | | 2019 | | | [address] [facility] | | | | | | [address] | | | | | | [place], [place] | | | | | | [address] | | | | | | [phone] | | | | | | | | +--------+ + + + + documented as of this encounter Procedures + +--------+ + + + | Procedure Name | Priori | Date/Time | Associated Diagnosis | Comments | | | ty | | | | + +--------+ + + + | TRANSTHORACIC | Routin | 12/22/2012 | Status post TAPVC | Results for this | | ECHOCARDIOGRAM, | e | 12:00 AM | repair | procedure are in the | | ADULT | | PDT | | results section. | + +--------+ + + + documented in this encounter Results TRANSTHORACIC ECHOCARDIOGRAM, ADULT (12/22/2012 12:00 AM PDT) + + + | Narrative | Performed At | + + + | | | | | | + + + + + | Procedure Note | + + | Kalyani Beverly - 01/10/2013 2:51 PM PST | + + documented in this encounter Visit Diagnoses + + | Diagnosis | + + | Status post TAPVC repair - Primary Other postprocedural status | + + documented in this encounter
--- OUTSIDE RECORDS SUMMARY | ~2019-10-07 | XMS | Encounter Summary ---
Demographics + + + | Address | [address] | | | [place] [address] | + + + | Home Phone [...] [place], [place] | | | | | [address] | | + + + + + | Polly Winston | ECON | ANAYA, | | + + + + + Care Team Providers + +------+ + | Care Adult Basic Education Instructor Name | Role | Phone | + +------+ + | Gabrielle Fernández MD | PCP | | + +------+ + Encounter Details +--------+ + + + + | Date | Type | Department | Care Team | Description | +--------+ + + + + | 06/24/ | Telephone | Pediatric | Carlos Hinesdri, | | | 2010 | | Cardiology at | MD [address] [facility] | | | | | Em[place] | [facility] | | | | | [facility] | [place], [place] | | | | | [address] | [address] | | | | | Emeli | [phone] | | | | | [facility] | | | | | | 7th [facility], | | | | | | [place] [address] | | | | | | [phone] | | | +--------+ + + + [...] Rd | | | | | | [place], [place] | | | | | | [address] | | | | | | [phone] | | | | | | | | +--------+ + + + + documented as of this encounter Visit Diagnoses Not on filedocumented in this encounter"
--- OUTSIDE RECORDS SUMMARY | ~2019-10-07 | XMS | Encounter Summary ---
Demographics + + + | Address | [address] | | | [place] [address] | + + + | Home Phone [...] [place], [place] | | | | | [address] | | + + + + + | Polly Winston | ECON | ANAYA, | | + + + + + Care Team Providers + +------+ + | Care Pigment Mixer Name | Role | Phone | [...] | | cardiac | [address] | [address] [facility] | | | | | anomaly | [facility] [place] | [place] | | | | | affecting | [address] | Building, 2nd | | | | | in | Phone: | floor | | | | | first | [phone] | [place], [place] | | | | | trimester, | Fax: | [address] | | | | | antepartum | [phone] | Phone: | | | | | Total | | [phone] | | | | | congenital | [...] + + + + | 06/11/ | Hospital | Cardiac | | | | 2020 | Encounter | Non-Invasive Testing | | | | | | at [facility] | | | | | | [address] | | | | | | Loop [facility] | | | | | | [facility], 2nd | | | | | | floor [place], [place] | | | | | | [address] | | | | | | [phone] | | | +--------+ + + + [...] +---------+--------+ + documented as of this encounter Progress Notes Chrissy Manzanares - 06/12/2019 11:00 AM PDTTransthoracic echocardiogram completed. Final re port to [...] | | 2019 | | | [address] | | | | | | [address] | | | | | | [place], [place] | | | | | | [address] | | | | | | [phone] | | | | | | | [...] Performed At | + + + | [facility] | [facility] DEPT OF | | [facility] Adult Echocardiography [facility] [address] | CARDIOLOGY | | [place], [place] [address] Ph: | | | Pt Name: JOIE JAXON | | | Study Date/Time 06/12/2019 11:02:20 AMMRN: [id number] | | | Most recent prior: 01/28/2017Acc #: [id number] | | | No. previous echos: 4DOB: 1985 33 years | | | Heart Rate: 67 bpmHeight: 62.0 in | | | Blood Pressure: 104/61 mm/HgWeight: 171.0 lb | | | Gender: FBSA: 1.79 m | | | Order ID: [id number] Study | | | Location: OPSonographer: Chrissy Manzanares [facility], [facility] | | | Provider: EVY Lugo Performed: [...] | indexed values Report electronically signed by: [id number] Grayson | | | Johny JAIME (06/12/2019, [...] | | | |Report electronically signed by: [id number] Grayson Mcclain MD (06/12/2019, 12:39:11 PM) | | | | | | | | | | | | Final | | + + + + + | Procedure Note | + + | Interface, Cardiology Results - 06/12/2019 12:39 PM [facility] | | [facility] E[facility] [address] [place] [address] | | [place], [place] [address] Pt Name: JOIE COATES | | Study Date/Time 06/12/2019 / 11:02:20 AMMRN: [id number] Most | | recent prior: 01/28/2017Acc #: [id number] No. previous echos: 4DOB: | | 1985 33 years Heart Rate: 67 bpmHeight: 62.0 in Blood | | Pressure: 104/61 mm/HgWeight: 171.0 lb Gender: FBSA: | | 1.79 m | | Order ID: [id number] Study Location: OPSonographer: [facility] | | [facility] AE, PEReferring Provider: EVY Lugo Performed: [...] | | values Report electronically signed by: [id number] Grayson Mcclain MD (06/12/2019, 12:39:11 | | [...] | | | |Report electronically signed by: [id number] Grayson Mcclain MD (06/12/2019, 12:39:11 PM) | | | | | | | | Final | + + + + + + + | Performing | Address | City/State/Zipcode | Phone Number | | Organization | | | | + + + + + | [facility]PT [facility] | [address] | [place], [place] | | | CARDIOLOGY | [address] | [address] | | + + + + + documented in this encounter Visit Diagnoses Not on filedocumented in this encounter
--- OUTSIDE RECORDS SUMMARY | ~2019-10-07 | XMS | Encounter Summary ---
Demographics + + + | Address | [address] | | | [place] [address] | + + + | Home Phone | | + + + | Preferred Language | Unknown | + + + | Marital Status | | + + + | Denominational Affiliation | NON | + + + | Race | White | + + + | Ethnic Group | or | + + + Author + + + | Author | [facility] | + + + | Organization | [facility] | + + + [...] [place], [place] | | | | | [address] | | + + + + + | Polly Winston | ECON | ANAYA, | | + + + + + Care Team Providers + +------+ + | Care Burn Crew Member Name | Role | Phone | + +------+ + | Gabrielle Fernández MD | PCP | | + +------+ + Reason for Visit +--------+ + | Reason | Comments | +--------+ + | Other | pacer issue | +--------+ + Encounter Details +--------+ + + + + | Date | Type | Department | Care Team | Description | +--------+ + + + + | 04/26/ | Telephone | Pediatric | Antonio Hines, | Other (pacer issue) | | 2007 | | Cardiology at | MD [address] [facility] | | | | | [place] | [facility] | | | | | [facility] | [place], [place] | | | | | [address] [facility] | [address] | | | | | Em[place] | [phone] | | | | | [facility] | | | | | | [address] [place] [address] | | | | | | [place] [address] | | | | | | [phone] | | | +--------+ + + + [...] | | 2019 | | | [address] [facility] | | | | | | [address] | | | | | | [place], [place] | | | | | | [address] | | | | | | [phone] | | | | | | | | +--------+ + + + + documented as of this encounter Visit Diagnoses Not on filedocumented in this encounter"
--- OUTSIDE RECORDS SUMMARY | ~2019-10-07 | XMS | Encounter Summary ---
Demographics + + + | Address | [address] | | | [place] [address] | + + + | Home Phone [...] [address] | | | | | [facility] [place] [place] | | | | | [address] | | + + + + + | Polly Winston | ECON | ANAYA, | | + + + + + Care Team Providers + +------+ + | Care Education Officer Name | Role | Phone | [...] | | | | connection | | [place], [place] | | | | | Procedures | | [address] | | | | | CONSULT TO | | Phone: | | | | | CARDIOLOGY | | [phone] | | | | | | | Fax: | | | | | | | [phone] | +--------+--------+ + + + + Encounter Details +--------+---------+ + + + | Date | Type | Department | Care Team | Description | +--------+---------+ + + + | 12/26/ | Office | Cardiology [facility] at | [place], [address] | 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 | Visit | [address] | [address] | anomalous pulmonary | | | | [address] [place] [address] | [address] [place], [place] | venous connection | | | | [facility], | [address] | (Primary Dx) | | | | Building [address], 9th | | | | | | Floor [place], [place] | | | | | | [address] | | | | | | [phone] | | | +--------+---------+ + + + [...] + + + | Blood Pressure | 108/61 | 12/26/2013 9:38 AM | | | | | PDT | | + + + + + | Pulse | 66 | 12/26/2013 9:38 AM | | | | | PDT | | + + + + + | Temperature | 36.8 C (98.3 F) | 12/26/2013 9:38 AM | | | | | PDT | | + + + + + | Respiratory Rate | - | - | | + + + + + | Oxygen Saturation | 100% | 12/26/2013 9:38 AM | | | | | PDT | | + + + + + | Inhaled Oxygen | - | - | | | Concentration | | | | + + + + + | Weight | 63.6 kg (140 lb 3.2 | 12/26/2013 9:38 AM | | | | oz) | PDT | | + + + + + | Height | 157.5 cm (5' 2") | 12/26/2013 9:38 AM | | | | | PDT | | + + + + + | Body Mass Index | 25.64 | 12/26/2013 9:38 AM | | | | | PDT | | + + + + + documented in this encounter Patient Instructions Patient Instructions Rose Artis MA - 12/26/2013 10:17 AM PDTThank you for your visit roseanne espinal. It was great to meet you and to hear you are doing so well. Please make an appointment to see us again in 12 months. We will arrange a repeat echo in 24 months. There is no need for regular repeat chest x-ray s. Adult Congenital Heart Disease Clinic MD Huan Nolen MD PhD Brynn Reed, MD Polly Buck, RN Important Phone Numbers Adult Congenital Cardiology Office: [phone] (logan for Mavis) Clinic Nurse, Genny Overton: [phone] Clinic [phone] Echo lab [phone] MRI [phone] (Nathalie) Radiology [phone] Pulmonary function [phone] scientific laboratory supervisor [phone] After hours emergency: [phone] Long distance: Website: [email or web address] We support the Adult Congenital Heart Association and invite you to be a member, to promote patient peer support, education, community events, patient advocacy, and research in congen ital heart disease. [email or web address] documented in this encounter Progress Notes Huan Taylor MD - 12/26/2013 9:51 AM PDTFormatting of this note might be differen t from the original. ADULT CONGENITAL HEART DISEASE CLINIC CONSULTATION Joie Villarreal is a 26 y.o. 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 She returns to clinic for routine follow-up. PCP: Rao Theodore MD Referring: No Referring Provider Dr Hines Past Medical History: 1.0 TAPV (total anomalous pulmonary venous surgery done in [place] at 6 days of age) 1.1 Serial echocardiograms have not shown any residual cardiac disease. 2.0 Pacemaker implanted (age 13) 1999 for sick sinus syndrome with AV node dysfunction (Dr Hines) 2.1. 1998 episodic lightheadedness. Holter monitor demonstrated symptomatic sinus bradycar omari leading to pacemaker insertion. 2.2 08/13/2008 Medtronic single-chamber pacemaker replacement due to battery depletion 2.3 Underlying sinus bradycardia and junctional rhythm but OVER HAULER HELPER 90% of the time Patient Active Problem List Diagnosis 427.81 SICK SINUS SYNDROME Total Congenital Anomalous Pulmonary Venous Connection Medtronic single chamber pacemaker Current History: Last pacemaker check May 2013 Battery longevity is good. Lead characteristics appear stable. 2 VHR episodes as above - du rations of 2 and 4 seconds each. NYHA Class I. Exercises regularly, feels well. Sushma 60 minutes. No orthopnea, PND, SOA. Infrequent palpitations without any symptoms of concern. EKG today shows ventricular paced rhythm 67bpm Currently using Mirena for contraception No antibiotics for dental procedures. ROS: As above, all other reviewed systems were negative, including 10 different systems, sp ecifically, no headaches, vision changes, swallowing problems, cough or hemoptysis, heat or cold intolerance, nausea, vomiting, diarrhea, hematuria, melena, fever, chills, shakes, orth opedic limitation, rash or bruise, depression, numbness or tingling, or loss of limb functio n. FHx: Unchanged from last visit No past encounter found in . SHx: Works for [employer]. Lives with boyfriend. Regular exerci se. Non-smoker. ETOH: glass of wine with dinner 2-3 [...] medications for this visit. Physical Exam: BP 108/61 | Pulse 66 | Temp (Src) 36.8 C (98.3 F) (Oral) | Ht 1.575 m (5' 2") | Wt 63.5 94 kg (140 lb 3.2 oz) | SpO2 100% | BMI 25.64 kg/(m^2) GEN: Well appearing EYES: Normal appearing NECK: No abnormality JVP: Not elevated, normal waveform CAROTID: Normal upstroke CHEST: Midline sternotomy scars. Visually normal respiration; Lungs clear to auscultation t hroughout. HEART: Regular rate and rhythm, no systolic murmur, no diastolic murmur. Second heart sound normal. ABDOM: Soft, non tender, no organomegaly EXTREM: No edema. No clubbing SKIN: Warm and dry NEURO: Awake and oriented DATA: No results found for this basename: cr,k Lab Results Lab Test Name Results Date/Time HB See cmnt 08/13/08 HCT See cmnt 08/13/08 No results found for this basename: chol, ldl, hdl, tri Lab Results Lab Test Name Value Date QRS 132 12/26/2013 Transthoracic Echocardiogram 2012 1. The left ventricular cavity size is normal. 2. The LV systolic function is normal. 3. Left ventricular systolic thickening is normal in all segments. 4. No significant abnormalities identified. IMP: NYHA Class I Feeling well Physical examination normal We had a discussion about the risks of endocarditis related to oral yaquelin, emphasising the need for routine oral hygiene and indications for antibiotic prophylaxis in patients with re sidual shunts around a patch, prosthetic valves including homografts, cyanosis, or prior hea rt transplant. Regular brushing/flossing and dental visits were emphasized. PLAN: Review in 12 months Repeat echo in 24 ths HUAN ALMAGUER PhD Engineering Administratorstaff editor Division of Cardiovascular Medicine documented in th is encounter Plan of [...] | | 2019 | | | [address] [facility] | | | | | | [address] | | | | | | [place], [place] | | | | | | [address] | | | | | | [phone] | | | | | | | | +--------+ + + + + documented as of this encounter Visit Diagnoses + + | Diagnosis | + + | Total congenital anomalous pulmonary venous connection - Primary | + + documented in this encounter
--- OUTSIDE RECORDS SUMMARY | ~2019-10-07 | XMS | Encounter Summary ---
Demographics + + + | Address | [address] | | | [place] [address] | + + + | Home Phone [...] [place], [place] | | | | | [address] | | + + + + + | Polly Winston | ECON | ANAYA, | | + + + + + Care Team Providers + +------+ + | Care Hydroelectric Plant Electrical Engineer Name | Role | Phone | + +------+ + | Yuli Franklin | PCP | | + +------+ + Reason for Visit + + + | Reason | Comments | + + + | Procedure | | + + + Encounter Details +--------+ + + + + | Date | Type | Department | Care Team | Description | +--------+ + + + + | 06/15/ | Telephone | Cardiac Illustrator Set | Bethel Salvador | Procedure | | 2018 | | at [facility] [address] | MD [place] [address] | | | | | [facility] [address] | [facility] | | | | | [facility], | [place], [place] | | | | | Floor [place] | [address] | | | | | [address] | [phone] | | | | | [phone] | | | +--------+ + + + [...] Rd | | | | | | [place] | | | | | | [address] | | | | | | [phone] | | | | | | | | +--------+ + + + + documented as of this encounter Visit Diagnoses Not on filedocumented in this encounter"
--- OUTSIDE RECORDS SUMMARY | ~2019-10-07 | XMS | Encounter Summary ---
Demographics + + + | Address | [address] | | | [place] [address] | + + + | Home Phone [...] [place], [place] | | | | | [address] | | + + + + + | Polly Winston | ECON | ANAYA, | | + + + + + Care Team Providers + +------+ + | Care Treatment Manager Name | Role | Phone | + +------+ + | Gabrielle Fernández MD | PCP | | + +------+ + Encounter Details +--------+ + + + + | Date | Type | Department | Care Team | Description | +--------+ + + + + | 12/21/ | Office | General Internal | Note, Outpatient | Progress Note | | 1996 | Visit-Trans | Medicine [address] | Clinic | | | | cribed | [address] | | | | | | Mailcode: L475 | | | | | | Outpatient Clinic | | | | | | [facility], [address] | | | | | | [place], [place] | | | | | | [address] | | | | | | [phone] | | | +--------+ + + + [...] as of this encounter Progress Notes Interface, Respiratory Care Instructor In - 04/12/2006 5:10 AM PST CLINIC DATE: 12/21/96 CLINIC SITE: ANAYA Salter is now almost 11. She is postoperative repair of total anomalous pulmonary venous drainage, surgery which was done in [place] at 7 days of age. She has had no cardiac symptoms or signs since we saw her last. The grandmother who takes care of her states that some months ago she was bothered with some episodes of lightheadedness recurring during lunch and with her activities after lunch. These were momentary and at no time was there a faint. These episodes are occurring with less frequency at this time. Joie has otherwise been well these past 5 years. Grandmother has some concerns about her school. On examination, she is alert, in no distress. She weighs 85 pounds. She is 56-3/4th inches tall. Blood pressure is 121/56. Her heart rate is irregular and about 85 with frequent premature beats. Her arterial saturation is 100% by pulse oximeter at room air. Palpation of the precordium reveals no overactivity nor thrill. She has no venous distention. She has good pulses in both upper and lower extremities. Abdominal examination is negative without hepatosplenomegaly. On auscultation she has, as I heard before, a grade II-III vibratory systolic ejection murmur at the lower left sternal border. Heart sounds are normal. The second sound is normal with respiration. After the second sound, there is a suggestion of a low-pitched short diastolic murmur. No S3 or S4 is heard. Joie had had an echocardiogram in 1988 which showed no abnormalities. She had no evidence of right ventricular enlargement. The diastolic murmur that I heard was reminiscent of some minimal pulmonary valve regurgitation. I elected not to investigate this at this time but to see her again in 5 years and certainly if she continues to have what might be a murmur compatible with pulmonary valve regurgitation an echocardiogram is reasonable to be done. At this time, however, I feel that she has had an excellent result from her surgery, that she should be unlimited in her activities, and that at this time no prophylactic antibiotics are necessary with regard to possibility of bacterial endocarditis. I exercised Joie and her premature beats disappeared, with her heart rate at about 110 per minute. Cyrus Hobbs M.D. Professor, Pediatric Cardiology EMMANUEL/rupali P cc: SILVANO CORADO [address] [place] [address] [place] [address] documented in this encounter Plan of Treatment [...] | | 2019 | | | [address] [facility] | | | | | | [address] | | | | | | [place], [place] | | | | | | [address] | | | | | | [phone] | | | | | | | | +--------+ + + + + documented as of this encounter Visit Diagnoses Not on filedocumented in this encounter"
--- OUTSIDE RECORDS SUMMARY | ~2019-10-07 | XMS | Encounter Summary ---
Demographics + + + | Address | [address] | | | [place] [address] | + + + | Home Phone [...] [place], [place] | | | | | [address] | | + + + + + | Polly Winston | ECON | ANAYA, | | + + + + + Care Team Providers + +------+ + | Care [place]lowing [place] Name | Role | Phone | + +------+ + | Yuli Franklin | PCP | | + +------+ + Reason for Visit + + + | Reason | Comments | + + + | Echo Imaging Note | | + + + Encounter Details +--------+ + + + + | Date | Type | Department | Care Team | Description | +--------+ + + + + | 08/20/ | Results/Int | Pediatric | Kiki Buitrago, | Maternal | | 2020 | erpretation | Cardiology at | [address] [facility] | cardiovascular | | | | [place] | [facility] | disease complicating | | | | [facility] | [place], [place] | , | | | | [address] | [address] | antepartum (Primary | | | | [facility] | [phone] | Dx) | | | | [facility] | | | | | | [address] [place] [address], | | | | | | [place] [address] | | | | | | [phone] | | | +--------+ + + + [...] documented as of this encounter Progress Notes Kiki Buitrago MD - 08/21/2019 1:15 PM PDT Please see finalized results of Echocardiogram in Cards tab of chart review. documented in this encounter Plan of Treatment [...] | | 2019 | | | [address] [facility] | | | | | | [address] | | | | | | [place], [place] | | | | | | [address] | | | | | | [phone] | | | | | | | | +--------+ + + + + documented as of this encounter Procedures + +--------+ + + + | Procedure Name | Priori | Date/Time | Associated Diagnosis | Comments | | | ty | | | | + +--------+ + + + | ID DOPPLER COLOR | Routin | 08/21/2019 | [...] | Diagnosis | + + | Maternal cardiovascular disease complicating , antepartum - Primary Other | | cardiovascular diseases of mother, antepartum | + + documented in this encounter"
--- OUTSIDE RECORDS SUMMARY | ~2019-10-07 | XMS | Encounter Summary ---
Demographics + + + | Address | [address] | | | [place] [address] | + + + | Home Phone | | + + + | Preferred Language | Unknown | + + + | Marital Status | | + + + | Moravian Affiliation | NON | + + + [...] [place], [place] | | | | | [address] | | + + + + + | Polly Winston | ECON | ANAYA, | | + + + + + Care Team Providers + +------+ + | Care Forestry Fire Aid Name | Role | Phone | + +------+ + | Gabrielle Fernández MD | PCP | | + +------+ + Encounter Details +--------+ + + + + | Date | Type | Department | Care Team | Description | +--------+ + + + + | 11/22/ | Telephone | Pediatric | Carlos Hinesdri, | | | 2008 | | Cardiology at | MD [address] [facility] | | | | | [place] | [facility] | | | | | [facility] | [place], [place] | | | | | [address] | [address] | | | | | Em[place] | [phone] | | | | | [facility] | | | | | | [address] [facility], | | | | | | [place] [address] | | | | | | [phone] | | | +--------+ + + + [...] Rd | | | | | | [place], [place] | | | | | | [address] | | | | | | [phone] | | | | | | | | +--------+ + + + + documented as of this encounter Visit Diagnoses Not on filedocumented in this encounter"
--- OUTSIDE RECORDS SUMMARY | ~2019-10-07 | XMS | Encounter Summary ---
Demographics + + + | Address | [address] | | | [place] [address] | + + + | Home Phone | | + + + | Preferred Language | Unknown | + + + | Marital Status | | + + + | Orthodoxy Affiliation | NON | + + + | Race | White | + + + | Ethnic Group | or | + + + Author + + + | Author | [facility] | + + + | Organization | [facility] | + + + | [...] [place], [place] | | | | | [address] | | + + + + + | Polly Winston | ECON | ANAYA, | | + + + + + Care Team Providers + +------+ + | Care Electrophysiology Technologist Name | Role | Phone | [...] | +--------+ + + + + | 05/04/ | Telephone | Pediatric | Antonio Hines, | Other | | 2011 | | Cardiology at | [address] [facility] | | | | | [place] | [facility] | | | | | [facility] | [place], [place] | | | | | [address] | [address] | | | | | Em[place] | [phone] | | | | | [facility] | | | | | | [address] [place] [address], | | | | | | [place] [address] | | | | | | [phone] | | | +--------+ + + + [...] Rd | | | | | | [place] | | | | | | [address] | | | | | | [phone] | | | | | | | | +--------+ + + + + documented as of this encounter Visit Diagnoses Not on filedocumented in this encounter"
--- OUTSIDE RECORDS SUMMARY | ~2019-10-07 | XMS | Encounter Summary ---
Demographics + + + | Address | [address] | | | [place] [address] | + + + | Home Phone [...] Author | [facility] | + + + | Organization | [facility] | + + + | Address | [...] [place], [place] | | | | | [address] | | + + + + + | Polly Winston | ECON | [place], | | + + + + + Care Team Providers + +------+ + | Care Research Technician Name | Role | Phone | + +------+ + | Gabrielle Fernández MD | PCP | | + +------+ + Encounter Details +--------+ + + + + | Date | Type | Department | Care Team | Description | +--------+ + + + + | 11/19/ | Telephone | Pediatric | Carlos Hinesdri, | | | 2008 | | Cardiology at | MD [address] [facility] | | | | | Emeli | [facility] | | | | | [facility] | [place], [place] | | | | | [address] | [address] | | | | | Emeli | [phone] | | | | | [facility] | | | | | | [address] [facility], | | | | | | [place] [address] | | | | | | [phone] | | | +--------+ + + + [...] [address] | | | | | | [place], [place] | | | | | | [address] | | | | | | [phone] | | | | | | | | +--------+ + + + + documented as of this encounter Visit Diagnoses Not on filedocumented in this encounter"
--- OUTSIDE RECORDS SUMMARY | ~2019-10-07 | XMS | Encounter Summary ---
Demographics + + + | Address | [address] | | | [place] [address] | + + + | Home Phone | | + + + | Preferred Language | Unknown | + + + | Marital Status | | + + + | Nondenominational Affiliation | NON | + + + | Race | White | + + + | Ethnic Group | or | + + + Author + + + | Author | [facility] | + + + | Organization | [facility] | + + + | [...] [address] | | | | | [facility] [place] | | | | | [address] | | + + + + + | Polly Winston | ECON | A[place], | | + + + + + Care Team Providers + +------+ + | Care Film Maker Name | Role | Phone | [...] Closed | | Pediatric | Diagnoses | Pradeep, | Donny, | | | | Cardiology | PAP[facility] - | Gabrielle Myrick MD | MD Antonio | | | | | partial | PEDS | [address] | | | | | anomalous | SPECIALISTS | David Lopez | | | | | pulmonary | OF [place] | Juni [place], | | | | | venous | [address] | [place] | | | | | return | [address] | [address] | | | | | | [address] | Phone: | | | | | | [place], | [phone] | | | | | | [place] [address] | Fax: | | | | | | Phone: | [phone] | | | | | | [phone] | | | | | | | Fax: | | | | | | | [phone] | | +--------+--------+ + + + + Encounter Details +--------+---------+ + + + | Date | Type | Department | Care Team | Description | +--------+---------+ + + + | 11/25/ | Office | Pediatric | Antonio Hines, | 427.81 SICK SINUS | | 2010 | Visit | Cardiology at | [address] | SYNDROME; Total | | | | [place] | [facility] | congenital anomalous | | | | [facility] | [place], [place] | pulmonary venous | | | | [address] [facility] | [address] | connection | | | | Emeli | [phone] | | | | | [facility] | | | | | | [address] [place] [address] | | | | | | [place] [address] | | | | | | [phone] | | | +--------+---------+ + + + [...] + + + | Blood Pressure | 119/69 | 11/25/2010 9:42 AM | | | | | PDT | | + + + + + | Pulse | 64 | 11/25/2010 9:42 AM | | | | | PDT | | + + + + + | Temperature | - | - | | + + + + + | Respiratory Rate | - | - | | + + + + + | Oxygen Saturation | 100% | 11/25/2010 9:42 AM | | | | | PDT | | + + + + + | Inhaled Oxygen | - | - | | | Concentration | | | | + + + + + | Weight | 63.6 kg (140 lb 3.4 | 11/25/2010 9:42 AM | | | | oz) | PDT | | + + + + + | Height | 160 cm (5' 2.99") | 11/25/2010 9:42 AM | | | | | PDT | | + + + + + | Body Mass Index | 24.84 | 11/25/2010 9:42 AM | | | | | PDT | | + + + + + documented in this encounter Patient Instructions Patient Instructions Antonio Hines MD - 11/25/2010 9:59 AM PDTYour pacemaker is valentin kitchen. Please send Carelink checks every 3 months (next one on 02/16/11). Please return for check up in 1 year. Antonio Hines MD Director, Pediatric Electrophysiology Professor of Pediatrics [phone] documented in this encounter Progress Notes Antonio Hines MD - 11/25/2010 9:34 AM PDTHistory: Joie comes for a routine followup check for her pacemaker. I performed a pacemaker pulse generator change on her on 08/13/08 and she has had regular Nd relink remote checks with the most recent one on 08/13/10. I last saw her on 12/24/2009. Please refer to that note. She continues to do well with no problems, except occasional dizziness. Her past, family, and social history are unchanged, and review of systems is otherwise negative. 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 She has just returned from [facility] for an exchange visit and is now looking for a job and plans to do her masters in Social Work in [place]. Allergies: SHE IS ALLERGIC TO CODEINE. Physical Examination: BP 119/69 | Pulse 64 | Ht 160 cm (5' 2.99") | Wt 63.6 kg (140 lb 3.4 oz) | SpO2 100% | BMI 24.84 kg/(m^2) Joie looks well and comfortable with no evidence of anemia, jaundice, clubbing, cyanosis or peripheral edema. HEENT was normal. Her pulses were normal with good femoral pulses and no brachio-femoral delay. Abdomen was soft with no hepato-spleno megaly. Chest was clear to auscultation. Cardiac exam reveals a normal apical impulse and on auscultation the heart dillon nds are normal with no murmurs or clicks. Central nervous system was grossly normal with nor mal gait, speech and facial movements. Affect was normal and pleasant. Extremities were warm and well perfused. Skin was normal with no rash. Pacemaker scar in left upper pectoral area and midline sternal scar noted. Both look fine. Pacemaker check shows: Device: Medtronic Sensia Implanted: 08/13/08 RULA: no ADVISORY: NO Mode: VVIR Lower Rate: 60 Upper Rate: 170 Battery Voltage: 2.78 volts Cell Impedance: 312 ohms Estimated battery longevity: 8 years (range 6.5-9.5) Patient is not pacer dependent. Telephone monitoring is: on Output (v) Pulse Width (ms) Sensitivity (mv) Right Ventricle 2 volts 0.4 ms 2mV TESTING: Threshold testing was performed. RT VENTRICLE RV threshold volts: 0.75 v RV threshold PW: 0.4 ms RV lead impedance: 656 ohms R Wave Amplitude: 2.8-4 mV She is paced 84% of the time. Ventricular capture looks good. Programming Changes: None. I am pleased with this check. The next Carelink check will be in 3 months . She needs 3 monthly Carelink checks and annual live checks. Impression: doing well. Try hydration for dizziness. To call back if it does not improve. It was a pleasure to see Joie today. Antonio Hines MD Director, Pediatric Electrophysiology Professor of Pediatrics [phone] documented in this e ncounter Plan of [...] [place] | | | | | | [address] | | | | | | [phone] | | | | | | | | +--------+ + + + + documented as of this encounter Visit Diagnoses + + | Diagnosis | + + | 427.81 SICK SINUS SYNDROME Sinoatrial node dysfunction | + + | Total congenital anomalous pulmonary venous connection | + + documented in this encounter
--- OUTSIDE RECORDS SUMMARY | ~2019-10-07 | XMS | Encounter Summary ---
Demographics + + + | Address | [address] | | | [place] [address] | + + + | Home Phone [...] [address] | | | | | [facility] [place] [place] | | | | | [address] | | + + + + + | Polly Winston | ECON | [place], | | + + + + + Care Team Providers + +------+ + | Care Chief Clinical Officer Name | Role | Phone | [...] | | | | 427.81 SICK | [place], | [place], [place] | | | | | SINUS | [place] [address] | [address] | | | | | SYNDROME | Phone: | | | | | | Other | [phone] | | | | | | Diagnoses:74 | Fax: | | | | | | 7.41 | [phone] | | | | | | Total [...] | | | | | | | SD ICD DVC | | | | | | | PRG EVL,1 | | | | | | | SNGL SD ICD | | | | | | | DVC PRGR | | | | | | | EVL,HANDLE ASSEMBLER | | | +--------+--------+ + + + + Encounter Details +--------+---------+ + + + | Date | Type | Department | Care Team | Description | +--------+---------+ + + + | 12/26/ | Office | Cardiology General | Madeleine Hernandez NP | 427.81 SICK SINUS | | 2013 | Visit | at [facility] [address] | [address] | SYNDROME (Primary | | | | [facility] | [facility] [place] | Dx); Total | | | | [facility], | [address] | congenital anomalous | | | | Building | [phone] | pulmonary venous | | | | Floor [place], [place] | | connection; | | | | [address] | | Medtronic single | | | | [phone] | | chamber pacemaker; | | | | | | Sinoatrial node | | | [...] | Blood Pressure | 108/61 | 12/26/2013 9:39 AM | | | | | PDT | | + + + + + | Pulse | 66 | 12/26/2013 9:39 AM | | | | | PDT | | + + + + + | Temperature | 36.8 C (98.3 F) | 12/26/2013 9:39 AM | | | | | PDT | | + + + + + | Respiratory Rate | - | - | | + + + + + | Oxygen Saturation | 100% | 12/26/2013 9:39 AM | | | | | PDT | | + + + + + | Inhaled Oxygen | - | - | | | Concentration | | | | + + + + + | Weight | 63.6 kg (140 lb 3.2 | 12/26/2013 9:39 AM | | | | oz) | PDT | | + + + + + | Height | 157.5 cm (5' 2") | 12/26/2013 9:39 AM | | | | | PDT | | + + + + + | Body Mass Index | 25.64 | 12/26/2013 9:39 AM | | | | | PDT | | + + + + + documented in this encounter Patient Instructions Patient Instructions Mellissa Aguilar RN - 12/26/2013 10:36 AM PDTYour pacer looks fine- ba ttery should last 42months- lets do a remote visit in 6months and clinic in 1 year. If you notice anything different you can send a remote transmissiosn and call.Electronicall y signed by Mellissa Aguilar RN at 12/26/2013 10:38 AM PDT documented in this encounter Progress Notes Madeleine Hernandez NP - 12/26/2013 10:29 AM PDT PACEMAKER HISTORY Primary Care Provider: No Pcp Per PATIENT Typists Supervisor: [facility] Joie Villarreal is a 27 y.o. Female. Diagnosis: ICD-9-CM 1. 427.81 SICK SINUS SYNDROME 427.81 2. 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 Medtronic single chamber pacemaker V45.01 Device: Medtronic Sensia [id number] Implanted: 08/13/2008 Leads: V: SJM-Pacesetter [id number] Implanted 08/11/1999 ADVISORY: NO Mode: VVIR Lower Rate: 60 Upper Rate: 170 ADL Rate: 105 Magnet Rate: 85 Battery Voltage: 2.76 Cell Impedance: 1760 ohms Estimated battery longevity: 3.5 yrs (2-4.5years) Patient is moderately pacer dependent--underlying junctional rhythm in the 30's and she wa s symptomatic Remote monitoring is: on Output (v) Pulse Width (ms) Sensit ivity (mv) Right Ventricle 2.5 (adaptive) 0.4 2.0 TESTING: Threshold testing was performed. RT VENTRICLE RV threshold volts: 1.25 RV threshold PW: 0.4 RV lead impedance: 652 R Wave Amplitude: 2.0-2.8 Programming Changes: returned to initial settings VS: 3.1% PHYSIOTHERAPY PRACTICE MANAGER: 96.9% Hospitalizations: none PHYSICAL EXAM: Vitals: Visit Vitals Item Reading BP 108/61 Pulse 66 Temp (Src) 36.8 C (98.3 F) (Oral) Ht 1.575 m (5' 2") Wt 63.594 kg (140 lb 3.2 oz) SpO2 100% BMI 25.64 kg/(m^2) Rhythm: V Pace Seen with [facility] Current Outpatient Prescriptions Medication Sig levonorgestrel (MIRENA) [...] for this visit. Notes: Joie is here with her mother. She was also seen in [facility]. She has been fe shanell well- is able to be active, and since her last visit with Mellissa Zhou, when her sen sor was adjusted, she has gotten used to the changes, and has been able to exercise without problems. She continues to exercise at the gym three days per week--treadmill and elliptical . She also walks regularly. She has not been lightheaded or dizzy. She has not had palpit ations that she was aware of, though the pacer did record 2 brief NSVT episodes- last was .. She feels that her heart rate keeps up with her and her histograms show that her HR gets to 110. Pacemaker reprogrammed as noted above. Will plan a remote visit or in c linic visit in 6 mos and RTC 1year; as she does not need to see [facility] again for 2 years. Let her know that she can send a manual remote transmission if anything changes, or she has new symptoms. documented in this enc ounter Plan of [...] Rd | | | | | | [place], [place] | | | | | | [address] | | | | | | [phone] | | | | | | | [...]
--- OUTSIDE RECORDS SUMMARY | ~2019-10-07 | XMS | Encounter Summary ---
Demographics + + + | Address | [address] | | | [place] [address] | + + + | Home Phone [...] Author | [facility] | + + + | Organization | [facility] | + + + | Address | [...] [place], [place] | | | | | [address] | | + + + + + | Polly Winston | ECON | [place], | | + + + + + Care Team Providers + +------+ + | Care Switching Operator Name | Role | Phone | + +------+ + | Gabrielle Fernández MD | PCP | | + +------+ + Encounter Details +--------+ + + + + | Date | Type | Department | Care Team | Description | +--------+ + + + + | 09/08/ | Office | Pediatric | Antonio Hines, | | | 2005 | Visit-ECX | Cardiology at | MD [address] [facility] | | | | | Emeli | [facility] | | | | | [facility] | [place], [place] | | | | | [address] | [address] | | | | | [facility] | [phone] | | | | | [facility] | | | | | | 7th [facility], | | | | | | [place] [address] | | | | | | [phone] | | | +--------+ + + + [...] + + + | Blood Pressure | 131/68 | 09/08/2005 10:40 AM | | | | | PDT | | + + + + + | Pulse | 73 | 09/08/2005 10:40 AM | | | | | PDT | | + + + + + | Temperature | - | - | | + + + + + | Respiratory Rate | 28 | 09/08/2005 10:40 AM | | | | | PDT | | + + + + + | Oxygen Saturation | 99% | 09/08/2005 10:40 AM | | | | | PDT | | + + + + + | Inhaled Oxygen | - | - | | | Concentration | | | | + + + + + | Weight | 54.7 kg (120 lb 9.5 | 09/08/2005 10:40 AM | | | | oz) | PDT | | + + + + + | Height | 159 cm (5' 2.6") | 09/08/2005 10:40 AM | | | | | PDT | | + + + + + | Body Mass Index | 21.64 | 09/08/2005 10:40 AM | | | | | PDT [...] Rd | | | | | | [place], [place] | | | | | | [address] | | | | | | [phone] | | | | | | | | +--------+ + + + + documented as of this encounter Visit Diagnoses Not on filedocumented in this encounter
--- OUTSIDE RECORDS SUMMARY | ~2019-10-07 | XMS | Encounter Summary ---
Demographics + + + | Address | [address] | | | [place] [address] | + + + | Home Phone | | + + + | Preferred Language | Unknown | + + + | Marital Status | | + + + | Buddhist Affiliation | NON | + + + [...] [place] | | | | | [address] | | + + + + + | Polly Winston | ECON | [place], | | + + + + + Care Team Providers + +------+ + | Care Management Technician Name | Role | Phone | + +------+ + PCP | Unavailable | + +------+ + Encounter Details +--------+ + + + + | Date | Type | Department | Care Team | Description | +--------+ + + + + | 09/12/ | Letter-Leahy | | Letters, Other | Letters | | 2002 | scribed | | | | +--------+ + + [...] as of this encounter Progress Notes Interface, It Architect In - 08/25/2005 3:[address] [address] or September 12, 2002 Gabrielle Fernández M.D. [address] [facility]. [address] [place] [address] RE: JOIE MANCIA MR #: [id number] Dear Dr. Fernández: I reviewed Joie for her pacemaker check today. Please refer to my letter to you dated September 06, 2001, and October 12, 2000. Joie has been doing well and essentially has no complaints. She has some aches and pains that are on her ankles and knees after heavy physical activity and also had a history of hives in her hands and feet during the cold weather. She is in the swim team and doing well. She does not complain of any difficulty doing her swimming activities. Review of systems is otherwise negative. On examination today, she weighs 56.7 kg. Her height is 159 cm, blood pressure is 114/66, heart rate is 76, and saturations are 100%. She is comfortable at rest, and her previous scars and the midline sternotomy scar and the left infraclavicular scar are once again noted. Abdomen is soft with no hepatosplenomegaly. Peripheral pulses are normal. Chest is clear. Cardiac auscultation reveals a very soft systolic murmur. Chest x-ray shows a cardiothoracic ratio of 47% and the lead up here is unchanged in the right ventricle. The pacemaker check shows that her pacemaker is working well, and the expected longevity is around 80 months. She is 92% paced. Lead impedence was 848 Ohms and thresholds were 1 V at 1 msec and 0.12 msec at 2.5 V. R-wave amplitude was 11.2 mV. The only change made to the pacemaker setting was to increase her ventricular pulse rate to 0.45 msec from 0.3. I would like to see Joie cade in 1 year's time with an echocardiogram at that visit. She needs antibiotic prophylaxis for dental and surgical procedures, and she may otherwise engage in normal activities other than contact sports. I hope this followup consultation is helpful to you. If you have any questions, please do let me know. Thank you. Yours sincerely, Antonio Hines M.D. Director, Pediatric Electrophysiology Animal Pathology Teacher Professor Division of Pediatric Cardiology [facility] SB / HS [id number] / [id number] / [id number] / Tdocumented in this encounter Plan of Treatment [...] [place] | | | | | | [address] | | | | | | [phone] | | | | | | | | +--------+ + + + + documented as of this encounter Visit Diagnoses Not on filedocumented in this encounter"
--- OUTSIDE RECORDS SUMMARY | ~2019-10-07 | XMS | Encounter Summary ---
Demographics + + + | Address | [address] | | | [place] [address] | + + + | Home Phone [...] [place], [place] | | | | | [address] | | + + + + + | Polly Winston | ECON | [place], | | + + + + + Care Team Providers + +------+ + | Care Office Worker Name | Role | Phone | + +------+ + | Gabrielle Fernández MD | PCP | | + +------+ + Encounter Details +--------+ + + + + | Date | Type | Department | Care Team | Description | +--------+ + + + + | 08/17/ | Office | [facility] | Note, [...] as of this encounter Progress Notes Interface, Psychology Assistant In - 01/16/2006 1:07 AM PSTCLINIC DATE: 08/18/1999 HISTORY: The patient is a 13-year-old little girl who had a pacemaker inserted last week. She presents today for a chest x-ray and for wound check. Since the pacemaker procedure which was done on August 11, 1999, and August 12, 1999, she has been well and has been home with no fever, swelling, redness, or any oozing from the wound site. The mother and grandmother report that the patient has more energy than before and is otherwise well. They report no further problems. Past history, review of systems, social history, and family history are unchanged from previous. PHYSICAL EXAMINATION: GENERAL: A well-appearing little girl. VITAL SIGNS: Blood pressure 110/50, heart rate 66, saturation is 100%. CHEST: The wound appears clear, and we were able to remove the Steri-Strips today. There is no redness, induration, swelling, or oozing from the wound side. EXTREMITIES: Her peripheries are warm and well perfused, and she is alert, looks comfortable, and is oriented in time and space. DIAGNOSTIC STUDIES: Chest x-ray today shows a small heart with a ventricular lead in the right ventricular apex whose position has not changed. The lung patrick are clear. PLAN: She was set up for transtelephonic monitoring checks of her pacemaker today. She will be coming back for a pacemaker check in five weeks' time. It is anticipated that she will be seeing for her congenital heart disease checks once a year in the wintertime and coming to [place] for her pacemaker checks once a year in the summertime. Antonio Hines M.D. Department of Pediatrics Division of Cardiology / [id number] / [id number] / [id number] / [id number] cc: Tori Hays M.D. [address] [facility] [address] [place] [address], [place] [address] Cyrus Hobbs M.D. Pediatric Cardiology, [facility] [id number] signed by Interface, Psychology Assistant In at 01/16/2006 1:07 AM SAMMIdocu nted in this encounter Plan of Treatment [...] [address] | | | | | | [place] | | | | | | [address] | | | | | | [phone] | | | | | | | | +--------+ + + + + documented as of this encounter Visit Diagnoses Not on filedocumented in this encounter"
--- OUTSIDE RECORDS SUMMARY | ~2019-10-07 | XMS | Encounter Summary ---
Demographics + + + | Address | [address] | | | [place] [address] | + + + | Home Phone | | + + + | Preferred Language | Unknown | + + + | Marital Status | | + + + | Bahai Affiliation | NON | + + + [...] [place], [place] | | | | | [address] | | + + + + + | Polly Winston | ECON | [place], | | + + + + + Care Team Providers + +------+ + | Care Grinder Dresser Name | Role | Phone | + +------+ + | Gabrielle Fernández MD | PCP | | + +------+ + Encounter Details +--------+ + + + + | Date | Type | Department | Care Team | Description | +--------+ + + + + | 03/31/ | Telephone | Pediatric | Carlos Hinesdri, | | | 2010 | | Cardiology at | MD [address] [facility] | | | | | Emeli | [facility] | | | | | [facility] | [place], [place] | | | | | [address] | [address] | | | | | Emeli | [phone] | | | | | [facility] | | | | | | [address] [facility], | | | | | | [place] [address] | | | | | | [phone] | | | +--------+ + + + [...] Rd | | | | | | [place], [place] | | | | | | [address] | | | | | | [phone] | | | | | | | | +--------+ + + + + documented as of this encounter Visit Diagnoses Not on filedocumented in this encounter"
--- OUTSIDE RECORDS SUMMARY | ~2019-10-07 | XMS | Encounter Summary ---
Demographics + + + | Address | [address] | | | [place] [address] | + + + | Home Phone | | + + + | Preferred Language | Unknown | + + + | Marital Status | | + + + | Latter-Day Affiliation | NON | + + + | Race | White | + + + | Ethnic Group | or | + + + Author + + + | Author | [facility] | + + + | Organization | [facility] | + + + | Address [...] [place], [place] | | | | | [address] | | + + + + + | Polly Winston | ECON | [place], | | + + + + + Care Team Providers + +------+ + | Care Household Appliance Assembler Name | Role | Phone | + +------+ + | Yuli Franklin | PCP | | + +------+ + Encounter Details +--------+ + + + + | Date | Type | Department | Care Team | Description | +--------+ + + + + | 06/27/ | MyChart | Center | Mellissa Harrison, | RE: Coordinating | | 2020 | Encounter | at [facility] [address] | MD [address] | Care | | | | [address] | [facility] | | | | | Physician's | [place], [place] | | | | | [place], 4th floor | [address] | | | | | [place], [place] | [phone] | | | | | [address] | | | | | | [phone] | | | +--------+ + + + [...] [place] | | | | | | [address] | | | | | | [phone] | | | | | | | | +--------+ + + + + documented as of this encounter Visit Diagnoses Not on filedocumented in this encounter"
--- OUTSIDE RECORDS SUMMARY | ~2019-10-07 | XMS | Encounter Summary ---
Demographics + + + | Address | [address] | | | [place] [address] | + + + | Home Phone [...] [place], [place] | | | | | [address] | | + + + + + | Polly Winston | ECON | ANAYA, | | + + + + + Care Team Providers + +------+ + | Care Personal Fitness Trainer Name | Role | Phone | + +------+ + | Yuli Franklin | PCP | | + +------+ + Encounter Details +--------+------+ + + + | Date | Type | Department | Care Team | Description | +--------+------+ + + + | 06/11/ | Lab | Laboratory at [facility] | | Hereditary disease | | 2020 | | [address] | | in family possibly | | | | [address] [facility]'s | | affecting fetus, | | | | Pavilion, 3rd floor | | affecting management | | | | [place], [place] | | of mother in | | | | [address] | | , single or | | | | [phone] | | unspecified fetus | +--------+------+ + + + Social History + +-------+ [...] +--------+ + + + + | 10/18/ Appointment | Radiology | | | | 2019 | | | | | +--------+ + + + + | 10/18/ | | | Rickeymariza Nellie, | | | 2019 | | | [address] [facility] | | | | | | [address] | | | | | | [place], [place] | | | | | | [address] | | | | | | [phone] | | | | | | | | +--------+ + + + + documented as of this encounter Procedures + +--------+ + + + | Procedure Name | Priori | Date/Time | Associated Diagnosis | Comments | | | ty | | | | + +--------+ + + + | NON-INVASIVE | Routin | 06/12/2019 | Hereditary disease | Results for this | | TEST | e | 10:00 AM | in family possibly | procedure are in the | | | | PDT | affecting fetus, | results section. | | | | | affecting management | | | | | | of mother in | | | | | | , single or | | | | | | unspecified fetus | | + +--------+ + + + documented in this encounter Results NON-INVASIVE TEST (06/12/2019 10:00 AM PDT) + + + + + + | Component | Value | Ref Range | Performed | Pathologist | | | | | At | Signature | + + + + + + | NON-INVASIV | Please see scanned | | [facility] | | | E | report for result. | | REFERENCE | | | SCREEN | | | LAB | | + + + + + + + + | Specimen | + + | Blood - Blood | | (substance) | + + + + + | Narrative | Performed At | + + + | Test performed | [facility] | | by:[id number] [place] [address] | REFERENCE LAB | |[address] [facility] | | |[place] [address] | | + + + + + + + + | Performing | Address | City/State/Zipcode | Phone Number | | Organization | | | | + + + + + | [facility] | | | | + + + + + | [facility] | see below | | | + + + + + documented in this encounter Visit Diagnoses + + | Diagnosis | + + | Hereditary disease in family possibly affecting fetus, affecting management of mother | | in , single or unspecified fetus | + + documented in this encounter"
--- OUTSIDE RECORDS SUMMARY | ~2019-10-07 | XMS | Encounter Summary ---
Demographics + + + | Address | [address] | | | [place] [address] | + + + | Home Phone [...] [address] | | | | | [facility] [place] | | | | | [address] | | + + + + + | Polly Winston | ECON | ANAYA, | | + + + + + Care Team Providers + +------+ + | Care Order Entry Technician Name | Role | Phone | [...] | | | Total | Louisa | [address] | | | | | congenital | Ijeoma, IRON WORKER | [address] | | | | | anomalous | [address] | [address] | | | | | pulmonary | Ave | [place] | | | | | venous | [place], [place] | Building, 2nd | | | | | connection | [address] | floor | | | | | Procedures | Phone: | [place], [place] | | | | | TRANSTHORACI | [phone] | [address] | | | | | C | Fax: | Phone: | | | | | ECHOCARDIOGR | [phone] | [phone] | | | | | AM, ADULT | | | +--------+--------+ + + + + Encounter Details +--------+ + + + + | Date | Type | Department | Care Team | Description | +--------+ + + + + | 12/26/ | Hospital | Cardiac | | | | 2013 | Encounter | Non-Invasive Testing | | | | | | at [facility] [address] | | | | | | [facility] | | | | | [facility], | | | | | | [address] | | | | | | [place], [place] | | | | | | [address] | | | | | | [phone] | | | +--------+ + + + [...] of this encounter Progress Lilian Dave - 12/26/2013 11:30 AM PDTTransthoracic echocardiogram completed. Final report to follow. documented [...] | | 2019 | | | [address] [facility] | | | | | | [address] | | | | | | [place], [place] | | | | | | [address] | | | | | | [phone] | | | | | | | | +--------+ + + + + documented as of this encounter Procedures + +--------+ + + + | Procedure Name | Priori | Date/Time | Associated Diagnosis | Comments | | | ty | | | | + +--------+ + + + | EJECTION FRACTION | Routin | 12/26/2013 | | Results for this | | | e | 11:03 AM | | procedure are in the [...] documented in this encounter Results EJECTION FRACTION (12/26/2013 11:03 AM PDT) + + + + + [...] | [facility] | [address] | [place], [place] | | | CARDIOLOGY | [address] | [address] | | + + + + + documented in this encounter Visit Diagnoses + + | Diagnosis | + + | 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
--- OUTSIDE RECORDS SUMMARY | ~2019-10-07 | XMS | Encounter Summary ---
Demographics + + + | Address | [address] | | | [place] [address] | + + + | Home Phone [...] [place], [place] | | | | | [address] | | + + + + + | Polly Winston | ECON | ANAYA, | | + + + + + Care Team Providers + +------+ + | Care Inspector Scales Name | Role | Phone | + +------+ + | Yuli Franklin | PCP | | + +------+ + Encounter Details +--------+ + + + + | Date | Type | Department | Care Team | Description | +--------+ + + + + | 06/24/ | MyChart | Cardiology General | | Cardiology Follow up | | 2019 | Encounter | at [facility] [address] | | appointment is due | | | | [facility] | | | | | [facility], | | | | | | Building , | | | | | | Floor [place], [place] | | | | | | [address] | | | | | | [phone] | | | +--------+ + + + [...] Rd | | | | | | [place], [place] | | | | | | [address] | | | | | | [phone] | | | | | | | | +--------+ + + + + documented as of this encounter Visit Diagnoses Not on filedocumented in this encounter"
--- OUTSIDE RECORDS SUMMARY | ~2019-10-07 | XMS | Encounter Summary ---
Demographics + + + | Address | [address] | | | [place] [address] | + + + | Home Phone [...] [place], [place] | | | | | [address] | | + + + + + | Polly Winston | ECON | ANAYA, | | + + + + + Care Team Providers + +------+ + | Care Facilities Technician Name | Role | Phone | + +------+ + PCP | Unavailable | + +------+ + Encounter Details +--------+ + + + + | Date | Type | Department | Care Team | Description | +--------+ + + + + | 01/12/ | Trudi | Zaki VEGA at | Louisa Reed | Echo results | | 2012 | Encounter | [facility] [address] | Ijeoma, SINGLE STROKE PREFORMER [address] | | | | | [facility] | [address] [place], | | | | | Health and Healing, | [place] [address] | | | | | Building | [phone] | | | | | Floor [place], [place] | | | | | | [address] | | | | | | [phone] | | | +--------+ + + + [...] | | 2020 | | | [address] | | | | | | [address] | | | | | | [place], [place] | | | | | | [address] | | | | | | [phone] | | | | | | | | +--------+ + + + + documented as of this encounter Visit Diagnoses Not on filedocumented in this encounter"
--- OUTSIDE RECORDS SUMMARY | ~2019-10-07 | XMS | Encounter Summary ---
Demographics + + + | Address | [address] | | | [place] [address] | + + + | Home Phone [...] [place], [place] | | | | | [address] | | + + + + + | Polly Winston | ECON | ANAYA, | | + + + + + Care Team Providers + +------+ + | Care Customer Accounts Advisor Name | Role | Phone | + +------+ + | Yuli Franklin | PCP | | + +------+ + Encounter Details +--------+ + + + + | Date | Type | Department | Care Team | Description | +--------+ + + + + | 06/11/ | Hospital | Center | [place] | | | 2020 | Encounter | at [facility] [address] | Abi Marquis MD,PhD | | | | | [address] | [address] | | | | | Physician's | [address] [place], | | | | | Pavilion[address]th Floor | [place] [address] | | | | | [place], [place] | [phone] | | | | | [address] | | | | | | [phone] | | | +--------+ + + + [...] Rd | | | | | | [place], [place] | | | | | | [address] | | | | | | [phone] | | | | | | | | +--------+ + + + + documented as of this encounter Procedures + +--------+ + + + | Procedure Name | Priori | Date/Time | Associated Diagnosis | Comments | | | ty | | | | + +--------+ + + + | US UTERUS | Routin | 06/12/2019 | Maternal | Results for this | | W/1ST TRIMESTER | e | 2:46 PM | congenital cardiac | procedure are in the | | [facility] | | PDT | anomaly affecting | [...] documented in this encounter Results US UTERUS W/1ST TRIMESTER [facility] (06/12/2019 2:46 PM PDT) + + | Specimen | + + | | + + + + + | Narrative | Performed At | + + + | [facility] | [facility] | | OBSTETRICAL ULTRASOUND REPORT | RADIOLOGY OB US | | | | | Pat. Name: RAMOS SCHMIDT Pat. No: [id number] Study Date: | | | 06/12/2019 2:22pm , Age: 10 1985, 33 Pregnancies: | | | 1, Para 0000 LMP: 03/20/2019 GA by LMP: | | | 12w0d GA by US: 12w6d GA Selected: 12w0d (LMP) MARINA: | | | 12/25/2019 Referring MD: ABI COHEN F | | | [employer] Dealer: JOSH GODINEZ BS, RDMS CPT4: | | | [id number] Hist/Ind: Nuchal Translucency | | | | | | MEASUREMENTS & AGE GROWTH EVALUATION | | | Measurement GA Range Srce %for GA Ratios | | | ----- ---- ------- CRL 6.5 | | | cm 12w6d ([id number]) Hadl CRL 88% GA for sonogram 12w6d | | | ([id number]) based on (CRL) Avg Markers | | [...] ask for the | | | perinatologist road contractor. [phone] or [phone] WENDI FRANZ, | | | <Electronic Signature> 06/12/2019 04:04pm | | | I have personally reviewed the images and, if necessary, edited the | | | report. I agree with the report as now presented. | | + + + + + | Procedure Note | + + | Service Account, Radiant Res In Interface - 06/12/2019 4:03 PM PDT | | [facility] OBSTETRICAL ULTRASOUND | | REPORT Pat. Name: | | Jose SCHMIDT. No: [id number] Date: 06/12/2019 2:22pmDOB, Age: | | 1985, 33Pregnancies: 1, Para 0000LMP: 03/20/2019 GA by LMP: | | [id number] by US: [email or web address] Selected: 12w0d (LMP)MARINA: 12/25/2019Referring MD: | | ABI COHEN, FSonographer: JOSH GODINEZ, RDMSCPT4: | | [id number]/Ind: Nuchal | | Translucency MEASUR | | EMENTS & AGE GROWTH EVALUATIONMeasurement GA Range | | Srce %for GA Ratios ----- ---- ------- | | CRL 6.5 cm 12w6d ([id number]) Hadl CRL 88%GA for sonogram | | 12w6d ([id number])based on (CRL) Avg Markers for Chromosomal | [...] any time and ask for the perinatologist road contractor. [phone] or | | [phone], JAMIE, MD <Electronic Signature> 06/12/2019 04:04pmI have [...] ask for the perinatologist on | |call. [phone] or [phone] | |WENDI FRANZ MD | | | |<Electronic Signature> 06/12/2019 04:04pm | | | | | |I have personally reviewed the images and, if necessary, edited the report. I agree with t he report as now presented. | + + + +---------+ + + | Performing | Address | City/[facility] | Phone Number | | [...]
--- OUTSIDE RECORDS SUMMARY | ~2019-10-07 | XMS | Encounter Summary ---
Demographics + + + | Address | [address] | | | [place] [address] | + + + | Home Phone [...] | Author | [facility] | + + + | Organization | [facility] | + + + | Address | [...] [place], [place] | | | | | [address] | | + + + + + | Polly Winston | ECON | ANAYA, | | + + + + + Care Team Providers + +------+ + | Care Automation Qa Tester Name | Role | Phone | + +------+ + | Yuli Franklin | PCP | | + +------+ + Reason for Visit + + + | Reason | Comments | + + + | Needs Paperwork | | + + + Encounter Details +--------+ + + + + | Date | Type | Department | Care Team | Description | +--------+ + + + + | 07/14/ | Telephone | Cardiology | Bethel Salvador | Needs Paperwork | | 2018 | | Arrhythmia at [facility] | [place] [address] | | | | | [address] | [facility] | | | | | [facility] | [place], [place] | | | | | and Healing, | [address] | | | | | [place] [address] [facility] | [phone] | | | | | [place], [place] | | | | | | [address] | | | | | | [phone] | | | +--------+ + + + [...] Rd | | | | | | [place], [place] | | | | | | [address] | | | | | | [phone] | | | | | | | | +--------+ + + + + documented as of this encounter Visit Diagnoses Not on filedocumented in this encounter"
--- OUTSIDE RECORDS SUMMARY | ~2019-10-07 | XMS | Encounter Summary ---
Demographics + + + | Address | [address] | | | [place] [address] | + + + | Home Phone [...] [place], [place] | | | | | [address] | | + + + + + | Polly Winston | ECON | ANAYA, | | + + + + + Care Team Providers + +------+ + | Care Cloud Engagement Partner Name | Role | Phone | + [...] Maternal | Mellissa Worley MD | Lab [facility] [address] | | | | | congenital | [address] | [facility] [address] | | | | | cardiac | David | Emeli | | | | | anomaly | [address] | Children's | | | | | affecting | [place], [place] | [address] | | | | | in | [address] | Floor | | | | | first | Phone: | [place], [place] | | | | | trimester, | [phone] | [address] | | | | | antepartum | Fax: | Phone: | | | | | Procedures | [phone] | [phone] | | | | | | | Fax: | | | | | ECHOCARDIOGR | | [phone] | | | | | AM, PEDS [...] | | | | congenital | Ijeoma, ASSOCIATE PROFESSOR OF MEDICINE | [address] | | | | | anomalous | [address] | [address] | | | | | pulmonary | Ave | [address] | | | | | venous | [place], [place] | floor | | | | | connection | [address] | [place], [place] | | | | | Procedures | Phone: | [address] | | | | | CONSULT TO | [phone] | Phone: | | | | | PERINATOLOGY | Fax: | [phone] | | | | | MO NEW | [phone] | Fax: | | | | | PATIENT | | [phone] | | | | | LEVEL V MO | | | | | | | EST PATIENT | | | | | | | LEVEL V | | | + +--------+ + + + + Encounter Details +--------+ + + + + | Date | Type | Department | Care Team | Description | +--------+ + + + + | 06/11/ | | Center | Mellissa Harrison, | care | | 2020 | Initial | at [facility] [address] | MD [address] | | | | | [address] | David Lopez | | | | | Physician's | [place], [place] | | | | | [address], 4th floor | [address] | | | | | [place], [place] | [phone] | | | | | [address] | | | | | | [phone] | | | +--------+ + + + [...] + + + | Blood Pressure | 114/58 | 06/12/2019 1:24 PM | | | | | PDT | | + + + + + | Pulse | 78 | 06/12/2019 1:24 PM | | | | | PDT | | + + + + + | Temperature | - | - | | + + + + + | Respiratory Rate | - | - | | + + + + + | Oxygen Saturation | 100% | 06/12/2019 1:24 PM | | | | | PDT | | + + + + + | Inhaled Oxygen | - | - | | | Concentration | | | | + + + + + | Weight | 70.4 kg (155 lb 3.3 | 06/12/2019 1:24 PM | | | | oz) | PDT | | + + + + + | Height | 157.5 cm (5' 2") | 06/12/2019 1:24 PM | | | | | PDT | | + + + + + | Body Mass Index | 28.39 | 06/12/2019 1:24 PM | | | | | PDT | | + + + + + documented in this encounter Progress Notes Yanira Vinson MA - 06/12/2019 1:30 PM PDTUrine was collected and a 4-dip was performed wit h 2 patient identifiers, last name and . FAISAL Hodges Mellissa Gonzalez MD - 0 06/12/2019 1:30 PM PDT MATERNAL CARDIAC PROGRAM - MF NEW OB VISIT DATE: 06/12/2019 REFERRING PROVIDER: PCP: LUIS MIGUEL Hoff PRIMARY OB PROVIDER: Dr. Cantu in [place]/[facility] DATASTAGE DEVELOPER: Louisa Reed NP, [facility] Planned location of delivery: ID/CC: Joie Villarreal is a 33 y.o. at 12w0d (MARINA of Estimated Date of Delivery: by ) who presents for a new OB visit for her complicated by TAPVR s/p correctio n with sick sinus syndrome and pacemaker in place. Pacemaker dependent. Spontaneously conceived . CARDIAC HISTORY 1. TAPV (total anomalous pulmonary venous surgery done in [place] at 6 days of age) 1.1 Mild [...] single-chamber pacemaker replacement due to battery depletion 2.01 Jul 2017 upgraded to Medtronic [id number] 2.3 Patient is pacer dependent--underlying is sinus liam and junctional rhythm , JOB SERVICE SPECIALIST 94% of the time Her baseline activity is excellent with Sushma and cycling 3-4x/week. Does not have dyspnea, chest pain, palpitations, dizziness. 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 LMP: 03/20/19. Periods irregular and heavy when younger, q 28-30 days, lasting 10-14 days. Was on control very young for control. Last pap: 10/2018, normal. Hx abno rmal Pap smears: yes - HPV+ in , had colposcopies and LEEP in 2006, normalized in 201 0. Hx STD's: no. OB HISTORY OB History Para Term AB Living 1 SAB TAB Ectopic Multiple Live Births # Outcome Date GA Lbr Osman/2nd Weight Sex Delivery Anes PTL Lv 1 Current Obstetric Comments Menarche: 10 or 20. LMP: 03/20/19. Periods irregular and heavy, q 28-30 days, lasting 10-14 d ays. Was on control very young for control. Last pap: 10/2018, normal. Hx abnormal Pa p smears: yes - HPV+ in , had colposcopies. Hx STD's: no. G1 - current As noted above FAMILY HISTORY: Non-contributory. Cousin with autism. Had a grandfather with similar CCHD. KATHY Beltre is 33 yo, healthy.. Both family history are otherwise negative for congenital anomalies and genetic diseases. MEDICATIONS: Current Outpatient Medications on File Prior to Visit Medication Sig Dispense Refill vit 91/iron/folic/dha ( + DHA ORAL) Take by mouth. No current facility-administered medications on file prior to visit. SOCIAL HISTORY: She denies the use of tobacco, alcohol and drugs. 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 She lives with her and dogs. She feels safe at home. ALLERGIES: Allergies Allergen Reactions Ciprofloxacin Hives Codeine Becomes Angry and Rude Venom-Honey Bee Edema PHYSICAL EXAM: Vitals: BP 114/58 | Pulse 78 | Ht 1.575 m (5' 2") | Wt 70.4 kg (155 lb 3.3 oz) | SpO2 1 00% | BMI 28.39 kg/m | BSA 1.75 m Urine: Gen: comfortable Psych: alert and oriented x 3; mood/affect appear appropriate Neuro: grossly normal Ext: no edema OB IMAGING: Ultrasound today CRL = 6.5 cm = 12w6d, NT [...] LV Medtronic [id number] Attain Performa S Serial [id number], implant date 07/05/17; RA Medtr onic 5076 CapSureFix Novus Serial [id number], implant date 07/05/17 Remaining battery 6yr, 6mo [...] arrhythmias. -Follow-up: 6 month in-office device check. ASSESSMENT AND PLAN: 33 y.o. at 12w0d Maternal complex CHD: Routine care labs discussed including HIV and she is agreeable --> ordered today GC/CT Urine cult Pap 11/17 wnl S/p tele health with genetic counselor - NIPT pending, nl NT Immunizations: TDap in third-trimester Oriented to [facility] practice, specifically to Maternal Cardiac Program Contraception to discuss later Maternal cardiac disease NYHA class 1 MWHO 2 Joie is pretty knowledgeable about her cardiac condition and its associated risks during . She is at increased risk of cardiac complications during (both compared to non-ca rdiac women, and compared to her risks when non-), with the most common com plications being fluid overload/congestive heart failure and (clinically significant) arrhyt hmias. Even though her recent imaging and overall exercise tolerance are reassuring, is more of a "chronic stress" on the heart with sustained increased blood volume and cardiac ou tput for months, which is impossible to reproduce ahead of time and thus how her cardiac fun ction will behave during remains unpredictable to some extent. Some symptoms of pr egnancy (shortness of breath, fatigue, exercise intolerance, LE edema) are also symptoms of cardiac dysfunction, thus the importance of being managed by combined team of cardiologists experienced in and MFM experienced with cardiac disease (which is what we are offe ring in this clinic). My primary concern for Joie is increased risk of arrhythmia. Her recent device check was reassuring, and she will be due for another in 6 months (early November 2019). Women with CHD do not appear to be at increased risk of complications such as ges tational diabetes or preeclampsia. section is recommended only for the usual obstetrical indications, unless there is significant cardiac decompensation prior to delivery. In terms of / risks, the risks include CHD (4-7%, and when it occurs the CHD is not necessarily the same as the mother's), delivery (usually iatrogenic if t here is significant maternal decompensation requiring delivery) and mostly theoritical risk of utero-placental insufficiency (from suboptimal placental perfusion) leading to grow th restriction and possibly stillbirth. Plan: - [facility] in the Maternal Cardiac Program, with Cardiology guiding cardiac imaging/testing. Will likely repeat echo in third trimester (as well as nee ded) - routine care/visits with MFM, with more frequent visits only if needed - device check for Medtronic biventricular pacemaker due in November 2019 - echocardiogram at 20-22 weeks given subtlety of TAPVR, in addition to routine anatomy ultrasound at 20 weeks - serial ultrasounds for growth assessment in the third trimester - testing at 32 weeks - OB Anesthesia consult in early third trimester - delivery at 39-40 weeks with intrapartum and 48 hours cardiac telemetry - multidisciplinary delivery planning General questions answered Follow-up Next visit(s): virtual in 4 weeks, in person and anatomy US in 8 weeks Next ultrasound: 8 weeks testin weeks Next Cardiology visit: 06/22/[address] Paez Future Appointments Provider Department Dept Phone Center 06/12/2019 2:30 PM RAD OP PPNC4 Center at [facility] [phone] RADIOLOGY 06/22/2019 10:00 AM Haylie Paez Cardiology in [place] [facility] at [facility] Cardiology The majority of time for this visit, greater than 50%, was spent in counseling regarding ma ternal cardiac disease complicating . The total physician time I spent in face to f eyad discussion with Joie Ratliffa was 42 minutes. Mellissa Harrison MD [facility] [address] [facility] 4th [place] [address] documented in this e ncounter Plan of [...] Rd | | | | | | [place], [place] | | | | | | [address] | | | | | | [phone] | | | | | | | | +--------+ + + + + + +------+--------+ + + | Name | Type | Priori | Associated Diagnoses | Order Schedule | | | | ty | | | + +------+--------+ + + | RUBELLA IGG AB, | Lab | Routin | Maternal | Expected: 06/14/2019 | | SERUM | | e | congenital cardiac | (Approximate), | | | | | anomaly affecting | Expires: 07/13/2020 | | | | | in first | | | | | | trimester, | | | | | | antepartum | | + +------+--------+ + + | RPR SERUM | Lab | Routin | Maternal | Expected: 06/14/2019 | | | | e | congenital cardiac | (Approximate), | | | | | anomaly affecting | Expires: 07/13/2020 | | | | | in first | | | | | | trimester, | | | | | | antepartum | | + +------+--------+ + + | HEPATITIS B SURFACE | Lab | Routin | Maternal | Expected: 06/14/2019 | | AG, SERUM | | e | congenital cardiac | (Approximate), | | | | | anomaly affecting | Expires: 07/13/2020 | | | | | in first | | | | | | trimester, | | | | | | antepartum | | + +------+--------+ + + | HIV AB/AG SCREENING | Lab | Routin | Maternal | Expected: 06/14/2019 | | W/REFLEX TO CONFIRM | | e | congenital cardiac | (Approximate), | | | | | anomaly affecting | Expires: 07/13/2020 | | | | | in first | | | | | | trimester, | | | | | | antepartum | | + +------+--------+ + + | CBC, WITH | Lab | Routin | Maternal | Expected: 06/14/2019 | | DIFFERENTIAL | | e | congenital cardiac | (Approximate), | | | | | anomaly affecting | Expires: 07/13/2020 | | | | | in first | | | | | | trimester, | | | | | | antepartum | | + +------+--------+ + + | TYPE AND SCREEN | Lab | Routin | Maternal | Expected: 06/14/2019 | | | | e | congenital cardiac | (Approximate), | | | | | anomaly affecting | Expires: 07/13/2020 | | | | | in first | | | | | | trimester, | | | | | | antepartum | | + +------+--------+ + + | HEMOGLOBIN A1C, | Lab | Routin | Maternal | Expected: 06/14/2019 | | BLOOD | | e | congenital cardiac | (Approximate), | | | | | anomaly affecting | Expires: 07/13/2020 | | | | | in first | | | | | | trimester, | | | | | | antepartum | | + +------+--------+ + + documented [...] 4 DIP N/C, POC | Routin | 06/12/2019 | Maternal | Results for this | | | e | 1:36 PM | congenital cardiac | procedure are [...] [facility]PT OF | | Echocardiography Laboratory [address] | [place] | | [place] [address] ; | | | ECV 2606 Echocardiogram and Consultation Report | | | NAME: JOIE COATES Study Date: 08/21/2019 1:06:28 PMPatient ID#: | | | [id number] Order #: [id number] ACC #: [id number] : 1985 Ht: | | | Age: [...] of the heart/pacemakers. No history of early SC or sudden . The | | | patient lives with her spouse and she denies alcohol, smoking, and | | | drug use. Information:The patient's assigned MARINA is | | | 12/25/2019. The assigned gestational age is 22w0d. This is a huffman | | | .Recommendations: All findings discussed with Ms Coates. | | | Normal cardiac anatomy with [...] BiometryBiparietal Diameter: 5.4 cm | | | [id number] Length: 4.3 cm 44v0xHcaaqvdq | | | Circumference: 15.0 cm 66e4jZcpkorehkogbzw Ratio: 50.1 % | | | Pulsatility [...] | | 0.57 m/sPeak gradient 1.31 mmHg Event Planning Intern: Marga Husain | | | RDCSSonographer: Ivone Dick RDCS Electronically signed by | | | [id number] Danielito Blount 08/21/2019 at 2:48:19 PM | | | Echocardiography Laboratory [address] | | | [place] [address] ; | | | Echocardiogram and Consultation Report MELLISSA Worley | | | CHRISTY HARRISON, . JOIE COATES underwent a | | | [...] No history | | | of early SC or sudden . She takes Baby Asprin. [...] | | | findings discussed with Ms Coates. Normal cardiac anatomy with | | | qualitatively normal biventricular systolic function. No further | | | cardiac imaging indicated. Best Regards, [id number] Danielito Buitrago | | | MD Final [...] | | | | | | | |Event Planning Intern: Marga Husain RDCS | | |Event Planning Intern: Ivone Dick RDCS | | | | | | | | |Electronically signed by [id number] Danielito Buitrago MD | | |on 08/21/2019 at 2:48:19 PM | | | | | | | | | | | | Echocardiography Laboratory | | | [address] | | | [place] [address] | | | ; | | | Echocardiogram and Consultation Report | | | | | | | | |MELLISSA HARRISON | | | | | | | | |Emely HARRISON, | | | | | |Ms. [...] |of the heart/pacemakers. No history of early SC or sudden . She takes Baby | [...] |Best Regards, | | | | | |[id number] Danielito Buitrago MD | | | | | | | | | | | | Final | | + +---- + + + | Procedure Note | + + | Interface, Cardiology Results - 08/21/2019 2:48 PM [facility] Echocardiography Laboratory | | [address] | | [place] [address] | | ; | | ECV [address]167 | | | | Echocardiogram and Consultation Report | | | | | | NAME: JOIE COATES Study Date: 08/21/2019 1:06:28 PM | | Order #: [id number] ACC #: [id number] | | | | : 1985 Ht: [...] of the heart/pacemakers. No history of early SC or | | sudden . The patient [...] mmHg | | | | | | Event Planning Intern: Marga Husain RDCS | | Event Planning Intern: Ivone Dick RDCS | | | | | | | | | | | | | | Echocardiography Laboratory | | [address] | | [place] [address] | | ; | | Echocardiogram and [...] of the heart/pacemakers. No history of early SC or sudden . She takes Baby | [...] | Best Regards, | | | | [id number] Danielito Buitrago MD | | | | | | | | Final | + + + + + + + | Performing | Address | City/State/[facility] | Phone Number | | Organization | | | | + + + + + | [facility] | [address] | [place], [place] | | | CARDIOLOGY | [address] | [address] | | + + + + + UA 4 DIP N/C, POC (06/12/2019 1:36 PM PDT) + + + + + [...] | | DIP), POC | | | [facility] | | | | | | AUDIE ACRDOSO | | | | | | OF CARE | | | | | | TESTS | | + + + + + + | GLUCOSE (UA | Negative | Negative - | [facility] - | | | DIP), POC | | Trace mg/dL | [facility] | | | | | | AUDIE [...] | 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
--- OUTSIDE RECORDS SUMMARY | ~2019-10-07 | XMS | Encounter Summary ---
Demographics + + + | Address | [address] | | | [place] [address] | + + + | Home Phone [...] [place], [place] | | | | | [address] | | + + + + + | Polly Winston | ECON | ANAYA, | | + + + + + Care Team Providers + +------+ + | Care City Assessor Name | Role | Phone | + +------+ + | Yuli Franklin | PCP | | + +------+ + Encounter Details +--------+ + + + + | Date | Type | Department | Care Team | Description | +--------+ + + + + | 06/12/ | Documentati | LAB CORE [address] | Karen Farrell MS | | | 2020 | on | [address] | [address] | | | | | [place], [place] | [facility] | | | | | [address] | [place], [place] | | | | | [phone] | [address] | | | | | | [phone] | | | | | | | [...] | | | | | | [address] | | | | | | [place] | | | | | | [address] | | | | | | [phone] | | | | | | | | +--------+ + + + + documented as of this encounter Visit Diagnoses Not on filedocumented in this encounter"
--- OUTSIDE RECORDS SUMMARY | ~2019-10-07 | XMS | Encounter Summary ---
Demographics + + + | Address | [address] | | | [place] [address] | + + + | Home Phone [...] [address] | | | | | [facility] [place] | | | | | [address] | | + + + + + | Polly Winston | ECON | ANAYA, | | + + + + + Care Team Providers + +------+ + | Care Quilting Machine Helper Name | Role | Phone | [...] Closed | | Cardiology | Diagnoses | Broberg, | Car Echo | | | | | Total | Grayson Myrick MD | [facility] [address] | | | | | congenital | [address] | [address] | | | | | anomalous | Ave | [address] | | | | | pulmonary | [place], [place] | [place] | | | | | venous | [address] | [facility] [place] | | | | | connection | Phone: | floor | | | | | Procedures | [phone] | [place], [place] | | | | | TRANSTHORACI | Fax: | [address] | | | | | C | [phone] | Phone: | | | | | ECHOCARDIOGR | | [phone] | | | | | AM, ADULT | | | +--------+--------+ + + + + Encounter Details +--------+ + + + + | Date | Type | Department | Care Team | Description | +--------+ + + + + | 05/05/ | Doctor Of Audiology | Cardiology [facility] at | Grayson Mcclain S, | Total congenital | | 2011 | | [facility] [address] | MD [address] | anomalous pulmonary | | | | [facility] | [place], [place] | venous connection | | | | [facility], | [address] | (Primary Dx) | | | | Building | [phone] | | | | | Floor [place], [place] | | | | | | [address] | | | | | | [phone] | | | +--------+ + + + [...] Rd | | | | | | [place], [place] | | | | | | [address] | | | | | | [phone] | | | | | | | | +--------+ + + + + + +------+--------+ + + | Name | Type | Priori | Associated Diagnoses | Order Schedule | | | | ty | | | + +------+--------+ + + | TRANSTHORACIC | ECG | Routin | Total congenital | Ordered: 05/06/2011 | | ECHOCARDIOGRAM, | | e | anomalous pulmonary | | | ADULT | | | venous connection | | + +------+--------+ + + documented as of this encounter Visit Diagnoses + + | Diagnosis | + + | 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
--- OUTSIDE RECORDS SUMMARY | ~2019-10-07 | XMS | Encounter Summary ---
Demographics + + + | Address | [address] | | | [place] [address] | + + + | Home Phone [...] [place], [place] | | | | | [address] | | + + + + + | Polly Winston | ECON | ANAYA, | | + + + + + Care Team Providers + +------+ + | Care Wind Power Project Manager Name | Role | Phone | [...] | | | | | cardiac | [place], | [place], [place] | | | | | pacemaker | [place] [id number] | [address] | | | | | Primary | Phone: | Phone: | | | | | Diagnosis:42 | [phone] | [phone] | | | | | 7.81 | Fax: | Fax: | | | | | 427.81 SICK | [phone] | [phone] | | | | | SINUS | [...] | | | | | | | EVL,BAR AND FILLER ASSEMBLER | | | +--------+--------+ + + + + Encounter Details +--------+---------+ + + + | Date | Type | Department | Care Team | Description | +--------+---------+ + + + | 01/28/ | Office | Cardiology | Madeleine Hernandez, TAPING SUPERVISOR | 427.81 SICK SINUS | | 2017 | Visit | Arrhythmia at [facility] | [address] | SYNDROME (Primary | | | | [address] | [place], [place] | Dx); Bradycardia | | | | [place] for [facility] | [address] | | | | | and Healing, | [phone] | | | | | | | | | | | Floor [facility] [place] | | | | | | [address] | | | | | | [phone] | | | +--------+---------+ + + + [...] | Blood Pressure | 113/63 | 01/28/2017 2:44 PM | | | | | PST | | + + + + + | Pulse | 68 | 01/28/2017 2:44 PM | | | | | PST | | + + + + + | Temperature | - | - | | + + + + + | Respiratory Rate | - | - | | + + + + + | Oxygen Saturation | 100% | 01/28/2017 2:44 PM | | | | | PST | | + + + + + | Inhaled Oxygen | - | - | | | Concentration | | | | + + + + + | Weight | 74.4 kg (164 lb) | 01/28/2017 2:44 PM | | | | | PST | | + + + + + | Height | 157.5 cm (5' 2") | 01/28/2017 2:44 PM | | | | | PST | | + + + + + | Body Mass Index | 30 | 01/28/2017 2:44 PM | | | | | PST | | + + + + + documented in this encounter Patient Instructions Patient Instructions Madeleine Hernandez NP - 01/28/2017 2:30 PM PSTYour pacemaker is working well but your battery is down to 10 months will need to monitor remotely more frequently after that documented in this encounter Progress Notes Madeleine Hernandez NP - 01/28/2017 2:30 PM PST DEVICE INTERROGATION REPORT Primary Care Provider: LUIS MIGUEL Hoff Library Associate: [facility] team Quantitative Analyst: none INDICATION Joie Villarreal is a 28 y.o. female who has a medtronic single chamber pacemaker implanted f or SSS Presenting Rhythm V pacing Underlying Rhythm Sinus bradycardia in the 40's today Patient is intermittently pacer dependent. Advisory: NO Interrogation Details: SEE MEDIA TAB or HYPERLINKS AT BOTTOM OF DEVICE CHECK ENCOUNTER FOR FULL DEVICE INTERROGATION DATA EVENTS: 1 HVR evetns Rate 219 bpm on 12/07/2016 Pt asymptomatic PACING PERCENTAGE: 10/15/16 VS: 7.0% RECEIVING TANK OPERATOR: 93.0% Heart Rate Histogram - heart rate range 60-110, with somewhat blunted range Programming Changes: Returned to initial Programmed settings after threshold testing. Programming Details: Hospitalizations: PHYSICAL EXAM: Vitals: There were no vitals taken for this visit. Seen By: Brynn Reed NP Pacemaker Site: skin integrity intact Conclusion: - Device function normal. - Battery status good, estimated longevity 10 months - Lead impedance, sensing, and pacing thresholds are normal/stable. - Patient is moderately pacemaker dependent. Underlying rhythm itoday ins sinus bradycardia - 1 VHR arrhythmia noted by pacemaker data. - No programming changes indicated Progress note: Joie is her for an echocardiogram, ACHD and pacemaker check. She has bee n feeling well,and is able to be active- Histogram still shows blunted HR response, but act ivity theshold is set to medium low, with activity acceleration 15sec. Will check pacer remotely in 3 months and then monthly after that Follow up - Remote Until battery reaches RULA Remote monitoring is: on PROGRESS NOTE: PROGRESS NOTE: PROGRESS NOTE: document ed in this encounter Plan of Treatment +--------+ [...] | | 2019 | | | [address] [facility] | | | | | | [address] | | | | | | [place], [place] | | | | | | [address] | | | | | | [phone] | | | | | | | | +--------+ + + + + documented as of this encounter Procedures + +--------+ + + + | Procedure Name | Priori | Date/Time | Associated Diagnosis | Comments | | | ty | | | | + +--------+ + + + | CARDIAC DEVICE | Routin | 01/28/2017 | 427.81 SICK SINUS | Results for this | | (PACEMAKER/ICD) | e | 12:00 AM | SYNDROME | procedure are in the | | CHECK - IN OFFICE | | PST | | results section. | + +--------+ + + + documented in this encounter Results CARDIAC DEVICE (PACEMAKER/ICD) CHECK - IN OFFICE (01/28/2017 12:00 AM PST) + + + | Narrative | Performed At | + + + | | | + + + documented in this encounter Visit Diagnoses + + | Diagnosis | + + | 427.81 SICK SINUS SYNDROME - Primary Sinoatrial node dysfunction | + + | Bradycardia Other specified cardiac dysrhythmias | + + documented in this encounter
--- OUTSIDE RECORDS SUMMARY | ~2019-10-07 | XMS | Encounter Summary ---
Demographics + + + | Address | [address] | | | [place] [address] | + + + | Home Phone [...] [place], [place] | | | | | [address] | | + + + + + | Polly Winston | ECON | ANAYA, | | + + + + + Care Team Providers + +------+ + | Care Induction Brazer Name | Role | Phone | + [...] | | | | | cardiac | [place], | [place], [place] | | | | | pacemaker | [place] [id number] | [address] | | | | | Primary | Phone: | Phone: | | | | | Diagnosis:42 | [phone] | [phone] | | | | | 7.81 | Fax: | Fax: | | | | | 427.81 SICK | [phone] | [phone] | | | | | SINUS | [...] | | | | | | | AL ICD DVC | | | | | | | PRG EVL,1 | | | | | | | SNGL AL ICD | | | | | | | DVC PRGR | | | | | | | EVL,BEAD WIRE INSULATOR | | | +--------+--------+ + + + + Encounter Details +--------+---------+ + + + | Date | Type | Department | Care Team | Description | +--------+---------+ + + + | 08/16/ | Office | Cardiology | Madeleine Hernandez, LEONARD | Atrioventricular | | 2018 | Visit | Arrhythmia at [facility] | [address] | block, complete | | | | [address] | [place], [place] | ([facility]) (Primary Dx); | | | | [place] for [facility] | [address] | 427.81 SICK SINUS | | | | and Healing, | [phone] | SYNDROME | | | | | | | | | | Floor [place], [place] | | | | | | [address] | | | | | | [phone] | | | +--------+---------+ + + + [...] + | Blood Pressure | 116/68 | 08/16/2017 2:04 PM | | | | | PDT | | + + + + + | Pulse | 67 | 08/16/2017 2:04 PM | | | | | PDT | | + + + + + | Temperature | - | - | | + + + + + | Respiratory Rate | - | - | | + + + + + | Oxygen Saturation | 100% | 08/16/2017 2:04 PM | | | | | PDT | | + + + + + | Inhaled Oxygen | - | - | | | Concentration | | | | + + + + + | Weight | 73.9 kg (163 lb) | 08/16/2017 2:04 PM | | | | | PDT | | + + + + + | Height | 157.5 cm (5' 2") | 08/16/2017 2:04 PM | | | | | PDT | | + + + + + | Body Mass Index | 29.81 | 08/16/2017 2:04 PM | | | | | PDT | | + + + + + documented in this encounter Patient Instructions Patient Instructions Madeleine Hernandez NP - 08/16/2017 2:00 PM PDTYour device is working nor belinda. Good measurements on the wires. No abnormal heart rhythms detected. programming changes made today were decrease in outputs on leads to save battery life Please schedule your next device check for sometime in 6 months from today. This appointm ent will be a remote) visit. Remember that a remote visit is the type of visit that you sen d a transmission the night before the scheduled date. Device Clinic Staff: Madeleine Hernandez ANP [phone] documented in this encounter Progress Notes Madeleine Hernandez NP - 08/16/2017 2:00 PM PDTPACEMAKER CLINIC INTERROGATION REPORT Primary Care Provider: LUIS MIGUEL Hoff Brakeshoe Repairer: [facility] team Public Affairs Officer: Bethel Salvador EP HISTORY: Joie Villarreal is a 31 y.o. female who has a Medtronic single chamber pacemaker implanted for SSS .She continued to have ongoing bradycardia and high percentage of RV paci ng so her device was upgraded to a SHREDDED FILLER CIGAR MAKER MACHINE-P on 07/05/2017 ADVISORY and DIGITAL IMAGER RECOMMENDATIONS: No (confirmed 06/07/17) Presenting Rhythm: V pacing, HR: 60s Underlying Rhythm: intermittent P waves and R waves n o consistent rhythm Patient is intermittently dependent (per last office check.) Interrogation Details: SEE MEDIA TAB or HYPERLINKS AT BOTTOM OF DEVICE CHECK ENCOUNTER FOR FULL DEVICE INTERROGATION DATA EVENTS: Since last device check on 07/05/2017 No atrial or ventricular evetns PACING PERCENTAGES: AP 99.1% BIV 98.8% (last EF 67.5% on 01/28/17) Remote monitoring:ordered Device Site: left subclavian. Incision clean dry and intact. Mild swelling. No redness or d ischarge Conclusion: - Normal device function - Battery is at RUTH ANN longevity 8.3 yrs. - Lead impedance, sensing, and pacing thresholds are stable. - Programming Changes: decreased RA output from 3.5-2.0V, RV output changed form 2.75@0.4 t o 2.0V @ 1.0ms, LV output decreased from 2.5v@0.4ms to 2.0V @ 1.0ms to save on battery life -NO arrhythmias docuemented - Follow-up: 3 months remote check Summary: pt comes oin to day for 1 month device check . States she feels better with new up grade. Denies chest pain, SOB, fatigue, dizziness or lightheadedness. PROGRESS NOTE: document ed in this encounter [...] Rd | | | | | | [place], [place] | | | | | | [address] | | | | | | [phone] | | | | | | | | +--------+ + + + + documented as of this encounter Procedures + +--------+ + + + | Procedure Name | Priori | Date/Time | Associated Diagnosis | Comments | | | ty | | | | + +--------+ + + + | CARDIAC DEVICE | Routin | 08/16/2017 | 427.81 SICK SINUS | Results for this | | (PACEMAKER/ICD) | e | 12:00 AM | SYNDROME | procedure are in the | | CHECK - IN OFFICE | | PDT | | results section. | + +--------+ + + + documented in this encounter Results CARDIAC DEVICE (PACEMAKER/ICD) CHECK - IN OFFICE (08/16/2017 12:00 AM PDT) + + + | Narrative | Performed At | + + + | | | + + + documented in this encounter Visit Diagnoses + + | Diagnosis | + + | Atrioventricular block, complete (HCC) - Primary Atrioventricular block, complete | + + | 427.81 SICK SINUS SYNDROME Sinoatrial node dysfunction | + + documented in this encounter
--- OUTSIDE RECORDS SUMMARY | ~2019-10-07 | XMS | Encounter Summary ---
Demographics + + + | Address | [address] | | | [place] [address] | + + + | Home Phone | | + + + | Preferred Language | Unknown | + + + | Marital Status | | + + + | Church Affiliation | NON | + + + | Race | White | + + + | Ethnic Group | or | + + + Author + + + | Author | [facility] | + + + | Organization | [facility] | + + [...] [place] | | | | | [address] | | + + + + + | Polly Winston | NATHALY | ANAYA, | | + + + + + Care Team Providers + +------+ + | Care Center Maker Hand Name | Role | Phone | + +------+ + | Yuli Franklin | PCP | | + +------+ + Encounter Details +--------+ + + + + | Date | Type | Department | Care Team | Description | +--------+ + + + + | 07/15/ | MyChart | [facility] | Mellissa Zhou, | RE: Release to | | 2018 | Encounter | Medical Clinic | SIGNAL OPERATOR TECHNICAL | return to work | | | | Cardiology [address] | | | | | | [address] | | | | | | [place], [place] | | | | | | [address] | | | | | | [phone] | | | +--------+ + + + [...] [address] | | | | | | [place], [place] | | | | | | [address] | | | | | | [phone] | | | | | | | | +--------+ + + + + documented as of this encounter Visit Diagnoses Not on filedocumented in this encounter"
--- OUTSIDE RECORDS SUMMARY | ~2019-10-07 | XMS | Encounter Summary ---
Demographics + + + | Address | [address] | | | [place] [address] | + + + | Home Phone | | + + + | Preferred Language | Unknown | + + + | Marital Status | | + + + | Lutheran Affiliation | NON | + + + [...] [place], [place] | | | | | [address] | | + + + + + | Polly Winston | ECON | ANAYA, | | + + + + + Care Team Providers + +------+ + | Care Para Machine Operator Name | Role | Phone | + +------+ + | Gabrielle Fernández MD | PCP | | + +------+ + Encounter Details +--------+---------+ + + + | Date | Type | Department | Care Team | Description | +--------+---------+ + + + | 04/28/ | Office | Pediatric | Antonio Hines, | 427.81 SICK SINUS | | 2010 | Visit | Cardiology at | [address] [facility] | SYNDROME (Primary | | | | [place] | [facility] [address] | Dx) | | | | [facility] | [place], [place] | | | | | [address] | [address] | | | | | [place] | [phone] | | | | | [facility] | | | | | | [address] [facility], | | | | | | [place] [address] | | | | | | [phone] | | | +--------+---------+ + + + [...] encounter Progress Notes Antonio Hines MD - 04/28/2010 10:39 AM PSTThis is a Carelink check of the ventricular p acemaker done on 04/10/10 on Joie Villarreal who is a 24 y.o. 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 Device: Medtronic Sensia Implanted: 08/13/08 RULA: no ADVISORY: NO Mode: VVIR Lower Rate: 60 Upper Rate: 170 Battery Voltage: 2.79 volts Cell Impedance: 233 ohms Estimated battery longevity: 7 years (range 6-8.5) Patient is not pacer dependent. Telephone monitoring is: on Output (v) Pulse Width (ms) Sensitivity (mv) Right Ventricle 2.5 0.45 2.8 TESTING: Threshold testing was performed. RT VENTRICLE RV threshold volts: 0.875 v RV threshold PW: 0.4 ms RV lead impedance: 672 ohms R Wave Amplitude: unable to check [...] [place] | | | | | | [address] | | | | | | [phone] | | | | | | | | +--------+ + + + + documented as of this encounter Visit Diagnoses + + | Diagnosis | + + | 427.81 SICK SINUS SYNDROME - Primary Sinoatrial node dysfunction | + + documented in this encounter"
--- OUTSIDE RECORDS SUMMARY | ~2019-10-07 | XMS | Encounter Summary ---
Demographics + + + | Address | [address] | | | [place] [address] | + + + | Home Phone [...] [place], [place] | | | | | [address] | | + + + + + | Polly Winston | ECON | ANAYA, | | + + + + + Care Team Providers + +------+ + | Care Toter Name | Role | Phone | + +------+ + | Gabrielle Fernández MD | PCP | | + +------+ + Encounter Details +--------+ + + + + | Date | Type | Department | Care Team | Description | +--------+ + + + + | 04/28/ | Telephone | Pediatric | Carlos Hinesdri, | | | 2010 | | Cardiology at | MD [address] [facility] | | | | | [place] | [facility] | | | | | [facility] | [place], [place] | | | | | [address] | [address] | | | | | [place] | [phone] | | | | | [facility] | | | | | | [address] [facility], | | | | | | [place] [address] | | | | | | [phone] | | | +--------+ + + + [...] Rd | | | | | | [place], [place] | | | | | | [address] | | | | | | [phone] | | | | | | | | +--------+ + + + + documented as of this encounter Visit Diagnoses Not on filedocumented in this encounter"
--- OUTSIDE RECORDS SUMMARY | ~2019-10-07 | XMS | Encounter Summary ---
Demographics + + + | Address | [address] | | | [place] [address] | + + + | Home Phone [...] [place] | | | | | [address] | | + + + + + | Polly Winston | ECON | ANAYA, | | + + + + + Care Team Providers + +------+ + | Care Optical Technician Name | Role | Phone | + +------+ + | Gabrielle Fernández MD | PCP | | + +------+ + Encounter Details +--------+ + + + + | Date | Type | Department | Care Team | Description | +--------+ + + + + | 08/13/ | Transcribed | | Dictation, Other | [...] as of this encounter Progress Notes Interface, Superintendent Marine In - 01/16/2006 1:[address] [address] or August 14, 1999 Tori Hays M.D. [address] [facility] [place] [address] RE: JOIE MANCIA MR #: [id number] Dear Dr. Hays: This is a quick note to let you that the patient underwent a pacemaker placement on August 11, 1999. As you know, she is a 13-year-old girl who underwent repair of total anomalous pulmonary venous return as a . She has had significant sinus bradycardia and episodes of lightheadedness suggesting that she has symptomatic bradycardia. At the procedure, she underwent a brief electrophysiologic test to look at the A-V node. She had Wenckebach block at the level of the A-V node at a paced rate of 100 beats per minute. Hence, we decided that she would need ventricular pacing and atrial pacing. A dual-chamber pacemaker was implanted with screw-in leads to the atrium and the ventricle on August 11, 1999. However, at the end of the procedure, it was noted that the atrial lead had become dislodged. The wound was reopened and the atrial lead was repositioned into a new spot in the lower right atrium and once again met excellent characteristics. Unfortunately, on the day after the procedure, namely August 12, 1999, x-rays showed that the atrial lead had yet again become dislodged. She was taken back to the catheter lab on the evening of August 12, 1999, and at this time I elected to remove the atrial lead and leave her with just a ventricular lead and set the pacemaker to ventricular pacing only. I decided this because she already had undergone a prolonged pacemaker procedure on August 11, 1999, and I did not feel that it was justified to try reimplanting another atrial lead. With the ventricular lead and a ventricular pacemaker, we can be certain that she has a good safety net in terms of her heart rate, and hopefully this will prevent her from having symptoms. She was released from the hospital on August 13, 1999, after having received antibiotics overnight. The family plans to stay in [place] over the coming week and come back to see me in clinic on August 18, 1999. I very much hope that the wound healing will be uneventful and that there are no further major issues with the pacemaker from now on. In spite of the rather disappointing result with the atrial lead, I am happy that the patient is now protected from the heart rate point of view, and I thank you for letting me participate in her care. If you have any questions, please let me know. Thank you once again. Yours sincerely, Antonio Hines M.D. Department of Pediatrics Division of Cardiology SB / HS [id number] / [id number] / [id number] / cc: Cyrus Hobbs M.D. Professor of Pediatric Cardiology [id number] signed by Giovanny, Superintendent Marine In at 01/16/2006 1:07 AM Anish mcarthur in this encounter Plan of Treatment [...] [place] | | | | | | [address] | | | | | | [phone] | | | | | | | | +--------+ + + + + documented as of this encounter Visit Diagnoses Not on filedocumented in this encounter"
--- OUTSIDE RECORDS SUMMARY | ~2019-10-07 | XMS | Encounter Summary ---
Demographics + + + | Address | [address] | | | [place] [address] | + + + | Home Phone [...] [place], [place] | | | | | [address] | | + + + + + | Polly Winston | ECON | ANAYA, | | + + + + + Care Team Providers + +------+ + | Care Supervisor Carpenters Name | Role | Phone | + [...] | +--------+ + + + + | 02/14/ | Clinical | Cardiology | Yanet Smith | Device Check; Device | | 2018 | Support | Arrhythmia at [facility] | [address] | Check | | | Staff | [address] | [facility] | | | | | [facility] | [place] [address] | | | | | and Healing, | | | | | | [facility] | | | | | | [place], [place] | | | | | | [address] | | | | | | [phone] | | | +--------+ + + + [...] encounter Progress Notes Bethel Salvador MD - 02/14/2018 1:00 PM SAMMII reviewed device specialist Yanet harvey's note and device interrogation report and agree with her documented findings and plan of care. My interpretation is that the device is working well and the patient will continue reg ular follow up in device clinic. Remote visit. Bethel Salvador M.D. Director, Electrophysiology Service sock lining examiner [facility] Cardiovascular [place] [place] [facility] [place] [address] Yanet Stern - 02/14/2018 1:00 PM ROD REMOTE INTERROGATION REPORT Primary Care Provider: LUIS MIGUEL Hoff Rn Occupational: GARY team Lawn Caretaker: Bethel Salvador MD EP HISTORY: Joie Villarreal is a 32 y.o. 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 07/15/17 - Single-chamber pacemaker upgrade to biventricular pacemaker, unsuccessful placeme nt of His bundle pacemaker ADVISORY and EMU FARM WORKER RECOMMENDATIONS: No (confirmed 06/07/17) Presenting Rhythm: A paced, Bi-V paced HR: 60s Underlying Rhythm: Not assessed, this is a remote visit Pacemaker dependency not assessed. Interrogation Details: SEE MEDIA TAB or HYPERLINKS AT BOTTOM OF DEVICE CHECK ENCOUNTER FOR FULL DEVICE INTERROGATION DATA EVENTS: Since device was last cleared on 10/22/17, there was a <0.1% cumulative AT/AF burden . There was also 1 NS-VT episode recorded. EGM shows V's > A's for 8 beats with V rate of ~2 00 bpm. PACING PERCENTAGES: AP: 98.3% Total SURVEY CREW CHIEF: 98.2% Bi-SURVEY CREW CHIEF: 100% Programming Details: DDDR 60/170, AdaptivCRT sensing is ON Remote monitoring: ON and transmitting Device Site: Not assessed, remote visit Conclusion: - Normal device function - Battery with an estimated 7.7 years remaining until RULA. - Lead impedances, sensing, and pacing thresholds are stable per auto testing. LV threshold 1.125V @ 1.0ms per AutoCap. - Programming Changes: N/A - 1 NS-VT episode recorded. See details above. - Follow-up: 6 month in-office device check documented in this encount er Plan of [...] Rd | | | | | | [place], [place] | | | | | | [address] | | | | | | [phone] | | | | | | | | +--------+ + + + + documented as of this encounter Procedures + +--------+ + + + | Procedure Name | Priori | Date/Time | Associated Diagnosis | Comments | | | ty | | | | + +--------+ + + + | CARDIAC DEVICE | Routin | 02/14/2018 | 427.81 SICK SINUS | Results for this | | (PACEMAKER/ICD) | e | 12:00 AM | SYNDROME | procedure are in the | | CHECK - REMOTE | | PST | | results section. | + +--------+ + + + documented in this encounter Results CARDIAC DEVICE (PACEMAKER/ICD) CHECK - REMOTE (02/14/2018 12:00 AM PST) + + + | Narrative | Performed At | + + + | | | + + + documented in this encounter Visit Diagnoses + + | Diagnosis | + + | 427.81 SICK SINUS SYNDROME - Primary Sinoatrial node dysfunction | + + documented in this encounter"
--- OUTSIDE RECORDS SUMMARY | ~2019-10-07 | XMS | Encounter Summary ---
Demographics + + + | Address | [address] | | | [place] [address] | + + + | Home Phone | | + + + | Preferred Language | Unknown | + + + | Marital Status | | + + + | Adventism Affiliation | NON | + + + | Race | White | + + + | Ethnic Group | or | + + + Author + + + | Author | [facility] | + + + | Organization | [facility] | + + + | Address [...] [place], [place] | | | | | [address] | | + + + + + | Polly Winston | ECON | ANAYA, | | + + + + + Care Team Providers + +------+ + | Care Time Buyer Name | Role | Phone | + +------+ + | Yuli Franklin | PCP | | + +------+ + Reason for Referral Consultation (Routine) +--------+--------+ + + + + [...] | | | | | pulmonary | [place], [place] | Rd | | | | | venous | [address] | [place], [place] | | | | | connection | Phone: | [phone] | | | | | Procedures | [phone] | Phone: | | | | | CONSULT TO | Fax: | [phone] | | | | | CARDIOLOGY | [phone] | Fax: | | | | | | | [phone] | +--------+--------+ + + + + Diagnostic Testing (Routine) +--------+--------+ + + + + | Status | Reason | Specialty | Diagnoses / | Referred By | Referred To | | | | | Procedures | Contact | Contact | +--------+--------+ + + + + | Closed | | Cardiology | Diagnoses | Hernandez, | Car Echo | | | | | Total | Madeleine, AGRICULTURAL EDUCATION INSTRUCTOR | [facility] [address] | | | | | congenital | [address] | [address] | | | | | anomalous | Ave | [facility] | | [facility] | pulmonary | [place], [place] | Health and | | | | | venous | [address] | Healing, | | | | | connection | Phone: | Building 1 | | | | | Procedures | [phone] | [place], [place] | | | | | TRANSTHORACI | Fax: | [address] | | | | | C | [phone] | Phone: | | | | | ECHOCARDIOGR | | [phone] | | | | | AM, ADULT [...] | Cardiology | Diagnoses | Babij, | David, | | | | | Sick sinus | MD Valdez | LEONARD Salvador | | | | | syndrome | [address] | [address] | | | | | Presence of | St | Ave | | | | | cardiac | [place], | [place], [place] | | | | | pacemaker | [place] [id number] | [address] | | | | | Primary | Phone: | Phone: | | | | | Diagnosis:42 | [phone] | [phone] | | | | | 7.81 | Fax: | Fax: | | | | | 427.81 SICK | [phone] | [phone] | | | | | SINUS | [...] | | | | | | | [place] ICD DVC | | | | | | | PRG EVL,1 | | | | | | | SNGL [place] ICD | | | | | | | DVC PRGR | | | | | | | EVL,TRAVEL TICKETING REVIEWER | | | +--------+--------+ + + + + Encounter Details +--------+---------+ + + + | Date | Type | Department | Care Team | Description | +--------+---------+ + + + | 10/15/ | Office | Cardiology | Madeleine Hernandez, LEONARD | 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 at [facility] | [address] | anomalous pulmonary | | | | [address] | [place], [place] | venous connection | | | | [facility] | [address] | (Primary Dx); 427.81 | | | | and Healing, | [phone] | SICK SINUS | | | | [facility] | | SYNDROME; Sinoatrial | | | | Floor [place], [place] | | node dysfunction | | | | [address] | | ([facility]) | | | | [phone] | | | +--------+---------+ + + + [...] + + + | Blood Pressure | 110/68 | 10/15/2016 12:39 PM | | | | | PDT | | + + + + + | Pulse | 71 | 10/15/2016 12:39 PM | | | | | PDT | | + + + + + | Temperature | 36.4 C (97.5 F) | 10/15/2016 12:39 PM | | | | | PDT | | + + + + + | Respiratory Rate | - | - | | + + + + + | Oxygen Saturation | 100% | 10/15/2016 12:39 PM | | | | | PDT | | + + + + + | Inhaled Oxygen | - | - | | | Concentration | | | | + + + + + | Weight | 69.9 kg (154 lb) | 10/15/2016 12:39 PM | | | | | PDT | | + + + + + | Height | 157.5 cm (5' 2") | 10/15/2016 12:39 PM | | | | | PDT | | + + + + + | Body Mass Index | 28.17 | 10/15/2016 12:39 PM | | | | | PDT | | + + + + + documented in this encounter Patient Instructions Patient Instructions Madeleine Hernandez NP - 10/15/2016 12:30 PM PDTSchedule device check Echocardiogram Follow up with rebecca murray in 3 months Staff will contact you about consult with new electrophysiologist documented in this encounter Progress Notes Madeleine Hernandez NP - 10/15/2016 12:30 PM PDT DEVICE INTERROGATION REPORT Primary Care Provider: LUIS MIGUEL Hoff [employer]ed Circuit Layout Taper: [facility] team Aids Nurse: none INDICATION Joie Mancia is a 28 y.o. female who has a medtronic single chamber pacemaker implanted f or SSS Presenting Rhythm V pacing Underlying Rhythm No underlying ventricular escape when pacer turned down to 40; and she w as symptomatic Patient is intermittently pacer dependent. Advisory: NO Interrogation Details: SEE MEDIA TAB or HYPERLINKS AT BOTTOM OF DEVICE CHECK ENCOUNTER FOR FULL DEVICE INTERROGATION DATA EVENTS: no ventricular events PACING PERCENTAGE: Since Dec 26, 2013 VS: 4.9% WEATHERIZATION AND HOUSING INSPECTOR: 91.5% Heart Rate Histogram - heart rate range 60-110, with somewhat blunted range Programming Changes: Returned to initial after threshold testing. Programming Details: Hospitalizations: PHYSICAL EXAM: Vitals: Visit Vitals Item Reading BP 110/68 Pulse 71 Temp (Src) 36.4 C (97.5 F) (Oral) Ht 1.575 m (5' 2") Wt 69.9 kg (154 lb) SpO2 100% BMI 28.17 kg/(m^2) Seen By: Rebecca Murray NP Pacemaker Site: skin integrity intact Conclusion: - Device function normal. - Battery status good, estimated longevity 12 months - Lead impedance, sensing, and pacing [...] her pacer. Since she live s in [place], and is using the pacer all the time, will plan to follow her more closely Follow up - 3 months with rebecca murray. Will also get an echocardiogram at that time Remote monitoring is: on PROGRESS NOTE: PROGRESS NOTE: document ed in [...] | | 2019 | | | [address] [facility] | | | | | | [address] | | | | | | [place], [place] | | | | | | [address] | | | | | | [phone] | | | | | | | | +--------+ + + + + + + +--------+ + + | Name | Type | Priori | Associated Diagnoses | Order Schedule | | | | ty | | | + + +--------+ + + | CARDIAC DEVICE | CARDIAC | Routin | 427.81 SICK SINUS | 100 Occurrences | | (PACEMAKER/ICD) | NON-INVASIV | e | SYNDROME | starting 10/17/2016 | | CHECK - IN OFFICE | E EC | | | until 10/17/2025, 3 | | | | | | completed | + + +--------+ + + | CARDIAC DEVICE | CARDIAC | Routin | 427.81 SICK SINUS | 100 Occurrences | | (PACEMAKER/ICD) | NON-INVASIV | e | SYNDROME | starting 10/17/2016 | | CHECK - REMOTE | E EC | | | until 10/17/2025, 5 | | | | | | completed | + + +--------+ + + documented [...] + | CARDIAC DEVICE | Routin | 10/15/2016 | 427.81 SICK SINUS | Results for [...] + | | | + + + CARDIAC DEVICE (PACEMAKER/ICD) CHECK - REMOTE (12/26/2018 12:00 AM PDT) + + + | Narrative | Performed At | + + + | | | + + + CARDIAC DEVICE (PACEMAKER/ICD) CHECK - REMOTE (02/14/2018 12:00 AM PST) + + + | Narrative | Performed At | + + + | | | + + + CARDIAC DEVICE (PACEMAKER/ICD) CHECK - IN OFFICE (08/16/2017 12:00 AM PDT) + + + | Narrative | Performed At | + + + | | | + + + CARDIAC DEVICE (PACEMAKER/ICD) CHECK - REMOTE (06/07/2017 12:00 AM PDT) + + + | Narrative | Performed At | + + + | | | + + + CARDIAC DEVICE (PACEMAKER/ICD) CHECK - REMOTE (04/08/2017 12:00 AM PST) + + + | Narrative | Performed At | + + + | | | + + + TRANSTHORACIC ECHOCARDIOGRAM, ADULT (01/28/2017 1:07 PM PST) [...] formed At | + +---- + | [facility] | [facility] DEPT OF | | [facility] Adult Echocardiography Laboratory [address] CAR DIOLOGY | | [place], [place] [address] Ph: | | | Pt Name: JOIE MANCIA | | | Study Date/Time 01/28/2017 / 1:07:38 PMMRN: [id number] | | | Most recent prior: 12/25/2014cc #: [id number] | | | No. 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 Medtronic single chamber pacemaker Patient history has been | | | [facility] | | | + [...] Report electronically | | | signed by: [id number] Chris Lua MD (01/28/2017, 2:28:26 PM) | [...] | | | |Report electronically signed by: [id number] Chris Lua MD (01/28/2017, 2:28:26 | | |PM) | | | | | | | | | | | | Final | | + +---- + + + | Procedure Note | + + | Interface, Cardiology Results - 01/28/2017 2:28 PM [facility] | | [place] Adult Echocardiography Laboratory [address] [place] [address] | | [place], [place] [address] Pt Name: JOIE | | MANCIA Study Date/Time 01/28/2017 / 1:07:38 PMMRN: [id number] | | Most recent prior: 12/25/2014cc #: [id number] No. previous echos: 3DOB: | | 1985 31 years Heart Rate: 60 bpmHeight: 62.0 in Blood | | Pressure: 113/66 mm/HgWeight: 160.0 lb Gender: FBSA: | | 1.74 m2 Order ID: [id number] Clock And Watch Hands Mounter: Lilian Guadalupe RDCSRefariellaing | | Provider: Madeleine Viveros Location: [facility] Performed: CHD 2D, Color Flow, | | Spectral Doppler.Study Quality: Good.Imaging Limitations: There are pacer wires | | present.Exam Indication: Congenital heart disease(Total Anomalous venous Return)History: | | Total congenital anomalous pulmonary venous connection . Medtronic single chamber | | pacemaker Patient history has been obtained from the [facility] Transthoracic | | Echocardiographic | | Report+ [...] Aortic MitralLVID(d) 4.59 | | (3.5-5.7cm) Max Markie 1.66 Peak E 1.30 cm m/s | [...] values Report electronically signed by: | | [id number] Chris Lua MD (01/28/2017, 2:28:26 PM) Final [...] | | | |Report electronically signed by: [id number] Chris Lua MD (01/28/2017, 2:28:26 | |PM) | | | | | | | | Final | + + + + + + + | Performing | Address | City/State/Zipcode | Phone Number | | Organization | | | | + + + + + | [facility] DEPT OF | [address] [facility] | [place], [place] | | | CARDIOLOGY | [address] | [address] | | + + + + + CARDIAC DEVICE (PACEMAKER/ICD) CHECK - IN OFFICE (01/28/2017 12:00 AM PST) + + + | Narrative | Performed At | + + + | | | + + + CARDIAC DEVICE (PACEMAKER/ICD) CHECK - IN OFFICE (10/15/2016 12:00 AM PDT) + + + | [...]
--- OUTSIDE RECORDS SUMMARY | ~2019-10-07 | XMS | Encounter Summary ---
Demographics + + + | Address | [address] | | | [place] [address] | + + + | Home Phone [...] [place], [place] | | | | | [address] | | + + + + + | Polly Winston | ECON | ANAYA, | | + + + + + Care Team Providers + +------+ + | Care Shale Miner Name | Role | Phone | + [...] as of this encounter Progress Notes Interface, [employer] Cake Decorator In - 09/28/2004 9:34 AM SHANDRA [id number] [facility] Date: 09/16/2004 Pediatric Cardiology [...] auscultation reveals normal heart sounds. No murmurs. INTERNATIONAL ACCOUNTANT: Central nervous system was grossly normal with [...] time. She is going to see an customer support manager because of her menstrual problems, and I [...] echocardiogram. Antonio Hines M.D. Director, Pediatric Electrophysiology Keg Header Professor Division of Pediatric Cardiology [facility] / [place] [id number] / [id number] / [id number] / [id number] cc: Gabrielle Fernández MD [address] [place] [id number] documented i n this encounter Plan of [...] | | 2019 | | | [address] [facility] | | | | | | [address] | | | | | | [place] | | | | | | [address] | | | | | | [phone] | | | | | | | | +--------+ + + + + documented as of this encounter Visit Diagnoses Not on filedocumented in this encounter"
--- OUTSIDE RECORDS SUMMARY | ~2019-10-07 | XMS | Encounter Summary ---
Demographics + + + | Address | [address] | | | [place] [address] | + + + | Home Phone [...] [place] | | | | | [address] | | + + + + + | Polly Winston | ECON | ANAYA, | | + + + + + Care Team Providers + +------+ + | Care Antique Refinisher Name | Role | Phone | + +------+ + PCP | Unavailable | + +------+ + Encounter Details +--------+ + + + + | Date | Type | Department | Care Team | Description | +--------+ + + + + | 09/03/ | Letter-Leahy | | Letter, Clinic | Letters | | 2003 | scribed | | | | +--------+ [...] as of this encounter Progress Notes Interface, Insurance Office Supervisor In - 09/28/2004 5:57 AM PDT [facility] [address] [facility] [place], [place] [id number] or September 04, 2003 Gabrielle Fernández M.D. [address] [facility] [address] [place] [address] RE: JOIE MANCIA MR #: [id number] Dear Dr. Fernández: I reviewed Joie today. Please refer to my letter to you dated September 12, 2002, for last year's review. This is an annual review for her. 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 She is doing well, and she continues to swim and has no difficulty keeping up with her activities. She complains of some dizziness with possible presyncope and these usually happen at sabianism. She has been kneeling and then stands up. Review of systems is otherwise negative. On examination today, Joie weighs 58.2 kg, her height is 159.5 cm, blood pressure 113/65, heart rate 74, and saturations 100%. She is comfortable at rest with no evidence of anemia, jaundice, clubbing, cyanosis, or peripheral edema. Peripheral pulses are normally palpable. Abdomen is soft. She has a midline sternal scar. Chest is clear. Cardiac auscultation reveals normal 1st and 2nd heart sounds with no murmurs or clicks. Pacemaker is palpable in the left pectoral region. There is no tenderness at the site. Skin is normal with no rashes. Central nervous system is grossly normal with normal gait, normal speech, and normal facial movements. Echocardiogram performed today shows unobstructed pulmonary venous return with trace mitral regurgitation. There was physiologic tricuspid regurgitation and pulmonary incompetence and the right ventricular pressure was normal. Left ventricular size and function were both normal. Joie is doing well. Pacemaker check shows that she is in the ventricular rate-responsive mode with rates between 60 and 170 beats per minute. Her battery voltage was 2.78 and cell impedence 397 Ohms. Expected longevity is 64 months, and she is 93% days. Underlying rhythm was a junctional rhythm with a rate of 45 beats per minutes. R-wave amplitude was 11.2 and thresholds were excellent. Based on the thresholds, we were able to decrease her output from 2.5 to 2 Volts. Pulse width is left at 0.4 ms. Sensitivity is at 2.8 mV. Joie is doing well and so is her pacemaker. I would like to recheck her in a year's time and there are no new recommendations for this next year. She does need antibiotic prophylaxis for dental and surgical procedures and as before, she may engage in normal activities other than contact sports. Sincerely, Antonio Hines M.D. Director, Pediatric Electrophysiology Char House Supervisor Professor Division of Pediatric Cardiology [facility] / HS [id number] / [id number] / [id number] / cc: Cyrus Hobbs M.D. CDRCP, [facility] Department of Pediatrics, Division of Cardiology documented in this encounter Plan of Treatment [...] [place] | | | | | | [address] | | | | | | [phone] | | | | | | | | +--------+ + + + + documented as of this encounter Visit Diagnoses Not on filedocumented in this encounter"
--- OUTSIDE RECORDS SUMMARY | ~2019-10-07 | XMS | Encounter Summary ---
Demographics + + + | Address | [address] | | | [place] [address] | + + + | Home Phone | | + + + | Preferred Language | Unknown | + + + | Marital Status | | + + + | Jewish Affiliation | NON | + + + | Race | White | + + + | Ethnic Group | or | + + + Author + + + | Author | [facility] | + + + | Organization | [facility] | + + + | [...] [place], [place] | | | | | [address] | | + + + + + | Polly Winston | ECON | ANAYA, | | + + + + + Care Team Providers + +------+ + | Care Strip Picker Name | Role | Phone | + [...] Description | +--------+---------+ + + + | 10/05/ | Office | Pediatric | Antonio Hines, | 427.81 SICK SINUS | | 2006 | Visit | Cardiology at | [address] [facility] | SYNDROME (Primary | | | | [address] | [facility] [address] | Dx) | | | | [facility] | [place], [place] | | | | | [address] | [address] | | | | | Emeli | [phone] | | | | | [facility] | | | | | | [address] [place] [address] | | | | | | [place] [address] | | | | | | [phone] | | | +--------+---------+ + + + [...] + + + | Blood Pressure | 114/66 | 10/05/2006 10:40 AM | | | | | PDT | | + + + + + | Pulse | 80 | 10/05/2006 10:40 AM | | | | | PDT | | + + + + + | Temperature | - | - | | + + + + + | Respiratory Rate | - | - | | + + + + + | Oxygen Saturation | 99% | 10/05/2006 10:40 AM | | | | | PDT | | + + + + + | Inhaled Oxygen | - | - | | | Concentration | | | | + + + + + | Weight | 60.1 kg (132 lb 7.9 | 10/05/2006 10:40 AM | | | | oz) | PDT | | + + + + + | Height | 160.5 cm (5' 3.19") | 10/05/2006 10:40 AM | | | | | PDT | | + + + + + | Body Mass Index | 23.33 | 10/05/2006 10:40 AM | | | | | PDT | | + + + + + documented in this encounter Progress Notes Antonio Hines - 10/05/2006 10:47 AM PDTFormatting of this note might be different from t nitin original. Joie Villarreal is a 20 y.o. girl with sick sinus syndrome s/p total anomalous pulmonary nia ous return. Device: Medtronic Nisswa Implanted: 08/11/99 RULA: no ADVISORY: NO Mode: VVIR Lower Rate: 60 Upper Rate: 170 Battery Voltage: 2.75 Cell Impedance: 1675 Estimated battery longevity: 25 months Patient is not pacer dependent. Telephone monitoring is: on Output (v) Pulse Width (ms) Sensitivity (mv) Right Ventricle 2.5 0.45 2.8 TESTING: Threshold testing was performed. RT VENTRICLE RV threshold volts: 0.5 RV threshold PW: 1 RV lead impedance: 789 R Wave Amplitude: 5.6 Programming Changes: None. Hospitalizations: no PHYSICAL EXAM: Vitals: Visit Vitals Item Reading BP 114/66 Pulse 80 Ht 1.605 m (5' 3") Wt 60.100 kg (132 lbs 7.9 oz) SpO2 99% Rhythm: V Pace Notes: Joie returns for an annual pacemaker check today. She is 20 year old and she is a in college. She has sick sinus syndrome and had a new lead and a new pacemaker placed in 1999. I last saw her on 07/30/06. She has been doing well with all activities including da nce without any problems. Joie is doing well and so is her pacemaker. I did not make any changes to her pacemaker settings. She needs to do her transtelephonic monitoring every 3 months. I would like to see her back in 1 year's time for a repeat pacemaker check. She was comfortable at rest with no signs of anemia, jaundice, clubbing, cyanosis, or perip heral edema. Peripheral pulses were normally palpable including good femoral pulses and no brachiofemoral delay. HEENT was unremarkable. Abdomen was soft. Chest was clear to auscult ation and not deformed. Cardiac palpation revealed a normal apical impulse, no thrills or p alpable heart sounds. Cardiac auscultation revealed normal heart sounds with no murmurs or c licks. Central nervous system was grossly normal with normal gait, normal speech, and max l facial movements. Skin was normal with no rashes. Her affect was normal and cheerful. T one was normal in all 4 limbs and extremities were warm and well perfused. Pacemaker is in the left pectoral region. Chest Xray: shows a small heart with a single ventricular lead still with a loop in the rig ht atrium. documented in t his encounter Plan of [...] Rd | | | | | | [place], [place] | | | | | | [address] | | | | | | [phone] | | | | | | | | +--------+ + + + + + + +--------+ + + | Name | Type | Priori | Associated Diagnoses | Order Schedule | | | | ty | | | + + +--------+ + + | [place] ANALYZE PACER | Procedures | Routin | 427.81 SICK SINUS | Ordered: 10/05/2006 | | JORDON GRIMES | | e | SYNDROME | | + + +--------+ + + documented as of this encounter Visit Diagnoses + + | Diagnosis | + + | 427.81 SICK SINUS SYNDROME - Primary Sinoatrial node dysfunction | + + documented in this encounter
--- OUTSIDE RECORDS SUMMARY | ~2019-10-07 | XMS | Encounter Summary ---
Demographics + + + | Address | [address] | | | [place] [address] | + + + | Home Phone [...] [place], [place] | | | | | [address] | | + + + + + | Polly Winston | ECON | ANAYA, | | + + + + + Care Team Providers + +------+ + | Care Harvest Worker Fruit Name | Role | Phone | + +------+ + | Yuli Franklin | PCP | | + +------+ + Reason for Visit + + + | Reason | Comments | + + + | Genetic counseling | | + + + | care | | + + + Other (Routine) +--------+--------+ + + + + | Status | Reason | Specialty | Diagnoses / | Referred By | Referred To | | | | | Procedures | Contact | Contact | +--------+--------+ + + + + | Closed | | | Diagnoses | | Pnc | | | | | Maternal | Missael, | | | | | | congenital | Abi Marquis, | Diag [facility]pv | | | | | cardiac | ,PhD [address] | [address] | | | | | anomaly | [address] | [address] | | | | | affecting | [address] | Physician's | | | | | in | Rd | Pavilion, | | | | | first | [place], [place] | 4th floor | | | | | trimester, | [address] | [place], [place] | | | | | antepartum | Phone: | [address] | | | | | Total | [phone] | Phone: | | | | | congenital | Fax: | [phone] | | | | | anomalous | [phone] | Fax: | | | | | pulmonary | | [phone] | | | | | venous | | | | | | | connection | | | | | | | Procedures | | | | | | | CONSULT TO | | | | | | | [facility] | | | | | | | GENETIC | | | | | | | COUNSELING | | | | | | | HI GENETIC | | | | | | | COUNSELING, | | | | | | | 30 MIN HI | | | | | | | [...] Description | +--------+---------+ + + + | 06/08/ | Office | Center | Karen Farrell MS | Hereditary disease | | 2020 | Visit | at [facility] [address] | [address] | in family possibly | | | | [address] | [address] | affecting fetus, | | | | Physician's | [facility] [place] | affecting management | | | | Pavilion, 4th floor | [address] | of mother in | | | | [place], [place] | [phone] | , single or | | | | [address] | | unspecified fetus | | | | [phone] | | (Primary Dx) | +--------+---------+ + + + Social History [...] documented as of this encounter Progress Notes Karen Farrell, MS - 06/09/2019 11:00 AM PDTGenetic Counseling Telephone Documentation Joie Villarreal is a 33yo who is 11w4d with MARINA of 12/25/19. The patient was contact ed by phone to review testing options in advance of her upcoming NT ultrasound. Genetic cou nseling was performed by phone due to current COVID-19 mandates. A total of 31 minutes were spent providing telephone genetic counseling. Joie's partner, Alexsander, was able to join today's phone call. FAMILY HISTORY: Family history was reviewed. 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 She had surgical correction shortly after delivery. Joie also reports that her maternal aunt's son has autism. There is no known history of congenital anomalies, cognitive impairment, multiple spontaneous abortions, stillbirths, consanguinity, or genetic conditions in either her own or her partner's family. Joie is of non-Spiritism, an d [place]an ancestry and Alexsander is of non-Spiritism, ancestry. RISK ASSESSMENT: Heart defects: In light of Joie's personal history history, we reviewed congenital heart defects in mor e detail. The overall incidence of heart defects is approximately 0.5-1% of livebirths. Th e recurrence risk for children of mother's isolated case is an additional 5-6%. Given the i ncreased risk, we recommend a echocardiogram in the current . Aneuploidy: The association between maternal age and the risk for having a baby with a chromosomal prob rusyt was discussed. The risk for delivering a live-born baby with any chromosome abnormality at age 33 was estimated to be 1/323. TESTING OPTIONS: Ultrasound: Ultrasound as a screening tool for chromosomal problems was reviewed. First tr teresita can evaluate the nuchal translucency (NT). An increased NT is associated with a hig her risk for negative outcome, such as chromosomal abnormalities, cardiac defects, and single gene disorders. While ultrasound between 18-20 weeks is a more thorough evaluati on of overall growth and development, a normal ultrasound cannot rule out the possibil ity of a chromosomal problem. Sequential screening combines the nuchal translucency measurement with several serum analyt e levels in the first and second trimesters to provide a risk assessment. When complete, th is test detects 90% of Down syndrome, 90% of trisomy 18, and 80% of open neural tube defects with a 3.7% false positive rate. Cell-free DNA (cfDNA) Screening has a 99% detection rate for Down syndrome, 96% for trisomy 18, and 91% for trisomy 13 with <1% false positive rate. Results from cfDNA screening are not diagnostic, and the concept of false positive and false negative results was discussed. There is a small chance that results may reflect chromosomal changes of the placenta or the mother rather than the fetus, and sometimes test failure occurs. Diagnosis: Options for diagnosis of chromosome abnormalities were briefl y reviewed. Chorionic villus sampling (CVS) is a procedure performed between 11-14 weeks ge station in which chorionic villi are removed for analysis. CVS has up to a 1/100 risk for c omplications such as miscarriage. Amniocentesis is another procedure that can be performed starting at 16 weeks gestation in which amniotic fluid is withdrawn for analysis. Amniocent esis carries a risk of up to 1/300 for complication. Carrier Screening: Carrier screening for autosomal and X-linked recessive conditions was o ffered. If the fetus were at increased risk based on carrier screening results, di agnosis or testing at could be considered. PLAN: Joie opted for cfDNA screening with XY analysis. Joie plans to roller picker paperwork at the [facility] front office medical assistant and go to the lab prior to her appointments on Wednesday prior to the lab closing. She was reminded that per the most recent [facility] visitor policy, visitors are not allowed to attend her appointment with her. A genetic counselor will call with results 7-10 days later. Of note, the patient will be offered additional genetic counseling if her ultrasound is abnormal. Joie declined carrier screening and diagnostic testing at this time. Karen Farrell MS, [facility] Certified Genetic Counselor [facility] documented in this enc ounter Plan of [...] | | 2019 | | | [address] [facility] | | | | | | [address] | | | | | | [place], [place] | | | | | | [address] | | | | | | [phone] | | | | | | | | +--------+ + + + + documented as of this encounter Results NON-INVASIVE TEST (06/12/2019 10:00 [...] | Test performed | [facility] | | by:[id number] [place] [address] | REFERENCE LAB | |[address] [facility] | | |[place] [address] | | + + + + + [...] | in , single or unspecified fetus - Primary | + + documented in this encounter"
--- OUTSIDE RECORDS SUMMARY | ~2019-10-07 | XMS | Encounter Summary ---
Demographics + + + | Address | [address] | | | [place] [address] | + + + | Home Phone [...] [place], [place] | | | | | [address] | | + + + + + | Polly Winston | ECON | ANAYA, | | + + + + + Care Team Providers + +------+ + | Care Medical Staff Assistant Name | Role | Phone | + +------+ + | Yuli Franklin | PCP | | + +------+ + Encounter Details +--------+ + + + + | Date | Type | Department | Care Team | Description | +--------+ + + + + | 09/20/ | Hospital | Center | Nellie Munson, | | | 2020 | Encounter | at [facility] [address] | MD [address] | | | | | [address] | [address] | | | | | Physician's | [place], [place] | | | | | Pavilion, 4th Floor | [address] | | | | | [facility] [place] | [phone] | | | | | [address] | | | | | | [phone] | | | +--------+ + + + [...] Rd | | | | | | [place], [place] | | | | | | [address] | | | | | | [phone] | | | | | | | [...] Performed At | + + + | [facility] | [facility] | | OBSTETRICAL ULTRASOUND REPORT | RADIOLOGY OB US | | | | | Pat. Name: RAMOS SCHMIDT Study | | | Date: 09/21/2019 12:58pm Pat. No: [id number] | | | Referring MD: KINDRA COHEN F LMP: | | | 03/20/2019 Evaluation Engineer: ОЛЬГА MARADIAGA, | | | MAYDA GA by LMP: 26w3d , Age: | | | 1985, 33 GA by Last:26w3d | | | Pregnancies: 1, Para 0000 GA by US: 27w6d | | | GA Selected: 26w3d (LMP) Hist/Ind: | | | Growth Follow up previa | | | CPT4: 52205,22908 | | | MARINA: | | | 12/25/2019 | | | | | | MEASUREMENTS & AGE | | | GROWTH EVALUATION Measurement GA Range Source % | | | 26w3d Ratios ----- ------- | | | BPD 7.0 cm 28w1d | | | (25s8y-12p7v) Hadlock BPD 85% FL/BPD 0.75 (0.71 - 0.87) HC | | | 25.7 cm 27w6d (37d4c-03o5h) Hadlock HC 82% FL/AC 0.21 | | | (0.20 - 0.24) AC 25.2 cm 29w2d (57c5f-87l5j) Hadlock AC >95 | | | HC/AC 1.02 (1.00 - 1.19) FL 5.2 cm 27w6d (07b8a-53l7g) Hadlock | | | FL 81% CI 0.77 (0.70 - 0.86) GA for sonogram 27w6d | | | (77z4q-93y5x) Weight Estimate: based on (BPD,HC,AC,FL) | | [...] | | | ! x ! Cardiac Kirksey/! ! ! | | | ! x [...] and placental | | | evaluation. Ms Schmidt is seen in the Maternal Cardiac Program in [facility] | | | due to TAPVR [...] any time and ask for the perinatologist distribution engineer. | | | [phone] or [phone] VICKY LAM MD | | | <Electronic [...] - 09/21/2019 3:01 PM PDT | | [facility] OBSTETRICAL ULTRASOUND | | | | REPORT Pa | | t. Name: RAMOS SCHMIDT Study Date: 09/21/2019 12:58pmPat. No: | | [id number] Referring MD: KINDRA COHEN, AGATHAMP: 03/20/2019 | | Evaluation Engineer: ОЛЬГА MARADIAGA RDMSGA by LMP: 26w3d | | , Age: 10 1985, 33GA by Last:26w3d Pregnancies: | | 1, Para 0000GA by US: 27w6d GA Selected: 26w3d | | (LMP)Hist/Ind: Growth Follow up previa | | CPT4: 27137,68235 MARINA: | | 12/25/2019 | | --MEASUREMENTS & AGE GROWTH EVALUATIONMeasurement GA | | Range Source % 26w3d Ratios ----- ------- | | BPD 7.0 cm 28w1d (97c9l-96z5v) Hadlock BPD 85% FL/BPD | | 0.75 (0.71 - 0.87)HC 25.7 cm 27w6d (91r1o-38u0t) [facility] HC 82% FL/AC 0.21 (0.20 | | - 0.24)AC 25.2 cm 29w2d (32t8h-67e8b) [facility]lock AC >95 HC/AC 1.02 (1.00 - 1.19)FL | | 5.2 cm 27w6d (33l4o-89j0z) Hadlock FL 81% CI 0.77 (0.70 - 0.86)GA for sonogram | | 27w6d (31c9z-59e8v) Weight Estimate:based on (BPD,HC,AC,FL) Hadlock | | Weight: 1258 gm (1074-1442gm) Hadlock : | | 2lbs, 12oz Normal: 912 gm (606-1380gm) Rebeca | | Wt% 80% for 35m8bLvmsdj: Length: 3.6 cmFetal | | Heart Rate: [...] ! ! ! x | | !Cardiac Kirksey/! ! ! ! x !Four Chamber ! [...] the Maternal | | Cardiac Program in [facility] due to TAPVR s/p correction with [...] and ask for the perinatologist | | distribution engineer. [phone] or [phone], JORGE, MD <Electronic | | Signature> 09/21/2019 [...] for | |growth and placental evaluation. Ms Schmidt is seen in the Maternal Cardiac | |Program in [facility] due to TAPVR s/p correction with [...] | |time and ask for the perinatologist distribution engineer. [phone] or [phone] | |VICKY LAM MD | | | [...] | + +---------+ + + US UTERUS FOLLOW-UP SCAN (09/21/2019 1:53 PM PDT) + + | Specimen | + + | | + + + + + | Narrative | Performed At | + + + | [facility] | [facility] | | OBSTETRICAL ULTRASOUND REPORT | RADIOLOGY OB US | | | | | Pat. Name: JAXONFREDIA Study | | | Date: 09/21/2019 12:58pm Pat. No: [id number] | | | Referring MD: KINDRA COHEN F LMP: | | | 03/20/2019 Evaluation Engineer: ОЛЬГА MARADIAGA, | | | RDMS GA by LMP: 26w3d , Age: | | | 1985, 33 GA by Last:26w3d | | | Pregnancies: 1, Para 0000 GA by US: 27w6d | | | GA Selected: 26w3d (LMP) Hist/Ind: | | | Growth Follow up previa | | | CPT4: 15040,51642 | | | MARINA: | | | 12/25/2019 | | | | | | MEASUREMENTS & AGE | | | GROWTH EVALUATION Measurement GA Range Source % | | | 26w3d Ratios ----- ------- | | | BPD 7.0 cm 28w1d | | | (29p2y-51c8m) Hadlock BPD 85% FL/BPD 0.75 (0.71 - 0.87) HC | | | 25.7 cm 27w6d (83w6z-41z8q) Had[place] HC 82% FL/AC 0.21 | | | (0.20 - 0.24) AC 25.2 cm 29w2d (73d1x-76a0m) Hadlock AC >95 | | | HC/AC 1.02 (1.00 - 1.19) FL 5.2 cm 27w6d (06c6h-02e6e) Hadlock | | | FL 81% CI 0.77 (0.70 - 0.86) GA for sonogram 27w6d | | | (57w4f-13c0w) Weight Estimate: based on (BPD,HC,AC,FL) | | [...] | | | ! x ! Cardiac Kirksey/! ! ! | | | ! x [...] and placental | | | evaluation. Ms Schmidt is seen in the Maternal Cardiac Program in [facility] | | | due to TAPVR [...] any time and ask for the perinatologist distribution engineer. | | | [phone] or [phone] VICKY LAM MD | | | <Electronic Signature> 09/21/2019 02:53pm Revised I have | | | personally reviewed the images and, if necessary, edited the report. | | | I agree with the report as now presented. | | + + + + + | Procedure Note | + + | Lorie Murphy Res In Interface - 09/21/2019 3:01 PM PDT | | [facility] OBSTETRICAL ULTRASOUND | | | | REPORT Joo rao Name: RAMOS SCHMIDT Study Date: 09/21/2019 12:58pmPat. No: | | [id number] Referring MD: KINDRA COHEN FLMP: 03/20/2019 | | Evaluation Engineer: EIGRUBER, ОЛЬГА, RDMSGA by LMP: 26w3d | | , Age: 10 1985, 33GA by Last:26w3d Pregnancies: | | 1, Para 0000GA by US: 27w6d GA Selected: 26w3d | | (LMP)Hist/Ind: Growth Follow up previa | | CPT4: 46236,60784 MARINA: | | 12/25/2019 | | --MEASUREMENTS & AGE GROWTH EVALUATIONMeasurement GA | | Range Source % 26w3d Ratios ----- ------- | | BPD 7.0 cm 28w1d (80i9v-15e9w) Hadlock BPD 85% FL/BPD | | 0.75 (0.71 - 0.87)HC 25.7 cm 27w6d (33g0c-56y0f) Had[place] HC 82% FL/AC 0.21 (0.20 | | - 0.24)AC 25.2 cm 29w2d (20f0l-67e5w) [place]lock AC >95 HC/AC 1.02 (1.00 - 1.19)FL | | 5.2 cm 27w6d (83f9k-93n3n) Hadlock FL 81% CI 0.77 (0.70 - 0.86)GA for sonogram | | 27w6d (33y4j-40q6f) Weight Estimate:based on (BPD,HC,AC,FL) Hadlock | | Weight: 1258 gm (1074-1442gm) Hadlock : | | 2lbs, 12oz Normal: 912 gm (606-1380gm) Rebeca | | Wt% 80% for 80x1eKeznks: Length: 3.6 cmFetal | | Heart Rate: [...] ! ! ! x | | !Cardiac Kirksey/! ! ! ! x !Four Chamber ! [...] Ms Post is seen in the Maternal | | Cardiac Program in [facility] due to TAPVR s/p correction with [...] Normal anatomic survey with no abnormalities identified.Recommendations: Post | | has an appointment to follow [...] and ask for the perinatologist | | distribution engineer. [phone] or [phone], JORGE, MD <Electronic | | Signature> 09/21/2019 [...] for | |growth and placental evaluation. Ms Schmidt is seen in the Maternal Cardiac | |Program in [facility] due to TAPVR s/p correction with [...] | |time and ask for the perinatologist distribution engineer. [phone] or [phone] | |VICKY LAM MD | | | [...]
--- OUTSIDE RECORDS SUMMARY | ~2019-10-07 | XMS | Encounter Summary ---
Demographics + + + | Address | [address] | | | [place] [address] | + + + | Home Phone [...] [place], [place] | | | | | [address] | | + + + + + | Polly Winston | ECON | ANAYA, | | + + + + + Care Team Providers + +------+ + | Care Analyst Market Intelligence Name | Role | Phone | + +------+ + | Gabrielle Fernández MD | PCP | | + +------+ + Encounter Details +--------+ + + + + | Date | Type | Department | Care Team | Description | +--------+ + + + + | 06/29/ | Telephone | Pediatric | Antonio Hines, | | | 2011 | | Cardiology at | MD [address] [facility] | | | | | Em[place] | [facility] | | | | | [facility] | [place], [place] | | | | | [address] | [address] | | | | | [place] | [phone] | | | | | [facility] | | | | | | [address] [facility], | | | | | | [place] [address] | | | | | | [phone] | | | +--------+ + + + [...] Rd | | | | | | [place], [place] | | | | | | [address] | | | | | | [phone] | | | | | | | | +--------+ + + + + documented as of this encounter Visit Diagnoses Not on filedocumented in this encounter"
--- OUTSIDE RECORDS SUMMARY | ~2019-10-07 | XMS | Encounter Summary ---
Demographics + + + | Address | [address] | | | [place] [address] | + + + | Home Phone | | + + + | Preferred Language | Unknown | + + + | Marital Status | | + + + | Oriental Orthodox Affiliation | NON | + + + | Race | White | + + + | Ethnic Group | or | + + + Author + + + | Author | [facility] | + + + | Organization | [facility] | + + + | Address [...] [place], [place] | | | | | [address] | | + + + + + | Polly Winston | ECON | ANAYA, | | + + + + + Care Team Providers + +------+ + | Care Procurement Technician Name | Role | Phone | + +------+ + | Yuli Franklin | PCP | | + +------+ + Reason for Visit + + + | Reason | Comments | + + + | Needs Paperwork | | + + + | Other | Did FMLA paper arrive via Fax | + + + Encounter Details +--------+ + + + + | Date | Type | Department | Care Team | Description | +--------+ + + + + | 06/24/ | Telephone | Cardiology | Bethel Salvador | Needs Paperwork; | | 2017 | | Arrhythmia at [facility] | [place] [address] | Other (Did MAYELA | | | | [address] | [address] | paper arrive via | | | | [facility] | [place], [place] | Fax) | | | | and Healing, | [address] | | | | | | [phone] | | | | | [place], [place] | | | | | | [address] | | | | | | [phone] | | | +--------+ + + + [...] Rd | | | | | | [place], [place] | | | | | | [address] | | | | | | [phone] | | | | | | | | +--------+ + + + + documented as of this encounter Visit Diagnoses Not on filedocumented in this encounter"
--- OUTSIDE RECORDS SUMMARY | ~2019-10-07 | XMS | Encounter Summary ---
Demographics + + + | Address | [address] | | | [place] [address] | + + + | Home Phone | | + + + | Preferred Language | Unknown | + + + | Marital Status | | + + + | Orthodox Affiliation | NON | + + [...] [place], [place] | | | | | [address] | | + + + + + | Polly Winston | ECON | ANAYA, | | + + + + + Care Team Providers + +------+ + | Care Lending Advisor Name | Role | Phone | + +------+ + | No Pcp Per Patient | PCP | Unavailable | + +------+ + Encounter Details +--------+ + + + + | Date | Type | Department | Care Team | Description | +--------+ + + + + | 12/01/ | Abstract | Cardiology | Madeleine Hernandez NP | | | 2016 | | Arrhythmia at [facility] | [address] | | | | | [address] | [place], [place] | | | | | [facility] | [address] | | | | | and [place], | [phone] | | | | | [facility] | | | | | | Floor [facility] [place] | | | | | | [address] | | | | | | [phone] | | | +--------+ + + + [...] | | 2020 | | | [address] [facility] | | | | | | [address] | | | | | | [place], [place] | | | | | | [address] | | | | | | [phone] | | | | | | | | +--------+ + + + + documented as of this encounter Visit Diagnoses Not on filedocumented in this encounter"
--- OUTSIDE RECORDS SUMMARY | ~2019-10-07 | XMS | Encounter Summary ---
Demographics + + + | Address | [address] | | | [place] [address] | + + + | Home Phone | | + + + | Preferred Language | Unknown | + + + | Marital Status | | + + + | Buddhism Affiliation | NON | + + + | Race | White | + + + | Ethnic Group | or | + + + Author + + + | Author | [facility] | + + + | Organization | [facility] | + + + | [...] [place], [place] | | | | | [address] | | + + + + + | Polly Winston | ECON | ANAYA, | | + + + + + Care Team Providers + +------+ + | Care Development Team Lead Name | Role | Phone | [...] Bethel Salvador | Follow-up encounter | | 2017 | | Arrhythmia at [facility] | [place] [address] | | | | | [address] | [facility] | | | | | [facility] | [place], [place] | | | | | and [facility], | [address] | | | | | [place] [address] [facility] | [phone] | | | | | [place], [place] | | | | | | [address] | | | | | | [phone] | | | +--------+ + + + [...] [place] | | | | | | [address] | | | | | | [phone] | | | | | | | | +--------+ + + + + documented as of this encounter Visit Diagnoses Not on filedocumented in this encounter"
--- OUTSIDE RECORDS SUMMARY | ~2019-10-07 | XMS | Encounter Summary ---
Demographics + + + | Address | [address] | | | [place] [address] | + + + | Home Phone [...] [place], [place] | | | | | [address] | | + + + + + | Polly Winston | ECON | ANAYA, | | + + + + + Care Team Providers + +------+ + | Care Steward/Stewardess Third Name | Role | Phone | + +------+ + | Gabrielle Fernández MD | PCP | | + +------+ + Encounter Details +--------+---------+ + + + | Date | Type | Department | Care Team | Description | +--------+---------+ + + + | 12/24/ | Office | Em[place] | Donny Antonio, | 427.81 SICK SINUS | | 2009 | Visit | Cardiology Gunner | [address] [facility] | SYNDROME; Total | | | | [facility] [address] | [address] | congenital anomalous | | | | ([place]) [facility] | [place], [place] | pulmonary venous | | | | [place] | [address] | connection | | | | [address] | [phone] | | | | | [phone] | | | +--------+---------+ + + + [...] + + + | Blood Pressure | 119/70 | 12/24/2009 11:15 AM | | | | | PDT | | + + + + + | Pulse | 66 | 12/24/2009 11:15 AM | | | | | PDT | | + + + + + | Temperature | - | - | | + + + + + | Respiratory Rate | - | - | | + + + + + | Oxygen Saturation | 99% | 12/24/2009 11:15 AM | | | | | PDT | | + + + + + | Inhaled Oxygen | - | - | | | Concentration | | | | + + + + + | Weight | 65.8 kg (145 lb 1 | 12/24/2009 11:15 AM | | | | oz) | PDT | | + + + + + | Height | 159.5 cm (5' 2.8") | 12/24/2009 11:15 AM | | | | | PDT | | + + + + + | Body Mass Index | 25.86 | 12/24/2009 11:15 AM | | | | | PDT | | + + + + + documented in this encounter Progress Notes Antonio Hines MD - 12/24/2009 11:10 AM PDTHistory: Joie comes for a routine follow up check for her pacemaker. I performed a pacemaker pulse generator change on her on 08/13/08 and she has had regular ca relink remote checks with the most recent one on 09/25/09. Please refer to that note. She continues to do well with no problems. Her past, family, and social history are unchanged, and review of systems is otherwise negative. 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 She will be finishing her degree at [employer] in spring 2010, then plans to do masters in [employer] in [place]. Allergies: SHE IS ALLERGIC TO CODEINE. Medications: She is on control pills. Physical Examination: BP 119/70 | Pulse 66 | Ht 1.595 m (5' 2.8") | Wt 65.8 kg (145 lb 1 oz) | SpO2 99% | BMI 25. 86 kg/(m^2) Joie looks well and comfortable with [...] 170 Battery Voltage: 2.79 volts Cell Impedance: 212 ohms Estimated battery longevity: 7.5 years (range 6-8.5) Patient is not pacer dependent. Telephone monitoring is: on Output (v) Pulse Width (ms) Sensitivity (mv) Right Ventricle 2 volts 0.4 ms 2mV TESTING: Threshold testing was performed. RT VENTRICLE RV threshold volts: 0.75 v RV threshold PW: 0.4 ms RV lead impedance: 676 ohms R Wave Amplitude: 4-5.6 mV She is paced 82% of the time. Ventricular capture looks good. Programming Changes: None. I am pleased with this check. The next Carelink check will be in 3 months. She needs 3 monthly Carelink checks and annual live checks. I will refer her to Dr Mcclain for follow up for her congenital heart disease in 1 year's time. It was a pleasure to see Joie today. documented in th is encounter Plan of [...] | | 2019 | | | [address] [facility] | | | | | | [facility] | | | | | | [place], [place] | | | | | | [address] | | | | | | [phone] | | | | | | | | +--------+ + + + + documented as of this encounter Visit Diagnoses + + | Diagnosis | + + | 427.81 SICK SINUS SYNDROME Sinoatrial node dysfunction | + + | Total congenital anomalous pulmonary venous connection | + + documented in this encounter
--- NOTE | 2019-10-08 21:21 | EKG ---
[facility] [address] [facility] [place], [place] [address] Signed Atrial-sensed ventricular-paced rhythm Abnormal ECG No previous ECGs available Confirmed by MABEL CANTRELL MD ([id number]) on 10/08/2019 9:21:05 PM Electronically Signed By: MABEL CANTRELL MD 10/08/192120 PATIENT NAME: RAMOS COATES Electrocardiogram DATE OF : 87 PHYSICIAN: MABEL CANTRELL MD REPORT #: [id number] REPORT IS CONFIDENTIAL AND NOT TO BE RELEASED WITHOUT AUTHORIZATION
== END 2019-10-08 08:50 | disposition short-term general hospital (02) ==
LOC: FBCO 11:30 → FBC 12:49
PROVIDERS: ADMIT Obstetrics & Gynecology
DX: O44.13 Complete placenta previa with hemorrhage, third trimester (principal); Z95.0 Presence of cardiac pacemaker; Z3A.28 28 weeks gestation of pregnancy
CPT/HCPCS: 36415; 51702; 76815; 83735; 85025; 86850; 86900; 86901; 86920; 93005; 93010; 96361; 96365; 96366; 96372; 96376; G0378; J0702; J2540; J3475; J7121

== ENCOUNTER 2020-05-18 21:17 | Emergency (ER) | payer OTHER ==
[~2020-05-18] VITALS: Ht 157.5 cm; Wt 71.2 kg
[2020-05-18] MEDS ORDERED: FLUTICASONE PRO16 GM NAS (21:34)
[2020-05-18] MEDS ORDERED: SERTRALINE HCL100 MG PO (21:34)
[2020-05-18] MEDS ORDERED: CYCLOBENZAPRINE10 MG PO (22:35)
[2020-05-18] MEDS ORDERED: DICLOFENAC SODI75 MG PO (22:35)
== END 2020-05-18 22:57 | disposition home or self-care (01) ==
LOC: ED 21:17
DX: S29.012A Strain of muscle and tendon of back wall of thorax, initial encounter (principal); X58.XXXA Exposure to other specified factors, initial encounter; Z88.1 Allergy status to other antibiotic agents; Z88.5 Allergy status to narcotic agent
CPT/HCPCS: 71046; 99283-25

== ENCOUNTER 2021-10-21 07:01 | Day surgery (SDC) | payer OTHER ==
[~2021-10-21] VITALS: Ht 157.5 cm; Wt 76.0 kg
--- NOTE | ~2021-10-21 | OR ---
[facility] [address] [place], [place] [address] Draft DATE OF OPERATION: 10/21/2021 SURGEON: Sondra Cantu DO PREOPERATIVE DIAGNOSES: 1. Submucosal fibroid. 2. Intrauterine synechiae. POSTOPERATIVE DIAGNOSES: 1. Submucosal fibroid. 2. Intrauterine synechiae. 3. Elevated hysteroscopic fluid loss. 4. Severe pelvic and abdominal adhesions. 5. 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 PROCEDURES PERFORMED: 1. Hysteroscopic myomectomy. 2. Hysteroscopic lysis of intrauterine adhesions. 3. Diagnostic laparoscopy. CHEMICAL PROCESS EQUIPMENT OPERATOR: Kavya Ceballos DO. ANESTHESIA: General. ESTIMATED BLOOD LOSS: 100 cc. SPECIMENS: Endometrial curettings and submucosal fibroid. IMPLANTS: Intrauterine pediatric Alfredo catheter. FINDINGS: Normal external genitalia with normal clitoris, urethral meatus, bilateral [place]'s, and Bartholin glands. Severely anteverted uterus. On hysteroscopy, submucosal fibroid, low and anterior and approximately 50% of the uterine cavity from the mid uterus to the fundus on the right side involved with intrauterine adhesions. Normal anatomy restored PATIENT NAME: RAMOS SCHMIDT OPERATIVE REPORT DATE OF : [birth year] REPORT #: [id number] PHYSICIAN: SONDRA CANTU DO PCP: FELTON MENDOZA REPORT IS CONFIDENTIAL AND NOT TO BE RELEASED WITHOUT AUTHORIZATION [facility] [address] [place] [id number] Draft in the intrauterine cavity. Elevated rapid hysteroscopic fluid loss concerning for possible uterine perforation. On laparoscopy no perforation was noted and approximately 100 mL of peritoneal fluid and somewhat edematous tubes consistent with retrograde fluid loss. No evidence of intraabdominal bleeding or uterine perforation. Severe abdominal and pelvic adhesions to the anterior abdominal wall including the omentum and uterus. Deep infiltrating endometriosis of the peritoneum bilaterally and possibly of the anterior serosal surface of the rectum. COMPLICATIONS: Elevated hysteroscopic fluid loss. INDICATIONS: Ms. Schmidt is a very pleasant 35-year-old G1, P1, x1 female who presented to the office for annual exam. The patient with oligomenorrhea with Mirena IUD. However, ultrasound demonstrated malpositioned IUD. Hysteroscopy was performed in the office to remove malpositioned IUD and submucosal fibroids and Asherman syndrome was noted. The patient was consented for hysteroscopic myomectomy and revision of intrauterine adhesions. Risks, benefits, and alternatives were discussed in detail with the patient. The patient understands and wished to proceed with the procedure. PROCEDURE IN DETAIL: The patient was given doxycycline 200 mg p.o. approximately 1 hour preoperatively. The patient was taken to the operating room where a time-out was performed to confirm correct patient, correct procedure. General anesthesia was adequately established. The patient was prepped and draped in dorsal lithotomy position with feet in Yellofin stirrups. ICPs were on and running and no preoperative heparin was indicated. The bladder was drained. A weighted speculum was placed in vagina and the anterior lip of the cervix was grasped with Allis clamp. The cervix was gently dilated using Hegar dilators to #7 and operative hysteroscope was placed in the cervical os and advanced under direct visualization without complication into the uterine cavity. 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 MyoSure Reach device was selected and submucosal fibroid was resected completely without difficulty. Hysteroscopic ketty were then selected and used to excise the intrauterine scar. During this process, fluid deficit was noted to be approximately 1400 mL. A large amount of fluid was noted on the operative floor and it was not felt that there was a perforation. The procedure was continued and intrauterine adhesions were cut to restore normal uterine anatomy. At this point, fluid loss was noted to have increased rapidly to a total of 2300 mL. Fluid loss was not able to be attributed to fluid on the operative floor and concern for perforation was identified. The hysteroscope was withdrawn and some oozing from the cervical os was noted. Bimanual pressure was held and patient was given 1 g of tranexamic acid IV. The patient was quickly prepped and PATIENT NAME: RAMOS SCHMIDT OPERATIVE REPORT DATE OF : [birth year] REPORT #: [id number] PHYSICIAN: SONDRA CANTU DO PCP: FELTON MENDOZA REPORT IS CONFIDENTIAL AND NOT TO BE RELEASED WITHOUT AUTHORIZATION [facility] [address] [place] [id number] Draft draped for diagnostic laparoscopy. A weighted speculum was placed in the vagina and the anterior lip of the cervix was grasped with an Allis clamp. An intrauterine manipulator was placed and a Alfredo catheter was inserted. Attention was then turned to the abdomen. A 2 cm below the base of the umbilicus a curvilinear incision was made using a surgical scalpel after infiltration with 0.25% Marcaine. Incision was carried down to the fascia. Fascia was grasped, elevated, and entered sharply with Metzenbaum scissors and stay sutures of 0 Vicryl placed in the anterior and posterior edges of the fascial incision. The peritoneum was then entered bluntly and no gush of fluid was noted. An S retractor was placed. Port was placed without difficulty. Survey of the abdomen was performed that demonstrated no significant intraabdominal fluid or blood. Trendelenburg position was established and a 5 mm assist port was placed in the right lower quadrant under direct visualization without complication. Significant dense adhesions of the omentum and uterus to the anterior abdominal wall were noted. Careful evaluation of the uterus demonstrated no evidence of perforation on any surface and there was no intraabdominal bleeding noted. Bilateral ovaries were normal. Bilateral fallopian tubes were somewhat edematous consistent with retrograde fluid only approximately 100 mL of peritoneal fluid was noted. Deep infiltrating endometriosis was noted on the bilateral pelvic peritoneal surfaces, especially at the pelvic brim bilaterally. Possible deep infiltrating endometriosis was noted on the anterior serosal surface of the rectum. Decision was made to not proceed with excision of endometriosis or lysis of adhesions at this point. The pelvis was irrigated and again found to be hemostatic. Trocars were removed. Peritoneum was reduced and infraumbilical fascia was reapproximated using 0 Vicryl in a running nonlocked manner. Stay sutures were used to reinforce the incision. Skin was reapproximated using 4-0 Monocryl in a subcuticular stitch with excellent hemostasis and cosmesis. The intrauterine manipulator was removed and a pediatric Alfredo catheter was gently inserted to the fundus of the uterus and inflated with 4 mL of sterile saline. The end of the pediatric Alfredo catheter was then tucked in the patient's vagina. The adult bladder catheter was removed and the patient was taken to PACU in good and stable condition. Sponge, needle and instrument counts were correct x2 at the end of the procedure. DO LEVON Cool/SONJA /[id number] PATIENT NAME: POSTRAMOS MANCIA OPERATIVE REPORT DATE OF : [birth year] REPORT #: [id number] PHYSICIAN: SONDRA CANTU DO PCP: FELTON MENDOZA REPORT IS CONFIDENTIAL AND NOT TO BE RELEASED WITHOUT AUTHORIZATION [address] [place], [place] [address] Draft Copies: ~ PATIENT NAME: POST,RAMOS CEEA OPERATIVE REPORT DATE OF : [birth year] REPORT #: [id number] PHYSICIAN: SONDRA CANTU DO PCP: FELTON MENDOZA REPORT IS CONFIDENTIAL AND NOT TO BE RELEASED WITHOUT AUTHORIZATION
[~2021-10-21 07:01] MED LIST: BUPROPION HCL150 M2 PO; CYCLOBENZAPRINE10 MG PO; DICLOFENAC SODI75 MG PO; FLUOXETINE HCL60 MG PO; FLUTICASONE PRO16 GM NAS; SERTRALINE HCL100 MG PO
--- NOTE | 2021-10-21 09:00 | NUR ---
0800 PROVIDED PATIENT WITH UPDATE ON SURGERY ESTIMATED TIME. PLAN OF CARE TO ADMINISTER PO ANTIBIOTIC AT 0900 TO HELP PREVENT NAUSEA, AND BE ONE HOUR PRE-OP PER ORDER 08 ADMINISTERED ZOFRAN PER APR 857 ADMINISTERED PO ANTIBIOTIC. NO OTHER NEEDS AT THIS TIME. CALL LIGHT WITHIN REACH.
--- NOTE | 2021-10-21 11:53 | NUR ---
10/21/21 1153 Glenny Fuchs 1112 PT ARRIVED IN PACU NON RESPONSIVE TO NOXIOUS STIMULI WITH OPA IN PLACE. JAW THRUST BY RN. 1117 PT CROUPY SOUNDING. RACEMIC EPI NEB GIVEN. 1120 PT REACTIVE. OPA REMOVED. 1125 C/O URGE TO VOID. ON BEDPAN. UNABLE TO VOID. 1145 UP TO BSC. UNABLE TO VOID. BACK IN BED. 1150 BLADDER SCAN SHOWS 43ML. PT AWARE AND REPOSITIONED SELF TO L SIDE FOR COMFORT.
--- NOTE | 2021-10-21 13:10 | NUR ---
1235 PATIENT BACK ROOM FROM PACU. RUTH RN RECIEVED REPORT FROM YI JULIO, THEN RUTH PROVIDED REPORT TO THIS RN TO RESUME CARE. 1240 PROVIDED ICE WATER AND SNACK, PATIENT TOLERATED WELL. REPORTS PAIN 6/10 ON PAIN SCALE, ADMINISTERED PAIN MEDICATION PER MAR. 1245 PATIENT UP TO BATHROOM, STEADY ON FEET. APPEARS RELAXED WITH MOVEMENT, VOIDED 600 ML OF CLOUDY YELLOW URINE. REPORTED RELIEF OF SOME PAIN AFTER VOIDING. SCANT AMOUNT OF RED DRAINAGE ON TOILET PAPER. NO OTHER DRAINAGE NOTED ON WHITE CHUX PAD. PATIENT BACK TO BED, CALL LIGHT WITHIN REACH. NO OTHER NEEDS AT THIS TIME.
--- NOTE | 2021-10-21 14:14 | NUR ---
1340 PATIENT UP TO BATHROOM VOIDED 600 ML OF PINK TINGED CLEAR URINE. APPEARS STEADY ON FEET. PATIENT BACK TO BED, REPORTS PAIN 2/10 ON PAIN SCALE, TOLERABLE. 1350 PROVIDED MORE WATER. PATIENT REPORTS READY TO GO HOME. IS MEETING DISCHARGE INSTRUCTION. DRESSING TO LAP SITES ON ABDOMEN HAVE NO NEW DRAINAGE. SCANT AMOUNT OF BLOOD ON WHITE CHUX PAD. 1400 DR. WIN CALLED TO RETURN TO UNIT TO WRITE PERSCRIPTIONS. PATIENT DRESSING IN ROOM, GRANDMA AT BEDSIDE.
--- NOTE | 2021-10-21 14:45 | NUR ---
PROVIDED PATIENT WITH DISCHARGE INSTRUCTION. ANSWERED QUESTIONS AND CONCERNS. PATIENT DRESSED SELF. VOIDING WELL. RATES PAIN 2/10 ON PAIN SCALE. SCANT AMOUNT OF VAGINAL BLEEDING. LAP SITES TO ABDOMEN HAVE NO NEW DRAINAGE TO BANDAIDS. PROVIDED WHEELCHAIR RIDE OUT TO FRONT. GRANDMOTHER IN ROOM FOR DISCHARGE INSTRUCTION.
--- NOTE | 2021-10-23 19:50 | PATH ---
[facility] [address] [place], [place] [address] Signed SPECIMEN(S): A EMC AND FIBROID SPECIMEN SOURCE: A. EMC AND FIBROID CLINICAL HISTORY: Uterine leiomyoma, Asherman's syndrome. Hysteroscopic resection of uterine synechiae, myomectomy. FINAL PATHOLOGIC DIAGNOSIS: Uterus, endometrium and myometrium, curettage: - Minute portions of inactive endometrium. - Negative for hyperplasia, atypia, and malignancy. - Numerous portions of benign smooth muscle with swirling cellular arrangement; consistent with benign leiomyoma. - No atypia, necrosis, or malignancy identified. SDL:mfr:C2NR MICROSCOPIC EXAMINATION: Histologic sections of all submitted blocks are examined by light microscopy. These findings, together with the gross examination, support the pathologic diagnosis. GROSS DESCRIPTION: The specimen, labeled "RP, EMC and fibroid," is received in formalin and consists of irregular shaped, pink-barreto fibromembranous tissue fragments that aggregate measure 4.0 x 2.9 x 0.4 cm. Specimen is entirely submitted in cassettes (A1-A2). JS (under the direct supervision of a pathologist) The Gross Description was prepared using a voice recognition system. The report was reviewed for accuracy; however, sound-alike word errors, addition and/or deletions may occur. If there is any question about this report, please contact Client Services. PERFORMING LABORATORY: The technical component was performed by [facility], [address] [place] [id number] (CLIA# [id number]). Professional interpretation was performed by [facility], [address] [place] [id number] (CLIA#: [id number]). Diagnostician: Jayla Jay MD PATIENT NAME: RAMOS COATES PATHOLOGY DATE OF : [birth year] REPORT #: [id number] PHYSICIAN: KWADWO PATHOLOGY PCP: FELTON MENDOZA REPORT IS CONFIDENTIAL AND NOT TO BE RELEASED WITHOUT AUTHORIZATION [address] [address] Signed Pathologist Electronically Signed 10/23/2021 Copies: ~ PATIENT NAME: RAMOS COATES PATHOLOGY DATE OF : [birth year] REPORT #: [id number] PHYSICIAN: KWADWO PATHOLOGY PCP: FELTON MENDOZA REPORT IS CONFIDENTIAL AND NOT TO BE RELEASED WITHOUT AUTHORIZATION
== END 2021-10-21 14:45 | disposition home or self-care (01) ==
LOC: DS 07:01 → OPS 07:01 → DS 07:30 → OPS 07:30
PROVIDERS: ATTEND Obstetrics & Gynecology
PROC: 0UB98ZZ Excision of Uterus, Via Natural or Artificial Opening Endoscopic (ICD-10-PCS; principal; 2021-10-21 08:30)
PROC: 0UN98ZZ Release Uterus, Via Natural or Artificial Opening Endoscopic (ICD-10-PCS; 2021-10-21 08:30)
PROC: 0UJD4ZZ Inspection of Uterus and Cervix, Percutaneous Endoscopic Approach (ICD-10-PCS; 2021-10-21 08:30)
DX: D25.0 Submucous leiomyoma of uterus (principal); N80.3 Endometriosis of pelvic peritoneum; N80.5 Endometriosis of intestine; Z95.0 Presence of cardiac pacemaker; Z88.5 Allergy status to narcotic agent
CPT/HCPCS: 00952; 36415; 80048; A9270; J1100; J1885; J2250; J2405; J2704; J2765; J3010; J7121

== ENCOUNTER 2022-09-03 07:49 | Day surgery (SDC) | payer OTHER ==
[~2022-09-03] VITALS: Ht 157.5 cm; Wt 77.3 kg
--- NOTE | ~2022-09-03 | OR ---
[facility] [address] [place], [place] [address] Draft DATE OF OPERATION: 09/03/2022 SURGEON: Sondra Cantu DO PREOPERATIVE DIAGNOSIS: Incomplete miscarriage. POSTOPERATIVE DIAGNOSIS: Incomplete miscarriage. PROCEDURES PERFORMED: Suction, dilation and curettage. DESK TOP PUBLISHER: None. ANESTHESIA: MAC. ESTIMATED BLOOD LOSS: 50 mL. SPECIMEN: Products of conception. FINDINGS: Normal external genitalia with normal clitoris, urethral meatus, bilateral [place]'s, Bartholin's glands, perineum, and anus. Normal appearing cervix was closed with no vaginal bleeding. The cervix dilated easy easily and uterine contents were evacuated with suction curettage. The uterus was involuted and hemostatic at the end of procedure. COMPLICATIONS: None. INDICATIONS: Ms. Schmidt is a very pleasant 36-year-old female, who presented for routine OB visit at approximately 12 weeks with no heart tone auscultated by Doppler. Quant HCGs demonstrated decreasing quants and ultrasound was performed that demonstrated abnormal gestation, highly suggestive of nonviable . Quants continue to decrease and PATIENT NAME: RAMOS SCHMIDT OPERATIVE REPORT DATE OF : [birth year] REPORT #: [id number] PHYSICIAN: SONDRA CANTU) PCP: FELTON MENDOZA REPORT IS CONFIDENTIAL AND NOT TO BE RELEASED WITHOUT AUTHORIZATION [address] [address] Draft the patient had cramping and bleeding. After diagnosis of incomplete miscarriage, the patient elected medical management with Cytotec, however, she was not able to pass products of conception. The patient then requests definitive treatment with suction D and C. Risks, benefits, and alternatives were discussed in detail with the patient. The patient understands and wished to proceed with the procedure. TECHNIQUE: The patient was taken to the operating room where time-out was performed to confirm correct patient and correct procedure. MAC anesthesia was adequately established. The patient was prepped and draped in dorsal lithotomy position with feet in the Yellofin stirrups. ICPs were on and running. The patient received doxycycline 200 mg p.o. 1 hour preoperatively per SCIP protocol. Heparin was not indicated. A weighted speculum was placed in the vagina and the anterior lip of the cervix was grasped with Allis clamps. The cervix was gently dilated using Hegar dilators to #10. A #10 curved curette was selected and advanced gently to the fundus and suction obtained to the green zone. The curved curette was slowly withdrawn. Wall performing circumferential curettage and products of conception were noted in the suction tubing. Three passes in total were performed showing decreasing and then absent products of conception. Sharp curette was then selected and used to gently probed the uterine cavity. The demonstrated no suspected retained products of conception and palpated normal contour of the uterine cavity. One final pass of the suction curettage was performed. The uterus was involuted and hemostatic. The Allis clamp was removed and the patient was taken to the PACU in good and stable condition. Sponge, needle, and instrument count was correct x2 at the end of the procedure. DO LEVON Cool/SONJA /[id number] Copies: ~ PATIENT NAME: RAMOS SCHMIDT OPERATIVE REPORT DATE OF : 86 REPORT #: [id number] PHYSICIAN: SONDRA CANTU) PCP: FELTON MENDOZA REPORT IS CONFIDENTIAL AND NOT TO BE RELEASED WITHOUT AUTHORIZATION
[~2022-09-03 07:49] MED LIST changes: +PRENATAL MULTI1 EAC3 PO; +ZYRTEC10 MG PO
[2022-09-03 08:00] VITALS: BP 108/56
--- NOTE | 2022-09-03 10:38 | NUR ---
09/03/22 1038 Alannah Ku 1017 TO PACU, ALERT AND AWAKE. DENIES PAIN AT THIS TIME. RESP EVEN UNLABORED. 1025 STATES HAVING INCREASED CRAMPING TO PELVIC AREA, 08/08 1028 GIVE RX PER ORDERS. 1035 PT STATES CRAMPING DECREASED TO 05/08. DENIES FURTHER C/O AT THIS TIME. 1038 HOB ELEVATED, IRVIN SIPS OF WATER WELL.
[2022-09-03 11:07] VITALS: BP 112/72
--- NOTE | 2022-09-09 19:00 | EKG ---
[facility] [address] [facility] [place] [address] Signed AV dual-paced rhythm Abnormal ECG When compared with ECG of 14-OCT-2021 14:56, Vent. rate has decreased BY 3 BPM Confirmed by CRISTY CARTER MD ([id number]) on 09/09/2022 7:00:26 PM Electronically Signed By: CRISTY CARTER 09/09/221899 PATIENT NAME: RAMOS COATES Electrocardiogram DATE OF : 87 PHYSICIAN: CRISTY CARTER REPORT #: [id number] REPORT IS CONFIDENTIAL AND NOT TO BE RELEASED WITHOUT AUTHORIZATION
== END 2022-09-03 10:57 | disposition home or self-care (01) ==
LOC: DS 07:49
PROVIDERS: ATTEND Obstetrics & Gynecology
PROC: 10D17ZZ Extraction of Products of Conception, Retained, Via Natural or Artificial Opening (ICD-10-PCS; principal; 2022-09-03 11:00)
DX: O03.4 Incomplete spontaneous abortion without complication (principal); Z88.5 Allergy status to narcotic agent
CPT/HCPCS: 01965; 36415; 85025; 86850; 86900; 86901; 93005; 93010; J0131; J1885; J2001; J2250; J2405; J2704; J3010; J3490; J7121

== ENCOUNTER 2023-10-12 10:03 | Day surgery (SDC) | payer OTHER ==
[~2023-10-12] VITALS: Ht 157.5 cm; Wt 77.3 kg
[~2023-10-12 10:03] MED LIST changes: -BUPROPION HCL150 M2 PO; -CYCLOBENZAPRINE10 MG PO; -DICLOFENAC SODI75 MG PO; +DOXYCYCLINE HYCLATE 100 MG CAP PO SCH; -FLUOXETINE HCL60 MG PO; -FLUTICASONE PRO16 GM NAS; +IBLOOD GLUCOSE TEST STRIP 1 EA TEST VI PRN; +LACTATED RINGER'S 1,000 ML IV SCH; +LIDOCAINE HCL 1% 5 ML SDV INJ ONE; -PRENATAL MULTI1 EAC3 PO; -SERTRALINE HCL100 MG PO; -ZYRTEC10 MG PO; +ondansetron HCL 4 MG/2 ML VIAL IV SCH
[2023-10-12 11:12] LABS: HEMATOCRIT 35.4 % (35.0-50.0); HEMOGLOBIN 12.3 g/dL (12.0-18.0); MCH 29.9 (27-36); MCHC 34.8 g/dl (30-36); MCV 85.9 fl (81-99); RBC 4.12 M/ul (4.3-5.7); RDW 13.3 (10.5-15.0)
--- NOTE | 2023-10-12 12:35 | NUR ---
1215-PT LAYING IN BED READING A BOOK. UPDATED PT ON WAIT TIME. NO OTHER NEEDS AT THIS TIME. CALL LIGHT WITHIN REACH.
[2023-10-12] MEDS ORDERED: MIDAZOLAM HCL 2 MG/2 ML VIAL ONE (14:04)
[2023-10-12] MEDS ORDERED: KETAMINE in NS 50 MG/5 ML SYR ONE (14:04)
[2023-10-12] MEDS ORDERED: KETOROLAC TROMETHAMINE 30 MG/ML VIAL ONE (14:04)
[2023-10-12] MEDS ORDERED: propofoL 200 MG/20 ML VIAL ONE ×2 (14:04→14:08)
[2023-10-12] MEDS ORDERED: DEXAMETHASONE SOD PHOS 4 MG/ML VIAL ONE (14:04)
[2023-10-12] MEDS ORDERED: LIDOCAINE HCL 2% 5 ML SDV ONE ×2 (14:05→14:11)
[2023-10-12] MEDS ORDERED: ACETAMINOPHEN 1,000 MG/100 ML VIAL ONE (14:05)
[2023-10-12] MEDS ORDERED: ondansetron HCL 4 MG/2 ML VIAL IV PRN (14:30)
[2023-10-12] MEDS ORDERED: NALOXONE HCL 0.4 MG SYR IV PRN (14:30)
[2023-10-12] MEDS ORDERED: IBLOOD GLUCOSE TEST STRIP 1 EA TEST VI PRN (14:30)
[2023-10-12] MEDS ORDERED: fentaNYL citrate 50 MCG/ML SDV IV PRN (14:30)
[2023-10-12] MEDS ORDERED: ondansetron HCL 4 MG/2 ML VIAL ONE (14:32)
--- NOTE | 2023-10-12 15:03 | NUR ---
10/12/23 8775 Sorin Mathew 1451: PT ARRIVED TO PACU VIA STRETCHER. PT AWAKE ON ARRIVAL. PT ON RA. SATS 100% PT COMPLAINING OF PAIN 8/10 IN ABDOMEN. PT REPORTED IT WAS CRAMPY FEELING. PT HAS ROLAND PAD IN PLACE. PT HAS PACEMAKER.
[2023-10-12 15:30] VITALS: BP 118/71
--- NOTE | 2023-10-15 10:21 | OR ---
[facility] [address] [facility] [place], [place] [address] Signed DATE OF OPERATION: 10/12/2023 SURGEON: Sondra Cantu DO PREOPERATIVE DIAGNOSES: 1. Missed miscarriage. 2. Presence of pacemaker. 3. History of Asherman syndrome, status post lysis of intrauterine adhesions. POSTOPERATIVE DIAGNOSES: 1. Missed miscarriage. 2. Presence of pacemaker. 3. History of Asherman syndrome, status post lysis of intrauterine adhesions. 4. No evidence of residual Asherman. PROCEDURE PERFORMED: Suction, dilation, and curettage. ANESTHESIA: General. ESTIMATED BLOOD LOSS: 50 mL. COMPLICATIONS: None. SPECIMEN: Products of conception. FINDINGS: Normal external genitalia with normal clitoris, urethral meatus, bilateral Star's, Bartholin's glands. Normal vagina and cervix. Somewhat stenotic cervix, not being able to be dilated beyond #8 Hegar. Small amount of tissue removed and palpated, feels like normal uterine cavity. INDICATIONS: Mrs. Schmidt is a very pleasant 37-year-old female with early missed miscarriage demonstrated by inadequately rising quant hCGs, then decreased with small empty gestational sac that has persisted without pole. She is Rh positive. The patient Electronically Signed By: SONDRA CANTU DO (JD) 10/15/23 1021 PATIENT NAME: RAMOS SCHMIDT OPERATIVE REPORT DATE OF : [birth year] REPORT #: [id number] PHYSICIAN: SONDRA CANTU DO (JD) PCP: FELTON MENDOZA REPORT IS CONFIDENTIAL AND NOT TO BE RELEASED WITHOUT AUTHORIZATION [facility] [address] [place], [place] [address] Signed was consented for suction D and C. We reviewed the procedure in detail and included her history of Asherman syndrome, status post hysteroscopic lysis of intrauterine adhesions. All questions were answered. The patient desired to proceed as scheduled. DESCRIPTION OF PROCEDURE: The patient was taken to the OR. A time-out was performed to confirm correct patient and correct procedure. General anesthesia was adequately established. The patient was prepped and draped in the dorsal lithotomy position with feet in Yellofin stirrups. ICPs were on and running. The patient received doxycycline 200 mg p.o. approximately 1 hour preoperatively per SCIP protocol and no heparin was indicated. A Alfredo catheter was inserted. A weighted speculum was placed in vagina and the anterior lip of the cervix was grasped with an Allis clamp. The cervix was gently dilated using Hegar dilators. The cervix easily dilated to #8, but it was too stenotic to gently dilate beyond a #8. An eight curved curette was then selected and gently advanced to the fundus. Suction was obtained in the green zone and the curette was slowly withdrawn while performing circumferential curettage. Products of conception were seen in the suction tubing and bleeding was again scant. Several passes were then taken with the suctioning curette demonstrating less products of conception and blood. A sharp curette was selected and the uterine cavity was very gently probed evaluating for obvious structural issues concerning for Asherman syndrome. No intracavitary lesions were easily palpable with the curette. Bleeding was scant and the patient was taken to the PACU in good and stable condition after removal of the Alfredo catheter. Sponge, needle, and instrument counts correct x2 at the end of the procedure. Sondra Cantu DO JDONAVON/MODL /[id number] Copies: ~ Electronically Signed By: SONDRA CANTU DO (JD) 10/15/23 1021 PATIENT NAME: RAMOS SCHMIDT OPERATIVE REPORT DATE OF : [birth year] REPORT #: [id number] PHYSICIAN: SONDRA CANTU DO (JD) PCP: FELTON MENDOZA REPORT IS CONFIDENTIAL AND NOT TO BE RELEASED WITHOUT AUTHORIZATION
--- NOTE | 2023-10-18 13:41 | PATH ---
[facility] [address] [place], [place] [address] Signed SPECIMEN(S): A PRODUCTS OF CONCEPTION SPECIMEN SOURCE: A. PRODUCTS OF CONCEPTION CLINICAL HISTORY: Missed Ab. FINAL PATHOLOGIC DIAGNOSIS: Products of conception: - Products of conception identified BRP MICROSCOPIC EXAMINATION: Histologic sections of all submitted blocks are examined by light microscopy. These findings, together with the gross examination, support the pathologic diagnosis. GROSS DESCRIPTION: The specimen, labeled and designated "Post, products of conception," is received in formalin and consists of irregular shaped membranous and hemorrhagic tissue fragments that aggregate measure 4.0 x 3.7 x 0.7 cm. tissue is not grossly identified. Entirely submitted in (A1-A3). JS (under the direct supervision of a pathologist) The Gross Description was prepared using a voice recognition system. The report was reviewed for accuracy; however, sound-alike word errors, addition and/or deletions may occur. If there is any question about this report, please contact Client Services. ADDITIONAL NOTES: Immunohistochemical and/or in situ hybridization studies if performed in this case included appropriate positive controls that reacted as expected. This test was developed and its performance characteristics determined by [facility]. It has not been cleared or approved by the U.S. Food and Drug Administration. The FDA has determined that such clearance or approval is not necessary. This test is used for clinical purposes. It should not be regarded as investigational or for research. [facility] is certified under the Clinical Laboratory Improvement Amendments of 1988 (CLIA) as qualified to perform high complexity clinical PATIENT NAME: POST,RAMOS MANCIA PATHOLOGY DATE OF : [birth year] REPORT #: [id number] PHYSICIAN: KWADWO MENDOZA PCP: FELTON MENDOZA REPORT IS CONFIDENTIAL AND NOT TO BE RELEASED WITHOUT AUTHORIZATION [facility] [address] [facility] [place] [place] [address] Signed laboratory testing. PERFORMING LABORATORY: Technical component was performed by [facility], [address] [place] [address] (CLIA# [id number]). Professional interpretation was performed by [facility], [address] [place] [address] (CLIA#: [id number]). Diagnostician: Dung Nava MD Pathologist Electronically Signed 10/18/2023 Copies: ~ PATIENT NAME: RAMOS COATES PATHOLOGY DATE OF : [birth year] REPORT #: [id number] PHYSICIAN: KWADWO MENDOZA PCP: FELTON MENDOZA REPORT IS CONFIDENTIAL AND NOT TO BE RELEASED WITHOUT AUTHORIZATION
== END 2023-10-12 15:42 | disposition home or self-care (01) ==
LOC: DS 10:03
PROVIDERS: ATTEND Obstetrics & Gynecology
PROC: 10D17ZZ Extraction of Products of Conception, Retained, Via Natural or Artificial Opening (ICD-10-PCS; principal; 2023-10-12)
DX: O02.1 Missed abortion (principal); Z95.0 Presence of cardiac pacemaker; Z88.1 Allergy status to other antibiotic agents; Z88.5 Allergy status to narcotic agent
CPT/HCPCS: 01965; 36415; 85027; J0131; J1100; J1885; J2001; J2250; J2405; J2704; J3010; J3490; J7121